=== PATIENT | female | born 1990 | race Caucasian/White ===

== ENCOUNTER 2024-02-24 14:03 | Outpatient (OUT) | payer BC, MEDICAID, SELFPAY ==
--- NOTE | 2024-02-24 14:16 | US_ITS ---
[address] [address] Patient Name: SIDDHARTHA BENITO MRN: [id number] date: 1990 Sex: F Assigned Patient Location: US Current Patient Location: US Accession/Order Number: [id number] Exam Date: 02/24/2024 14:17 Report Date: 02/24/2024 14:55 At the request of: SOLEDAD PEGUERO Procedure: US OB transvaginal EXAMINATION: US OB transvaginal HISTORY: Missed Menses COMPARISON: No relevant comparison available. FINDINGS: Transvaginal images Cuenca intrauterine gestation Gestational sac: 3.5 cm, 8 weeks 5 days CRL: 3.9 cm, 10 weeks 1 day Yolk sac: 4.4 mm Heart rate: 173 beats minute Cervix: Closed, 3.6 cm The uterus is normal, anteverted The right ovary is not visualized Left ovary is normal Clinical age: 10 weeks 2 days Clinical BELLE: 09/19/2024 Ultrasound age: 10 weeks 1 day Ultrasound BELLE: 09/20/2024 US/US OB transvaginal IMPRESSION: Viable cuenca intrauterine gestation measuring 10 weeks 1 day Electronically authenticated by: RAISSA BLAKE Date: 02/24/2024 14:55
== END 2024-02-24 14:04 | disposition home or self-care (01) ==
PROVIDERS: Visit Provider Obstetrics & Gynecology
DX: Z34.91 Encounter for supervision of normal pregnancy, unspecified, first trimester (principal); Z3A.10 10 weeks gestation of pregnancy; N92.6 Irregular menstruation, unspecified
CPT/HCPCS: 76817

== ENCOUNTER 2024-03-15 11:33 | Outpatient (OUT) | payer BC, OTHER, SELFPAY ==
[2024-03-15 11:54] LABS: Basophils Absolute Auto 0.1 10^3/uL (0.0-0.1); Basophils Percent Auto 0.5 % (0.2-2.0); Eosinophils Absolute Auto 0.1 10^3/uL (0.0-0.7); Eosinophils Percent Auto 0.6 % (0.9-7.0); Hematocrit 38.4 % (36.0-48.0); Hemoglobin 13.4 g/dL (12.0-16.0); Immature Granulocytes Abs Auto 0.02 10^3/uL (0.00-0.03); Immature Granulocytes Pct Auto 0.2 % (0.0-0.5); Lymphocytes Absolute Auto 1.8 10^3/uL (1.2-3.8); Lymphocytes Percent Auto 16.1 % (20.5-60.0); Mean Corpuscular HGB Conc 34.9 g/dL (29.9-35.2); Mean Corpuscular Hemoglobin 31.2 pg (26.7-34.0); Mean Corpuscular Volume 89.5 fL (81.0-99.0); Mean Platelet Volume 9.1 fL (9.5-13.5); Monocytes Absolute Auto 0.5 10^3/uL (0.3-0.8); Monocytes Percent Auto 4.2 % (1.7-12.0); Neutrophils Absolute Auto 8.7 10^3/uL (1.4-6.5); Neutrophils Percent Auto 78.4 % (43.0-75.0); Platelet Count 291 10^3/uL (150-450); Red Blood Count 4.29 10^6/uL (4.20-5.40); Red Cell Distribution Width 12.7 % (11.0-15.0); White Blood Count 11.1 10^3/uL (4.0-11.0)
[2024-03-15 12:20] LABS: Estimated Average Glucose 108 mg/dL
[2024-03-15 12:31] LABS: Glycohemoglobin A1C 5.4 % (4.5-6.2)
[2024-03-15 12:51] LABS: Amphetamine Screen Urine POSITIVE (NEGATIVE); Barbiturates Screen Urine NEGATIVE (NEGATIVE); Benzodiazepines Screen Urine NEGATIVE (NEGATIVE); Buprenorphine Screen Urine POSITIVE (NEGATIVE); Cannabinoid Screen Urine NEGATIVE (NEGATIVE); Cocaine Screen Urine NEGATIVE (NEGATIVE); Methadone Screen Urine NEGATIVE (NEGATIVE); Methamphetamines Screen Urine NEGATIVE (NEGATIVE); Opiate Screen Urine NEGATIVE (NEGATIVE); Oxycodone Screen Urine NEGATIVE (NEGATIVE); Phencyclidine Screen Urine NEGATIVE (NEGATIVE); Tricyclic Antidepressant Urine NEGATIVE (NEGATIVE)
[2024-03-16 06:08] LABS: HBsAg Screen Negative (Negative); HCV Ab Non Reactive (Non Reactive)
[2024-03-16 07:09] LABS: HIV Ab/p24 Ag Screen Non Reactive (Non Reactive)
[2024-03-16 13:09] LABS: Rapid Plasma Reagin, Quant Non Reactive titer (NonRea<1:1)
[2024-03-20 13:07] LABS: Amphetamine Positive (.); Amphetamine Conf, MS, UR 1394 ng/mL (Cutoff=500); Amphetamines Positive (.); Buprenorphine Positive (.); Buprenorphine Conf, MS, UR 439 ng/mL (Cutoff=10); Methamphetamine Negative (Cutoff=500); Norbuprenorphine Positive (.); Norbuprenorphine Conf, MS,UR >2000 ng/mL (Cutoff=10)
== END 2024-03-15 11:34 | disposition home or self-care (01) ==
LOC: LAB 11:35
PROVIDERS: Visit Provider Obstetrics & Gynecology
DX: Z34.01 Encounter for supervision of normal first pregnancy, first trimester (principal); N92.6 Irregular menstruation, unspecified
CPT/HCPCS: 36415; 80299; 80307; 80326; 83036; 85025; 86592; 86762; 86803; 86850; 86900; 86901; 87086; 87340; 87389

== ENCOUNTER 2024-04-03 18:04 | Emergency (ER) | payer BC, OTHER, SELFPAY ==
[2024-04-03 18:13] VITALS: BP 96/70; PULSE 95; TEMP 36.7; O2SAT 98; BMI 20.6
[2024-04-03 18:52] LABS: Influenza Virus A Antigen Negative; Influenza Virus B Antigen Negative; Internal Control Within Normal Limits; Respiratory Syncytial Virus Not Detected (NOT DETECTE); SARS-CoV-2 Ag NEGATIVE (NEGATIVE)
--- NOTE | 2024-04-03 20:35 | ED.FEVER1 ---
HPI - Fever General Chief Complaint: Fever Stated Complaint: fever, 16 weeks Time Seen by Provider: 04/03/24 20:10 Source: patient Mode of arrival: walk-in Limitations: no limitations History of Present Illness HPI Narrative: Patient is a 33-year-old female who presents to the emergency department for fever, cough, congestion for the last 4 to 5 days. She is 16 weeks , she called her [facility]PER[facility] office and was told by the nurse that she needed to come to the emergency department to be checked out . She states her significant other and all of their children at home all have the same symptoms. She has had no vomiting or diarrhea. No concerns. She reports temperatures as high as 102.0 Fahrenheit. Related Data Home Medications ?Medication ?Instructions ?Recorded ?Confirmed buprenorphine 8 mg-naloxone 2 mg 1 tab sublingual DAILY 04/03/24 04/03/24 sublingual tablet omeprazole 20 mg capsule,delayed 20 mg PO DAILY 04/03/24 04/03/24 release vit no.95-ferrous 1 tab PO DAILY 04/03/24 04/03/24 fumarate 28 mg-folic acid 800 mcg tablet () Previous Rx's ?Medication ?Instructions ?Recorded cefdinir 300 mg capsule 300 mg PO BID 10 days #20 caps 04/03/24 ondansetron 4 mg disintegrating 4 mg PO Q6H PRN nausea and 04/03/24 tablet vomiting #12 tabs Allergies Allergy/AdvReac Type Severity Reaction Status Date / Time Penicillins AdvReac Mild Hives Verified 04/03/24 18:12 Review of Systems ROS Constitutional Reports: fever and chills Ears, nose, mouth, and throat Reports: nasal congestion; Denies: throat pain Cardiovascular Denies: chest pain Respiratory Reports: cough; Denies: shortness of breath Gastrointestinal Denies: nausea, vomiting or diarrhea Musculoskeletal Denies: back pain Integumentary/Breast Denies: rash Neurological Denies: numbness in extremities or weakness in extremities Hematologic/Lymphatic Denies: easy bruising or easy bleeding Exam Narrative Exam Narrative: Gen.: Awake, alert, in no distress Head: Normocephalic, atraumatic ENT: Moist mucous membranes, bilateral TMs are clear, no pharyngeal erythema with uvula midline and airway widely open and patent. Respiratory: No respiratory distress, lungs clear bilaterally Cardio: Regular rate and rhythm Extremities: Moves extremities equally Psych: Normal mood and affect Neuro: No focal neuro deficit Skin: Warm, dry, intact Constitutional Vital Signs, click to edit/add: Last Vital Signs Temp 98.1 F 04/03/24 18:13 Pulse 95 H 04/03/24 18:13 Resp 18 04/03/24 18:13 BP 96/70 04/03/24 18:13 Pulse Ox 98 04/03/24 18:13 O2 Del Method Room Air 04/03/24 18:13 Course Vital Signs Vital signs: Vital Signs Temperature 98.1 F 04/03/24 18:13 Pulse Rate 95 H 04/03/24 18:13 Respiratory Rate 18 04/03/24 18:13 Blood Pressure 96/70 04/03/24 18:13 Pulse Oximetry 98 04/03/24 18:13 Oxygen Delivery Method Room Air 04/03/24 18:13 Temperature 98.1 F 04/03/24 18:13 Pulse Rate 95 H 04/03/24 18:13 Respiratory Rate 18 04/03/24 18:13 Blood Pressure 96/70 04/03/24 18:13 Pulse Oximetry 98 04/03/24 18:13 Oxygen Delivery Method Room Air 04/03/24 18:13 MDM - Fever MDM Narrative Medical decision making narrative: Patient is negative for COVID and flu. Neg for RSV. She is hemodynamically stable, treated based on symptoms and with cefdinir for antibiotic coverage, however her symptoms and history suggest she has a virus. Cefdinir and Zofran given for home, follow-up with PCP and return to the ER if symptoms change or worsen. Continue Tylenol for fever as needed SUPERVISED APC VISIT, PHYSICIAN ATTESTATION: Based on the medical record the care appears appropriate. ? Medical Records Attestation: I reviewed the patient's medical records. Lab Data Attestation: I reviewed the patient's lab results. Labs: Lab Results 04/03/24 Range/Units 18:22 Influenza Type A Ag Negative Influenza Type B Ag Negative RSV Antigen Not detected (NOT DETECTE) SARS-CoV-2 Ag (CV2AG) Negative (NEGATIVE) Discharge Plan Discharge Chief Complaint: Fever Clinical Impression: Upper respiratory infection Patient Disposition: Home, Self-Care Time of Disposition Decision: 20:34 Condition: Good Prescriptions / Home Meds: New ondansetron 4 mg tablet,disintegrating 4 mg PO Q6H PRN (Reason: nausea and vomiting) Qty: 12 0RF cefdinir 300 mg capsule 300 mg PO BID 10 Days Qty: 20 0RF No Action buprenorphine-naloxone 8-2 mg tablet, sublingual 1 tab SUBLINGUAL DAILY PNV cmb#95-ferrous fumarate-FA [] 28 mg iron- 800 mcg tablet 1 tab PO DAILY omeprazole 20 mg capsule,delayed release(DR/EC) 20 mg PO DAILY Print Language: South Korean Instructions: Upper Respiratory Infection (ED) Referrals: Physician,Non-Staff, MD [Primary Care Provider] - 1 week Discharge Date/Time: 04/03/24 21:08
[2024-04-03] MEDS: CEFDINIR 300 MG CAPSULE PO (21:02)
== END 2024-04-03 21:08 | disposition home or self-care (01) ==
PROVIDERS: Physician Assistant; Emergency Provider Emergency Medicine
DX: O99.512 Diseases of the respiratory system complicating pregnancy, second trimester (principal); Z3A.16 16 weeks gestation of pregnancy; J06.9 Acute upper respiratory infection, unspecified
CPT/HCPCS: 87420; 87804; 87811; 99285

== ENCOUNTER 2024-04-11 12:07 | Outpatient (OUT) | payer BC, OTHER, SELFPAY ==
--- NOTE | 2024-04-11 12:11 | US_ITS ---
The [address] [address] Patient Name: SIDDHARTHA BENITO MRN: [id number] date: 1990 Sex: F Assigned Patient Location: Current Patient Location: LAB Accession/Order Number: [id number] Exam Date: 04/11/2024 15:39 Report Date: 04/11/2024 15:44 At the request of: SOLEDAD PEGUERO DO Procedure: US OB placenta CLINICAL DATA: patient with fever and abdominal pain. ULTRASOUND OB PLACENTA COMPARISON: 02/14/2024 There is a single live intrauterine gestation in transverse presentation. The amniotic fluid volume is subjectively normal. There is an anterior low lying placenta extending to approximately 2.6 cm from the internal cervical os. cardiac and somatic activity are present with heart rate of 144 bpm. measurements were not obtained however the gestational age is reported to be 17 weeks 0 days. US/US OB placenta IMPRESSION: LOW-LYING PLACENTA. ULTRASOUND OB CERVICAL LENGTH COMPARISON: 02/24/2024 The cervix was evaluated using a transvaginal probe. The cervix is closed and the estimated length is 5.9 cm. IMPRESSION: UNREMARKABLE APPEARANCE OF THE CERVIX. Impression dictated by: Lee Ann Perez M.D.04/11/2024 3:44 PM Dictation Location: [facility] Electronically authenticated by: [id number] Y Date: 04/11/2024 15:44
--- NOTE | 2024-04-11 12:11 | US_ITS ---
The [address] [address] Patient Name: SIDDHARTHA BENITO MRN: [id number] date: 1990 Sex: F Assigned Patient Location: Current Patient Location: LAB Accession/Order Number: [id number] Exam Date: 04/11/2024 15:39 Report Date: 04/11/2024 15:44 At the request of: SOLEDAD PEGUERO DO Procedure: US OB placenta CLINICAL DATA: patient with fever and abdominal pain. ULTRASOUND OB PLACENTA COMPARISON: 02/14/2024 There is a single live intrauterine gestation in transverse presentation. The amniotic fluid volume is subjectively normal. There is an anterior low lying placenta extending to approximately 2.6 cm from the internal cervical os. cardiac and somatic activity are present with heart rate of 144 bpm. measurements were not obtained however the gestational age is reported to be 17 weeks 0 days. US/US OB cervical length IMPRESSION: LOW-LYING PLACENTA. ULTRASOUND OB CERVICAL LENGTH COMPARISON: 02/24/2024 The cervix was evaluated using a transvaginal probe. The cervix is closed and the estimated length is 5.9 cm. IMPRESSION: UNREMARKABLE APPEARANCE OF THE CERVIX. Impression dictated by: Lee Ann Perez M.D.04/11/2024 3:44 PM Dictation [facility] Electron[facility] authenticated by: [id number] Y Date: 04/11/2024 15:44
== END 2024-04-11 12:08 | disposition home or self-care (01) ==
LOC: US 12:07
PROVIDERS: Visit Provider Obstetrics & Gynecology
DX: O26.899 Other specified pregnancy related conditions, unspecified trimester (principal); R10.9 Unspecified abdominal pain; Z01.419 Encounter for gynecological examination (general) (routine) without abnormal findings; Z36.1 Encounter for antenatal screening for raised alphafetoprotein level; O44.40 Low lying placenta NOS or without hemorrhage, unspecified trimester; Z3A.00 Weeks of gestation of pregnancy not specified
CPT/HCPCS: 36415; 76815; 76817; 82105; 88175

== ENCOUNTER 2024-04-11 14:34 | Outpatient (OUT) | payer BC, OTHER, SELFPAY ==
[2024-04-13 00:07] LABS: AFP Value 77.1 ng/mL (.); Insulin Dep Diabetes No (.); Maternal Age At EDD 32.4 yr (.); OSBR Risk 1 IN 1341 (.); Results Report (.)
== END 2024-04-11 14:35 | disposition home or self-care (01) ==
LOC: LAB 14:35
PROVIDERS: Visit Provider Physician Assistant
DX: Z36.1 Encounter for antenatal screening for raised alphafetoprotein level (principal); Z34.92 Encounter for supervision of normal pregnancy, unspecified, second trimester
CPT/HCPCS: 36415; 82105

== ENCOUNTER 2024-04-11 14:49 | Outpatient (OUT) | payer BC, OTHER, SELFPAY ==
[2024-04-11 15:08] LABS: BOX Test Reference Lab UNITY; BOX Test Sent Out UNITY
== END 2024-04-11 14:50 | disposition home or self-care (01) ==
PROVIDERS: Visit Provider Obstetrics & Gynecology
DX: Z34.80 Encounter for supervision of other normal pregnancy, unspecified trimester (principal)
CPT/HCPCS: 36415

== ENCOUNTER 2024-04-11 18:33 | Outpatient (REF) | payer BC, OTHER, SELFPAY | END 2024-04-11 18:34 | disposition home or self-care (01) | LOC: LAB 18:33 | PROVIDERS: Visit Provider Physician Assistant | DX: Z01.419 Encounter for gynecological examination (general) (routine) without abnormal findings (principal) | CPT/HCPCS: 36415; 82105; 87624; 88175 ==

== ENCOUNTER 2024-07-29 13:09 | Outpatient (OUT) | payer BC, OTHER, SELFPAY ==
--- NOTE | 2024-07-29 13:13 | US_ITS ---
The [place] [id number] Patient Name: SIDDHARTHA BENITO MRN: [facility]:[id number] date: 1990 Sex: F Assigned Patient Location: [facility] Current Patient Location: Accession/Order Number: [id number] Exam Date: 07/31/2024 07:58 Report Date: 07/31/2024 08:00 At the request of: SOLEDAD PEGUERO DO Procedure: US OB BPP w non-stress BIOPHYSICAL PROFILE: CLINICAL INFORMATION: SGA P05.10 COMPARISON: 02/24/2024 There is a single live intrauterine gestation in cephalic presentation. The reported gestational age is 32 weeks 4 days. The heart rate measures 145 beats per minute. FINDINGS: TONE: 1 or more episodes of activity extension and flexion of extremity or opening and closing of the hand [Y] 2/2 GROSS BODY MOVEMENTS: 3 or more discrete body or limb movements [Y] 2/2 BREATHING MOVEMENTS: 1 or more episodes of breathing lasting at least 30 seconds [Y] 2/2 KRIS: A single deepest vertical pocket of amniotic fluid greater than 2 cm [Y] 2/2 KRIS: 12.6 cm. This is in low-normal range. Total score: 8/8 US/ OB BPP w non-stress IMPRESSION: NORMAL BIOPHYSICAL PROFILE Impression dictated by: Lee Ann Perez M.D. 07/31/2024 8:00 AM Dictation Location: [place] [address] Electronically authenticated by: [id number] Y Date: 07/31/2024 08:00
[2024-07-29 13:36] VITALS: BP 111/56; PULSE 93
== END 2024-07-29 14:20 | disposition home or self-care (01) ==
LOC: US 13:09 → FBC 13:12
PROVIDERS: Visit Provider Obstetrics & Gynecology
DX: O36.5930 Maternal care for other known or suspected poor fetal growth, third trimester, not applicable or unspecified (principal)
CPT/HCPCS: 76818

== ENCOUNTER 2024-08-03 16:48 | Outpatient (OUT) | payer BC, OTHER, SELFPAY ==
--- NOTE | 2024-08-03 17:01 | US_ITS ---
[facility] [place] [address] Patient Name: SIDDHARTHA BENITO MRN: [facility]:[id number] date: 1990 Sex: F Assigned Patient Location: [facility] Current Patient Location: Accession/Order Number: [id number] Exam Date: 08/04/2024 08:21 Report Date: 08/04/2024 08:23 At the request of: SOLEDAD PEGUERO DO Procedure: US OB BPP w non-stress : CLINICAL INFORMATION: SGA P05.10 COMPARISON: 07/29/2024 There is a single live intrauterine gestation in cephalic presentation. The reported gestational age is 33 weeks 2 days. The heart rate measures 144 beats per minute. FINDINGS: TONE: 1 or more episodes of activity extension and flexion of extremity or opening and closing of the hand [Y] 2/2 GROSS BODY MOVEMENTS: 3 or more discrete body or limb movements [Y] 2/2 BREATHING MOVEMENTS: 1 or more episodes of breathing lasting at least 30 seconds [Y] 2/2 KRIS: A single deepest vertical pocket of amniotic fluid greater than 2 cm [Y] 2/2 KRIS: 12.2 cm. This is in low-normal range. Total score: 8/8 US/US OB BPP w non-stress IMPRESSION: NORMAL BIOPHYSICAL PROFILE Impression dictated by: Lee Ann Perez M.D. 08/04/2024 8:23 AM Dictation Location: [place] [address] Electronically authenticated by: [id number] Y Date: 08/04/2024 08:23
[2024-08-03 17:26] VITALS: BP 107/60; PULSE 86
== END 2024-08-03 18:13 | disposition home or self-care (01) ==
LOC: US 16:48 → FBC 16:51
PROVIDERS: Visit Provider Obstetrics & Gynecology
DX: O26.843 Uterine size-date discrepancy, third trimester (principal); Z3A.33 33 weeks gestation of pregnancy
CPT/HCPCS: 76818

== ENCOUNTER 2024-08-09 20:05 | Outpatient (OUT) | payer BC, OTHER, SELFPAY ==
--- OUTSIDE RECORDS SUMMARY | 2024-08-03 14:00 | XMS_ITS | Encounter Summary ---
Author Organization [facility] Address [address] [place] [address] Care Team Providers Care Purification Operator Name Role Phone Eh Valdez DO Unavailable Encounter Details Date Type Department Care Team (Latest Contact Info) Description 08/03/2024 2:00 PM EDT Ancillary Procedure [facility] [address] [place] [address] SGA (small for gestational age) ([facility]); Short cervix, antepartum ([facility]) Social History Tobacco Use Types Packs/Day Years Used Date Smoking Tobacco: Never Assessed Estimated Date of Delivery Comme nts Yes 09/19/2024 Based on last me nstrual period of 12/14/2023 Sex and Gender Information Value Date Recorded Sex Assigned at Female 08/05/2022 3:13 PM EDT Legal Sex Female 6:46 PM EDT Gender Identity Female 08/05/2022 3:13 PM EDT Sexual Orientation Straight 08/05/2022 3: 13 PM EDT documented as of this encounter Plan of Treatment Upcoming Encounters Date Type Department Care Team (Late st Contact Info) Description 08/22/2024 2:10 PM EDT Routine [facility] [address] [facility] [place] [address] Eh Valdez DO [address] [place], [place] [id number] Pending Results Name Type Priority Associated Diagnoses Date /Time US OB transvaginal Imaging Routine Short cervix, antepartum ([facility]) 08/03/2024 2:50 PM EDT documented as of this encounter Goals Goal Patient Goal Type Associated Problems Recent Progress Patient-Stated? Author Reminders Care Plan OB Reminders No Open Scheduling, Background documented as of this encounter Procedures Procedure Name Priority Date/Time Associated Diagnosis Comments US OB FOLLOW UP TRANSABDOMINAL APPROACH Routine 08/03/2024 2:50 PM EDT SGA (small for gestational age) ([facility]) documented in this encounter Results * US OB follow up transabdominal approach (08/03/2024 2:50 PM EDT) Anatomical Region Laterality Modality Body Ultrasound 08/06/2024 10:0 5 PM EDT Narrative 08/06/2024 10:05 PM EDT EXAM: US OB FOLLOW UP TRANSABDOMINAL APPROACH HISTORY: Small for gestational age, shortened cervix. COMPARISON: Ob ultrasound 07/25/2024. TECHNIQUE: Two-dimensional transabdominal grayscale ultrasound imaging of the pelvis was performed. FINDINGS: Gestation: Single Presentation: Cephalic Cardiac Activity: 144 beats per minute Cervical Length: 2.1 cm - Funneling was noted by performing bioinformatics research technician but not well demonstrated on the provided images. Amniotic Fluid Index: 13.8 cm MEASUREMENTS: BPD: 8.5 cm EGA: 34 weeks 4 days HC: 30.8 cm EGA: 34 weeks 3 days AC: 27.0 cm EGA: 31 weeks 0 days FL: 5.7 cm EGA: 29 weeks 6 days HC/AC Ratio: 1.14 The gestational age by today's ultrasound is 32 weeks 2 days (+/- 16 days gestation). Estimated Weight: 1721 grams, +/- 258 grams ( 3 lb 13 oz). Weight Percentile for gestational age: 4 % IMPRESSION: 1. Single, live intrauterine gestation 33 weeks, 2 days by LMP. Today's ultrasound measurements correlate with a gestational age of 32 weeks 2 days. Estimated weight is 1721 grams, +/- 258 grams ( 3 lb 13 oz) which correlates to 4 %. BELLE by today's ultrasound is 09/26/2024. 2. growth is measuring small for gestational age. 3. Shortened cervical length. Cervical funneling was noted by the performing bioinformatics research technician but not well demonstrated on the provided images. The ordering physician was notified. Interpreted by: Electronically signed by RISA AYALA II, MD, PHD at 06-Aug-2024 10:03:36 PM [facility] Procedure Note Risa Ayala MD - 08/06/2024 EXAM: US OB FOLLOW UP TRANSABDOMINAL APPROACH HISTORY: Small for gestational age, shortened cervix. COMPARISON: Ob ultrasound 07/25/2024. TECHNIQUE: Two-dimensional transabdominal grayscale ultrasound imaging ofthe pelvis was performed. FINDINGS: Gestation: Single Presentation: Cephalic Cardiac Activity: 144 beats per minute Cervical Length: 2.1 cm - Funneling was noted by performing technicianbut not well demonstrated on the provided images. Amniotic Fluid Index: 13.8 cm MEASUREMENTS: BPD: 8.5 cm EGA: 34 weeks 4 days HC: 30.8 cm EGA: 34 weeks 3 days AC: 27.0 cm EGA: 31 weeks 0 days FL: 5.7 cm EGA: 29 weeks 6 days HC/AC Ratio: 1.14 The gestational age by today's ultrasound is 32 weeks 2 days (+/- 16 daysgestation). Estimated Weight: 1721 grams, +/- 258 grams ( 3 lb 13 oz). Weight Percentile for gestational age: 4 % IMPRESSION: 1. Single, live intrauterine gestation 33 weeks, 2 days by LMP. Today'sultrasound measurements correlate with a gestational age of 32 weeks 2days. Estimated weight is 1721 grams, +/- 258 grams ( 3 lb 13 oz)which correlates to 4 %. BELLE by today's ultrasound is 09/26/2024. 2. growth is measuring small for gestational age. 3. Shortened cervical length. Cervical funneling was noted by theperforming bioinformatics research technician but not well demonstrated on the provided images.The ordering physician was notified. Interpreted by: Electronically signed by RISA AYALA II, MD, PHD [id number] 10:03:36 PM [facility] us Eh José Miguel DO IM OB US PROCEDURES Final Resul t documented in this encounter Visit Diagnoses Diagnosis SGA (small for gestational age) ([facility]) [id number] without mention of malnutrition, unspecified (weight) Short cervix, antepartum ([facility]) documented in this encounter Additional Health Concerns Active Problems Noted Date Diagnosed Date OB Reminders 03/25/2024 documented as of this encounter Care Teams Purification Operator Relationship Specialty Start Date End Date Eh aVldez DO [address] [place] [address] PCP - [facility] 11/09/23 documented as of this encounter
--- OUTSIDE RECORDS SUMMARY | 2024-08-03 14:50 | XMS_ITS | Encounter Summary ---
Author Organization [facility] Address [address] [place] [address] Care Team Providers Care Automatic Drilling Machine Operator Name Role Phone Eh Valdez DO Unavailable Reason for Visit * Reason Comments Routine Visit Encounter Details Date Type Department Care Team ([facility] st Contact Info) Description 08/03/2024 2:50 PM EDT Routine [facility] OB [address] [place] [address] Paola Bansal PA [address] [facility] [address] [place], [place] [id number] Third trimester ([facility]) (Primary Dx); 33 weeks gestation of ([facility]); Short cervix, antepartum ([facility]) Social History Tobacco Use Types Packs/Day Years [...] PM EDT documented as of this encounter Last Filed Vital Signs Vital Sign Reading Time Taken Comments Blood Pressure 104/60 08/03/2024 3:11 PM EDT Pulse - - Temperature - - Respiratory Rate - - Oxygen Saturation - - Inhaled Oxygen Concentration - - Weight 59.4 kg (131 lb) 08/03/2024 3:11 PM EDT Height - - Body Mass Index 22.49 09/21/2022 2:53 PM EDT documented in this encounter Progress Notes * DENIS Naranjo - 08/03/2024 2:50 PM EDT Reason for Appointment: Patient ID: Michelle Goode is a 34 y.o. female who presents for No chief complaint on file. Patient presents today for Return OB appointment. MEDICATIONS Current Outpatient Medications Medication Instructions buprenorphine (SUBTEX) 4 mg, Sublingual, Daily RT buprenorphine-naloxone (Suboxone) 4-1 MG per sublingual film DISSOLVE 1 FILM UNDER TONGUE ONCE A DAY cefdinir (OMNICEF) 300 mg, 2 times daily folic acid (FOLVITE) 1,000 mcg, Daily Lisdexamfetamine Dimesylate 40 MG chewable tablet CHEW ONE-HALF OF a tablet BY MOUTH TWICE DAILY (IN THE MORNING and IN THE AFTERNOON) Mkhynggc-Quh-OM ([facility]) 0.4 MG chewable tablet 1 tablet, Oral, Daily ALLERGIES Allergies Allergen Reactions Penicillins Hives, Fever, Itching, Rash, Swelling and Wheezing PROBLEMS Active Ambulatory Problems Diagnosis Date Noted GERD (gastroesophageal reflux disease) 08/09/2007 Exacerbation of asthma ([facility]) 08/09/2007 Attention deficit hyperactivity disorder 08/09/2007 Allergic rhinitis 08/09/2007 Substance abuse ([facility]) 09/15/2022 Resolved Ambulatory Problems Diagnosis Date Noted No Resolved Ambulatory Problems Past Medical History: Diagnosis Date Allergies Anxiety Asthma ([facility]) Bee sting Miscarriage ([facility]) Pelvic pain 2010 Syncope Thoracic sprain HISTORY PAST MEDICAL HISTORY SOCIAL HISTORY Past Medical History: Diagnosis Date Allergies Anxiety Asthma ([facility]) Bee sting right ring finger Miscarriage ([facility]) 8-9 weeks Pelvic pain 2011 Syncope Thoracic sprain Social History Tobacco Use Smoking status: Not on file Smokeless tobacco: Not on file Substance Use Topics Alcohol use: Not on file Drug use: Yes Frequency: 1.0 times per week Types: Other Comment: suboxone FAMILY HISTORY Family History Problem Relation Name Age of Onset Asthma Mother Allergies Mother No Known Problems Father No Known Problems Sister Asthma Brother SURGICAL HISTORY Past Surgical History: Procedure Laterality Date OTHER SURGICAL HISTORY 2009 VICODIN & FLEXERIL- VICODIN & FLEXERIL OTHER SURGICAL HISTORY 2012 VICODIN 5/500MG #10;Disease:THORACIC SPRAIN PELVIC LAPAROSCOPY REVIEW OF SYSTEMS Review of Systems: Review of Systems Constitutional: Negative. HENT: Negative. Eyes: Negative. Respiratory: Negative. Cardiovascular: Negative. Gastrointestinal: Negative. Genitourinary: Negative. Musculoskeletal: Negative. Skin: Negative. Neurological: Negative. All other systems reviewed and are negative. Hematological: Negative. Endocrine: Negative. Allergic/Immunologic: Negative. OBJECTIVE Objective: Physical Exam Constitutional: Appearance: Normal appearance. She is normal weight. HENT: Head: Normocephalic. Cardiovascular: Rate and Rhythm: Normal rate. Pulses: Normal pulses. Pulmonary: Effort: Pulmonary effort is normal. Breath sounds: Normal breath sounds. Abdominal: Palpations: Abdomen is soft. Musculoskeletal: General: Normal range of motion. Neurological: General: No focal deficit present. Mental Status: She is alert and oriented to person, place, and time. Psychiatric: Mood and Affect: Mood normal. Behavior: Behavior normal. Thought Content: Thought content normal. Judgment: Judgment normal. Vitals and nursing note reviewed. Vitals: Estimated body mass index is 21.89 kg/m² as calculated from the following: Height as of 09/21/22: 5' 4 . Weight as of 07/25/24: 127 lb 8 oz. BP: Patient's last menstrual period was 12/14/2023. ASSESSMENT & PLAN ICD-10-CM 1. Third trimester ([facility]) Z34.93 2. 33 weeks gestation of ([facility]) Z3A.33 Return OB: Patient presents today for a routine obstetrics appointment. Patient is currently 33w2d . Patient states she is doing well but has complaints of being tired due to current . Patient has verbalizes frequent movement. labor precautions was discussed/given and patient was instructed to perform kick counts three times a day. Repeat cervical length performed today showed decrease in size from 2.6 to 2.1. per discussion withDr Valdez, celestone will be sent for prior auth . Doppler studies will be added to NST weekly. Pt is scheduled for nst tomorrow 08/03/24. Discussion of returning to [facility] had been made previously and pt has not yet followed up with them. Patient has been educated on importance of following with [facility]. Risks of IUGR with shortened cervix discussed including labor and demise. Patient will continue with nst and bpp and doppler studies, follow up in office in 2 weeks. Orders Placed This Encounter Procedures US OB transvaginal Follow Up: Patient is to return to office in 2 week for routine OB appointment. Documented by DENIS Naranjo on behalf of: DENIS Naranjo documented in this encounter Plan of Treatment Upcoming Encounters Date Type Department Care Team (Late st Contact Info) Description 08/22/2024 2:10 PM EDT Routine [facility] B[facility] OB [address] [place] [address] Eh Valdez DO [address] [place] [address] Scheduled Orders Name Type Priority Associated Diagnoses Orde r Schedule US OB transvaginal Imaging Routine Short cervix, antepartum ([facility]) Expected: 08/03/2024, Expires: 11/03/2024 documented as of this encounter Goals Goal Patient Goal Type Associated Problems Recent Progress Patient-Stated? Author Reminders Care Plan OB Reminders No Open Scheduling, Background documented as of this encounter Visit Diagnoses Diagnosis Third trimester ([facility])- Primary state, incidental 33 weeks gestation of ([facility]) Short cervix, antepartum ([facility]) documented in this encounter Additional Health Concerns Active Problems Noted Date Diagnosed Date OB Reminders 03/25/2024 documented as of this encounter Care Teams Automatic Drilling Machine Operator Relationship Specialty Start Date [place] [address] PCP - [facility] 11/09/23 documented as of this encounter
--- OUTSIDE RECORDS SUMMARY | 2024-08-09 20:07 | XMS_ITS | Encounter Summary ---
Author Organization [facility] Address [address] [place] [address] Care Team Providers Care Special Weapons Unit Officer Name Role Phone Eh Valdez DO Unavailable Encounter Details Date Type Department Care Team (Late st Contact Info) Description 03/21/2024 Abstract [facility] OB [address] [place] [address] Eh Valdez DO [address] [place], [place] [address] Social History Tobacco Use Types Packs/Day Years [...] Description 08/22/2024 2:10 PM EDT Routine [facility] OB [address] [place] [address] Eh Valdez DO [address] [place], [facility] documented as of this encounter Visit Diagnoses Not on filedocumented in this encounter Care Teams Special Weapons Unit Officer Relationship Specialty Start Date End Date Eh Valdez DO [address] [place] [address] PCP - [facility] 11/09/23 documented as of this encounter
--- OUTSIDE RECORDS SUMMARY | 2024-08-09 20:07 | XMS_ITS | Encounter Summary ---
Author Organization [facility] Address [address] [place] [address] Care Team Providers Care Supermarket Manager Name Role Phone Eh Valdez DO Unavailable Encounter Details Date Type Department Care Team (Late st Contact Info) Description 07/27/2024 Telephone [facility] B[facility] OB [address] [place] [address] Zeinab Ramirez LPN [address] [place] [address] Social History Tobacco Use Types Packs/Day Years [...] PM EDT documented as of this encounter Miscellaneous Notes * Telephone Encounter - Zeinab Ramirez LPN - 07/27/2024 10:40 AM EDT Called pt and went over her US that she had done. I advised her that we will repeat her US in two weeks, that she needed to refrain from intercourse or any stimulation down there and that if it dropsany lower that she will have to get the Celestone injection as a precautionary measure. Pt did not asnwer. Detailed voicemail left for pt to call office back. Pt called back and we went over results and what the plan of care is. PVU documented in this encounter Plan of Treatment Upcoming Encounters Date Type Department Care Team (Late st Contact Info) Description 08/22/2024 2:10 PM EDT Routine [facility] B[facility] OB [address] [place] [address] Eh Valdez DO [address] [place] [address] Scheduled Orders Name Type Priority Associated Diagnoses Orde r Schedule US OB transvaginal Imaging Routine Short cervix, antepartum ([facility]) Expected: 07/27/2024, Expires: 10/27/2024 documented as of this encounter Goals Goal Patient Goal Type Associated Problems Recent Progress Patient-Stated? Author Reminders Care Plan OB Reminders No Open Scheduling, Background documented as of this encounter Visit Diagnoses Diagnosis Short cervix, antepartum ([facility]) documented in this encounter Additional Health Concerns Active Problems Noted Date Diagnosed Date OB Reminders 03/25/2024 documented as of this encounter Care Teams Supermarket Manager Relationship Specialty Start Date End Date Eh Valdez DO [facility] [place] [address] PCP - [facility] 11/09/23 documented as of this encounter
--- OUTSIDE RECORDS SUMMARY | 2024-08-09 20:07 | XMS_ITS | Encounter Summary ---
Author Organization [facility] Address [address] [place] [address] Care Team Providers Care Camp Guard Name Role Phone Eh Valdez DO Unavailable Encounter Details Date Type Department Care Team (Late st Contact Info) Description 07/27/2024 Results Follow-Up [facility] OB [address] [address] Zeinab Ramirez LPN [address] [place] [address] Social History Tobacco Use Types [...] as of this encounter Miscellaneous Notes * Result Encounter Note - Zeinab Ramirez LPN - 07/27/2024 2:33 PM EDT Pt notified and was transferred upfront to schedule * Result Encounter Note - Zeinab Ramirez LPN - 07/27/2024 10:44 AM EDT Attempted to call pt but she did not answer. Left detailed voicemail for pt to call office back documented in this encounter Plan of Treatment Upcoming Encounters Date Type Department Care Team (Late st Contact Info) Description 08/22/2024 2:10 PM EDT Routine [facility] OB [address] [place] [address] Eh Valdez, [address] [place] [address] documented as of this encounter Goals Goal Patient Goal Type Associated Problems Recent Progress Patient-Stated? Author Reminders Care Plan OB Reminders No Open Scheduling, Background documented as of this encounter Visit Diagnoses Not on filedocumented in this encounter Additional Health Concerns Active Problems Noted Date Diagnosed Date OB Reminders 03/25/2024 documented as of this encounter Care Teams Camp Guard Relationship Specialty Start Date End Date Eh Valdez DO [facility] [place] [address] PCP - [facility] 11/09/23 documented as of this encounter
--- OUTSIDE RECORDS SUMMARY | 2024-08-09 20:07 | XMS_ITS | Encounter Summary ---
Author Organization [facility] Address [address] [place] [address] Care Team Providers Care Environmental Laboratory Technician Name Role Phone Eh Valdez DO Unavailable Encounter Details Date Type Department Care Team (Late st Contact Info) Description 05/04/2024 Abstract [facility] OB [address] [place] [address] Eh Valdez DO [address] [place], [facility] Social History Tobacco Use Types Packs/Day Years [...] Description 08/22/2024 2:10 PM EDT Routine [facility] OB [address] [place] [address] Eh Valdez DO [address] [place], [facility] documented as of this encounter Goals Goal Patient Goal Type Associated Problems Recent Progress Patient-Stated? Author Reminders Care Plan OB Reminders No Open Scheduling, Background documented as of this encounter Visit Diagnoses Not on filedocumented in this encounter Additional Health Concerns Active Problems Noted Date Diagnosed Date OB Reminders 03/25/2024 documented as of this encounter Care Teams Environmental Laboratory Technician Relationship Specialty Start Date End Date Eh Valdez DO [address] [place] [address] PCP - [facility] 11/09/23 documented as of this encounter
--- OUTSIDE RECORDS SUMMARY | 2024-08-09 20:07 | XMS_ITS | Encounter Summary ---
Author Organization [facility] Address [address] [place] [address] Care Team Providers Care Telephone Diaphragm Assembler Name Role Phone Eh Valdez DO Unavailable Encounter Details Date Type Department Care Team (Late Contact Info) Description 04/24/2024 Orders Only [facility] BCP OB [address] [place] [address] Ilda Beaver MA [address] [place] [address] [place] [address] Social History Tobacco Use Types Packs/Day Years [...] PM EDT Routine [facility] B[facility] OB [address] [place] [address] Eh Valdez DO [address] [facility] [address] [place], [place] [id number] documented as of this encounter Goals Goal Patient Goal Type Associated Problems Recent Progress Patient-Stated? Author Reminders Care Plan OB Reminders No Open Scheduling, Background documented as of this encounter Procedures Procedure Name Priority Date/Time Associated Diagnosis Comments PAP SMEAR Routine 04/11/2024 12:00 AM EST documented in this encounter Results * Pap Smear (04/11/2024 12:00 AM EST) Swab Cervical swab / Unknown us [facility] ORDERABLES Final Re sult EXTERNAL LAB documented in this encounter Visit Diagnoses Not on filedocumented in this encounter Additional Health Concerns Active Problems Noted Date Diagnosed Date OB Reminders 03/25/2024 documented as of this encounter Care Teams Telephone Diaphragm Assembler Relationship Specialty Start Date End Date Eh Valdez DO [address] [place], [place] [address] [address] PCP - [facility] 11/09/23 documented as of this encounter
--- OUTSIDE RECORDS SUMMARY | 2024-08-09 20:07 | XMS_ITS | Encounter Summary ---
Author Organization [facility] Address [address] [place] [address] Care Team Providers Care Scale Installer Name Role Phone Soledad Valdez DO Unavailable Encounter Details Date Type Department Care Team (Late Contact Info) Description 02/24/2024 Clinisync Result Encounter [facility] External Department Unsolicited Soledad Valdez, DO [address], [facility] Social [...] Routine [facility] BCP OB [address] [place] [phone] Soledad Valdez DO [address] [place] [address] documented as of this encounter Procedures Procedure Name Priority Date/Time Associated Diagnosis Comments US OB TRANSVAGINAL 02/24/2024 2: 55 PM EST documented in this encounter Results * US OB TRANSVAGINAL (02/24/2024 2:55 PM EST) Anatomical Region Laterality Modality Other 02/24/2024 2:55 PM EST Narrative 02/24/2024 2:57 [place] [address] Ultrasound Report Signed Patient: MICHELLE GOODE MR#: [id number] : 1990 Acct:[id number] Age/Sex: 33 / F ADM Date: 02/24/24 Loc: US Attending Dr: Soledad Valdez D.O. Ordering Physician: Soledda Valdez D.O. Date of Service: 02/24/24 Procedure(s): US OB transvaginal Accession Number(s): [id number] cc: Soledad Valdez D.O.; Physician,Non-Staff M.DYumiko The [place] [id number] Patient Name: MICHELLE GOODE MRN: [id number] date: 1990 Sex: F Assigned Patient Location: US Current Patient Location: US Accession/Order Number: [id number] Exam Date: 02/24/2024 14:17 Report Date: 02/24/2024 14:55 At the request of: SOLEDAD VALDEZ Procedure: US OB transvaginal EXAMINATION: US OB transvaginal HISTORY: Missed Menses COMPARISON: No relevant comparison available. FINDINGS: Transvaginal images Cuenca intrauterine gestation Gestational sac: 3.5 cm, 8 weeks 5 days CRL: 3.9 cm, 10 weeks 1 day Yolk sac: 4.4 mm Heart rate: 173 beats minute Cervix: Closed, 3.6 cm The uterus is normal, anteverted The right ovary is not visualized Left ovary is normal Clinical age: 10 weeks 2 days Clinical BELLE: 09/19/2024 Ultrasound age: 10 weeks 1 day Ultrasound BELLE: 09/20/2024 US/US OB transvaginal IMPRESSION: Viable cuenca intrauterine gestation measuring 10 weeks 1 day Electronically authenticated by: RAISSA BLAKE Date: 02/24/2024 14:55 Dictated By: Raissa Blake M.D. Signed By: 02/24/24 1457 DD/ 54 TD/TT: Train Operator: Procedure Note Radiology, Radiologist, - 02/24/2024 [place] [address] Ultrasound Report Signed Patient: MICHELLE GOODE MMR#: [id number] : 1990Acct:[id number] Age/Sex: 33 / FADM Date: 02/24/24 Loc: US Attending Dr: Soledad Valdez D.O. Ordering Physician: Soledad Valdez D.O. Date of Service: 02/24/24 Procedure(s): US OB transvaginal Accession Number(s): [id number] cc: Soledad Valdez D.O.; Physician,Non-Staff Kofi The [place] [address] Patient Name: MICHELLE GOODE MRN: [id number] date: 1990 Sex: F Assigned Patient Location: US Current Patient Location: US Accession/Order Number: [id number] Exam Date: 02/24/2024 14:17 Report Date: 02/24/2024 14:55 At the request of: SOLEDAD VALDEZ Procedure: US OB transvaginal EXAMINATION: US OB transvaginal HISTORY: Missed Menses COMPARISON: No relevant comparison available. FINDINGS: Transvaginal images Cuenca intrauterine gestation Gestational sac: 3.5 cm, 8 weeks 5 days CRL: 3.9 cm, 10 weeks 1 day Yolk sac: 4.4 mm Heart rate: 173 beats minute Cervix: Closed, 3.6 cm The uterus is normal, anteverted The right ovary is not visualized Left ovary is normal Clinical age: 10 weeks 2 days Clinical BELLE: 09/19/2024 Ultrasound age: 10 weeks 1 day Ultrasound BELLE: 09/20/2024 US/US OB transvaginal IMPRESSION: Viable cuenca intrauterine gestation measuring 10 weeks 1 day Electronically authenticated by: RAISSA BLAKE Date: 02/24/2024 14:55 Dictated By: Raissa Blake M.D. Signed By:02/24/24 1457 DD/ 1455 TD/TT: Train Operator: Soledad Valdez DO [facility] Final Result documented in this encounter Visit Diagnoses Not on filedocumented in this encounter Care Teams Scale Installer Relationship Specialty Start Date End Date Soledad Valdez DO [address] [place] [address] [place] [address] PCP - [facility] 11/09/23 documented as of this encounter
--- OUTSIDE RECORDS SUMMARY | 2024-08-09 20:07 | XMS_ITS | Encounter Summary ---
Author Organization [facility] Address [address] [place] [address] Care Team Providers Care Social Studies Teacher Name Role Phone Soledad Valdez DO Unavailable Encounter Details Date Type Department Care Team (Late Contact Info) Description 07/31/2024 Clinisync Result Encounter [facility] External Department Unsolicited Soledad Valdez, DO [address], [facility] Social History Tobacco Use Types Packs/Day Years [...] Routine [facility] BCP OB [address] [place] [phone] Soledad Valdez, [address] [place] [address] documented as of this encounter Goals Goal Patient Goal Type Associated Problems Recent Progress Patient-Stated? Author Reminders Care Plan OB Reminders No Open Scheduling, Background documented as of this encounter Procedures Procedure Name Priority Date/Time Associated Diagnosis Comments US OB BPP W NON-STRESS 07/31/2024 8:00 AM EDT documented in this encounter Results * US OB BPP W NON-STRESS (07/31/2024 8:00 AM EDT) Anatomical Region Laterality Modality Other 07/31/2024 8:00 AM EDT Narrative 07/31/2024 8:02 [place] [address] Ultrasound Report Signed Patient: MICHELLE GOODE MR#: [id number] : 1990 Acct:[id number] Age/Sex: 34 / F ADM Date: 07/29/24 Loc: US Attending Dr: Soledad Valdez D.O. Ordering Physician: Soledad Valdez D.O. Date of Service: 07/29/24 Procedure(s): US OB BPP w non-stress Accession Number(s): [id number] cc: Soledad Valdez D.O.; Physician,Non-Staff M.Yariel The [address] [address] Patient Name: MICHELLE GOODE MRN: [id number] date: 1990 Sex: F Assigned Patient Location: [facility] Current Patient Location: Accession/Order Number: [id number] Exam Date: 07/31/2024 07:58 Report Date: 07/31/2024 08:00 At the request of: SOLEDAD VALDEZ DO Procedure: US OB BPP w non-stress BIOPHYSICAL PROFILE: CLINICAL INFORMATION: SGA P05.10 COMPARISON: 02/24/2024 There is a single live intrauterine gestation in cephalic presentation. The reported gestational age is 32 weeks 4 days. The heart rate measures 145 beats per minute. FINDINGS: TONE: 1 or more episodes of activity extension and flexion of extremity or opening and closing of the hand [Y] 2/2 GROSS BODY MOVEMENTS: 3 or more discrete body or limb movements [Y] 2/2 BREATHING MOVEMENTS: 1 or more episodes of breathing lasting at least 30 seconds [Y] 2/2 KRIS: A single deepest vertical pocket of amniotic fluid greater than 2 cm [Y] 2/2 KRIS: 12.6 cm. This is in low-normal range. Total score: 8/8 US/US OB BPP w non-stress IMPRESSION: NORMAL BIOPHYSICAL PROFILE Impression dictated by: Lee Ann Perez M.D. 07/31/2024 8:00 AM Dictation Location: [place] [address] Electronically authenticated by: [id number] Y Date: 07/31/2024 08:00 Dictated By: Lee Ann Perez M.D. Signed By: 07/31/24801 DD/ 9 TD/TT: Mental Tester: Procedure Note Radiology, Radiologist, - 07/31/2024 [place] [address] Ultrasound Report Signed Patient: MICHELLE GOODE MMR#: [id number] : 1990Acct:[id number] Age/Sex: 34 / FADM Date: 07/29/24 Loc: US Attending Dr: Soledad Valdez D.O. Ordering Physician: Soledad Valdez D.O. Date of Service: 07/29/24 Procedure(s): US OB BPP w non-stress Accession Number(s): [id number] cc: Soledad Valdez D.O.; Physician,Non-Staff Kofi The [place] [id number] Patient Name: MICHELLE GOODE MRN: [id number] date: 1990 Sex: F Assigned Patient Location: [facility] Current Patient Location: Accession/Order Number: [id number] Exam Date: 07/31/2024 07:58 Report Date: 07/31/2024 08:00 At the request of: SOLEDAD VALDEZ DO Procedure: US OB BPP w non-stress BIOPHYSICAL PROFILE: CLINICAL INFORMATION: SGA P05.10 COMPARISON: 02/24/2024 There is a single live intrauterine gestation in cephalic presentation.The reported gestational age is 32 weeks 4 days. The heart ratemeasures 145 beats per minute. FINDINGS: TONE: 1 or more episodes of activity extension and flexion of extremity or opening and closing of the hand [Y] 2/2 GROSS BODY MOVEMENTS: 3 or more discrete body or limb movements [Y] 2/2 BREATHING MOVEMENTS: 1 or more episodes of breathing lastingat least 30 seconds [Y] 2/2 KRIS: A single deepest vertical pocket of amniotic fluid greater than 2 cm [Y] 2/2 KRIS: 12.6 cm. This is in low-normal range. Total score: 09/15 US/US OB BPP w non-stress IMPRESSION: NORMAL BIOPHYSICAL PROFILE Impression dictated by: Lee Ann Perez M.D. 07/31/2024 8:00 AM Dictation Location: [place] [address] Electronically authenticated by: [id number] Y Date: 508:00 Dictated By: Lee Ann Perez M.D. Signed By:07/31/24 0802 DD/ 0800 TD/TT: Mental Tester: us Soledad Valdez DO [facility] Final Result documented in this encounter Visit Diagnoses Not on filedocumented in this encounter Additional Health Concerns Active Problems Noted Date Diagnosed Date OB Reminders 03/25/2024 documented as of this encounter Care Teams Social Studies Teacher Relationship Specialty Start Date End Date Soledad Valdez DO [address] [place] [address] [place] [address] PCP - [facility] 11/09/23 documented as of this encounter
--- OUTSIDE RECORDS SUMMARY | 2024-08-09 20:07 | XMS_ITS | Clinical Summary ---
Author Organization [facility] Address [address] [place] [address] Care Team Providers Care Unit Clerk Name Role Phone Soledad Valdez DO Unavailable Allergies Active Allergy Reactions Criticality Noted Date Comments Penicillins Hives,Fever,Itching, Rash,Swelling,Whee zing Low 08/05/2022 Medications buprenorphine (Subtex) [address] 4 mg under the tongue in the morning. Active buprenorphine-na loxone (Suboxone) 4-1 MG per sublingual film DISSOLVE 1 FILM UNDER TONGUE ONCE A DAY 3 Active folic acid (Folvite) 1 MG tablet Take 1,000 mcg by mouth Daily 4 Active cefdinir (Omnicef) 300 MG capsule Take 300 mg by mouth in the morning and 300 mg before bedtime. 5 Active Lisdexamfetamine Dimesylate 40 MG chewable tablet CHEW ONE-HALF OF a tablet BY MOUTH TWICE DAILY (IN THE MORNING and IN THE AFTERNOON) 5 Active Khoxxdrc-Yho-CY ([facility] Gummy) 0.4 MG chewable tabletIndication s:Second trimester ([facility]) Chew 1 tablet Daily 30 tablet 11 5 04/22/19 26 Active nitrofurantoin, macrocrystal-mon ohydrate, (Macrobid) 100 MG capsuleIndicatio ns:Urinary tract infection without hematuria, site unspecified Take 1 capsule (100 mg) by mouth in the morning and 1 capsule (100 mg) before bedtime. Do all this for 7 days. 14 capsule 07/15/19 25 Active Problems Problem Noted Date Diagnosed Date Substance abuse 09/15/2022 GERD (gastroesophageal reflux disease) 8 Exacerbation of asthma 08/09/2007 Attention deficit hyperactivity disorder 008 Allergic rhinitis 08/09/2007 Estimated Date of Delivery Comme nts Yes 09/19/2024 Based on last me nstrual period of 12/14/2023 Encounters Date Type Department Care Team Description 08/07/2024 Telephone [facility] [address] [place] [address] Paola Bansal PA 08/04/2024 Clinisync Result Encounter [facility] External Department Unsolicited Soledad Valdez, 08/03/2024 2:50 PM EDT Routine [facility] [place] [address] [place] [address] Paola Bansal PA Third trimester ([facility]) (Primary Dx); 33 weeks gestation of ([facility]); Short cervix, antepartum ([facility]) 08/03/2024 2:00 PM EDT Ancillary Procedure [facility] [place] [address] [place] [address] SGA (small for gestational age) ([facility]); Short cervix, antepartum ([facility]) 07/31/2024 Clinisync Result Encounter [facility] External Department Unsolicited Soledad Valdez, 07/27/2024 Results Follow-Up [facility] [place] [address] [place] [address] Zeinab Ramirez LPN 07/27/2024 Telephone [facility] [place] [address] [place] [address] Zeinab Ramirez LPN 07/25/2024 11:30 AM EDT Ancillary Procedure [facility] [place] [address] 07/25/2024 10:40 AM EDT Routine [facility] [place] [address] [place] [address] Soledad Valdez, DO 32 weeks gestation of ([facility]); Third trimester ([facility]); SGA (small for gestational age) ([facility]); Short cervix, antepartum ([facility]) 07/25/2024 Bamboo flowsheet [facility] [address] [place] [address] Soledad Valdez DO 07/11/2024 2:30 PM EDT Ancillary Procedure [facility] [address] [place] [address] Short cervix, antepartum ([facility]); size inconsistent with dates ([facility]) 07/11/2024 Orders Only [facility] [address] [place] [phone] Lucille Hahn 07/10/2024 10:20 AM EDT Routine [facility] [address] [place] [address] Paola Bansal PA Third trimester ([facility]); 29 weeks gestation of ([facility]); with normal glucose tolerance test (GTT) ([facility]); size inconsistent with dates ([facility]); Short cervix, antepartum ([facility]) 07/10/2024 Bamboo flowsheet [facility] [address] [place] [address] Paola Bansal PA 07/07/[address] [facility] [address] [place] [address] Ilda Beaver MA from Last 3 Months Family History Medical History Relation Name Comments Asthma Brother No Known Problems Father Allergies Mother Asthma Mother No Known Problems Sister Relation Name Status Comments Brother Alive Father Alive Mother Alive Sister Alive Social History Tobacco Use Types Packs/Day Years Used Date Smoking Tobacco: Never Assessed Tobacco Cessation:Counseling Given: Not Answered Estimated Date of Delivery Comme nts Yes 09/19/2024 Based on last me nstrual period of 12/14/2023 Sex and Gender Information Value Date Recorded Sex Assigned at Female 08/05/2022 3:13 PM EDT Legal Sex Female 6:46 PM EDT Gender Identity Female 08/05/2022 3:13 PM EDT Sexual Orientation Straight 08/05/2022 3: 13 PM EDT Last Filed Vital Signs Vital Sign Reading Time Taken Comments Blood Pressure 104/60 08/03/2024 3:11 PM EDT Pulse - - Temperature - - Respiratory Rate - - Oxygen Saturation - - Inhaled Oxygen Concentration - - Weight 59.4 kg (131 lb) 08/03/2024 3:11 PM EDT Height 162.6 cm (5' 4 ) 09/21/2022 2:53 PM EDT Body Mass Index 22.49 09/21/2022 2:53 PM EDT Plan of Treatment Upcoming Encounters Date Type Department Care Team (Late st Contact Info) Description 08/22/2024 2:10 PM EDT Routine [facility] BCP OB [address] [facility] [place] [address] Soledad Valdez, DO [address] [facility] [place] [address] Health Maintenance Due Date Last Done Comments Influenza Vaccine (#1) 2024 Cervical Cancer Screening 04/11/2029 HPV/Cotest 04/11/2029 Pap Smear 04/11/2029 04/11/2024, 05/21/2021 Goals Goal Patient Goal Type Associated Problems Recent Progress Patient-Stated? Author Reminders Care Plan OB Reminders No Open Scheduling, Background Procedures Procedure Name Priority Date/Time Associated Diagnosis Comments US OB BPP W NON-STRESS 08/04/2024 8:23 AM EDT US OB FOLLOW UP TRANSABDOMINAL APPROACH Routine 08/03/2024 2:50 PM EDT SGA (small for gestational age) ([facility]) US OB BPP W NON-STRESS 07/31/2024 8:00 AM EDT US OB TRANSVAGINAL Routine 07/25/2024 11 :57 AM EDT Short cervix, antepartum ([facility]) US OB FOLLOW UP TRANSABDOMINAL APPROACH Routine 07/11/2024 3:33 PM EDT size inconsistent with dates ([facility]) PAP SMEAR Routine 04/11/2024 12:00 AM EST from Last 3 Months or Most Recently Relevant to Health Maintenance Results * US OB BPP W NON-STRESS (08/04/2024 8:23 AM EDT) Only the most recent of2 resultswithin the time period is included. Anatomical Region Laterality Modality Other 08/04/2024 8:23 AM EDT Narrative 08/04/2024 8:25 [place] [address] Ultrasound Report Signed Patient: MICHELLE GOODE MR#: [id number] : 1990 Acct:[id number] Age/Sex: 34 / F ADM Date: 08/03/24 Loc: US Attending Dr: Soledad Valdez D.O. Ordering Physician: Soledad Valdez D.O. Date of Service: 08/03/24 Procedure(s): US OB BPP w non-stress Accession Number(s): [id number] cc: Soledad Valdez D.O.; Physician,Non-Staff Kofi The [address] [address] Patient Name: MICHELLE GOODE MRN: [id number] date: 1990 Sex: F Assigned Patient Location: [facility] Current Patient Location: Accession/Order Number: [id number] Exam Date: 08/04/2024 08:21 Report Date: 08/04/2024 08:23 At the request of: SOLEDAD VALDEZ DO Procedure: US OB BPP w non-stress : CLINICAL INFORMATION: SGA P05.10 COMPARISON: 07/29/2024 There is a single live intrauterine gestation in cephalic presentation. The reported gestational age is 33 weeks 2 days. The heart rate measures 144 beats per minute. FINDINGS: TONE: 1 or [...] greater than 2 cm [Y] 2/2 KRIS: 12.2 cm. This is in low-normal range. Total score: 8/8 US/US OB BPP w non-stress IMPRESSION: NORMAL BIOPHYSICAL PROFILE Impression dictated by: Lee Ann Perez M.D. 08/04/2024 8:23 AM Dictation Location: [place] [address] Electronically authenticated by: [id number] Y Date: 08/04/2024 08:23 Dictated By: Lee Ann Perez M.D. Signed By: 08/04/24824 DD/ 2 TD/TT: Embedded Developer: Procedure Note Radiology, Radiologist, MD - 08/04/2024 [place] [address] Ultrasound Report Signed Patient: MICHELLE GOODE MMR#: [id number] : 1990Acct:[id number] Age/Sex: 34 / FADM Date: 08/03/24 Loc: US Attending Dr: Soledad Valdez D.O. Ordering Physician: Soledad Valdez D.O. Date of Service: 08/03/24 Procedure(s): US OB BPP w non-stress Accession Number(s): [id number] cc: Soledad Valdez D.O.; Physician,Non-Staff Kofi The [address] [address] Patient Name: MICHELLE GOODE MRN: [id number] date: 1990 Sex: F Assigned Patient Location: [facility] Current Patient Location: Accession/Order Number: [id number] Exam Date: 08/04/2024 08:21 Report Date: 08/04/2024 08:23 At the request of: SOLEDAD VALDEZ DO Procedure: US OB BPP w non-stress : CLINICAL INFORMATION: SGA P05.10 COMPARISON: 07/29/2024 There is a single live intrauterine gestation in cephalic presentation.The reported gestational age is 33 weeks 2 days. The heart ratemeasures 144 beats per minute. FINDINGS: TONE: 1 or [...] greater than 2 cm [Y] 2/2 KRIS: 12.2 cm. This is in low-normal range. Total score: 8/8 US/US OB BPP w non-stress IMPRESSION: NORMAL BIOPHYSICAL PROFILE Impression dictated by: Lee Ann Perez M.D. 08/04/2024 8:23 AM Dictation Location: [place] [address] Electronically authenticated by: [id number] Y Date: 508:23 Dictated By: Lee Ann Perez M.D. Signed By:08/04/24824 DD/ 2 TD/TT: Embedded Developer: us Soledad Valdez DO [facility] Final Result * US OB follow up transabdominal approach (08/03/2024 2:50 PM EDT) Only the most recent of2 resultswithin the time period is included. Anatomical Region Laterality Modality Body Ultrasound 08/06/2024 [...] cm - Funneling was noted by performing lead manufacturing technician but not well demonstrated on the [...] Cervical funneling was noted by the performing lead manufacturing technician but not well demonstrated on the provided images. The ordering physician was notified. Interpreted by: Electronically signed by RISA AYALA II, MD, PHD at 06-Aug-2024 10:03:36 PM [facility] [place] [facility] Procedure Note Risa Ayala MD - [...] length. Cervical funneling was noted by theperforming lead manufacturing technician but not well demonstrated on the provided images.The ordering physician was notified. Interpreted by: Electronically signed by RISA AYALA II, MD, PHD 10:03:36 PM [facility] us Soledad Valdez DO IM OB US PROCEDURES Final Resul t * US OB transvaginal (07/25/2024 11:57 AM EDT) Anatomical Region Laterality Modality Body Ultrasound 07/26/2024 8:02 AM EDT Narrative 07/26/2024 8:02 AM EDT EXAM: US OB TRANSVAGINAL HISTORY: Shortened cervix. COMPARISON: Ob ultrasound 07/11/2024. TECHNIQUE: Two-dimensional transvaginal grayscale ultrasound imaging of the cervix was performed. FINDINGS: Presentation: Cephalic Cervical Length: 2.6 cm IMPRESSION: 1. Shortened cervical length measuring 2.6 cm. Interpreted by: Electronically signed by RISA AYALA II, MD, PHD at 26-Jul-2024 08:00:42 AM [facility] [place] [facility] Procedure Note Risa Ayala MD - 07/26/2024 EXAM: US OB TRANSVAGINAL HISTORY: Shortened cervix. COMPARISON: Ob ultrasound 07/11/2024. TECHNIQUE: Two-dimensional transvaginal grayscale ultrasound imaging ofthe cervix was performed. FINDINGS: Presentation: Cephalic Cervical Length: 2.6 cm IMPRESSION: 1. Shortened cervical length measuring 2.6 cm. Interpreted by: Electronically signed by RISA AYALA II, MD, PHD 08:00:42 AM [facility] [place] [facility] us Paola BARRIOS IMG OB US PROCEDURES Final Resul t * Pap Smear (04/11/2024 12:00 AM EST) Swab Cervical swab / Unknown us Paola BARRIOS LAB CYTOLOGY ORDERABLES Final Re sult EXTERNAL LAB from Last 3 Months or Most Recently Relevant to Health Maintenance Additional Health Concerns Active Problems Noted Date Diagnosed Date OB Reminders 03/25/2024 Insurance [employer] [facility] Care Teams Unit Clerk Relationship Specialty Start Date End Date Soledad Valdez DO [address] [place] [address] PCP - [facility] 11/09/23
--- OUTSIDE RECORDS SUMMARY | 2024-08-09 20:07 | XMS_ITS | Encounter Summary ---
Author Organization [facility] Address [address] [place] [address] Care Team Providers Care Iron Assorter Name Role Phone Soledad Valdez DO Unavailable Encounter Details Date Type Department Care Team (Late Contact Info) Description 08/04/2024 Clinisync Result Encounter [facility] External Department Unsolicited Soledad Valdez, DO [address] [place], [id number] Social History Tobacco Use Types Packs/Day Years [...] Routine [facility] BCP [place] [address] [place] [phone] Soledad Valdez, [address] [place] [address] documented as of this encounter Goals Goal Patient Goal Type Associated Problems Recent Progress Patient-Stated? Author Reminders Care Plan OB Reminders No Open Scheduling, Background documented as of this encounter Procedures Procedure Name Priority Date/Time Associated Diagnosis Comments US OB BPP W NON-STRESS 08/04/2024 8:23 AM EDT documented in this encounter Results * US OB BPP W NON-STRESS (08/04/2024 8:23 AM EDT) Anatomical Region Laterality Modality Other 08/04/2024 8:23 AM EDT Narrative 08/04/2024 8:25 [place] [address] Ultrasound Report Signed Patient: MICHELLE GOODE MR#: [id number] : 1990 Acct:[id number] Age/Sex: 34 / F ADM Date: 08/03/24 Loc: US Attending Dr: Soledad Valdez D.O. Ordering Physician: Soledad Valdez D.O. Date of Service: 08/03/24 Procedure(s): US OB BPP w non-stress Accession Number(s): [id number] cc: Soledad Valdez D.O.; Physician,Non-Staff M.Yariel The [address] [address] Patient Name: MICHELLE GOODE MRN: [id number] date: 1990 Sex: F Assigned Patient Location: [facility] Current Patient Location: Accession/Order Number: [id number] Exam Date: 08/04/2024 08:21 Report Date: 08/04/2024 [...] lasting at least 30 seconds [Y] 2/2 RKIS: A single deepest vertical pocket of amniotic fluid greater than 2 cm [Y] 2/2 KRIS: 12.2 cm. This is in low-normal range. Total score: 8/8 US/US OB BPP w non-stress IMPRESSION: NORMAL BIOPHYSICAL PROFILE Impression dictated by: Lee Ann Perez M.D. 08/04/2024 8:23 AM Dictation Location: [place] [address] Electronically authenticated by: [id number] Y Date: 08/04/2024 08:23 Dictated By: Lee Ann Perez M.D. Signed By: 08/04/24824 DD/ 2 TD/TT: [employer] Officer: Procedure Note Radiology, Radiologist, MD - 08/04/2024 [place] [address] Ultrasound Report Signed Patient: MICHELLE GOODE MMR#: [id number] : 1990Acct:[id number] Age/Sex: 34 / FADM Date: 08/03/24 Loc: US Attending Dr: Soledad Valdez D.O. Ordering Physician: Soledad Valdez D.O. Date of Service: 08/03/24 Procedure(s): US OB BPP w non-stress Accession Number(s): [id number] cc: Soledad Valdez D.O.; Physician,Non-Staff Kofi The [place] [address] Patient Name: MICHELLE GOODE MRN: [id number] date: 1990 Sex: F Assigned Patient Location: [facility] Current Patient Location: Accession/Order Number: [id number] Exam Date: 08/04/2024 08:21 Report Date: 08/04/2024 [...] Perez M.D. 08/04/2024 8:23 AM Dictation Location: [place] [address] Electronically authenticated by: [id number] Y Date: 508:23 Dictated By: Lee Ann Perez M.D. Signed By:08/04/2425 DD/ 2 TD/TT: [employer] Officer: Soledad Valdez DO [facility] Final Result documented in this encounter Visit Diagnoses Not on filedocumented in this encounter Additional Health Concerns Active Problems Noted Date Diagnosed Date OB Reminders 03/25/2024 documented as of this encounter Care Teams Iron Assorter Relationship Specialty Start Date End Date Soledad Valdez DO [address] [place] [address] [place] [address] PCP - [facility] 11/09/23 documented as of this encounter
--- OUTSIDE RECORDS SUMMARY | 2024-08-09 20:07 | XMS_ITS | Encounter Summary ---
Author Organization [facility] OfficialVirtualDJ [facility] tem Address [id number] [address] [place] [address] Care Team Providers Care Peanut Shaker Name Role Phone Unavailable Primary Care Provider Unavailabl e Encounter Details Date Type Department Care Team (Late st Contact Info) Description 08/14/2021 Telephone Maternal- Medicine at [facility] [address] [facility] [place] [place] [phone] Elva Maier Social History Tobacco Use Types Packs/Day Years Used Date Smoking Tobacco: Every Day Vaping/E-cigarettes Smokeless Tobacco: Never Alcohol Use Standard Drinks/Week Comments Not Currently 0 (1 standard drink = 0.6 oz pur e alcohol) socially Childcare Answer Date Recorded Childcare Unknown 07/20/2018 Employment Answer Date Recorded Employment Unknown 07/20/2018 Purpose - Life Answer Date Recorded Purpose and direction in life Unknown Comments Yes Sex and Gender Information Value Date Recorded Sex Assigned at Not on file Legal Sex Female 12:11 PM EDT Gender Identity Not on file Sexual Orientation Not on file documented as of this encounter Plan of Treatment Not on file documented as of this encounter Visit Diagnoses Not on filedocumented in this encounter
--- OUTSIDE RECORDS SUMMARY | 2024-08-09 20:07 | XMS_ITS | Encounter Summary ---
Author Organization [facility] Address [address] [place] [address] Care Team Providers Care Cytology Teacher Name Role Phone Eh Valdez DO Unavailable Encounter Details Date Type Department Care Team (Late st Contact Info) Description 04/17/2024 Abstract [facility] OB [address] [place] [address] Eh Valdez DO [address], [facility]11 Social History Tobacco Use Types Packs/Day Years [...] Description 08/22/2024 2:10 PM EDT Routine [facility] OB [address] [place] [address] Eh Valdez DO [address], [facility]11 documented as of this encounter Goals Goal Patient Goal Type Associated Problems Recent Progress Patient-Stated? Author Reminders Care Plan OB Reminders No Open Scheduling, Background documented as of this encounter Visit Diagnoses Not on filedocumented in this encounter Additional Health Concerns Active Problems Noted Date Diagnosed Date OB Reminders 03/25/2024 documented as of this encounter Care Teams Cytology Teacher Relationship Specialty Start Date End Date Eh Valdez DO [address] [address] PCP - [facility] 11/09/23 documented as of this encounter
--- OUTSIDE RECORDS SUMMARY | 2024-08-09 20:07 | XMS_ITS | Encounter Summary ---
Author Organization [facility] Address [address] [place] [address] Care Team Providers Care Gluing Crew Leader Name Role Phone Eh Valdez DO Unavailable Reason for Referral * (Routine) - Incomplete Specialty Diagnoses / Procedures Referred By Contac t Referred To Contact Radiology Diagnoses Third trimester (HHS-HCC) Short cervix, antepartum (HHS-HCC) SGA (small for gestational age) ([facility]) Procedures US umbilical artery doppler Paola Bansal PA [address] [facility] [place] [address] Phone: tel: fax: Referral ID Status Reason Start Date Expiration Date V isits Requested Visits Authorized [id number] Incomplete 08/07/2024 02/03/2025 1 1 Encounter Details Date Type Department Care Team (Late st Contact Info) Description 08/07/2024 Telephone [facility] BCP OB [address] [place] [phone] Paola Bansal PA [address] [place] [address] Social History Tobacco Use Types Packs/Day [...] encounter Miscellaneous Notes * Telephone Encounter - Katelyn Cadena LPN - 08/07/2024 11:35 AM EDT Patient call was returned and was advised that swelling is normal in and that when she isat her appointment on Wednesday we will check blood pressure. PVU * Telephone Encounter - Katelyn Cadena LPN - 08/07/2024 10:10 AM EDT Patient did call the office back and she did have some questions about the testing that was ordered. Patient has been elevating her legs about her heart and she is still noticing that these are swelling and does notice some numbness and itching in left thigh. Patient was advised that she will have doppler testing to check flow. PVU advised would talk to about other concerns. * Telephone Encounter - Katelyn Cadena LPN - 08/07/2024 9:10 AM EDT Per provider patient is to have Doppler done with [facility] is able to do this and will need order faxed over. Order sent at this time for once weekly. Patient was called to be advised this was added to her testing on Wednesday but had to leave a message and advised questions to reach out to office. documented in this encounter Plan of Treatment Upcoming Encounters Date Type Department Care Team (Late st Contact Info) Description 08/22/2024 2:10 PM EDT Routine [facility] BCP OB [address] [facility] [place] [address] Eh Valdez, DO [address] [place], [place] [phone] Scheduled Orders Name Type Priority Associated Diagnoses Orde r Schedule US umbilical artery doppler Imaging Routine Third trimester ([facility]) Short cervix, antepartum (HHS-HCC) SGA (small for gestational age) (HHS-HCC) Expected: 08/07/2024, Expires: 11/07/2024 documented as of this encounter Goals Goal Patient Goal Type Associated Problems Recent Progress Patient-Stated? Author Reminders Care Plan OB Reminders No Open Scheduling, Background documented as of this encounter Visit Diagnoses Diagnosis Third trimester (HHS-HCC) state, incidental Short cervix, antepartum (HHS-HCC) SGA (small for gestational age) ([facility]) [id number] without mention of malnutrition, unspecified (weight) documented in this encounter Additional Health Concerns Active Problems Noted Date Diagnosed Date OB Reminders 03/25/2024 documented as of this encounter Care Teams Gluing Crew Leader Relationship Specialty Start Date End Date Eh Valdez DO [address] [place] [address] [place] [address] [facility] 11/09/23 documented as of this encounter
--- OUTSIDE RECORDS SUMMARY | 2024-08-09 20:07 | XMS_ITS | Encounter Summary ---
Author Organization [facility] Address [address] [place] [address] Care Team Providers Care Member Of Congress Name Role Phone Eh Valdez DO Unavailable Encounter Details Date Type Department Care Team (Late Contact Info) Description 07/11/2024 Orders Only [facility] BCP OB [address] [facility] [place] [address] Lucille Hahn Social History Tobacco Use Types Packs/Day Years [...] PM EDT Routine [facility] BCP OB [address] [place] [address] Eh Valdez DO [address] [place] [address] documented as of this encounter Goals Goal Patient Goal Type Associated Problems Recent Progress Patient-Stated? Author Reminders Care Plan OB Reminders No Open Scheduling, Background documented as of this encounter Visit Diagnoses Not on filedocumented in this encounter Additional Health Concerns Active Problems Noted Date Diagnosed Date OB Reminders 03/25/2024 documented as of this encounter Care Teams Member Of Congress Relationship Specialty Start Date End Date Eh Valdez DO [address] [place] [address] PCP - [facility] 11/09/23 documented as of this encounter
--- OUTSIDE RECORDS SUMMARY | 2024-08-09 20:07 | XMS_ITS | Encounter Summary ---
Author Organization [facility] [place] tem Address [id number] [address] [place] [address] Care Team Providers Care Cnc Operator Name Role Phone Unavailable Primary Care Provider Unavailabl e Encounter Details Date Type Department Care Team (Late st Contact Info) Description 09/08/2021 Telephone Maternal- Medicine at [facility] [address] [facility] [place] [place] [phone] Elva Maier Social History Tobacco Use Types [...]
[2024-08-09] MEDS: BETAMETHASONE ACE/BETAMETHASONE SOD PHOS 30 MG/5 ML 12 MG IM (21:20)
[2024-08-09 21:42] VITALS: BP 104/66; PULSE 88
== END 2024-08-09 21:45 | disposition home or self-care (01) ==
LOC: US 20:05 → FBC 20:07
PROVIDERS: Visit Provider Obstetrics & Gynecology
DX: O36.5930 Maternal care for other known or suspected poor fetal growth, third trimester, not applicable or unspecified (principal); Z3A.34 34 weeks gestation of pregnancy
CPT/HCPCS: 76818; 76820; 96372; J0702

== ENCOUNTER 2024-08-10 20:04 | Outpatient (OUT) | payer BC, OTHER, SELFPAY ==
--- OUTSIDE RECORDS SUMMARY | 2024-08-03 14:00 | XMS_ITS | Encounter Summary ---
Author Organization [facility] Address [address] [place] [address] Care Team Providers Care Quiller Operator Name Role Phone Eh Valdez DO Unavailable Encounter Details Date Type Department Care Team (Latest Contact Info) Description 08/03/2024 2:00 PM EDT Ancillary Procedure [facility] [address] [place] [address] SGA (small for gestational age) ([facility]); Short cervix, antepartum ([facility]) Social History Tobacco Use Types Packs/Day Years [...] PM EDT Routine [facility] [address] [place] [address] Eh Valdez DO [address] [place], [place] [id number] Pending Results Name Type Priority Associated Diagnoses [...] PM EDT SGA (small for gestational age) ([facility]) documented in this encounter Results * US [...] cm - Funneling was noted by performing copier and printer field technician but not well demonstrated on the [...] Cervical funneling was noted by the performing copier and printer field technician but not well demonstrated on the provided images. The ordering physician was notified. Interpreted by: Electronically signed by RISA AYALA II, MD, PHD at 06-Aug-2024 10:03:36 PM [facility] Procedure Note Risa Ayala MD - [...] length. Cervical funneling was noted by theperforming copier and printer field technician but not well demonstrated on the provided images.The ordering physician was notified. Interpreted by: Electronically signed by RISA AYALA II, MD, PHD [id number] 10:03:36 PM [facility] us Eh José Miguel DO IM OB US PROCEDURES Final Resul t documented in this encounter Visit Diagnoses Diagnosis SGA (small for gestational age) ([facility]) [id number] without mention of malnutrition, unspecified (weight) Short cervix, antepartum ([facility]) documented in this encounter Additional Health Concerns Active Problems Noted Date Diagnosed Date OB Reminders 03/25/2024 documented as of this encounter Care Teams Quiller Operator Relationship Specialty Start Date End Date Eh Valdez DO [address] [place] [address] PCP - [facility] 11/09/23 documented as of this encounter
--- OUTSIDE RECORDS SUMMARY | 2024-08-03 14:50 | XMS_ITS | Encounter Summary ---
Author Organization [facility] Address [address] [place] [address] Care Team Providers Care Foundry Helper Name Role Phone Eh Valdez DO Unavailable Reason for Visit * Reason Comments Routine Visit Encounter Details Date Type Department Care Team ([facility] st Contact Info) Description 08/03/2024 2:50 PM EDT Routine [facility] BCP OB [address] [place] [address] Paola Bansal PA [address] [facility] [address] [place], [place] [id number] Third trimester ([facility]) (Primary Dx); 33 weeks gestation of ([facility]); Short cervix, antepartum ([facility]) Social History Tobacco Use Types Packs/Day Years [...] (IN THE MORNING and IN THE AFTERNOON) Agfvbgad-Xud-JV ([facility]) 0.4 MG chewable tablet 1 tablet, Oral, Daily ALLERGIES Allergies Allergen Reactions Penicillins Hives, Fever, Itching, Rash, Swelling and Wheezing PROBLEMS Active Ambulatory Problems Diagnosis Date Noted GERD (gastroesophageal reflux disease) 08/09/2007 Exacerbation of asthma ([facility]) 08/09/2007 Attention deficit hyperactivity disorder 08/09/2007 Allergic rhinitis 08/09/2007 Substance abuse ([facility]) 09/15/2022 Resolved Ambulatory Problems Diagnosis Date Noted No Resolved Ambulatory Problems Past Medical History: Diagnosis Date Allergies Anxiety Asthma ([facility]) Bee sting Miscarriage ([facility]) Pelvic pain 2010 Syncope Thoracic sprain HISTORY PAST MEDICAL HISTORY SOCIAL HISTORY Past Medical History: Diagnosis Date Allergies Anxiety Asthma ([facility]) Bee sting right ring finger Miscarriage ([facility]) 8-9 weeks Pelvic pain 2011 Syncope Thoracic [...] ASSESSMENT & PLAN ICD-10-CM 1. Third trimester ([facility]) Z34.93 2. 33 weeks gestation of ([facility]) Z3A.33 Return OB: Patient presents today for [...] nst tomorrow 08/03/24. Discussion of returning to [facility] had been made previously and pt has not yet followed up with them. Patient has been educated on importance of following with [facility]. Risks of IUGR with shortened cervix discussed [...] Routine [facility] BCP OB [address] [place] [address] Eh Valdez DO [address] [place] [address] Scheduled Orders Name Type Priority Associated Diagnoses Orde r Schedule US OB transvaginal Imaging Routine Short cervix, antepartum ([facility]) Expected: 08/03/2024, Expires: 11/03/2024 documented as of this encounter Goals Goal Patient Goal Type Associated Problems Recent Progress Patient-Stated? Author Reminders Care Plan OB Reminders No Open Scheduling, Background documented as of this encounter Visit Diagnoses Diagnosis Third trimester ([facility])- Primary state, incidental 33 weeks gestation of ([facility]) Short cervix, antepartum ([facility]) documented in this encounter Additional Health Concerns Active Problems Noted Date Diagnosed Date OB Reminders 03/25/2024 documented as of this encounter Care Teams Foundry Helper Relationship Specialty Start Date [place] [address] PCP - [facility] 11/09/23 documented as of this encounter
--- OUTSIDE RECORDS SUMMARY | 2024-08-10 20:06 | XMS_ITS | Encounter Summary ---
Author Organization [facility] Address [address] [place] [address] Care Team Providers Care Automotive Artist Name Role Phone Eh Valdez DO Unavailable Encounter Details Date Type Department Care Team (Late Contact Info) Description 07/11/2024 Orders Only [facility] BCP OB [address] [facility] [place] [address] Lucille Hahn Social History Tobacco Use [...] PM EDT Routine [facility] BCP OB [address] [place] [address] Eh Valdez DO [address] [place] [address] documented as of this encounter Goals Goal Patient Goal Type Associated Problems Recent Progress Patient-Stated? Author Reminders Care Plan OB Reminders No Open Scheduling, Background documented as of this encounter Visit Diagnoses Not on filedocumented in this encounter Additional Health Concerns Active Problems Noted Date Diagnosed Date OB Reminders 03/25/2024 documented as of this encounter Care Teams Automotive Artist Relationship Specialty Start Date End Date Eh Valdez DO [address] [place] [address] PCP - [facility] 11/09/23 documented as of this encounter
--- OUTSIDE RECORDS SUMMARY | 2024-08-10 20:06 | XMS_ITS | Encounter Summary ---
Author Organization [facility] Address [address] [place] [address] Care Team Providers Care Deicer Repairer Pneumatic Name Role Phone Eh Valdez DO Unavailable Encounter Details Date Type Department Care Team (Late st Contact Info) Description 04/17/2024 Abstract [facility] OB [address] [place] [address] Eh Valdez DO [address] [place], [facility] Social History Tobacco Use Types Packs/Day Years [...] Description 08/22/2024 2:10 PM EDT Routine [facility] OB [address] [place] [address] Eh Valdez DO [address] [place], [facility] documented as of this encounter Goals Goal Patient Goal Type Associated Problems Recent Progress Patient-Stated? Author Reminders Care Plan OB Reminders No Open Scheduling, Background documented as of this encounter Visit Diagnoses Not on filedocumented in this encounter Additional Health Concerns Active Problems Noted Date Diagnosed Date OB Reminders 03/25/2024 documented as of this encounter Care Teams Deicer Repairer Pneumatic Relationship Specialty Start Date End Date Eh Valdez DO [address] [place] [address] PCP - [facility] 11/09/23 documented as of this encounter
--- OUTSIDE RECORDS SUMMARY | 2024-08-10 20:06 | XMS_ITS | Encounter Summary ---
Author Organization [facility] Address [address] [place] [address] Care Team Providers Care Stone And Plate Preparer Apprentice Name Role Phone Eh Valdez DO Unavailable Encounter Details Date Type Department Care Team (Late st Contact Info) Description 05/04/2024 Abstract [facility] OB [address] [place] [address] Eh Valdez DO [address] [place], [facility] Social History Tobacco Use Types Packs/Day [...] Description 08/22/2024 2:10 PM EDT Routine [facility] OB [address] [place] [address] Eh Valdez DO [address] [place], [facility] documented as of this encounter Goals Goal Patient Goal Type Associated Problems Recent Progress Patient-Stated? Author Reminders Care Plan OB Reminders No Open Scheduling, Background documented as of this encounter Visit Diagnoses Not on filedocumented in this encounter Additional Health Concerns Active Problems Noted Date Diagnosed Date OB Reminders 03/25/2024 documented as of this encounter Care Teams Stone And Plate Preparer Apprentice Relationship Specialty Start Date End Date Eh Valdez DO [address] [place] [address] PCP - [facility] 11/09/23 documented as of this encounter
--- OUTSIDE RECORDS SUMMARY | 2024-08-10 20:06 | XMS_ITS | Encounter Summary ---
Author Organization [facility] Address [address] [place] [address] Care Team Providers Care Car Tester Name Role Phone Eh Valdez DO Unavailable Encounter Details Date Type Department Care Team (Late st Contact Info) Description 03/21/2024 Abstract [facility] OB [address] [place] [address] Eh Valdez DO [address] [place], [place] [address] Social History Tobacco Use Types Packs/Day Years [...] Description 08/22/2024 2:10 PM EDT Routine [facility] OB [address] [place] [address] Eh Valdez DO [address] [place], [facility] documented as of this encounter Visit Diagnoses Not on filedocumented in this encounter Care Teams Car Tester Relationship Specialty Start Date End Date Eh Valdez DO [address] [place] [address] PCP - [facility] 11/09/23 documented as of this encounter
--- OUTSIDE RECORDS SUMMARY | 2024-08-10 20:06 | XMS_ITS | Encounter Summary ---
Author Organization [facility] tem Address [id number] [address] [place] [address] Care Team Providers Care Canvas Worker Name Role Phone Unavailable Primary Care Provider Unavailabl e Encounter Details Date Type Department Care Team (Late st Contact Info) Description 08/14/2021 Telephone Maternal- Medicine at [facility] [address] [facility] [place] [phone] Elva Maier Social History Tobacco Use Types [...]
--- OUTSIDE RECORDS SUMMARY | 2024-08-10 20:06 | XMS_ITS | Encounter Summary ---
Author Organization [facility] Address [address] [place] [address] Care Team Providers Care Valve Mechanic Name Role Phone Eh Valdez DO Unavailable Encounter Details Date Type Department Care Team (Late st Contact Info) Description 07/27/2024 Telephone [facility] BCP OB [address] [address] Zeinab Ramirez LPN [address] [place] [address] Social History Tobacco Use Types [...] Routine [facility] BCP OB [address] [place] [address] Eh Valdez DO [address] [place] [address] Scheduled Orders Name Type Priority Associated Diagnoses [...] documented as of this encounter Care Teams Valve Mechanic Relationship Specialty Start Date End Date Eh Valdez DO [facility] [place] [address] PCP - [facility] 11/09/23 documented as of this encounter
--- OUTSIDE RECORDS SUMMARY | 2024-08-10 20:06 | XMS_ITS | Encounter Summary ---
Author Organization [facility] Address [address] [place] [address] Care Team Providers Care Household Manager Name Role Phone Soledad Valdez DO Unavailable Encounter Details Date Type Department Care Team (Late Contact Info) Description 02/24/2024 Clinisync Result Encounter NOMS External Department Unsolicited Soledad Valdez, DO [address] [place], [id number] Social History Tobacco Use Types Packs/Day Years [...] Routine [facility] BCP OB [address] [place] [phone] Soledad Valdez DO [address] [place] [address] documented as of this encounter Procedures Procedure Name Priority Date/Time Associated Diagnosis Comments US OB TRANSVAGINAL 02/24/2024 2: 55 PM EST documented in this encounter Results * US OB TRANSVAGINAL (02/24/2024 2:55 PM EST) Anatomical Region Laterality Modality Other 02/24/2024 2:55 PM EST Narrative 02/24/2024 2:57 [place] [address] Ultrasound Report Signed Patient: MICHELLE GOODE MR#: [id number] : 1990 Acct:[id number] Age/Sex: 33 / F ADM Date: 02/24/24 Loc: US Attending Dr: Soledad Valdez D.O. Ordering Physician: Soledad Valdez D.O. Date of Service: 02/24/24 Procedure(s): US OB transvaginal Accession Number(s): [id number] cc: Soledad Valdez D.O.; Physician,Non-Staff M.DYumiko The [place] [id number] Patient Name: MICHELLE GOODE MRN: [id number] date: 1990 Sex: F Assigned Patient Location: US Current Patient Location: US Accession/Order Number: [id number] Exam Date: 02/24/2024 14:17 Report Date: 02/24/2024 [...] Signed By: 02/24/24 1457 DD/ 54 TD/TT: Laboratory Chief: Procedure Note Radiology, Radiologist, - 02/24/2024 [place] [address] Ultrasound Report Signed Patient: MICHELLE GOODE MMR#: [id number] : 1990Acct:[id number] Age/Sex: 33 / FADM Date: 02/24/24 Loc: US Attending Dr: Soledad Valdez D.O. Ordering Physician: Soledad Valdez D.O. Date of Service: 02/24/24 Procedure(s): US OB transvaginal Accession Number(s): [id number] cc: Soledad Valdez D.O.; Physician,Non-Staff Kofi The [place] [address] Patient Name: MICHELLE GOODE MRN: [id number] date: 1990 Sex: F Assigned Patient Location: US Current Patient Location: US Accession/Order Number: [id number] Exam Date: 02/24/2024 14:17 Report Date: 02/24/2024 [...] M.D. Signed By:02/24/24 1457 DD/ 1455 TD/TT: Laboratory Chief: Soledad Valdez DO [facility] Final Result documented in this encounter Visit Diagnoses Not on filedocumented in this encounter Care Teams Household Manager Relationship Specialty Start Date End Date Soledad Valdez DO [address] [place] [address] [place] [address] PCP - [facility] 11/09/23 documented as of this encounter
--- OUTSIDE RECORDS SUMMARY | 2024-08-10 20:06 | XMS_ITS | Encounter Summary ---
Author Organization [facility] Address [address] [place] [address] Care Team Providers Care Certified Phlebotomy Technician Name Role Phone Eh Valdez DO Unavailable Encounter Details Date Type Department Care Team (Late st Contact Info) Description 07/27/2024 Results Follow-Up [facility] OB [address] [facility] [address] [address] Zeinab Ramirez LPN [address] [place] [address] Social History Tobacco Use Types [...] PM EDT Routine [facility] OB [address] [facility] [place] [address] Eh Valdez, [address] [place] [address] documented as of this encounter Goals Goal Patient Goal Type Associated Problems Recent Progress Patient-Stated? Author Reminders Care Plan OB Reminders No Open Scheduling, Background documented as of this encounter Visit Diagnoses Not on filedocumented in this encounter Additional Health Concerns Active Problems Noted Date Diagnosed Date OB Reminders 03/25/2024 documented as of this encounter Care Teams Certified Phlebotomy Technician Relationship Specialty Start Date End Date Eh Valdez DO [facility] [place] [address] PCP - [facility] 11/09/23 documented as of this encounter
--- OUTSIDE RECORDS SUMMARY | 2024-08-10 20:06 | XMS_ITS | Encounter Summary ---
Author Organization [facility] Address [address] [place] [address] Care Team Providers Care Caramel Candy Maker Helper Name Role Phone Eh Valdez DO Unavailable Encounter Details Date Type Department Care Team (Late Contact Info) Description 04/24/2024 Orders Only [facility] BCP OB [address] [facility] [place] [address] Ilda Beaver MA [address] [place] [address] [place] [address] Social History Tobacco Use Types Packs/Day Years [...] PM EDT Routine [facility] BCP OB [address] [facility] [place] [address] Eh Valdez DO [address] [facility] [address] [place], [place] [phone] documented as of this encounter Goals Goal [...] documented as of this encounter Care Teams Caramel Candy Maker Helper Relationship Specialty Start Date End Date Eh Valdez DO [address] [place], [place] [address] [place] [address] PCP - [facility] 11/09/23 documented as of this encounter
--- OUTSIDE RECORDS SUMMARY | 2024-08-10 20:06 | XMS_ITS | Encounter Summary ---
Author Organization [facility] Zidisha [facility] tem Address [id number] [address] [place] [address] Care Team Providers Care Critical Power Install Technician Name Role Phone Unavailable Primary Care Provider Unavailabl e Encounter Details Date Type Department Care Team (Late st Contact Info) Description 09/08/2021 Telephone Maternal- Medicine at [facility] [address] [facility] [place] [phone] Elva Maier Social History Tobacco Use Types [...]
--- OUTSIDE RECORDS SUMMARY | 2024-08-10 20:06 | XMS_ITS | Encounter Summary ---
Author Organization [facility] Address [address] [place] [address] Care Team Providers Care Pulp And Paper Tester Name Role Phone Eh Valdez DO Unavailable Reason for Referral * (Routine) - Incomplete Specialty Diagnoses / Procedures Referred By Contac t Referred To Contact Radiology Diagnoses Third trimester ([facility]HS-HCC) Short cervix, antepartum ([facility]HS-HCC) SGA (small for gestational age) ([facility]) Procedures US umbilical artery doppler Paola Bansal PA [address] [place] [address] Phone: tel: fax: Referral ID Status Reason Start Date Expiration Date V isits Requested Visits Authorized [id number] Incomplete 08/07/2024 02/03/2025 1 1 Encounter Details Date Type Department Care Team (Late st Contact Info) Description 08/07/2024 Telephone [facility] BCP OB [address] [place] [phone] Paola Bansal PA [address] [place] [address] Social History Tobacco Use Types Packs/Day [...] is to have Doppler done with [facility] is able to do this [...] PM EDT Routine [facility] BCP OB [address] [facility] [place] [phone] Eh Valdez, DO [address] [place], [place] [id number] Scheduled Orders Name Type Priority Associated Diagnoses Orde r Schedule US umbilical artery doppler Imaging Routine Third trimester ([facility]) Short cervix, antepartum ([facility]HS-HCC) SGA (small for gestational age) (HHS-HCC) Expected: 08/07/2024, Expires: 11/07/2024 documented as of this encounter Goals Goal Patient Goal Type Associated Problems Recent Progress Patient-Stated? Author Reminders Care Plan OB Reminders No Open Scheduling, Background documented as of this encounter Visit Diagnoses Diagnosis Third trimester (HHS-HCC) state, incidental Short cervix, antepartum (HHS-HCC) SGA (small for gestational age) ([facility]) Zmoqt-yxf-morqc without mention of malnutrition, unspecified (weight) documented in this encounter Additional Health Concerns Active Problems Noted Date Diagnosed Date OB Reminders 03/25/2024 documented as of this encounter Care Teams Pulp And Paper Tester Relationship Specialty Start Date End Date Eh Valdez DO [address] [place] [address] [place] [address] [facility] 11/09/23 documented as of this encounter
--- OUTSIDE RECORDS SUMMARY | 2024-08-10 20:06 | XMS_ITS ---
Author Organization [facility] Source Produ ction (ClinicalSummary Clone) Address Unknown Care Team Providers Care Mechanic Welder Name Role Phone Unavailable Primary Care Physician Unavailab le Results * [UNITY] ANEUPLOIDY NIPT Performed by: [employer] Component Value Range Date Fraction 10.6% 04/16/2024 04 :00 pm UTC Rh(D) NIPT RhD DETECTED 04/16/2024 04:0 0 pm UTC Sex Chromosome Aneuploidy NOT DETECTED 04:00 pm UTC Monosomy X LOW RISK <1 in 10,000 2024 04:00 pm UTC Trisomy 13 LOW RISK <1 in 10,000 2024 04:00 pm UTC Trisomy 18 LOW RISK <1 in 10,000 2024 04:00 pm UTC Trisomy 21 LOW RISK <1 in 10,000 2024 04:00 pm UTC Sex FEMALE 04/16/2024 04:0 0 pm UTC Gestation OLVERA 04/17/19 04:00 pm UTC For detailed report, see PDF See PDF 04/16/2024 04:00 pm UTC 04/16/2024 04:0 0 pm UTC Social History Observation Value Start Date End Date
--- OUTSIDE RECORDS SUMMARY | 2024-08-10 20:06 | XMS_ITS | Clinical Summary ---
Author Organization [facility] Address [address] [place] [address] Care Team Providers Care Curing Bin Operator Name Role Phone Soledad Valdez DO Unavailable [...] MORNING and IN THE AFTERNOON) 5 Active Ljzqetjm-Eke-SD ([facility]) 0.4 MG chewable tabletIndication s:Second trimester ([facility]) Chew 1 tablet Daily 30 tablet 11 [...] Department Care Team Description 08/07/2024 Telephone [facility] [address] [place] [address] Paola Bansal PA 08/04/2024 Clinisync Result Encounter [facility] External Department Unsolicited Soledad Valdez, 08/03/2024 2:50 PM EDT Routine [facility] [place] [address] [place] [address] Paola Bansal PA Third trimester ([facility]) (Primary Dx); 33 weeks gestation of ([facility]); Short cervix, antepartum ([facility]) 08/03/2024 2:00 PM EDT Ancillary Procedure [facility] [place] [address] [place] [address] SGA (small for gestational age) ([facility]); Short cervix, antepartum ([facility]) 07/31/2024 Clinisync Result Encounter [facility] External Department Unsolicited Soledad Valdez, 07/27/2024 Results Follow-Up [facility] [place] [address] [place] [address] Zeinab Ramirez LPN 07/27/2024 Telephone [facility] [place] [address] [place] [address] Zeinab Ramirez LPN 07/25/2024 11:30 AM EDT Ancillary Procedure [facility] [place] [address] 07/25/2024 10:40 AM EDT Routine [facility] [place] [address] [place] [address] Soledad Valdez, DO 32 weeks gestation of ([facility]); Third trimester ([facility]); SGA (small for gestational age) ([facility]); Short cervix, antepartum ([facility]) 07/25/2024 Bamboo flowsheet [facility]OM[facility] [address] [place] [address] Soledad Valdez DO 07/11/2024 2:30 PM EDT Ancillary Procedure [facility] [address] [place] [address] Short cervix, antepartum ([facility]); size inconsistent with dates ([facility]) 07/11/2024 Orders Only [facility]OM[facility] [address] [place] [address] [phone] Lucille Hahn 07/10/2024 10:20 AM EDT Routine [facility]OM[facility] [address] [place] [address] Paola Bansal PA Third trimester ([facility]); 29 weeks gestation of ([facility]); with normal glucose tolerance test (GTT) ([facility]); size inconsistent with dates ([facility]); Short cervix, antepartum ([facility]) 07/10/2024 Bamboo flowsheet NOM[facility] [address] [place] [address] Paola Bansal PA 07/07/2024 Tele[address] [facility] [address] [place] [address] Ilda Beaver MA from Last 3 Months [...] PM EDT Routine [facility] BCP OB [address] [place] [address] Soledad Valdez, DO [address] [facility] [place] [address] Health Maintenance Due Date Last Done Comments [...] PM EDT SGA (small for gestational age) ([facility]) US OB BPP W NON-STRESS 07/31/2024 8:00 AM EDT US OB TRANSVAGINAL Routine 07/25/2024 11 :57 AM EDT Short cervix, antepartum (HHS-HCC) US OB FOLLOW UP TRANSABDOMINAL APPROACH Routine 07/11/2024 3:33 PM EDT size inconsistent with dates ([facility]) PAP SMEAR Routine 04/11/2024 12:00 AM EST from Last 3 Months or Most Recently Relevant to Health Maintenance Results * US OB BPP W NON-STRESS (08/04/2024 8:23 AM EDT) Only the most recent of2 resultswithin the time period is included. Anatomical Region Laterality Modality Other 08/04/2024 8:23 AM EDT Narrative 08/04/2024 8:25 [place] [address] Ultrasound Report Signed Patient: MICHELLE GOODE MR#: [id number] : 1990 Acct:[id number] Age/Sex: 34 / F ADM Date: 08/03/24 Loc: US Attending Dr: Soledad Valdez D.O. Ordering Physician: Soledad Valdez D.O. Date of Service: 08/03/24 Procedure(s): US OB BPP w non-stress Accession Number(s): [id number] cc: Soledad Valdez D.O.; Physician,Non-Staff Kofi The [address] [address] Patient Name: MICHELLE GOODE MRN: [id number] date: 1990 Sex: F Assigned Patient Location: [facility] Current Patient Location: Accession/Order Number: [id number] Exam Date: 08/04/2024 08:21 Report Date: 08/04/2024 [...] Perez M.D. 08/04/2024 8:23 AM Dictation Location: [place] [address] Electronically authenticated by: [id number] Y Date: 08/04/2024 08:23 Dictated By: Lee Ann Perez M.D. Signed By: 08/04/24824 DD/ 2 TD/TT: Services Manager: Procedure Note Radiology, Radiologist, MD - 08/04/2024 [place] [address] Ultrasound Report Signed Patient: MICHELLE GOODE MMR#: [id number] : 1990Acct:[id number] Age/Sex: 34 / FADM Date: 08/03/24 Loc: US Attending Dr: Soledad Valdez D.O. Ordering Physician: Soledad Valdez D.O. Date of Service: 08/03/24 Procedure(s): US OB BPP w non-stress Accession Number(s): [id number] cc: Soledad Valdez D.O.; Physician,Non-Staff Kofi The [address] [address] Patient Name: MICHELLE GOODE MRN: [id number] date: 1990 Sex: F Assigned Patient Location: [facility] Current Patient Location: Accession/Order Number: [id number] Exam Date: 08/04/2024 08:21 Report Date: 08/04/2024 [...] Perez M.D. 08/04/2024 8:23 AM Dictation Location: [place] [address] Electronically authenticated by: [id number] Y Date: 508:23 Dictated By: Lee Ann Perez M.D. Signed By:08/04/24824 DD/ 2 TD/TT: Services Manager: us Soledad Valdez DO [facility] Final [...] cm - Funneling was noted by performing cardiac monitor technician but not well demonstrated on the [...] Cervical funneling was noted by the performing cardiac monitor technician but not well demonstrated on the provided images. The ordering physician was notified. Interpreted by: Electronically signed by RISA AYALA II, MD, PHD at 06-Aug-2024 10:03:36 PM [facility] Procedure Note Risa Ayala MD - [...] length. Cervical funneling was noted by theperforming cardiac monitor technician but not well demonstrated on the provided images.The ordering physician was notified. Interpreted by: Electronically signed by RISA AYALA II, MD, PHD 10:03:36 PM [facility] us Soledad Valdez DO IM OB US [...] II, MD, PHD at 26-Jul-2024 08:00:42 AM [facility] Procedure Note Risa Ayala MD - 07/26/2024 EXAM: US OB TRANSVAGINAL HISTORY: Shortened cervix. COMPARISON: Ob ultrasound 07/11/2024. TECHNIQUE: Two-dimensional transvaginal grayscale ultrasound imaging ofthe cervix was performed. FINDINGS: Presentation: Cephalic Cervical Length: 2.6 cm IMPRESSION: 1. Shortened cervical length measuring 2.6 cm. Interpreted by: Electronically signed by RISA AYALA II, MD, PHD 08:00:42 AM [facility] us Paola BARRIOS IMG OB US PROCEDURES Final Resul t * Pap Smear (04/11/2024 12:00 AM EST) Swab Cervical swab / Unknown us Paola BARRIOS LAB CYTOLOGY ORDERABLES Final Re sult EXTERNAL LAB from Last 3 Months or Most Recently Relevant to Health Maintenance Additional Health Concerns Active Problems Noted Date Diagnosed Date OB Reminders 03/25/2024 Insurance [employer] [facility] Care Teams Curing Bin Operator Relationship Specialty Start Date End Date Soledad Valdez DO [address] [place] [address] PCP - [facility] 11/09/23
--- OUTSIDE RECORDS SUMMARY | 2024-08-10 20:06 | XMS_ITS | Encounter Summary ---
Author Organization [facility] Address [address] [place] [address] Care Team Providers Care Trains Dispatcher Supervisor Name Role Phone Soledad Valdez DO Unavailable Encounter Details Date Type Department Care Team (Late Contact Info) Description 08/04/2024 Clinisync Result Encounter [facility] External Department Unsolicited Soledad Valdez, DO [address] [place], [facility] Social History Tobacco Use Types Packs/Day Years [...] Routine [facility] BCP OB [address] [place] [phone] Soledad Valdez, [address] [place] [address] documented as of this encounter Goals Goal [...] AM EDT Narrative 08/04/2024 8:25 [place] [address] Ultrasound Report Signed Patient: MICHELLE GOODE MR#: [id number] : 1990 Acct:[id number] Age/Sex: 34 / F ADM Date: 08/03/24 Loc: US Attending Dr: Soledad Valdez D.O. Ordering Physician: Soledad Valdez D.O. Date of Service: 08/03/24 Procedure(s): US OB BPP w non-stress Accession Number(s): [id number] cc: Soledad Valdez D.O.; Physician,Non-Staff M.Yariel The [address] [address] Patient Name: MICHELLE GOODE MRN: [id number] date: 1990 Sex: F Assigned Patient Location: [facility] Current Patient Location: Accession/Order Number: [id number] Exam Date: 08/04/2024 08:21 Report Date: 08/04/2024 [...] Perez M.D. 08/04/2024 8:23 AM Dictation Location: [place] [address] Electronically authenticated by: [id number] Y Date: 08/04/2024 08:23 Dictated By: Lee Ann Perez M.D. Signed By: 08/04/24824 DD/ 2 TD/TT: Piping Designer: Procedure Note Radiology, Radiologist, MD - 08/04/2024 [place] [address] Ultrasound Report Signed Patient: MICHELLE GOODE MMR#: [id number] : 1990Acct:[id number] Age/Sex: 34 / FADM Date: 08/03/24 Loc: US Attending Dr: Soledad Valdez D.O. Ordering Physician: Soledad Valdez D.O. Date of Service: 08/03/24 Procedure(s): US OB BPP w non-stress Accession Number(s): [id number] cc: Soledad Valdez D.O.; Physician,Non-Staff Kofi The [place] [address] Patient Name: MICHELLE GOODE MRN: [id number] date: 1990 Sex: F Assigned Patient Location: [facility] Current Patient Location: Accession/Order Number: [id number] Exam Date: 08/04/2024 08:21 Report Date: 08/04/2024 [...] Perez M.D. 08/04/2024 8:23 AM Dictation Location: [place] [address] Electronically authenticated by: [id number] Y Date: 508:23 Dictated By: Lee Ann Perez M.D. Signed By:08/04/2425 DD/ 2 TD/TT: Piping Designer: Soledad Valdez DO [facility] Final Result documented in this encounter Visit Diagnoses Not on filedocumented in this encounter Additional Health Concerns Active Problems Noted Date Diagnosed Date OB Reminders 03/25/2024 documented as of this encounter Care Teams Trains Dispatcher Supervisor Relationship Specialty Start Date End Date Soledad Valdez DO [address] [place] [address] [place] [address] PCP - [facility] 11/09/23 documented as of this encounter
--- OUTSIDE RECORDS SUMMARY | 2024-08-10 20:06 | XMS_ITS | Encounter Summary ---
Author Organization [facility] Address [address] [place] [address] Care Team Providers Care Bead Wrapper Name Role Phone Soledad Valdez DO Unavailable Encounter Details Date Type Department Care Team (Late Contact Info) Description 07/31/2024 Clinisync Result Encounter [facility] External Department Unsolicited Soledad Valdez, DO [address] [place], [facility] Social History Tobacco Use Types Packs/Day [...] Routine [facility] BCP OB [address] [place] [phone] Soledad Valdez, [address] [place] [address] documented as of this encounter Goals Goal [...] AM EDT Narrative 07/31/2024 8:02 [place] [address] Ultrasound Report Signed Patient: MICHELLE GOODE MR#: [id number] : 1990 Acct:[id number] Age/Sex: 34 / F ADM Date: 07/29/24 Loc: US Attending Dr: Soledad Valdez D.O. Ordering Physician: Soledad Valdez D.O. Date of Service: 07/29/24 Procedure(s): US OB BPP w non-stress Accession Number(s): [id number] cc: Soledad Valdez D.O.; Physician,Non-Staff M.Yariel The [address] [address] Patient Name: MICHELLE GOODE MRN: [id number] date: 1990 Sex: F Assigned Patient Location: [facility] Current Patient Location: Accession/Order Number: [id number] Exam Date: 07/31/2024 07:58 Report Date: 07/31/2024 [...] Perez M.D. 07/31/2024 8:00 AM Dictation Location: [place] [address] Electronically authenticated by: [id number] Y Date: 07/31/2024 08:00 Dictated By: Lee Ann Perez M.D. Signed By: 07/31/24801 DD/ 9 TD/TT: Foundry Finisher: Procedure Note Radiology, Radiologist, - 07/31/2024 [place] [address] Ultrasound Report Signed Patient: MICHELLE GOODE MMR#: [id number] : 1990Acct:[id number] Age/Sex: 34 / FADM Date: 07/29/24 Loc: US Attending Dr: Soledad Valdez D.O. Ordering Physician: Soledad Valdez D.O. Date of Service: 07/29/24 Procedure(s): US OB BPP w non-stress Accession Number(s): [id number] cc: Soledad Valdez D.O.; Physician,Non-Staff Kofi The [place] [id number] Patient Name: MICHELLE GOODE MRN: [id number] date: 1990 Sex: F Assigned Patient Location: [facility] Current Patient Location: Accession/Order Number: [id number] Exam Date: 07/31/2024 07:58 Report Date: 07/31/2024 [...] Perez M.D. 07/31/2024 8:00 AM Dictation Location: [place] [address] Electronically authenticated by: [id number] Y Date: 508:00 Dictated By: Lee Ann Perez M.D. Signed By:07/31/24 0802 DD/ 0800 TD/TT: Foundry Finisher: us Soledad Valdez DO [facility] Final Result documented in this encounter Visit Diagnoses Not on filedocumented in this encounter Additional Health Concerns Active Problems Noted Date Diagnosed Date OB Reminders 03/25/2024 documented as of this encounter Care Teams Bead Wrapper Relationship Specialty Start Date End Date Soledad Valdez DO [address] [place] [address] [address] [place] [place] [address] PCP - [facility] 11/09/23 documented as of this encounter
--- NOTE | 2024-08-10 20:08 | US_ITS ---
The [address] [address] Patient Name: SIDDHARTHA BENITO MRN: [id number] date: 1990 Sex: F Assigned Patient Location: [facility] Current Patient Location: Accession/Order Number: [id number] Exam Date: 08/10/2024 22:41 Report Date: 08/10/2024 22:42 At the request of: GABRIELLE CARMICHAEL Procedure: US OB BPP wo non-stress Ultrasound biophysical profile HISTORY: Gestational age Adequate breathing movement, gross body movement, tone and amniotic fluid volume for total score of 8 out of 8. The amniotic fluid index is 11.1cm within normal limits. The heart rate 147 bpm. US/US OB BPP wo non-stress IMPRESSION: Adequate ultrasound biophysical profile Impression dictated by: Gelacio Calhoun M.D. 08/10/2024 10:42 PM [facility]ictation [facility] Electron[facility] authenticated by: [id number] Y Date: 08/10/2024 22:42
[2024-08-10 20:26] VITALS: BP 127/68; PULSE 114
[2024-08-10] MEDS: BETAMETHASONE ACE/BETAMETHASONE SOD PHOS 30 MG/5 ML 12 MG IM (20:26)
== END 2024-08-10 20:54 | disposition home or self-care (01) ==
LOC: FBCO 20:04 → FBC 20:06
PROVIDERS: Visit Provider Physician Assistant
DX: Z36.84 Encounter for antenatal screening for fetal lung maturity (principal); Z3A.34 34 weeks gestation of pregnancy
CPT/HCPCS: 76819; J0702

== ENCOUNTER 2024-08-13 12:12 | Outpatient (OUT) | payer BC, OTHER, SELFPAY ==
--- OUTSIDE RECORDS SUMMARY | 2024-08-03 14:00 | XMS_ITS | Encounter Summary ---
Author Organization [facility] Address [address] [place] [address] Care Team Providers Care Cnc Mill And Lathe Operator Name Role Phone Eh Valdez DO Unavailable Encounter Details Date Type Department Care Team (Latest Contact Info) Description 08/03/2024 2:00 PM EDT Ancillary Procedure [facility] [address] [place] [address] SGA (small for gestational age) ([facility]); Short cervix, antepartum ([facility]) Social History Tobacco Use Types Packs/Day [...] PM EDT Routine [facility] [address] [facility] [address] Eh Valdez DO [address] [place], [place] [id number] Pending Results Name Type Priority Associated Diagnoses [...] PM EDT SGA (small for gestational age) ([facility]) documented in this encounter Results * US [...] cm - Funneling was noted by performing hydro technician but not well demonstrated on the [...] Cervical funneling was noted by the performing hydro technician but not well demonstrated on the provided images. The ordering physician was notified. Interpreted by: Electronically signed by RISA AYALA II, MD, PHD at 06-Aug-2024 10:03:36 PM [facility] Procedure Note Risa Ayala MD - [...] length. Cervical funneling was noted by theperforming hydro technician but not well demonstrated on the provided images.The ordering physician was notified. Interpreted by: Electronically signed by RISA AYALA II, MD, PHD [id number] 10:03:36 PM [facility] us Eh José Miguel DO IM OB US PROCEDURES Final Resul t documented in this encounter Visit Diagnoses Diagnosis SGA (small for gestational age) ([facility]) Nztry-[id number]-[id number] without mention of malnutrition, unspecified (weight) Short cervix, antepartum ([facility]) documented in this encounter Additional Health Concerns Active Problems Noted Date Diagnosed Date OB Reminders 03/25/2024 documented as of this encounter Care Teams Cnc Mill And Lathe Operator Relationship Specialty Start Date End Date Eh Valdez DO [address] [place] [address] PCP - [facility] 11/09/23 documented as of this encounter
--- OUTSIDE RECORDS SUMMARY | 2024-08-03 14:50 | XMS_ITS | Encounter Summary ---
Author Organization [facility] Address [address] [place] [address] Care Team Providers Care Galley Cook Name Role Phone Eh Valdez DO Unavailable Reason for Visit * Reason Comments Routine Visit Encounter Details Date Type Department Care Team ([facility] st Contact Info) Description 08/03/2024 2:50 PM EDT Routine [facility] BCP OB [address] [address] Paola Bansal PA [address] [facility] [address] [place], [place] [phone] Third trimester ([facility]) (Primary Dx); 33 weeks gestation of ([facility]); Short cervix, antepartum ([facility]) Social History Tobacco Use Types [...] (IN THE MORNING and IN THE AFTERNOON) Mufyobqv-Ybe-MJ ([facility]) 0.4 MG chewable tablet 1 tablet, Oral, Daily ALLERGIES Allergies Allergen Reactions Penicillins Hives, Fever, Itching, Rash, Swelling and Wheezing PROBLEMS Active Ambulatory Problems Diagnosis Date Noted GERD (gastroesophageal reflux disease) 08/09/2007 Exacerbation of asthma ([facility]) 08/09/2007 Attention deficit hyperactivity disorder 08/09/2007 Allergic rhinitis 08/09/2007 Substance abuse ([facility]) 09/15/2022 Resolved Ambulatory Problems Diagnosis Date Noted No Resolved Ambulatory Problems Past Medical History: Diagnosis Date Allergies Anxiety Asthma ([facility]) Bee sting Miscarriage ([facility]) Pelvic pain 2010 Syncope Thoracic sprain HISTORY PAST MEDICAL HISTORY SOCIAL HISTORY Past Medical History: Diagnosis Date Allergies Anxiety Asthma ([facility]) Bee sting right ring finger Miscarriage ([facility]) 8-9 weeks Pelvic pain 2011 Syncope [...] ASSESSMENT & PLAN ICD-10-CM 1. Third trimester ([facility]) Z34.93 2. 33 weeks gestation of ([facility]) Z3A.33 Return OB: Patient presents today [...] nst tomorrow 08/03/24. Discussion of returning to [facility] had been made previously and pt has not yet followed up with them. Patient has been educated on importance of following with [facility]. Risks of IUGR with shortened cervix [...] Routine [facility] BCP OB [address] [place] [address] Eh Valdez DO [address] [place] [address] Scheduled Orders Name Type Priority Associated Diagnoses Orde r Schedule US OB transvaginal Imaging Routine Short cervix, antepartum ([facility]) Expected: 08/03/2024, Expires: 11/03/2024 documented as of this encounter Goals Goal Patient Goal Type Associated Problems Recent Progress Patient-Stated? Author Reminders Care Plan OB Reminders No Open Scheduling, Background documented as of this encounter Visit Diagnoses Diagnosis Third trimester ([facility])- Primary state, incidental 33 weeks gestation of ([facility]) Short cervix, antepartum ([facility]) documented in this encounter Additional Health Concerns Active Problems Noted Date Diagnosed Date OB Reminders 03/25/2024 documented as of this encounter Care Teams Galley Cook Relationship Specialty Start Date [place] [address] PCP - [facility] 11/09/23 documented as of this encounter
--- OUTSIDE RECORDS SUMMARY | 2024-08-13 12:16 | XMS_ITS | Encounter Summary ---
Author Organization [facility] Address [address] [place] [address] Care Team Providers Care Carbonation Equipment Operator Name Role Phone Eh Valdez DO Unavailable Encounter Details Date Type Department Care Team (Late st Contact Info) Description 03/21/2024 Abstract [facility] OB [address] [place] [address] Eh Valdez [address] [place], [place] [address] Social History Tobacco Use Types Packs/Day Years [...] Description 08/22/2024 2:10 PM EDT Routine [facility] OB [address] [place] [address] Eh Valdez DO [address] [place], [facility] documented as of this encounter Visit Diagnoses Not on filedocumented in this encounter Care Teams Carbonation Equipment Operator Relationship Specialty Start Date End Date Eh Valdez DO [address] [place] [address] PCP - [facility] 11/09/23 documented as of this encounter
--- OUTSIDE RECORDS SUMMARY | 2024-08-13 12:16 | XMS_ITS | Clinical Summary ---
Author Organization [facility] Address [address] [place] [address] Care Team Providers Care Roof Designer Name Role Phone Soledad Valdez DO Unavailable [...] MORNING and IN THE AFTERNOON) 5 Active Wrggbyev-Pbk-CU ([facility]) 0.4 MG chewable tabletIndication s:Second trimester ([facility]) Chew 1 tablet Daily 30 tablet [...] Encounters Date Type Department Care Team Description 08/10/2024 Clinisync Result Encounter [facility] External Department Unsolicited Paola Carmichael PA 08/07/2024 Telephone [facility] OB [address] [place] [address] Paola Carmichael PA 08/04/2024 Clinisync Result Encounter NOMS External Department Unsolicited Soledad Valdez, 08/03/2024 2:50 PM EDT Routine [facility] [place] [address] [place] [address] Paola Carmichael PA Third trimester ([facility]) (Primary Dx); 33 weeks gestation of ([facility]); Short cervix, antepartum ([facility]) 08/03/2024 2:00 PM EDT Ancillary Procedure [facility] [place] [address] [place] [address] SGA (small for gestational age) ([facility]); Short cervix, antepartum ([facility]) 07/31/2024 Clinisync Result Encounter NOMS External Department Unsolicited Soledad Valdez, 07/27/2024 Results Follow-Up [facility] [address] [place] [address] Zeinab Ramirez LPN 07/27/2024 Telephone [facility] [place] [address] Zeinab Ramirez LPN 07/25/2024 11:30 AM EDT Ancillary Procedure [facility] [place] [address] 07/25/2024 10:40 AM EDT Routine NOM[facility] [address] [place] [address] Soledad Valdez, 32 weeks gestation of ([facility]); Third trimester ([facility]); SGA (small for gestational age) ([facility]); Short cervix, antepartum ([facility]) 07/25/2024 Bamboo flowsheet [facility]OM[facility] [address] [place] [address] Soledad Valdez DO 07/11/2024 2:30 PM EDT Ancillary Procedure [facility] [address] [place] [address] Short cervix, antepartum ([facility]); size inconsistent with dates ([facility]) 07/11/2024 Orders Only [facility]OM[facility] [address] [place] [address] Lucille Hahn 07/10/2024 10:20 AM EDT Routine [facility]OM[facility] [address] [place] [address] Paola Carmichael PA Third trimester ([facility]); 29 weeks gestation of ([facility]); with normal glucose tolerance test (GTT) ([facility]); size inconsistent with dates ([facility]); Short cervix, antepartum ([facility]) 07/10/2024 Bamboo flowsheet [facility]OM[facility] [address] [place] [address] Paola Carmichael PA 07/07/2024 Telephone [facility] [address] [place] [address] Ilda Beaver MA from Last 3 Months [...] PM EDT Routine [facility] [address] [place] [address] Soledad Valdez, DO [address] [facility] [place] [address] Health Maintenance Due Date Last Done Comments Influenza Vaccine (#1) 2024 Cervical Cancer Screening 04/11/2029 HPV/Cotest 04/11/2029 Pap Smear 04/11/2029 04/11/2024, 05/21/2021 Goals Goal Patient Goal Type Associated Problems Recent Progress Patient-Stated? Author Reminders Care Plan OB Reminders No Open Scheduling, Background Procedures Procedure Name Priority Date/Time Associated Diagnosis Comments US OB BPP WO NON-STRESS 08/10/2024 10:42 PM EDT US OB BPP W NON-STRESS 08/04/2024 8:23 AM EDT US OB FOLLOW UP TRANSABDOMINAL APPROACH Routine 08/03/2024 2:50 PM EDT SGA (small for gestational age) ([facility]) US OB BPP W NON-STRESS 07/31/2024 8:00 AM EDT US OB TRANSVAGINAL Routine 07/25/2024 11 :57 AM EDT Short cervix, antepartum ([facility]) US OB FOLLOW UP TRANSABDOMINAL APPROACH Routine 07/11/2024 3:33 PM EDT size inconsistent with dates ([facility]) PAP SMEAR Routine 04/11/2024 12:00 AM EST from Last 3 Months or Most Recently Relevant to Health Maintenance Results * US OB BPP WO NON-STRESS (08/10/2024 10:42 PM EDT) Anatomical Region Laterality Modality Other 08/10/2024 10:4 2 PM EDT Narrative 08/10/2024 10:44 [place] [address] Ultrasound Report Signed Patient: MICHELLE GOODE MR#: [id number] : 1990 Acct:[id number] Age/Sex: 34 / F ADM Date: 08/10/24 Loc: [facility] Attending Dr: Paola Carmichael Ordering Physician: Paola Carmichael Date of Service: 08/10/24 Procedure(s): US OB BPP wo non-stress Accession Number(s): [id number] cc: Paola Carmichael; Physician,Non-Staff M.D. The [address] [address] Patient Name: MICHELLE GOODE MRN: [id number] date: 1990 Sex: F Assigned Patient Location: [facility] Current Patient Location: Accession/Order Number: [id number] Exam Date: 08/10/2024 22:41 Report Date: 08/10/2024 22:42 At the request of: PAOLA CARMICHAEL Procedure: US OB BPP wo non-stress Ultrasound biophysical profile HISTORY: Gestational age Adequate breathing movement, gross body movement, tone and amniotic fluid volume for total score of 8 out of 8. The amniotic fluid index is 11.1cm within normal limits. The heart rate 147 bpm. US/US OB BPP wo non-stress IMPRESSION: Adequate ultrasound biophysical profile Impression dictated by: Gelacio Calhoun M.D. 08/10/2024 10:42 PM Dictation Location: [place] [address] Electronically authenticated by: [id number] Y Date: 08/10/2024 22:42 Dictated By: Gelacio Calhoun D.O. Signed By: 08/10/242243 DD/ 41 TD/TT: General Repairer: Procedure Note Radiology, Radiologist, MD - 08/10/2024 [place] [address] Ultrasound Report Signed Patient: MICHELLE GOODE MMR#: [id number] : 1990Acct:[id number] Age/Sex: 34 / FADM Date: 08/10/24 Loc: [facility] Attending Dr: Paola Carmichael Ordering Physician: Paola Carmichael Date of Service: 08/10/24 Procedure(s): US OB BPP wo non-stress Accession Number(s): [id number] cc: Paola Carmichael; Physician,Non-Staff Kofi The [place] [id number] Patient Name: MICHELLE GOODE MRN: [id number] date: 1990 Sex: F Assigned Patient Location: [facility] Current Patient Location: Accession/Order Number: [id number] Exam Date: 08/10/2024 22:41 Report Date: 08/10/2024 22:42 At the request of: PAOLA CARMICHAEL Procedure: US OB BPP wo non-stress Ultrasound biophysical profile HISTORY: Gestational age Adequate breathing movement, gross body movement, tone and amniotic fluid volume for total score of 8 out of 8. The amniotic fluidindex is 11.1cm within normal limits. The heart rate 147 bpm. US/US OB BPP wo non-stress IMPRESSION: Adequate ultrasound biophysical profile Impression dictated by: Gelacio Calhoun M.D. 08/10/2024 10:42 PM Dictation Location: [place] [address] Electronically authenticated by: [id number] Y Date: 2:42 Dictated By: Gelacio Calhoun D.O. Signed By:08/10/244 DD/ 41 TD/TT: General Repairer: us Paola BARRIOS [facility] Final Result * US OB BPP W NON-STRESS (08/04/2024 8:23 AM EDT) Only the most recent of2 resultswithin the time period is included. Anatomical Region Laterality Modality Other 08/04/2024 8:23 AM EDT Narrative 08/04/2024 8:25 [place] [address] Ultrasound Report Signed Patient: MICHELLE GOODE MR#: [id number] : 1990 Acct:[id number] Age/Sex: 34 / F ADM Date: 08/03/24 Loc: US Attending Dr: Soledad Valdez D.O. Ordering Physician: Soledad Valdez D.O. Date of Service: 08/03/24 Procedure(s): US OB BPP w non-stress Accession Number(s): [id number] cc: Soledad Valdez D.O.; Physician,Non-Staff Kofi The [address] [id number] Patient Name: MICHELLE GOODE MRN: [id number] date: 1990 Sex: F Assigned Patient Location: [facility] Current Patient Location: Accession/Order Number: [id number] Exam Date: 08/04/2024 08:21 Report Date: 08/04/2024 [...] This is in low-normal range. Total score: 8 US/US OB BPP w non-stress IMPRESSION: NORMAL BIOPHYSICAL PROFILE Impression dictated by: Lee Ann Perez M.D. 08/04/2024 8:23 AM Dictation Location: [place] [address] Electronically authenticated by: [id number] Y Date: 08/04/2024 08:23 Dictated By: Lee Ann Perez M.D. Signed By: 08/04/24824 DD/ 2 TD/TT: General Repairer: Procedure Note Radiology, Radiologist, MD - 08/04/2024 [place] [address] Ultrasound Report Signed Patient: MICHELLE GOODE MMR#: [id number] : 1990Acct:[id number] Age/Sex: 34 / FADM Date: 08/03/24 Loc: US Attending Dr: Soledad Valdez D.O. Ordering Physician: Soledad Valdez D.O. Date of Service: 08/03/24 Procedure(s): US OB BPP w non-stress Accession Number(s): [id number] cc: Soledad Valdez D.O.; Physician,Non-Staff Kofi The [place] [id number] Patient Name: MICHELLE GOODE MRN: [id number] date: 1990 Sex: F Assigned Patient Location: [facility] Current Patient Location: Accession/Order Number: [id number] Exam Date: 08/04/2024 08:21 Report Date: 08/04/2024 [...] Perez M.D. 08/04/2024 8:23 AM Dictation Location: [place] [address] Electronically authenticated by: [id number] Y Date: 508:23 Dictated By: Lee Ann Perez M.D. Signed By:08/04/24824 DD/ 2 TD/TT: General Repairer: us Soledad Valdez DO [facility] Final [...] cm - Funneling was noted by performing sound technician but not well demonstrated on the [...] Cervical funneling was noted by the performing sound technician but not well demonstrated on the provided images. The ordering physician was notified. Interpreted by: Electronically signed by RISA AYALA II, MD, PHD at 06-Aug-2024 10:03:36 PM [facility] Procedure Note Risa Ayala MD - [...] length. Cervical funneling was noted by theperforming sound technician but not well demonstrated on the provided images.The ordering physician was notified. Interpreted by: Electronically signed by RISA AYALA II, MD, PHD [id number] 10:03:36 PM [facility] us Soledad José Miguel DO IMG OB US PROCEDURES Final Resul t [...] II, MD, PHD at 26-Jul-2024 08:00:42 AM [facility] Procedure Note Risa Ayala MD - 07/26/2024 EXAM: US OB TRANSVAGINAL HISTORY: Shortened cervix. COMPARISON: Ob ultrasound 07/11/2024. TECHNIQUE: Two-dimensional transvaginal grayscale ultrasound imaging ofthe cervix was performed. FINDINGS: Presentation: Cephalic Cervical Length: 2.6 cm IMPRESSION: 1. Shortened cervical length measuring 2.6 cm. Interpreted by: Electronically signed by RISA AYALA II, MD, PHD [id number] 08:00:42 AM [facility] us Paola BARRIOS IMG OB US PROCEDURES Final Resul t * Pap Smear (04/11/2024 12:00 AM EST) Swab Cervical swab / Unknown us Paola BARRIOS LAB CYTOLOGY ORDERABLES Final Re sult EXTERNAL LAB from Last 3 Months or Most Recently Relevant to Health Maintenance Additional Health Concerns Active Problems Noted Date Diagnosed Date OB Reminders 03/25/2024 Insurance [employer] [facility] Member Subscriber Plan / Payer (Ef fective 2023-Present) Name:Michelle Goode Relation to Subscriber:Spouse Name:Jeovanny Goode Date of :1983 Address: [address] [place] [address] [address] [place] [address] Payer ID:Not on file Type:Not on file Address: [address] [place] [address] Care Teams Roof Designer Relationship Specialty Start Date End Date Soledad Valdez DO [address] [place], [place] [address]Gi[place] [address] PCP - [facility] 11/09/23
--- OUTSIDE RECORDS SUMMARY | 2024-08-13 12:16 | XMS_ITS | Encounter Summary ---
Author Organization [facility] Address [address] [place] [address] Care Team Providers Care Functional Mental Disability Teacher Name Role Phone Soledad Valdez DO Unavailable Encounter Details Date Type Department Care Team (Late Contact Info) Description 02/24/2024 Clinisync Result Encounter [facility] External Department Unsolicited Soledad Valdez, DO [address] [place], [facility] Social History Tobacco Use Types Packs/Day [...] Routine [facility] [place] [address] [place] [address] Soledad Valdez DO [address] [place] [address] documented as of this encounter Procedures Procedure Name Priority Date/Time Associated Diagnosis Comments US OB TRANSVAGINAL 02/24/2024 2: 55 PM EST documented in this encounter Results * US OB TRANSVAGINAL (02/24/2024 2:55 PM EST) Anatomical Region Laterality Modality Other 02/24/2024 2:55 PM EST Narrative 02/24/2024 2:57 [place] [address] Ultrasound Report Signed Patient: MICHELLE GOODE MR#: [id number] : 1990 Acct:[id number] Age/Sex: 33 / F ADM Date: 02/24/24 Loc: US Attending Dr: Soledad Valdez D.O. Ordering Physician: Soledad Valdez D.O. Date of Service: 02/24/24 Procedure(s): US OB transvaginal Accession Number(s): [id number] cc: Soledad Valdez D.O.; Physician,Non-Staff M.DYumiko The [place] [id number] Patient Name: MICHELLE GOODE MRN: [id number] date: 1990 Sex: F Assigned Patient Location: US Current Patient Location: US Accession/Order Number: [id number] Exam Date: 02/24/2024 14:17 Report Date: 02/24/2024 [...] Signed By: 02/24/24 1457 DD/ 54 TD/TT: Financial Coach: Procedure Note Radiology, Radiologist, - 02/24/2024 [place] [address] Ultrasound Report Signed Patient: MICHELLE GOODE MMR#: [id number] : 1990Acct:[id number] Age/Sex: 33 / FADM Date: 02/24/24 Loc: US Attending Dr: Soledad Valdez D.O. Ordering Physician: Soledad Valdez D.O. Date of Service: 02/24/24 Procedure(s): US OB transvaginal Accession Number(s): [id number] cc: Soledad Valdez D.O.; Physician,Non-Staff Kofi The [place] [address] Patient Name: MICHELLE GOODE MRN: [id number] date: 1990 Sex: F Assigned Patient Location: US Current Patient Location: US Accession/Order Number: [id number] Exam Date: 02/24/2024 14:17 Report Date: 02/24/2024 [...] M.D. Signed By:02/24/24 1457 DD/ 1455 TD/TT: Financial Coach: Soledad Valdez DO [facility] Final Result documented in this encounter Visit Diagnoses Not on filedocumented in this encounter Care Teams Functional Mental Disability Teacher Relationship Specialty Start Date End Date Soledad Valdez DO [address] [place] [address] [place] [address] PCP - [facility] 11/09/23 documented as of this encounter
--- OUTSIDE RECORDS SUMMARY | 2024-08-13 12:16 | XMS_ITS | Encounter Summary ---
Author Organization [facility] Address [address] [place] [address] Care Team Providers Care Ostrich Farmer Name Role Phone Eh Valdez DO Unavailable Encounter Details Date Type Department Care Team (Late st Contact Info) Description 07/27/2024 Results Follow-Up [facility] [address] [place] [address] Zeinab Ramirez LPN [address] [place] [address] Social History Tobacco Use Types [...] PM EDT Routine [facility] [address] [facility] [place] [address] Eh Valdez, [address] [place] [address] documented as of this encounter Goals Goal Patient Goal Type Associated Problems Recent Progress Patient-Stated? Author Reminders Care Plan OB Reminders No Open Scheduling, Background documented as of this encounter Visit Diagnoses Not on filedocumented in this encounter Additional Health Concerns Active Problems Noted Date Diagnosed Date OB Reminders 03/25/2024 documented as of this encounter Care Teams Ostrich Farmer Relationship Specialty Start Date End Date Eh Valdez DO [facility] [place] [address] PCP - [facility] 11/09/23 documented as of this encounter
--- OUTSIDE RECORDS SUMMARY | 2024-08-13 12:16 | XMS_ITS | Encounter Summary ---
Author Organization [facility] Address [address] [place] [address] Care Team Providers Care Batterboard Setter Name Role Phone Eh Valdez DO Unavailable Encounter Details Date Type Department Care Team (Late st Contact Info) Description 05/04/2024 Abstract [facility] OB [address] [place] [address] Eh Valdez DO [address] [place], [facility]11 Social History Tobacco Use Types Packs/Day Years [...] Description 08/22/2024 2:10 PM EDT Routine [facility] OB [address] [place] [address] Eh Valdez DO [address] [place], [facility]11 documented as of this encounter Goals Goal Patient Goal Type Associated Problems Recent Progress Patient-Stated? Author Reminders Care Plan OB Reminders No Open Scheduling, Background documented as of this encounter Visit Diagnoses Not on filedocumented in this encounter Additional Health Concerns Active Problems Noted Date Diagnosed Date OB Reminders 03/25/2024 documented as of this encounter Care Teams Batterboard Setter Relationship Specialty Start Date End Date Eh Valdez DO [address] [place] [address] PCP - [facility] 11/09/23 documented as of this encounter
--- OUTSIDE RECORDS SUMMARY | 2024-08-13 12:16 | XMS_ITS | Encounter Summary ---
Author Organization [facility] Address [address] [place] [address] Care Team Providers Care Neurophysiologist Name Role Phone Eh Valdez DO Unavailable Reason for Referral * (Routine) - Incomplete Specialty Diagnoses / Procedures Referred By Contac t Referred To Contact Radiology Diagnoses Third trimester ([facility]) Short cervix, antepartum ([facility]) SGA (small for gestational age) ([facility]) Procedures US umbilical artery doppler Paola Bansal PA [address] [facility] [place] [address] Phone: tel: fax: Referral ID Status Reason Start Date Expiration Date V isits Requested Visits Authorized [id number] Incomplete 08/07/2024 02/03/2025 1 1 Encounter Details Date Type Department Care Team (Late st Contact Info) Description 08/07/2024 Telephone [facility] [address] [place] [address] Paola Bansal PA [address] [place] [address] Social History Tobacco Use Types Packs/Day [...] is to have Doppler done with [facility] is able to do this [...] PM EDT Routine [facility] OB [address] [facility] [place] [address] Eh Valdez, DO [address] [place], [place] [address] Scheduled Orders Name Type Priority Associated Diagnoses Orde r Schedule US umbilical artery doppler Imaging Routine Third trimester ([facility]) Short cervix, antepartum ([facility]) SGA (small for gestational age) ([facility]) Expected: 08/07/2024, Expires: 11/07/2024 documented as of this encounter Goals Goal Patient Goal Type Associated Problems Recent Progress Patient-Stated? Author Reminders Care Plan OB Reminders No Open Scheduling, Background documented as of this encounter Visit Diagnoses Diagnosis Third trimester ([facility]) state, incidental Short cervix, antepartum ([facility]) SGA (small for gestational age) ([facility]) Kxjsv-vkm-uvuqy without mention of malnutrition, unspecified (weight) documented in this encounter Additional Health Concerns Active Problems Noted Date Diagnosed Date OB Reminders 03/25/2024 documented as of this encounter Care Teams Neurophysiologist Relationship Specialty Start Date End Date Eh Valdez DO [address] [place] [address] [place] [address] [facility]CP - [facility] 11/09/23 documented as of this encounter
--- OUTSIDE RECORDS SUMMARY | 2024-08-13 12:16 | XMS_ITS | Encounter Summary ---
Author Organization [facility] Address [address] [place] [address] Care Team Providers Care Vp Foundation Name Role Phone Soledad Valdez DO Unavailable Encounter Details Date Type Department Care Team (Late Contact Info) Description 07/31/2024 Clinisync Result Encounter NOMS External Department Unsolicited Soledad Valdez, DO [address] [place], [facility]11 Social History Tobacco Use Types Packs/Day [...] Routine [facility] B[facility] OB [address] [place] [address] Soledad Valdez, [address] [place] [address] documented as of this encounter Goals Goal [...] AM EDT Narrative 07/31/2024 8:02 [place] [address] Ultrasound Report Signed Patient: MICHELLE GOODE MR#: [id number] : 1990 Acct:[id number] Age/Sex: 34 / F ADM Date: 07/29/24 Loc: US Attending Dr: Soledad Valdez D.O. Ordering Physician: Soledad Valdez D.O. Date of Service: 07/29/24 Procedure(s): US OB BPP w non-stress Accession Number(s): [id number] cc: Soledad Valdez D.O.; Physician,Non-Staff M.Yariel The [address] [address] Patient Name: MICHELLE GOODE MRN: [id number] date: 1990 Sex: F Assigned Patient Location: [facility] Current Patient Location: Accession/Order Number: [id number] Exam Date: 07/31/2024 07:58 Report Date: 07/31/2024 [...] Perez M.D. 07/31/2024 8:00 AM Dictation Location: [place] [address] Electronically authenticated by: [id number] Y Date: 07/31/2024 08:00 Dictated By: Lee Ann Perez M.D. Signed By: 07/31/24801 DD/ 9 TD/TT: Bench Inspector: Procedure Note Radiology, Radiologist, - 07/31/2024 [place] [address] Ultrasound Report Signed Patient: MICHELLE GOODE MMR#: [id number] : 1990Acct:[id number] Age/Sex: 34 / FADM Date: 07/29/24 Loc: US Attending Dr: Soledad Valdez D.O. Ordering Physician: Soledad Valdez D.O. Date of Service: 07/29/24 Procedure(s): US OB BPP w non-stress Accession Number(s): [id number] cc: Soledad Valdez D.O.; Physician,Non-Staff Kofi The [place] [id number] Patient Name: MICHELLE GOODE MRN: [id number] date: 1990 Sex: F Assigned Patient Location: [facility] Current Patient Location: Accession/Order Number: [id number] Exam Date: 07/31/2024 07:58 Report Date: 07/31/2024 [...] Perez M.D. 07/31/2024 8:00 AM Dictation Location: [place] [address] Electronically authenticated by: [id number] Y Date: 508:00 Dictated By: Lee Ann Perez M.D. Signed By:07/31/24 0802 DD/ 0800 TD/TT: Bench Inspector: us Soledad Valdez DO [facility] Final Result documented in this encounter Visit Diagnoses Not on filedocumented in this encounter Additional Health Concerns Active Problems Noted Date Diagnosed Date OB Reminders 03/25/2024 documented as of this encounter Care Teams Vp Foundation Relationship Specialty Start Date End Date Soledad Valdez DO [address] [place] [address] [address] [place] [place] [address] PCP - [facility] 11/09/23 documented as of this encounter
--- OUTSIDE RECORDS SUMMARY | 2024-08-13 12:16 | XMS_ITS | Encounter Summary ---
Author Organization [facility] Address [address] [place] [address] Care Team Providers Care Element Setter Name Role Phone Eh Valdez DO Unavailable Encounter Details Date Type Department Care Team (Late st Contact Info) Description 04/17/2024 Abstract [facility] OB [address] [place] [address] Eh Valdez DO [address] [place], [facility]11 Social History Tobacco Use Types [...] Description 08/22/2024 2:10 PM EDT Routine [facility] OB [address] [place] [address] Eh Valdez DO [address] [place], [facility] documented as of this encounter Goals Goal Patient Goal Type Associated Problems Recent Progress Patient-Stated? Author Reminders Care Plan OB Reminders No Open Scheduling, Background documented as of this encounter Visit Diagnoses Not on filedocumented in this encounter Additional Health Concerns Active Problems Noted Date Diagnosed Date OB Reminders 03/25/2024 documented as of this encounter Care Teams Element Setter Relationship Specialty Start Date End Date Eh Valdez DO [address] [address] PCP - [facility] 11/09/23 documented as of this encounter
--- OUTSIDE RECORDS SUMMARY | 2024-08-13 12:16 | XMS_ITS | Encounter Summary ---
Author Organization [facility] Address [address] [place] [address] Care Team Providers Care C Software Engineer Name Role Phone Eh Valdez DO Unavailable Encounter Details Date Type Department Care Team (Late Contact Info) Description 04/24/2024 Orders Only [facility] OB [address] [facility] [place] [address] Ilda Beaver MA [address] [place] [address] [place] [address] Social History Tobacco Use Types Packs/Day Years [...] PM EDT Routine [facility] OB [address] [facility] [place] [address] Eh Valdez DO [address] [facility] [address] [place], [place] [id number] documented as of this encounter Goals Goal [...] documented as of this encounter Care Teams C Software Engineer Relationship Specialty Start Date End Date Eh Valdez DO [address] [place], [place] [address]b[place] [address] PCP - [facility] 11/09/23 documented as of this encounter
--- OUTSIDE RECORDS SUMMARY | 2024-08-13 12:16 | XMS_ITS | Encounter Summary ---
Author Organization [facility] [employer] [facility] tem Address [id number] [address] [place] [address] Care Team Providers Care Interpreter For The Deaf Name Role Phone Unavailable Primary Care Provider Unavailabl e Encounter Details Date Type Department Care Team (Late st Contact Info) Description 08/14/2021 Telephone Maternal- Medicine at [facility] [address] [facility] [place] [phone] Elva Maier Social History Tobacco Use Types [...]
--- OUTSIDE RECORDS SUMMARY | 2024-08-13 12:16 | XMS_ITS | Clinical Summary ---
Author Organization [facility] tem Address [id number] [address] [place] [address] Care Team Providers Care Desk Top Publisher Name Role Phone Unavailable Primary Care Provider Unavailabl e Allergies Active Allergy Reactions Criticality Noted Date Comments Penicillins 12/29/2017 Medications nitrofurantoin, macrocrystal-mon ohydrate, (MACROBID) 100 mg capsule Take 100 mg by mouth in the morning and 100 mg before bedtime. Active phenazopyridine (PYRIDIUM) 100 mg tablet Take 100 mg by mouth as needed in the morning and 100 mg as needed at noon and 100 mg as needed in the evening for bladder spasms. Active 25/iron fum/folic/dha (-1 ORAL) Take by mouth. Activ e buprenorphine (SUBUTEX) 2 mg tablet, sublingual Place 2 tablets (4 mg total) under the tongue in the morning. Active progesterone (FIRST-PROGESTER ONE VGS) 200 mg suppository Insert 1 suppository (200 mg total) into the vagina nightly. Active promethazine (PHENERGAN) 12.5 mg tablet Take 1 tablet (12.5 mg total) by mouth every 6 (six) hours as needed for nausea or vomiting. Active famotidine (PEPCID) 20 mg tablet Take 1 tablet (20 mg total) by mouth in the morning and 1 tablet (20 mg total) before bedtime. Active Active Problems Problem Noted Date Diagnosed Date Substance abuse Estimated Date of Delivery Comme nts Yes 09/19/2024 Based on last me nstrual period of 12/14/2023 Encounters Date Type Department Care Team Description 06/07[facility]20[facility] [address] [place] [address] Pablo Altamirano from Last 3 Months Family History Medical History Relation Name Comments Alcohol abuse Father Arthritis Mother Asthma Mother Migraines Mother Relation Name Status Comments Father Mother Social History Tobacco Use Types Packs/Day Years Used Date Smoking Tobacco: Every Day Vaping/E-cigarettes Smokeless Tobacco: Never Tobacco Cessation:Ready to Q uit: Not Asked; Counseling Given: Not Answered Alcohol Use Standard Drinks/Week Comments Not Currently 0 (1 standard drink = 0.6 oz pur e alcohol) socially Childcare Answer Date Recorded Childcare Unknown 07/20/2018 Employment Answer Date Recorded Employment Unknown 07/20/2018 Hunger Screening Answer Date Recorded Within the past 12 months we worried whether our food would run out before we got money to buy more. Sometimes True 025 Within the past 12 months th e food we bought just didn't last and we didn't have money to get more. Sometimes True 05/04/2024 Purpose - Life Answer Date Recorded Purpose and direction in life Unknown Estimated Date of Delivery Comme nts Yes 09/19/2024 Based on last me nstrual period of 12/14/2023 Sex and Gender Information Value Date Recorded Sex Assigned at Not on file Legal Sex Female 12:11 PM EDT Gender Identity Not on file Sexual Orientation Not on file Last Filed Vital Signs Vital Sign Reading Time Taken Comments Blood Pressure 111/70 05/04/2024 3:31 PM EDT Pulse 102 05/04/2024 3:31 PM EDT Temperature - - Respiratory Rate 16 12/29/2017 1:35 PM EST Oxygen Saturation - - Inhaled Oxygen Concentration - - Weight 56.9 kg (125 lb 6.4 oz) 05/04/2024 3:31 P M EDT Height 162.6 cm (5' 4.02 ) 05/04/2024 3:31 PM ED T Body Mass Index 21.51 05/04/2024 3:31 PM EDT Plan of Treatment Health Maintenance Due Date Last Done Comments Tobacco Counseling 1992 Depression Screening 2004 DTaP,Tdap and Td Vaccines (1 - Tdap) 04/20/2011 Influenza Vaccine 10/09/2024 Adult BMI Screening 05/04/2025 05/04/2024 Tobacco Screening 05/04/2025 05/04/2024 Pap Smear 04/12/2027 04/11/2024 Medical Devices Not on file Insurance [employer] [facility]
--- OUTSIDE RECORDS SUMMARY | 2024-08-13 12:16 | XMS_ITS | Encounter Summary ---
Author Organization [facility] Address [address] [place] [address] Care Team Providers Care Crossband Layer Name Role Phone Eh Valdez DO Unavailable Encounter Details Date Type Department Care Team (Late Contact Info) Description 07/11/2024 Orders Only [facility] BCP OB [address] [facility] [place] [address] Lucille Hahn Social History Tobacco Use [...] PM EDT Routine [facility] BCP OB [address] [place] [address] Eh Valdez DO [address] [place] [address] documented as of this encounter Goals Goal Patient Goal Type Associated Problems Recent Progress Patient-Stated? Author Reminders Care Plan OB Reminders No Open Scheduling, Background documented as of this encounter Visit Diagnoses Not on filedocumented in this encounter Additional Health Concerns Active Problems Noted Date Diagnosed Date OB Reminders 03/25/2024 documented as of this encounter Care Teams Crossband Layer Relationship Specialty Start Date End Date Eh Valdez DO [address] [place] [address] PCP - [facility] 11/09/23 documented as of this encounter
--- OUTSIDE RECORDS SUMMARY | 2024-08-13 12:16 | XMS_ITS | Encounter Summary ---
Author Organization [facility] [employer] [facility] tem Address [id number] [address] [place] [address] Care Team Providers Care Burn Table Operator Name Role Phone Unavailable Primary Care Provider Unavailabl e Encounter Details Date Type Department Care Team (Late st Contact Info) Description 09/08/2021 Telephone Maternal- Medicine at [facility] [address] [facility] [place] [phone] Elva Maier Social History Tobacco Use Types [...]
--- OUTSIDE RECORDS SUMMARY | 2024-08-13 12:16 | XMS_ITS | Encounter Summary ---
Author Organization [facility] Address [address] [place] [address] Care Team Providers Care Oral And Maxillofacial Surgery Name Role Phone Soledad Valdez DO Unavailable Encounter Details Date Type Department Care Team (Late Contact Info) Description 08/04/2024 Clinisync Result Encounter [facility] External Department Unsolicited Soledad Valdez, DO [address] [place], [facility] Social History Tobacco Use Types Packs/Day [...] Routine [facility] BCP OB [address] [place] [id number] Soledad Valdez, [address] [place] [address] documented as of this encounter Goals Goal [...] AM EDT Narrative 08/04/2024 8:25 [place] [address] Ultrasound Report Signed Patient: MICHELLE GOODE MR#: [id number] : 1990 Acct:[id number] Age/Sex: 34 / F ADM Date: 08/03/24 Loc: US Attending Dr: Soledad Valdez D.O. Ordering Physician: Soledad Valdez D.O. Date of Service: 08/03/24 Procedure(s): US OB BPP w non-stress Accession Number(s): [id number] cc: Soledad Valdez D.O.; Physician,Non-Staff M.Yariel The [address] [address] Patient Name: MICHELLE GOODE MRN: [id number] date: 1990 Sex: F Assigned Patient Location: [facility] Current Patient Location: Accession/Order Number: [id number] Exam Date: 08/04/2024 08:21 Report Date: 08/04/2024 [...] Perez M.D. 08/04/2024 8:23 AM Dictation Location: [place] [address] Electronically authenticated by: [id number] Y Date: 08/04/2024 08:23 Dictated By: Lee Ann Perez M.D. Signed By: 08/04/24824 DD/ 2 TD/TT: Ice Cream Mixer: Procedure Note Radiology, Radiologist, MD - 08/04/2024 [place] [address] Ultrasound Report Signed Patient: MICHELLE GOODE MMR#: [id number] : 1990Acct:[id number] Age/Sex: 34 / FADM Date: 08/03/24 Loc: US Attending Dr: Soledad Valdez D.O. Ordering Physician: Soledad Valdez D.O. Date of Service: 08/03/24 Procedure(s): US OB BPP w non-stress Accession Number(s): [id number] cc: Soledad Valdez D.O.; Physician,Non-Staff Kofi The [place] [address] Patient Name: MICHELLE GOODE MRN: [id number] date: 1990 Sex: F Assigned Patient Location: [facility] Current Patient Location: Accession/Order Number: [id number] Exam Date: 08/04/2024 08:21 Report Date: 08/04/2024 [...] Perez M.D. 08/04/2024 8:23 AM Dictation Location: [place] [address] Electronically authenticated by: [id number] Y Date: 508:23 Dictated By: Lee Ann Perez M.D. Signed By:08/04/2425 DD/ 2 TD/TT: Ice Cream Mixer: Soledad Valdez DO [facility] Final Result documented in this encounter Visit Diagnoses Not on filedocumented in this encounter Additional Health Concerns Active Problems Noted Date Diagnosed Date OB Reminders 03/25/2024 documented as of this encounter Care Teams Oral And Maxillofacial Surgery Relationship Specialty Start Date End Date Soledad Valdez DO [address] [place] [address] [place] [address] PCP - [facility] 11/09/23 documented as of this encounter
[2024-08-13 12:19] VITALS: BP 112/68; PULSE 85
== END 2024-08-13 13:11 | disposition home or self-care (01) ==
LOC: FBCO 12:14 → FBC 12:15
PROVIDERS: Visit Provider Obstetrics & Gynecology
DX: O26.893 Other specified pregnancy related conditions, third trimester (principal); Z3A.34 34 weeks gestation of pregnancy
CPT/HCPCS: 59025

== ENCOUNTER 2024-08-18 19:12 | Outpatient (OUT) | payer BC, OTHER, SELFPAY ==
--- NOTE | 2024-08-18 19:22 | US_ITS ---
[address] [place] [address] [address] Patient Name: SIDDHARTHA BENITO MRN: [id number] date: 1990 Sex: F Assigned Patient Location: [facility] Current Patient Location: [facility] Accession/Order Number: [id number] Exam Date: 08/18/2024 20:10 Report Date: 08/18/2024 20:13 At the request of: SOLEDAD PEGUERO DO Procedure: US OB BPP w non-stress Ultrasound biophysical profile HISTORY: Small for gestational age Adequate breathing movement, gross body movement, tone and amniotic fluid volume for total score of 8 out of 8. The amniotic fluid index is 8.2cm which is borderline low. The heart rate 136 bpm. US/US OB BPP w non-stress IMPRESSION: Adequate ultrasound biophysical profile. Borderline low amniotic fluid index Impression dictated by: Gelacio Calhoun M.D. 08/18/2024 8:13 PM Dictation Location: [facility] Electronically authenticated by: [id number] Y Date: 08/18/2024 20:13
[2024-08-18 20:40] VITALS: BP 121/67; PULSE 85; TEMP 36.6
[2024-08-18 20:41] VITALS: BP 121/67; PULSE 85
== END 2024-08-18 20:44 | disposition home or self-care (01) ==
LOC: US 19:12 → FBC 19:14
PROVIDERS: Visit Provider Obstetrics & Gynecology
DX: O36.5930 Maternal care for other known or suspected poor fetal growth, third trimester, not applicable or unspecified (principal); Z3A.35 35 weeks gestation of pregnancy
CPT/HCPCS: 76818

== ENCOUNTER 2024-08-22 17:12 | Outpatient (OUT) | payer BC, OTHER, SELFPAY ==
--- NOTE | 2024-08-22 17:23 | US_ITS ---
The [address] [address] Patient Name: SIDDHARTHA BENITO MRN: [id number] date: 1990 Sex: F Assigned Patient Location: Current Patient Location: US Accession/Order Number: [id number] Exam Date: 08/23/2024 08:43 Report Date: 08/23/2024 08:46 At the request of: SOLEDAD PEGUERO DO Procedure: US OB BPP w non-stress BIOPHYSICAL PROFILE: CLINICAL INFORMATION: REPEAT BPP COMPARISON: 08/18/2024 There is a single live intrauterine gestation in cephalic presentation. The reported gestational age is 36 weeks 0 days. The heart rate measures 152 beats per minute. FINDINGS: TONE: 1 or more episodes of activity extension and flexion of extremity or opening and closing of the hand [Y] 2/2 GROSS BODY MOVEMENTS: 3 or more discrete body or limb movements [Y] 2/2 BREATHING MOVEMENTS: 1 or more episodes of breathing lasting at least 30 seconds [Y] 2/2 KRIS: A single deepest vertical pocket of amniotic fluid greater than 2 cm [Y] 2/2 KRIS: 7.9 cm. This is borderline oligohydramnios with 5th percentile 7.7 cm . Total score: 8/8 US/US OB BPP w non-stress IMPRESSION: NORMAL BIOPHYSICAL PROFILE. CONTINUED BORDERLINE OLIGOHYDRAMNIOS. Impression dictated by: Lee Ann Perez M.D. 08/23/2024 8:46 AM Dictation Location: [place] [address] Electronically authenticated by: [id number] Y Date: 08/23/2024 08:46
[2024-08-22 18:04] VITALS: BP 113/66; PULSE 90
== END 2024-08-22 19:48 | disposition home or self-care (01) ==
LOC: US 17:12 → FBC 17:33
PROVIDERS: Visit Provider Obstetrics & Gynecology
DX: O36.5930 Maternal care for other known or suspected poor fetal growth, third trimester, not applicable or unspecified (principal); Z3A.36 36 weeks gestation of pregnancy
CPT/HCPCS: 76818; 87081

== ENCOUNTER 2024-08-22 18:57 | Outpatient (REF) | payer BC, OTHER, SELFPAY ==
--- OUTSIDE RECORDS SUMMARY | 2024-08-22 14:10 | XMS_ITS | Encounter Summary ---
Author Organization [facility] Address [address] [place] [address] Care Team Providers Care Business Development Consultant Name Role Phone Eh Valdez DO Unavailable Reason for Visit * Reason Comments Routine Visit Encounter Details Date Type Department Care Team ([facility] Contact Info) Description 08/22/2024 2:10 PM EDT Routine [facility] [address] [facility] [address] [address] Eh Valdez DO [address] [place], [place] [id number] Third trimester ([facility]); 36 weeks gestation of ([facility]) Social History Tobacco Use Types Packs/Day [...] 2:53 PM EDT documented in this encounter Plan of Treatment Upcoming Encounters Date Type Department Care Team (Late st Contact Info) Description 08/29/2024 2:30 PM EDT Routine [facility] [address] [place] [address] Eh Valdez, [address] [place] [address] Scheduled Orders Name Type Priority Associated Diagnoses Orde r Schedule CULTURE, GROUP B STREP WITH SUSCEPTIBLITY Lab Routine Third trimester ([facility]) Expected: 08/22/2024, Expires: 08/22/2025 documented as of this encounter Goals Goal Patient Goal Type Associated Problems Recent Progress Patient-Stated? Author Reminders Care Plan OB Reminders No Open Scheduling, Background documented as of this encounter Visit Diagnoses Diagnosis Third trimester ([facility]) state, incidental 36 weeks gestation of ([facility]) documented in this encounter Additional Health Concerns Active Problems Noted Date Diagnosed Date OB Reminders 03/25/2024 documented as of this encounter Care Teams Business Development Consultant Relationship Specialty Start Date End Date Eh Valdez DO [address] [place] [address] PCP - [facility] 11/09/23 documented as of this encounter
--- OUTSIDE RECORDS SUMMARY | 2024-08-22 19:00 | XMS_ITS | Encounter Summary ---
Author Organization [facility] Address [address] [place] [address] Care Team Providers Care Social Secretary Name Role Phone Eh Valdez DO Unavailable Encounter Details Date Type Department Care Team (Late Contact Info) Description 07/11/2024 Orders Only [facility] [address] [place] [address] Lucille Hahn Social History Tobacco Use [...] PM EDT Routine [facility] [address] [place] [address] Eh Valdez DO [address] [place] [address] documented as of this encounter Goals Goal Patient Goal Type Associated Problems Recent Progress Patient-Stated? Author Reminders Care Plan OB Reminders No Open Scheduling, Background documented as of this encounter Visit Diagnoses Not on filedocumented in this encounter Additional Health Concerns Active Problems Noted Date Diagnosed Date OB Reminders 03/25/2024 documented as of this encounter Care Teams Social Secretary Relationship Specialty Start Date End Date Eh Valdez DO [address] [place] [address] PCP - [facility] 11/09/23 documented as of this encounter
--- OUTSIDE RECORDS SUMMARY | 2024-08-22 19:00 | XMS_ITS | Clinical Summary ---
Author Organization [facility] tem Address [id number] [address] [place] [address] Care Team Providers Care Credit Verification Clerk Name Role Phone Unavailable Primary Care Provider [...] Type Department Care Team Description [facility] [address] [place] [address] Pablo Altamirano from Last 3 [...] Devices Not on file Insurance [employer] [facility]
--- OUTSIDE RECORDS SUMMARY | 2024-08-22 19:00 | XMS_ITS | Encounter Summary ---
Author Organization [facility] Address [address] [place] [address] Care Team Providers Care Rayon Coner Name Role Phone Eh Valdez DO Unavailable Encounter Details Date Type Department Care Team (Late st Contact Info) Description 08/22/2024 Bamboo flowsheet [facility] [address] [facility] [place] [address] Eh Valdez [address] [place], [place] [address] Social History Tobacco Use Types Packs/Day Years [...] Description 08/29/2024 2:30 PM EDT Routine [facility] [address] [place] [address] Eh Valdez DO [address] [place], [place] [address] documented as of this encounter Goals Goal Patient Goal Type Associated Problems Recent Progress Patient-Stated? Author Reminders Care Plan OB Reminders No Open Scheduling, Background documented as of this encounter Visit Diagnoses Not on filedocumented in this encounter Additional Health Concerns Active Problems Noted Date Diagnosed Date OB Reminders 03/25/2024 documented as of this encounter Care Teams Rayon Coner Relationship Specialty Start Date End Date Eh Valdez DO [address] [place] [address] PCP - [facility] 11/09/23 documented as of this encounter
--- OUTSIDE RECORDS SUMMARY | 2024-08-22 19:00 | XMS_ITS | Clinical Summary ---
Author Organization [facility] Address [address] [place] [address] Care Team Providers Care Under Trimmer Name Role Phone Soledad Valdez DO Unavailable Allergies Active Allergy Reactions Criticality Noted Date Comments Penicillins Hives,Fever,Itching, Rash,Swelling,Whee zing Low 08/05/2022 Medications buprenorphine (Subtex) [address] 4 mg under the tongue in the morning. Active buprenorphine-n aloxone (Suboxone) 4-1 MG per sublingual film DISSOLVE 1 FILM UNDER TONGUE ONCE A DAY 08/27/2022 Active folic acid (Folvite) 1 MG tablet Take 1,000 mcg by mouth Daily 01/23/2024 Active cefdinir (Omnicef) 300 MG capsule Take 300 mg by mouth in the morning and 300 mg before bedtime. 04/04/2024 Active Lisdexamfetamin e Dimesylate 40 MG chewable tablet CHEW ONE-HALF OF a tablet BY MOUTH TWICE DAILY (IN THE MORNING and IN THE AFTERNOON) 02/19/2024 Active Ubwyidcx-Khl-UB ([facility]) 0.4 MG chewable tabletIndicatio ns:Second trimester ([facility]) Chew 1 tablet Daily 30 tablet 11 04/21/2024 04/22/19 26 Active Active Problems Problem Noted Date Diagnosed Date Substance abuse 09/15/2022 GERD (gastroesophageal reflux disease) 8 Exacerbation of asthma 08/09/2007 Attention deficit hyperactivity disorder 008 Allergic rhinitis 08/09/2007 Estimated Date of Delivery Comme nts Yes 09/19/2024 Based on last me nstrual period of 12/14/2023 Encounters Date Type Department Care Team Description 08/22/2024 2:10 PM EDT Routine [facility] [place] [address] [place] [address] Soledad Valdez, DO Third trimester ([facility]); 36 weeks gestation of ([facility]) 08/22/2024 Bamboo flowsheet [facility] [address] [place] [address] Soledad Valdez, DO 08/18/2024 Clinisync Result Encounter N[facility] External Department Unsolicited Soledad Valdez, DO 08/18/[address] [facility] [address] [place] [address] Soledad Valdez, DO 08/10/2024 Clinisync Result Encounter [facility] External Department Unsolicited Paola Carmichael PA 08/07/2024 Telephone [facility] [address] [place] [address] Paola Carmichael PA 08/04/2024 Clinisync Result Encounter N[facility] External Department Unsolicited Soledad Valdez, DO 08/03/2024 2:50 PM EDT Routine [facility] [place] [address] [place] [address] Paola Carmichael PA Third trimester ([facility]) (Primary Dx); 33 weeks gestation of ([facility]); Short cervix, antepartum ([facility]) 08/03/2024 2:00 PM EDT Ancillary Procedure [facility] [address] [place] [address] SGA (small for gestational age) ([facility]); Short cervix, antepartum ([facility]) 07/31/2024 Clinisync Result Encounter [facility] External Department Unsolicited Soledad Valdez, DO 07/27/2024 Results Follow-Up [facility] [address] [place] [address] Zeinab Ramirez NET MANAGER 07/27/2024 Telephone [facility] [address] [place] [address] James ZeinabERNIE barrett 07/25/2024 11:30 AM EDT Ancillary Procedure [facility] [address] [place] [address] 07/25/2024 10:40 AM EDT Routine [facility] [address] [place] [address] Soledad Valdez, DO 32 weeks gestation of ([facility]); Third trimester ([facility]); SGA (small for gestational age) ([facility]); Short cervix, antepartum ([facility]) 07/25/2024 Bamboo flowsheet [facility] [address] [place] [address] Soledad Valdez DO 07/11/2024 2:30 PM EDT Ancillary Procedure [facility] [address] [place] [address] Short cervix, antepartum ([facility]); size inconsistent with dates ([facility]) 07/11/2024 Orders Only [facility] [address] [place] [address] Lucille Hahn 07/10/2024 10:20 AM EDT Routine [facility] [address] [place] [address] Paola Carmichael PA Third trimester ([facility]); 29 weeks gestation of ([facility]); with normal glucose tolerance test (GTT) ([facility]); size inconsistent with dates ([facility]); Short cervix, antepartum ([facility]) 07/10/2024 Bamboo flowsheet [facility] [address] [place] [address] Paola aCrmichael PA 07/07/2024 Telephone [facility] [address] [place] [address] Ilda Beaver MA from Last 3 Months [...] 8 oz) 08/22/2024 2:37 PM EDT Height 162.6 cm (5' 4 ) 09/21/2022 2:53 PM EDT Body Mass Index 21.89 09/21/2022 2:53 PM EDT Plan of Treatment Upcoming Encounters Date Type Department Care Team (Late st Contact Info) Description 08/29/2024 2:30 PM EDT Routine [facility] [address] [place] [address] Soledad Valdez, DO [address] [place], [place] [address] [address] Health Maintenance Due Date Last Done Comments Influenza Vaccine (#1) 2024 Cervical Cancer Screening 04/11/2029 HPV/Cotest 04/11/2029 Pap Smear 04/11/2029 04/11/2024, 05/21/2021 Goals Goal Patient Goal Type Associated Problems Recent Progress Patient-Stated? Author Reminders Care Plan OB Reminders No Open Scheduling, Background Procedures Procedure Name Priority Date/Time Associated Diagnosis Comments US OB BPP W NON-STRESS 08/18/2024 8:13 PM EDT US OB BPP WO NON-STRESS 08/10/2024 10:42 PM EDT US OB BPP W NON-STRESS 08/04/2024 8:23 AM EDT US OB FOLLOW UP TRANSABDOMINAL APPROACH Routine 08/03/2024 2:50 PM EDT SGA (small for gestational age) ([facility]) US OB BPP W NON-STRESS 07/31/2024 8:00 AM EDT US OB TRANSVAGINAL Routine 07/25/2024 11 :57 AM EDT Short cervix, antepartum ([facility]) US OB FOLLOW UP TRANSABDOMINAL APPROACH Routine 07/11/2024 3:33 PM EDT size inconsistent with dates ([facility]) PAP SMEAR Routine 04/11/2024 12:00 AM EST from Last 3 Months or Most Recently Relevant to Health Maintenance Results * US OB BPP W NON-STRESS (08/18/2024 8:13 PM EDT) Only the most recent of3 resultswithin the time period is included. Anatomical Region Laterality Modality Other 08/18/2024 8:13 PM EDT Narrative 08/18/2024 8:15 [place] [address] Ultrasound Report Signed Patient: MICHELLE GOODE MR#: [id number] : 1990 Acct:[id number] Age/Sex: 34 / F ADM Date: 08/18/24 Loc: [facility] 250-[address]: Soledad Valdez D.O. Ordering Physician: Soledad Valdez D.O. Date of Service: 08/18/24 Procedure(s): US OB BPP w non-stress Accession Number(s): [id number] cc: Soledad Valdez D.O.; Physician,Non-Staff Kofi The [place] [address] Patient Name: MICHELLE GOODE MRN: [id number] date: 1990 Sex: F Assigned Patient Location: [facility] Current Patient Location: [facility] Accession/Order Number: [id number] Exam Date: 08/18/2024 20:10 Report Date: 08/18/2024 20:13 At the request of: SOLEDAD VALDEZ DO Procedure: US OB BPP w non-stress Ultrasound biophysical profile HISTORY: Small for gestational age Adequate breathing movement, gross body movement, tone and amniotic fluid volume for total score of 8 out of 8. The amniotic fluid index is 8.2cm which is borderline low. The heart rate 136 bpm. US/US OB BPP w non-stress IMPRESSION: Adequate ultrasound biophysical profile. Borderline low amniotic fluid index Impression dictated by: Gelaico Calhoun M.D. 08/18/2024 8:13 PM Dictation Location: [facility] Electronically authenticated by: [id number] Y Date: 08/18/2024 20:13 Dictated By: Gelacio Calhoun D.O. Signed By: 08/18/242014 DD/ 12 TD/TT: Canvas Repairer: Procedure Note Radiology, Radiologist, MD - 08/18/2024 [place] [address] Ultrasound Report Signed Patient: MICHELLE GOODE MMR#: [id number] : 1990Acct:[id number] Age/Sex: 34 / FADM Date: 08/18/24 Loc: [facility] 250-[address]: Soledad Valdez D.O. Ordering Physician: Soledad Valdez D.O. Date of Service: 08/18/24 Procedure(s): US OB BPP w non-stress Accession Number(s): [id number] cc: Soledad Valdez D.O.; Physician,Non-Staff Kofi The [place] [id number] Patient Name: MICHELLE GOODE MRN: [id number] date: 1990 Sex: F Assigned Patient Location: [facility] Current Patient Location: [facility] Accession/Order Number: [id number] Exam Date: 08/18/2024 20:10 Report Date: 08/18/2024 20:13 At the request of: SOLEDAD VALDEZ DO Procedure: US OB BPP w non-stress Ultrasound biophysical profile HISTORY: Small for gestational age Adequate breathing movement, gross body movement, tone and amniotic fluid volume for total score of 8 out of 8. The amniotic fluidindex is 8.2cm which is borderline low. The heart rate 136 bpm. US/US OB BPP w non-stress IMPRESSION: Adequate ultrasound biophysical profile. Borderline lowamniotic fluid index Impression dictated by: Gelacio Calhoun M.D. 08/18/2024 8:13 PM Dictation Location: [place] [address] Electronically authenticated by: [id number] Y Date: 0:13 Dictated By: Gelacio Calhoun D.O. Signed By:08/18/242014 DD/ 12 TD/TT: Canvas Repairer: us Soledad Valdez DO [facility] Final Result * US OB BPP WO NON-STRESS (08/10/2024 10:42 PM EDT) Anatomical Region Laterality Modality Other 08/10/2024 10:4 2 PM EDT Narrative 08/10/2024 10:44 [place] [address] Ultrasound Report Signed Patient: MICHELLE GOODE MR#: [id number] : 1990 Acct:[id number] Age/Sex: 34 / F ADM Date: 08/10/24 Loc: [facility] Attending Dr: Paola Carmichael Ordering Physician: Paola Carmichael Date of Service: 08/10/24 Procedure(s): US OB BPP wo non-stress Accession Number(s): [id number] cc: Paola Carmichael; Physician,Non-Staff Kofi The [address] [id number] Patient Name: MICHELLE GOODE MRN: [id number] date: 1990 Sex: F Assigned Patient Location: [facility] Current Patient Location: Accession/Order Number: [id number] Exam Date: 08/10/2024 22:41 Report Date: 08/10/2024 [...] Calhoun M.D. 08/10/2024 10:42 PM Dictation Location: [email or web address] Electronically authenticated by: [id number] Y Date: 08/10/2024 22:42 Dictated By: Gelacio Calhoun D.O. Signed By: 08/10/242243 DD/ 41 TD/TT: Canvas Repairer: Procedure Note Radiology, Radiologist, - 08/10/2024 The [place] [id number] Ultrasound Report Signed Patient: MICHELLE GOODE MMR#: [id number] : 1990Acct:[id number] Age/Sex: 34 / FADM Date: 08/10/24 Loc: [facility] Attending Dr: Paola Carmichael Ordering Physician: Paola Carmichael Date of Service: 08/10/24 Procedure(s): US OB BPP wo non-stress Accession Number(s): [id number] cc: Paola Carmichael; Physician,Non-Staff Kofi The [address] [address] Patient Name: MICHELLE GOODE MRN: [id number] date: 1990 Sex: F Assigned Patient Location: [facility] Current Patient Location: Accession/Order Number: [id number] Exam Date: 08/10/2024 22:41 Report Date: 08/10/2024 [...] Calhoun M.D. 08/10/2024 10:42 PM Dictation Location: [employer] Electronically authenticated by: [id number] Y Date: 2:42 Dictated By: Gelacio Calhoun D.O. Signed By:08/10/242243 DD/ 41 TD/TT: Canvas Repairer: us Paola BARRIOS [facility] Final [...] cm - Funneling was noted by performing painting technician but not well demonstrated on the [...] Cervical funneling was noted by the performing painting technician but not well demonstrated on the provided images. The ordering physician was notified. Interpreted by: Electronically signed by RISA AYALA II, MD, PHD at 06-Aug-2024 10:03:36 PM [facility] Procedure Note Risa [place] MD - [...] length. Cervical funneling was noted by theperforming painting technician but not well demonstrated on the provided images.The ordering physician was notified. Interpreted by: Electronically signed by RISA AYALA II, MD, PHD 10:03:36 PM [facility] us Soledad José Miguel DO IMG [...] II, MD, PHD at 26-Jul-2024 08:00:42 AM [facility] Procedure Note Risa [place] MD - 07/26/2024 EXAM: US OB TRANSVAGINAL HISTORY: Shortened cervix. COMPARISON: Ob ultrasound 07/11/2024. TECHNIQUE: Two-dimensional transvaginal grayscale ultrasound imaging ofthe cervix was performed. FINDINGS: Presentation: Cephalic Cervical Length: 2.6 cm IMPRESSION: 1. Shortened cervical length measuring 2.6 cm. Interpreted by: Electronically signed by RISA AYALA II, MD, PHD 08:00:42 AM [facility] us Paola BARRIOS IMG OB US PROCEDURES Final Resul t * Pap Smear (04/11/2024 12:00 AM EST) Swab Cervical swab / Unknown us Paola BARRIOS LAB CYTOLOGY ORDERABLES Final Re sult EXTERNAL LAB from Last 3 Months or Most Recently Relevant to Health Maintenance Additional Health Concerns Active Problems Noted Date Diagnosed Date OB Reminders 03/25/2024 Insurance [employer] [facility] Care Teams Under Trimmer Relationship Specialty Start Date End Date Soledad Valdez DO [address] [place] [address] [place] [address] PCP - [facility] 11/09/23
--- OUTSIDE RECORDS SUMMARY | 2024-08-22 19:00 | XMS_ITS | Encounter Summary ---
Author Organization [facility] Address [address] [place] [address] Care Team Providers Care Political Science Faculty Member Name Role Phone Soledad Valdez DO Unavailable Encounter Details Date Type Department Care Team (Late Contact Info) Description 02/24/2024 Clinisync Result Encounter NOMS External Department Unsolicited Soledad Valdez, DO [address] [place], [facility]11 Social History Tobacco Use Types Packs/Day [...] Routine [facility] BCP [place] [address] [place] [id number] Soledad Valdez DO [address] [place] [address] documented as of this encounter Procedures Procedure Name Priority Date/Time Associated Diagnosis Comments US OB TRANSVAGINAL 02/24/2024 2: 55 PM EST documented in this encounter Results * US OB TRANSVAGINAL (02/24/2024 2:55 PM EST) Anatomical Region Laterality Modality Other 02/24/2024 2:55 PM EST Narrative 02/24/2024 2:57 [place] [address] Ultrasound Report Signed Patient: MICHELLE GOODE MR#: [id number] : 1990 Acct:[id number] Age/Sex: 33 / F ADM Date: 02/24/24 Loc: US Attending Dr: Soledad Valdez D.O. Ordering Physician: Soledad Valdez D.O. Date of Service: 02/24/24 Procedure(s): US OB transvaginal Accession Number(s): [id number] cc: Soledad Valdez D.O.; Physician,Non-Staff M.DYumiko The [place] [id number] Patient Name: MICHELLE GOODE MRN: [id number] date: 1990 Sex: F Assigned Patient Location: US Current Patient Location: US Accession/Order Number: [id number] Exam Date: 02/24/2024 14:17 Report Date: 02/24/2024 [...] Signed By: 02/24/24 1457 DD/ 54 TD/TT: Saw Edge Fuser Circular: Procedure Note Radiology, Radiologist, - 02/24/2024 [place] [address] Ultrasound Report Signed Patient: MICHELLE GOODE MMR#: [id number] : 1990Acct:[id number] Age/Sex: 33 / FADM Date: 02/24/24 Loc: US Attending Dr: Soledad Valdez D.O. Ordering Physician: Soledad Valdez D.O. Date of Service: 02/24/24 Procedure(s): US OB transvaginal Accession Number(s): [id number] cc: Soledad Valdez D.O.; Physician,Non-Staff Kofi The [place] [address] Patient Name: MICHELLE GOODE MRN: [id number] date: 1990 Sex: F Assigned Patient Location: US Current Patient Location: US Accession/Order Number: [id number] Exam Date: 02/24/2024 14:17 Report Date: 02/24/2024 [...] M.D. Signed By:02/24/24 1457 DD/ 1455 TD/TT: Saw Edge Fuser Circular: Soledad Valdez DO [facility] Final Result documented in this encounter Visit Diagnoses Not on filedocumented in this encounter Care Teams Political Science Faculty Member Relationship Specialty Start Date End Date Soledad Valdez DO [address] [place] [address] [place] [address] PCP - [facility] 11/09/23 documented as of this encounter
--- OUTSIDE RECORDS SUMMARY | 2024-08-22 19:00 | XMS_ITS | Encounter Summary ---
Author Organization [facility] Address [address] [place] [address] Care Team Providers Care Extension Division Director Name Role Phone Eh Valdez DO Unavailable Encounter Details Date Type Department Care Team (Late st Contact Info) Description 03/21/2024 Abstract [facility] OB [address] [place] [address] Eh Valdez [facility] [address] [place], [place] [address] Social History Tobacco Use Types Packs/Day Years [...] Description 08/29/2024 2:30 PM EDT Routine N[facility] OB [address] [place] [address] Eh Valdez DO [address], [facility]11 documented as of this encounter Visit Diagnoses Not on filedocumented in this encounter Care Teams Extension Division Director Relationship Specialty Start Date End Date Eh Valdez DO [address] [place] [address] PCP - [facility] 11/09/23 documented as of this encounter
--- OUTSIDE RECORDS SUMMARY | 2024-08-22 19:00 | XMS_ITS | Encounter Summary ---
Author Organization [facility] Address [address] [place] [address] Care Team Providers Care Cloud Operations Engineer Name Role Phone Eh Valdez DO Unavailable Encounter Details Date Type Department Care Team (Late st Contact Info) Description 05/04/2024 Abstract [facility] OB [address] [place] [address] Eh Valdez DO [address], [facility]11 Social History Tobacco Use Types Packs/Day Years [...] Description 08/29/2024 2:30 PM EDT Routine [facility] OB [address] [place] [address] Eh Valdez DO [address], [facility]11 documented as of this encounter Goals Goal Patient Goal Type Associated Problems Recent Progress Patient-Stated? Author Reminders Care Plan OB Reminders No Open Scheduling, Background documented as of this encounter Visit Diagnoses Not on filedocumented in this encounter Additional Health Concerns Active Problems Noted Date Diagnosed Date OB Reminders 03/25/2024 documented as of this encounter Care Teams Cloud Operations Engineer Relationship Specialty Start Date End Date Eh Valdez DO [address] [place] [address] PCP - [facility] 11/09/23 documented as of this encounter
--- OUTSIDE RECORDS SUMMARY | 2024-08-22 19:00 | XMS_ITS | Encounter Summary ---
Author Organization [facility] [employer] [facility] tem Address [id number] [address] [place] [address] Care Team Providers Care Cycle Repairer Name Role Phone Unavailable Primary Care Provider Unavailabl e Encounter Details Date Type Department Care Team (Late st Contact Info) Description 09/08/2021 Telephone Maternal- Medicine at [facility] [address] [facility] [place] [phone] lEva Maier Social History Tobacco Use Types Packs/Day [...]
--- OUTSIDE RECORDS SUMMARY | 2024-08-22 19:00 | XMS_ITS | Encounter Summary ---
Author Organization [facility] [employer] [facility] tem Address [id number] [address] [place] [address] Care Team Providers Care Promotions Assistant Sales Marketing Name Role Phone Unavailable Primary Care Provider Unavailabl e Encounter Details Date Type Department Care Team (Late st Contact Info) Description 08/14/2021 Telephone Maternal- Medicine at [facility] [address] [facility] [place] [address] Elva Maier Social History Tobacco Use Types [...]
--- OUTSIDE RECORDS SUMMARY | 2024-08-22 19:00 | XMS_ITS | Encounter Summary ---
Author Organization [facility] Address [address] [place] [address] Care Team Providers Care Corporate Strategy Associate Name Role Phone Soledad Valdez DO Unavailable Encounter Details Date Type Department Care Team (Late Contact Info) Description 08/18/2024 Clinisync Result Encounter NOMS External Department Unsolicited Soledad Valdez, DO [address], [facility]11 Social [...] Routine [facility] BCP OB [address] [place] [phone] Soledad Valdez, [address], [facility]11 documented as of this encounter Goals Goal Patient Goal Type Associated Problems Recent Progress Patient-Stated? Author Reminders Care Plan OB Reminders No Open Scheduling, Background documented as of this encounter Procedures Procedure Name Priority Date/Time Associated Diagnosis Comments US OB BPP W NON-STRESS 08/18/2024 8:13 PM EDT documented in this encounter Results * US OB BPP W NON-STRESS (08/18/2024 8:13 PM EDT) Anatomical Region Laterality Modality Other 08/18/2024 8:13 PM EDT Narrative 08/18/2024 8:15 [place] [address] Ultrasound Report Signed Patient: MICHELLE GOODE MR#: [id number] : 1990 Acct:[id number] Age/Sex: 34 / F ADM Date: 08/18/24 Loc: [facility] 250-[address]: Soledad Valdez D.O. Ordering Physician: Soledad Valdez D.O. Date of Service: 08/18/24 Procedure(s): US OB BPP w non-stress Accession Number(s): [id number] cc: Soledad Valdez D.O.; Physician,Non-Staff M.Yariel The [place] [id number] Patient Name: MICHELLE GOODE MRN: [id number] date: 1990 Sex: F Assigned Patient Location: [facility] Current Patient Location: [facility] Accession/Order Number: [id number] Exam Date: 08/18/2024 20:10 Report Date: 08/18/2024 [...] low amniotic fluid index Impression dictated by: Gelacio Calhoun M.D. 08/18/2024 8:13 PM Dictation Location: [employer] Electronically authenticated by: [id number] Y Date: 08/18/2024 20:13 Dictated By: Gelacio Calhoun D.O. Signed By: 08/18/242014 DD/ 12 TD/TT: Spa Supervisor: Procedure Note Radiology, Radiologist, MD - 08/18/2024 [place] [address] Ultrasound Report Signed Patient: MICHELLE GOODE MMR#: [id number] : 1990Acct:[id number] Age/Sex: 34 / FADM Date: 08/18/24 Loc: [facility] 250-[address]: Soledad Valdez D.O. Ordering Physician: Soledad Valdez D.O. Date of Service: 08/18/24 Procedure(s): US OB BPP w non-stress Accession Number(s): [id number] cc: Soledad Valdez D.O.; Physician,Non-Staff Kofi The [place] [address] Patient Name: MICHELLE GOODE MRN: [id number] date: 1990 Sex: F Assigned Patient Location: [facility] Current Patient Location: [facility] Accession/Order Number: [id number] Exam Date: 08/18/2024 20:10 Report Date: 08/18/2024 [...] Calhoun M.D. 08/18/2024 8:13 PM Dictation Location: [place] [address] Electronically authenticated by: [id number] Y Date: 0:13 Dictated By: Gelacio Calhoun D.O. Signed By:08/18/242014 DD/ 12 TD/TT: Spa Supervisor: us Soledad Valdez DO [facility] Final Result documented in this encounter Visit Diagnoses Not on filedocumented in this encounter Additional Health Concerns Active Problems Noted Date Diagnosed Date OB Reminders 03/25/2024 documented as of this encounter Care Teams Corporate Strategy Associate Relationship Specialty Start Date End Date Soledad Valdez DO [address] [place], [place] [address] [place] [id number] PCP - [facility] 11/09/23 documented as of this encounter
--- OUTSIDE RECORDS SUMMARY | 2024-08-22 19:00 | XMS_ITS | Encounter Summary ---
Author Organization [facility] Address [address] [place] [address] Care Team Providers Care Tubing Drier Name Role Phone Eh Valdez DO Unavailable Encounter Details Date Type Department Care Team (Late st Contact Info) Description 07/27/2024 Results Follow-Up [facility]CP [facility] [address] [facility] [address] [address] Zeinab Ramirez LPN [address] [place] [address] Social History Tobacco Use Types [...] PM EDT Routine [facility] BCP OB [address] [place] [address] Eh Valdez, [address] [place] [address] documented as of this encounter Goals Goal Patient Goal Type Associated Problems Recent Progress Patient-Stated? Author Reminders Care Plan OB Reminders No Open Scheduling, Background documented as of this encounter Visit Diagnoses Not on filedocumented in this encounter Additional Health Concerns Active Problems Noted Date Diagnosed Date OB Reminders 03/25/2024 documented as of this encounter Care Teams Tubing Drier Relationship Specialty Start Date End Date Eh Valdez DO [facility] [address] PCP - [facility] 11/09/23 documented as of this encounter
--- OUTSIDE RECORDS SUMMARY | 2024-08-22 19:00 | XMS_ITS | Encounter Summary ---
Author Organization [facility] Address [address] [place] [address] Care Team Providers Care Depot Manager Name Role Phone Eh Valdez DO Unavailable Encounter Details Date Type Department Care Team (Late st Contact Info) Description 08/18/2024 Telephone [facility] OB [address] [place] [address] Eh Valdez DO [address] [employer] [address] [place], [facility] Social History Tobacco Use Types Packs/Day Years [...] Miscellaneous Notes * Telephone Encounter - Katelyn CadenaERNIE - 08/18/2024 11:36 AM EDT Every I was just calling to ask a couple questions, trying to find out if I should should are able to set up an earlier appointment or if this is normal, I am seeing like a lot of pressure down thereand just a little bit of pain. Patient call returned and she was advised to report for eval and she states that she does have her NST/BPP this afternoon and she was instructed to notify staff at hospital what is going on and they will assess. PVU documented in this encounter Plan of Treatment Upcoming Encounters Date Type Department Care Team (Late st Contact Info) Description 08/29/2024 2:30 PM EDT Routine [facility] BCP OB [address] [place] [address] Eh Valdez, [address] [place] [address] documented as of this encounter Goals Goal Patient Goal Type Associated Problems Recent Progress Patient-Stated? Author Reminders Care Plan OB Reminders No Open Scheduling, Background documented as of this encounter Visit Diagnoses Not on filedocumented in this encounter Additional Health Concerns Active Problems Noted Date Diagnosed Date OB Reminders 03/25/2024 documented as of this encounter Care Teams Depot Manager Relationship Specialty Start Date End Date Eh Valdez DO [facility] [place] [address] PCP - [facility] 11/09/23 documented as of this encounter
--- OUTSIDE RECORDS SUMMARY | 2024-08-22 19:00 | XMS_ITS | Encounter Summary ---
Author Organization [facility] Address [address] [place] [address] Care Team Providers Care Physician Recruiter Name Role Phone Eh Valdez DO Unavailable Encounter Details Date Type Department Care Team (Late Contact Info) Description 04/24/2024 Orders Only [facility] BCP OB [address] [place] [address] [place] [address] Ilda Beaver MA [address] [place] [address] [place] [address] Social History Tobacco Use Types Packs/Day Years [...] PM EDT Routine [facility] BCP OB [address] [facility] [place] [address] Eh Valdez DO [address] [facility] [address] [place], [place] [id number] documented as of this encounter Goals Goal [...] documented as of this encounter Care Teams Physician Recruiter Relationship Specialty Start Date End Date Eh Valdez DO [address] [place], [place] [address] [address] PCP - [facility] 11/09/23 documented as of this encounter
--- OUTSIDE RECORDS SUMMARY | 2024-08-22 19:00 | XMS_ITS | Encounter Summary ---
Author Organization [facility] Address [address] [place] [address] Care Team Providers Care Outreach Manager Name Role Phone Eh Valdez DO Unavailable Encounter Details Date Type Department Care Team (Late st Contact Info) Description 04/17/2024 Abstract [facility] OB [address] [place] [address] Eh Valdez DO [address], [facility] Social History Tobacco Use Types [...] Description 08/29/2024 2:30 PM EDT Routine N[facility] OB [address] [place] [address] Eh Valdez DO [address], [facility]11 documented as of this encounter Goals Goal Patient Goal Type Associated Problems Recent Progress Patient-Stated? Author Reminders Care Plan OB Reminders No Open Scheduling, Background documented as of this encounter Visit Diagnoses Not on filedocumented in this encounter Additional Health Concerns Active Problems Noted Date Diagnosed Date OB Reminders 03/25/2024 documented as of this encounter Care Teams Outreach Manager Relationship Specialty Start Date End Date Eh Valdez DO [address] [place] [address] PCP - [facility] 11/09/23 documented as of this encounter
== END 2024-08-22 18:58 | disposition home or self-care (01) ==
LOC: LAB 18:57
PROVIDERS: Visit Provider Obstetrics & Gynecology
DX: Z34.93 Encounter for supervision of normal pregnancy, unspecified, third trimester (principal); Z3A.36 36 weeks gestation of pregnancy
CPT/HCPCS: 87081

== ENCOUNTER 2024-08-23 18:14 | Outpatient (OUT) | payer BC, OTHER, SELFPAY ==
--- OUTSIDE RECORDS SUMMARY | 2024-08-22 14:10 | XMS_ITS | Encounter Summary ---
Author Organization [facility] Address [address] [place] [address] Care Team Providers Care Rabbler Name Role Phone Eh Valdez DO Unavailable Reason for Visit * Reason Comments Routine Visit Encounter Details Date Type Department Care Team ([facility] Contact Info) Description 08/22/2024 2:10 PM EDT Routine [facility] OB [address] [place] [address] Eh Valdez DO [address] [facility] [address] [place], [place] [id number] Third trimester ([facility]); 36 weeks gestation of ([facility]) Social History Tobacco Use Types Packs/Day Years [...] encounter Progress Notes * Lee Ann Bojorquez, TRIAL COURT JUDGE - 08/22/2024 2:10 PM EDT Reason for [...] (IN THE MORNING and IN THE AFTERNOON) Iisdnpxp-Sbk-VG ([facility]) 0.4 MG chewable tablet 1 tablet, Oral, Daily ALLERGIES Allergies Allergen Reactions Penicillins Hives, Fever, Itching, Rash, Swelling and Wheezing PROBLEMS Active Ambulatory Problems Diagnosis Date Noted GERD (gastroesophageal reflux disease) 08/09/2007 Exacerbation of asthma ([facility]) 08/09/2007 Attention deficit hyperactivity disorder 08/09/2007 Allergic rhinitis 08/09/2007 Substance abuse ([facility]) 09/15/2022 Resolved Ambulatory Problems Diagnosis Date Noted No Resolved Ambulatory Problems Past Medical History: Diagnosis Date Allergies Anxiety Asthma ([facility]) Bee sting Miscarriage ([facility]) Pelvic pain 2011 Syncope Thoracic sprain HISTORY PAST MEDICAL HISTORY SOCIAL HISTORY Past Medical History: Diagnosis Date Allergies Anxiety Asthma ([facility]) Bee sting right ring finger Miscarriage ([facility]) 8-9 weeks Pelvic pain 2011 [...] nursing note reviewed. Exam conducted with a top and seat cover fitter present. Vitals: Estimated body mass index is 21.89 kg/m² as calculated from the following: Height as of 09/21/22: 5' 4 . Weight as of this encounter: 127 lb 8 oz. BP: 110/86 Patient's last menstrual period was 12/14/2023. ASSESSMENT & PLAN ICD-10-CM 1. Third trimester ([facility]) Z34.93 POCT urinalysis dipstick manually resulted CULTURE, GROUP B STREP WITH SUSCEPTIBLITY CULTURE, GROUP B STREP WITH SUSCEPTIBLITY 2. 36 weeks gestation of ([facility]) Z3A.36 Patient is doing well but has [...] Ann Bojorquez LPN on behalf of: sanjay tania, pac documented in this encounter Plan of Treatment Upcoming Encounters Date Type Department Care Team (Late st Contact Info) Description 08/29/2024 2:30 PM EDT Routine [facility] BCP OB [address] [place] [address] Eh Valdez, [address] [place] [address] Scheduled Orders Name Type Priority Associated Diagnoses Orde r Schedule CULTURE, GROUP B STREP WITH SUSCEPTIBLITY Lab Routine Third trimester ([facility]) Expected: 08/22/2024, Expires: 08/22/2025 documented as of this encounter Goals Goal Patient Goal Type Associated Problems Recent Progress Patient-Stated? Author Reminders Care Plan OB Reminders No Open Scheduling, Background documented as of this encounter Visit Diagnoses Diagnosis Third trimester ([facility]) state, incidental 36 weeks gestation of ([facility]) documented in this encounter Additional Health Concerns Active Problems Noted Date Diagnosed Date OB Reminders 03/25/2024 documented as of this encounter Care Teams Rabbler Relationship Specialty Start Date End Date Eh Valdez DO [address] [place] [address] PCP - [facility] 11/09/23 documented as of this encounter
--- NOTE | 2024-08-23 18:17 | US_ITS ---
[place] [id number] Patient Name: SIDDHARTHA BENITO MRN: [id number] date: 1990 Sex: F Assigned Patient Location: [facility] Current Patient Location: Accession/Order Number: [id number] Exam Date: 08/24/2024 00:23 Report Date: 08/24/2024 00:26 At the request of: SOLEDAD PEGUERO DO Procedure: US OB BPP w non-stress US OB BPP w non-stress 08/23/2024 6:49 PM SIGNS AND SYMPTOMS: ^REPEAT BPP, LUNG IMMATURITY PROTOCOL: Transabdominal sonographic imaging of the gravid uterus COMPARISON: None FINDINGS: The heart rate is 136 bpm The amniotic fluid index is 9.54 cm with the deepest vertical pocket measuring 4.23 cm. Biophysical profile: breathing movements: 2/2 Gross body movements: 2/2 tone: 2/2 Amniotic fluid volume: 2/2 US/US OB BPP w non-stress IMPRESSION: Biophysical profile: 09/15 Impression dictated by: Abundio Powers M.D. 08/24/2024 12:26 AM Dictation Location: [place] [address] Electronically authenticated by: [id number] Y Date: 08/24/2024 00:26
[2024-08-23 18:47] VITALS: BP 103/68; PULSE 90
--- OUTSIDE RECORDS SUMMARY | 2024-08-24 06:32 | XMS_ITS | Encounter Summary ---
Author Organization [facility] [employer] [facility] tem Address [id number] [address] [place] [address] Care Team Providers Care Grain Unloader Machine Name Role Phone Unavailable Primary Care Provider Unavailabl e Encounter Details Date Type Department Care Team (Late st Contact Info) Description 09/08/2021 Telephone Maternal- Medicine at [facility] [address] [facility] [place] [address] Elva Maier Social History Tobacco Use Types [...]
--- OUTSIDE RECORDS SUMMARY | 2024-08-24 06:32 | XMS_ITS | Encounter Summary ---
Author Organization [facility] tem Address [id number] [address] [place] [address] Care Team Providers Care Apparel Sales Associate Name Role Phone Unavailable Primary Care Provider Unavailabl e Encounter Details Date Type Department Care Team (Late st Contact Info) Description 08/14/2021 Telephone Maternal- Medicine at [facility] [address] [facility] [place] [address] Elva Maier Social History Tobacco Use Types [...]
--- OUTSIDE RECORDS SUMMARY | 2024-08-24 06:32 | XMS_ITS | Encounter Summary ---
Author Organization [facility] Address [address] [place] [address] Care Team Providers Care Planer Feeder Name Role Phone Soledad Valdez DO Unavailable Encounter Details Date Type Department Care Team (Late Contact Info) Description 08/18/2024 Clinisync Result Encounter NOMS External Department Unsolicited Soledad Valdez, DO [address], [facility]11 Social History Tobacco Use Types Packs/Day Years [...] Routine [facility] BCP OB [address] [place] [phone] Soledad Valdez, [address], [facility]11 documented as of this encounter Goals Goal [...] PM EDT Narrative 08/18/2024 8:15 [place] [address] Ultrasound Report Signed Patient: MICHELLE GOODE MR#: [id number] : 1990 Acct:[id number] Age/Sex: 34 / F ADM Date: 08/18/24 Loc: [facility] 250-[address]: Soledad Valdez D.O. Ordering Physician: Soledad Valdez D.O. Date of Service: 08/18/24 Procedure(s): US OB BPP w non-stress Accession Number(s): [id number] cc: Soledad Valdez D.O.; Physician,Non-Staff M.Yariel The [place] [id number] Patient Name: MICHELLE GOODE MRN: [id number] date: 1990 Sex: F Assigned Patient Location: [facility] Current Patient Location: [facility] Accession/Order Number: [id number] Exam Date: 08/18/2024 20:10 Report Date: 08/18/2024 [...] Calhoun M.D. 08/18/2024 8:13 PM Dictation Location: [employer] Electronically authenticated by: [id number] Y Date: 08/18/2024 20:13 Dictated By: Gelacio Calhoun D.O. Signed By: 08/18/242014 DD/ 12 TD/TT: Leader Tier: Procedure Note Radiology, Radiologist, MD - 08/18/2024 [place] [address] Ultrasound Report Signed Patient: MICHELLE GOODE MMR#: [id number] : 1990Acct:[id number] Age/Sex: 34 / FADM Date: 08/18/24 Loc: [facility] 250-[address]: Soledad Valdez D.O. Ordering Physician: Soledad Valdez D.O. Date of Service: 08/18/24 Procedure(s): US OB BPP w non-stress Accession Number(s): [id number] cc: Soledad Valdez D.O.; Physician,Non-Staff Kofi The [place] [address] Patient Name: MICHELLE GOODE MRN: [id number] date: 1990 Sex: F Assigned Patient Location: [facility] Current Patient Location: [facility] Accession/Order Number: [id number] Exam Date: 08/18/2024 20:10 Report Date: 08/18/2024 [...] Calhoun M.D. 08/18/2024 8:13 PM Dictation Location: [place] [address] Electronically authenticated by: [id number] Y Date: 0:13 Dictated By: Gelacio Calhoun D.O. Signed By:08/18/242014 DD/ 12 TD/TT: Leader Tier: us Soledad Valdez DO [facility] Final Result documented in this encounter Visit Diagnoses Not on filedocumented in this encounter Additional Health Concerns Active Problems Noted Date Diagnosed Date OB Reminders 03/25/2024 documented as of this encounter Care Teams Planer Feeder Relationship Specialty Start Date End Date Soledad Valdez DO [address] [place], [place] [address]b[place] [id number] PCP - [facility] 11/09/23 documented as of this encounter
--- OUTSIDE RECORDS SUMMARY | 2024-08-24 06:32 | XMS_ITS | Encounter Summary ---
Author Organization [facility] Address [address] [place] [address] Care Team Providers Care Subsurface Augmentee Elint Operator Name Role Phone Eh Valdez DO Unavailable Encounter Details Date Type Department Care Team (Late st Contact Info) Description 08/23/2024 Telephone [facility] OB [address] [place] [address] Zeinab Ramirez LPN [address] [place] [address] Social History Tobacco Use Types [...] Telephone Encounter - Zeinab Ramirez LPN - 08/23/2024 2:34 PM EDT This is Michelle Goode. Um, I just had a couple of questions about yesterday's hospital appointment. So if you can call me back at [phone]. Thank you. I called pt back and she asked about induction with her low KRIS. We went over thing in great detail. PVU documented in this encounter Plan of Treatment Upcoming Encounters Date Type Department Care Team (Late st Contact Info) Description 08/29/2024 2:30 PM EDT Routine [facility] BCP OB [address] [place] [address] Eh Valdez DO [address] [place] [address] documented as of this encounter Goals Goal Patient Goal Type Associated Problems Recent Progress Patient-Stated? Author Reminders Care Plan OB Reminders No Open Scheduling, Background documented as of this encounter Visit Diagnoses Not on filedocumented in this encounter Additional Health Concerns Active Problems Noted Date Diagnosed Date OB Reminders 03/25/2024 documented as of this encounter Care Teams Subsurface Augmentee Elint Operator Relationship Specialty Start Date End Date Eh Valdez DO [address] [place] [address] PCP - [facility] 11/09/23 documented as of this encounter
--- OUTSIDE RECORDS SUMMARY | 2024-08-24 06:32 | XMS_ITS | Encounter Summary ---
Author Organization [facility] Address [address] [place] [address] Care Team Providers Care Animal Care Attendant Name Role Phone Eh Valdez DO Unavailable Encounter Details Date Type Department Care Team (Late st Contact Info) Description 08/10/2024 Clinisync Result Encounter [facility] External Department Unsolicited Gabrielle Carmichael PA [address] [facility] [address] [place], [facility]11 Social History Tobacco Use Types Packs/Day [...] PM EDT Routine [facility] BCP OB [address] [facility] [place] [phone] Eh Valdez DO [address] [place], [place] [address] documented as of this encounter Goals Goal Patient Goal Type Associated Problems Recent Progress Patient-Stated? Author Reminders Care Plan OB Reminders No Open Scheduling, Background documented as of this encounter Procedures Procedure Name Priority Date/Time Associated Diagnosis Comments US OB BPP WO NON-STRESS 08/10/2024 10:42 PM EDT documented in this encounter Results * US OB BPP WO NON-STRESS (08/10/2024 10:42 PM EDT) Anatomical Region Laterality Modality Other 08/10/2024 10:4 2 PM EDT Narrative 08/10/2024 10:44 [place] [address] Ultrasound Report Signed Patient: MICHELLE GOODE MR#: [id number] : 1990 Acct:[id number] Age/Sex: 34 / F ADM Date: 08/10/24 [place] [facility] [place]: Gabrielle Carmichael Ordering Physician: Gabrielle Carmichael Date of Service: 08/10/24 Procedure(s): US OB BPP wo non-stress Accession Number(s): [id number] cc: Gabrielle Carmichael; Physician,Non-Staff M.DYumiko The [place] [address] Patient Name: MICHELLE GOODE MRN: [id number]:[id number] date: 1990 Sex: F Assigned [place] [facility] [place] Patient Location: Accession/Order Number: [id number] Exam Date: 08/10/2024 22:41 Report Date: 08/10/2024 22:42 At the request of: GABRIELLE CARMICHAEL Procedure: US OB BPP wo non-stress [...] Calhoun M.D. 08/10/2024 10:42 PM Dictation Location: [place] [address] Electronically authenticated by: [id number] Y Date: 08/10/2024 22:42 Dictated By: Gelacio Calhoun D.O. Signed By: 08/10/242243 DD/ 41 TD/TT: Case Consultant: Procedure Note Radiology, Radiologist, - 08/10/2024 [place] [address] Ultrasound Report Signed Patient: MICHELLE GOODE MMR#: [id number] : 1990Acct:[id number] Age/Sex: 34 / FADM Date: 08/10/24 [place] [facility] [place]: Gabrielle Carmichael Ordering Physician: Gabrielle Carmichael Date of Service: 08/10/24 Procedure(s): US OB BPP wo non-stress Accession Number(s): [id number] cc: Gabrielle Carmichael; Physician,Non-Staff Kofi The [place] [id number] Patient Name: MICHELLE GOODE MRN: [facility]:[id number] date: 1990 Sex: F Assigned [place] [facility] [place] Patient Location: Accession/Order Number: [id number] Exam Date: 08/10/2024 22:41 Report Date: 08/10/2024 22:42 At the request of: GABRIELLE CARMICHAEL Procedure: US OB BPP wo non-stress [...] Calhoun M.D. 08/10/2024 10:42 PM Dictation [facility] Electronically authenticated by: [id number] Y Date: 2:42 Dictated By: Gelacio Calhoun D.O. Signed By:08/10/242243 DD/ 41 TD/TT: Case Consultant: us Gabrielle BARRIOS [facility] Final Result documented in this encounter Visit Diagnoses Not on filedocumented in this encounter Additional Health Concerns Active Problems Noted Date Diagnosed Date OB Reminders 03/25/2024 documented as of this encounter Care Teams Animal Care Attendant Relationship Specialty Start Date End Date Eh Valdez DO [address] [place] [id number] PCP - [facility] 11/09/23 documented as of this encounter
--- OUTSIDE RECORDS SUMMARY | 2024-08-24 06:32 | XMS_ITS | Encounter Summary ---
Author Organization [facility] Address [address] [place] [address] Care Team Providers Care Gristmiller Name Role Phone Eh Valdez DO Unavailable Encounter Details Date Type Department Care Team (Late st Contact Info) Description 05/04/2024 Abstract [facility] OB [address] [place] [address] Eh Valdez DO [address] [place], [facility]11 Social History Tobacco Use Types Packs/Day [...] Description 08/29/2024 2:30 PM EDT Routine [facility] OB [address] [place] [address] Eh Valdez DO [address] [place], [facility]11 documented as of this encounter Goals Goal Patient Goal Type Associated Problems Recent Progress Patient-Stated? Author Reminders Care Plan OB Reminders No Open Scheduling, Background documented as of this encounter Visit Diagnoses Not on filedocumented in this encounter Additional Health Concerns Active Problems Noted Date Diagnosed Date OB Reminders 03/25/2024 documented as of this encounter Care Teams Gristmiller Relationship Specialty Start Date End Date Eh Valdez DO [address] [address] PCP - [facility] 11/09/23 documented as of this encounter
--- OUTSIDE RECORDS SUMMARY | 2024-08-24 06:32 | XMS_ITS | Encounter Summary ---
Author Organization [facility] Address [address] [place] [address] Care Team Providers Care Laminating Machine Offbearer Name Role Phone Eh Valdez DO Unavailable Encounter Details Date Type Department Care Team (Late st Contact Info) Description 03/21/2024 Abstract [facility] OB [address] [place] [address] Eh Valdez [facility] [address] [place], [place] [address] Social History Tobacco Use Types Packs/Day Years [...] Description 08/29/2024 2:30 PM EDT Routine [facility] OB [address] [place] [address] Eh Valdez DO [address] [place], [facility]11 documented as of this encounter Visit Diagnoses Not on filedocumented in this encounter Care Teams Laminating Machine Offbearer Relationship Specialty Start Date End Date Eh Valdez DO [address] [place] [address] PCP - [facility] 11/09/23 documented as of this encounter
--- OUTSIDE RECORDS SUMMARY | 2024-08-24 06:32 | XMS_ITS | Clinical Summary ---
Author Organization [facility] tem Address [facility] [id number] [address] [place] [address] Care Team Providers Care Cylinder Machine Operator Pulp Drier Name Role Phone Unavailable Primary Care Provider [...] Type Department Care Team Description [facility] [address] [place] [address] Pablo Altamirano from Last 3 [...] Devices Not on file Insurance [employer] [facility]
--- OUTSIDE RECORDS SUMMARY | 2024-08-24 06:32 | XMS_ITS | Encounter Summary ---
Author Organization [facility] Address [address] [place] [address] Care Team Providers Care Regulatory Compliance Director Name Role Phone Eh Valdez DO Unavailable Encounter Details Date Type Department Care Team (Late st Contact Info) Description 08/18/2024 Telephone [facility] OB [address] [place] [address] Eh Valdez DO [address] [place], [facility]11 Social History Tobacco Use Types Packs/Day Years [...] Routine [facility] BCP OB [address] [place] [address] Eh Valdez, [address] [place] [address] documented as of this encounter Goals Goal Patient Goal Type Associated Problems Recent Progress Patient-Stated? Author Reminders Care Plan OB Reminders No Open Scheduling, Background documented as of this encounter Visit Diagnoses Not on filedocumented in this encounter Additional Health Concerns Active Problems Noted Date Diagnosed Date OB Reminders 03/25/2024 documented as of this encounter Care Teams Regulatory Compliance Director Relationship Specialty Start Date End Date Eh Valdez DO [facility] [place] [address] PCP - [facility] 11/09/23 documented as of this encounter
--- OUTSIDE RECORDS SUMMARY | 2024-08-24 06:32 | XMS_ITS | Encounter Summary ---
Author Organization [facility] Address [address] [place] [address] Care Team Providers Care Preschool Teacher Name Role Phone Soledad Valdez DO Unavailable Encounter Details Date Type Department Care Team (Late Contact Info) Description 08/23/2024 Clinisync Result Encounter [facility] External Department Unsolicited Soledad Valdez, DO [address] [place], [facility]11 Social History Tobacco Use Types Packs/Day [...] Routine [facility] BCP OB [address] [place] [phone] Soledad Valdez, [address] [place] [address] documented as of this encounter Goals Goal Patient Goal Type Associated Problems Recent Progress Patient-Stated? Author Reminders Care Plan OB Reminders No Open Scheduling, Background documented as of this encounter Procedures Procedure Name Priority Date/Time Associated Diagnosis Comments US OB BPP W NON-STRESS 08/23/2024 8:46 AM EDT documented in this encounter Results * US OB BPP W NON-STRESS (08/23/2024 8:46 AM EDT) Anatomical Region Laterality Modality Other 08/23/2024 8:46 AM EDT Narrative 08/23/2024 8:48 [place] [address] Ultrasound Report Signed Patient: MICHELLE GOODE MR#: [id number] : 1990 Acct:[id number] Age/Sex: 34 / F ADM Date: 08/22/24 Loc: US Attending Dr: Soledad Valdez D.O. Ordering Physician: Soledad Valdez D.O. Date of Service: 08/22/24 Procedure(s): US OB BPP w non-stress Accession Number(s): [id number] cc: Soledad Valdez D.O.; Physician,Non-Staff M.Yariel The [address] [address] Patient Name: MICHELLE GOODE MRN: [id number] date: 1990 Sex: F Assigned Patient Location: US Current Patient Location: US Accession/Order Number: [id number] Exam Date: 08/23/2024 08:43 Report Date: 08/23/2024 08:46 At the request of: SOLEDAD VALDEZ DO Procedure: US OB BPP w non-stress BIOPHYSICAL PROFILE: CLINICAL INFORMATION: REPEAT BPP COMPARISON: 08/18/2024 There is a single live intrauterine gestation in cephalic presentation. The reported gestational age is 36 weeks 0 days. The heart rate measures 152 beats per minute. FINDINGS: TONE: 1 or [...] greater than 2 cm [Y] 2/2 KRIS: 7.9 cm. This is borderline oligohydramnios with 5th percentile 7.7 cm . Total score: 8/8 US/US OB BPP w non-stress IMPRESSION: NORMAL BIOPHYSICAL PROFILE. CONTINUED BORDERLINE OLIGOHYDRAMNIOS. Impression dictated by: Lee Ann Perez M.D. 08/23/2024 8:46 AM Dictation Location: [place] [address] Electronically authenticated by: [id number] Y Date: 08/23/2024 08:46 Dictated By: Lee Ann Perez M.D. Signed By: 08/23/2448 DD/ 5 TD/TT: Insurance Territory Manager: Procedure Note Radiology, Radiologist, MD - 08/23/2024 [place] [address] Ultrasound Report Signed Patient: MICHELLE GOODE MMR#: [id number] : 1990Acct:[id number] Age/Sex: 34 / FADM Date: 08/22/24 Loc: US Attending Dr: Soledad Valdez D.O. Ordering Physician: Soledad Valdez D.O. Date of Service: 08/22/24 Procedure(s): US OB BPP w non-stress Accession Number(s): [id number] cc: Soledad Valdez D.O.; Physician,Non-Staff Kofi The [address] [id number] Patient Name: MICHELLE GOODE MRN: [id number] date: 1990 Sex: F Assigned Patient Location: Current Patient Location: US Accession/Order Number: [id number] Exam Date: 08/23/2024 08:43 Report Date: 08/23/2024 08:46 At the request of: SOLEDAD VALDEZ DO Procedure: US OB BPP w non-stress BIOPHYSICAL PROFILE: CLINICAL INFORMATION: REPEAT BPP COMPARISON: 08/18/2024 There is a single live intrauterine gestation in cephalic presentation.The reported gestational age is 36 weeks 0 days. The heart ratemeasures 152 beats per minute. FINDINGS: TONE: 1 or [...] greater than 2 cm [Y] 2/2 KRIS: 7.9 cm. This is borderline oligohydramnios with 5thpercentile 7.7 cm . Total score: 8/8 US/US OB BPP w non-stress IMPRESSION: NORMAL BIOPHYSICAL PROFILE. CONTINUED BORDERLINE OLIGOHYDRAMNIOS. Impression dictated by: Lee Ann Perez M.D. 08/23/2024 8:46 AM Dictation Location: [place] [address] Electronically authenticated by: [id number] Y Date: 508:46 Dictated By: Lee Ann Perez M.D. Signed By:08/23/24 0848 DD/ TD/TT: Insurance Territory Manager: Soledad Valdez DO [facility] Final Result documented in this encounter Visit Diagnoses Not on filedocumented in this encounter Additional Health Concerns Active Problems Noted Date Diagnosed Date OB Reminders 03/25/2024 documented as of this encounter Care Teams Preschool Teacher Relationship Specialty Start Date End Date Soledad Valdez DO [address] [place] [address] [place] [address] [facility] 11/09/23 documented as of this encounter
--- OUTSIDE RECORDS SUMMARY | 2024-08-24 06:32 | XMS_ITS | Encounter Summary ---
Author Organization [facility] Address [address] [place] [address] Care Team Providers Care Library Circulation Clerk Name Role Phone Eh Valdez DO Unavailable Encounter Details Date Type Department Care Team (Late Contact Info) Description 04/24/2024 Orders Only [facility] BCP OB [address] [place] [address] [place] [address] Ilda Beaver MA [address] [place] [address] [place] [address] Social History Tobacco Use Types Packs/Day Years [...] PM EDT Routine [facility] BCP OB [address] [facility] [place] [address] Eh Valdez DO [address] [facility] [address] [place], [place] [phone] documented as of this encounter Goals Goal [...] documented as of this encounter Care Teams Library Circulation Clerk Relationship Specialty Start Date End Date Eh Valdez DO [address] [place], [place] [address]b[place] [address] PCP - [facility] 11/09/23 documented as of this encounter
--- OUTSIDE RECORDS SUMMARY | 2024-08-24 06:32 | XMS_ITS | Encounter Summary ---
Author Organization [facility] Address [address] [place] [address] Care Team Providers Care Concrete Puddler Name Role Phone Soledad Valdez DO Unavailable [...] [facility] BCP OB [address] [place] [phone] Soledad Valdez DO [address] [place] [address] documented as of this encounter Procedures Procedure Name Priority Date/Time Associated Diagnosis Comments US OB TRANSVAGINAL 02/24/2024 2: 55 PM EST documented in this encounter Results * US OB TRANSVAGINAL (02/24/2024 2:55 PM EST) Anatomical Region Laterality Modality Other 02/24/2024 2:55 PM EST Narrative 02/24/2024 2:57 [place] [address] Ultrasound Report Signed Patient: MICHELLE GOODE MR#: [id number] : 1990 Acct:[id number] Age/Sex: 33 / F ADM Date: 02/24/24 Loc: US Attending Dr: Soledad Valdez D.O. Ordering Physician: Soledad Valdez D.O. Date of Service: 02/24/24 Procedure(s): US OB transvaginal Accession Number(s): [id number] cc: Soledad Valdez D.O.; Physician,Non-Staff M.DYumiko The [place] [id number] Patient Name: MICHELLE GOODE MRN: [id number] date: 1990 Sex: F Assigned Patient Location: US Current Patient Location: US Accession/Order Number: [id number] Exam Date: 02/24/2024 14:17 Report Date: 02/24/2024 [...] Signed By: 02/24/24 1457 DD/ 54 TD/TT: Professor Of Pathology: Procedure Note Radiology, Radiologist, - 02/24/2024 [place] [address] Ultrasound Report Signed Patient: MICHELLE GOODE MMR#: [id number] : 1990Acct:[id number] Age/Sex: 33 / FADM Date: 02/24/24 Loc: US Attending Dr: Soledad Valdez D.O. Ordering Physician: Soledad Valdez D.O. Date of Service: 02/24/24 Procedure(s): US OB transvaginal Accession Number(s): [id number] cc: Soledad Valdez D.O.; Physician,Non-Staff Kofi The [place] [address] Patient Name: MICHELLE GOODE MRN: [id number] date: 1990 Sex: F Assigned Patient Location: US Current Patient Location: US Accession/Order Number: [id number] Exam Date: 02/24/2024 14:17 Report Date: 02/24/2024 [...] M.D. Signed By:02/24/24 1457 DD/ 1455 TD/TT: Professor Of Pathology: Soledad Valdez DO [facility] Final Result documented in this encounter Visit Diagnoses Not on filedocumented in this encounter Care Teams Concrete Puddler Relationship Specialty Start Date End Date Soledad Valdez DO [address] [place] [address] [place] [address] PCP - [facility] 11/09/23 documented as of this encounter
--- OUTSIDE RECORDS SUMMARY | 2024-08-24 06:32 | XMS_ITS | Encounter Summary ---
Author Organization [facility] Address [address] [place] [address] Care Team Providers Care Hot Sealing Machine Operator Name Role Phone Eh Valdez DO Unavailable Encounter Details Date Type Department Care Team (Late st Contact Info) Description 08/22/2024 Bamboo flowsheet [facility] OB [address] [place] [address] Eh Valdez [address] [place], [place] [address] Social History Tobacco Use Types Packs/Day Years [...] Description 08/29/2024 2:30 PM EDT Routine [facility] OB [address] [place] [address] Eh Valdez DO [address] [place], [place] [address] documented as of this encounter Goals Goal Patient Goal Type Associated Problems Recent Progress Patient-Stated? Author Reminders Care Plan OB Reminders No Open Scheduling, Background documented as of this encounter Visit Diagnoses Not on filedocumented in this encounter Additional Health Concerns Active Problems Noted Date Diagnosed Date OB Reminders 03/25/2024 documented as of this encounter Care Teams Hot Sealing Machine Operator Relationship Specialty Start Date End Date hE Valdez DO [address] [facility] [place] [address] PCP - [facility] 11/09/23 documented as of this encounter
--- OUTSIDE RECORDS SUMMARY | 2024-08-24 06:33 | XMS_ITS | Encounter Summary ---
Author Organization [facility] Address [address] [place] [address] Care Team Providers Care Polymerization Helper Name Role Phone Eh Vladez DO Unavailable Encounter Details Date Type Department Care Team (Late st Contact Info) Description 07/27/2024 Results Follow-Up [facility]CP OB [address] [facility] [address] [address] [place] [address] Zeinab Ramirez LPN [address] [place] [address] Social History Tobacco Use Types [...] PM EDT Routine [facility] BCP OB [address] [facility] [address] Eh Valdez, [address] [place] [address] documented as of this encounter Goals Goal Patient Goal Type Associated Problems Recent Progress Patient-Stated? Author Reminders Care Plan OB Reminders No Open Scheduling, Background documented as of this encounter Visit Diagnoses Not on filedocumented in this encounter Additional Health Concerns Active Problems Noted Date Diagnosed Date OB Reminders 03/25/2024 documented as of this encounter Care Teams Polymerization Helper Relationship Specialty Start Date End Date Eh Valdez DO [facility] [place] [address] PCP - [facility] 11/09/23 documented as of this encounter
--- OUTSIDE RECORDS SUMMARY | 2024-08-24 06:33 | XMS_ITS | Clinical Summary ---
Author Organization [facility] Address [address] [place] [address] Care Team Providers Care Scoreboard Operator Name Role Phone Soledad Valdez DO [...] MORNING and IN THE AFTERNOON) 02/19/2024 Active Qklqhxfn-Nmd-KD ([facility]) 0.4 MG chewable tabletIndicatio ns:Second trimester ([facility]) Chew 1 tablet Daily 30 tablet 11 04/21/2024 04/22/19 26 Active Active Problems Problem Noted Date Diagnosed Date Substance abuse 09/15/2022 GERD (gastroesophageal reflux disease) 8 Exacerbation of asthma 08/09/2007 Attention deficit hyperactivity disorder 008 Allergic rhinitis 08/09/2007 Estimated Date of Delivery Comme nts Yes 09/19/2024 Based on last me nstrual period of 12/14/2023 Encounters Date Type Department Care Team Description 08/24/2024 Clinisync Result Encounter N[facility] External Department Unsolicited Soledad Valdez, DO 08/23/2024 Telephone [facility] [address] [facility] [address] Zeinab Ramirez, PULL THROUGH HOOKER 08/23/2024 Clinisync Result Encounter NOMS External Department Unsolicited Soledad Valdez, DO 08/22/2024 2:10 PM EDT Routine [facility] OB [address] [place] [address] Soledad Valdez, DO Third trimester ([facility]); 36 weeks gestation of ([facility]) 08/22/2024 Bamboo flowsheet [facility] OB [address] [place] [address] Soledad Valdez, DO 08/18/2024 Clinisync Result Encounter NOMS External Department Unsolicited Soledad Valdez, DO 08/18/2024 Telephone [facility] OB [address] [facility] [address] Soledad Valdez, DO 08/10/2024 Clinisync Result Encounter NOMS External Department Unsolicited Paola Carmichael PA 08/07/2024 Telephone [facility] OB [address] [facility] [address] Paola Carmichael PA 08/04/2024 Clinisync Result Encounter NOMS External Department Unsolicited Soledad Valdez, DO 08/03/2024 2:50 PM EDT Routine [facility] OB [address] [place] [address] Paola Carmichael PA Third trimester ([facility]) (Primary Dx); 33 weeks gestation of ([facility]); Short cervix, antepartum ([facility]) 08/03/2024 2:00 PM EDT Ancillary Procedure [facility] OB [address] [place] [address] SGA (small for gestational age) ([facility]); Short cervix, antepartum ([facility]) 07/31/2024 Clinisync Result Encounter NOMS External Department Unsolicited Soledad Valdez DO 07/27/2024 Results Follow-Up NOMS [address] [place] [address] Zeinab Ramirez, ERNIE 07/27/2024 Telephone [facility] [address] [place] [address] Zeinab Ramirez, PULL THROUGH HOOKER 07/25/2024 11:30 AM EDT Ancillary Procedure [facility] [address] [place] [address] 07/25/2024 10:40 AM EDT Routine NOM[facility] [address] [place] [address] Soledad Valdez, 32 weeks gestation of ([facility]); Third trimester ([facility]); SGA (small for gestational age) ([facility]); Short cervix, antepartum ([facility]) 07/25/2024 Bamboo flowsheet NOM[facility] [address] [place] [address] Soledad Valdez DO 07/11/2024 2:30 PM EDT Ancillary Procedure [facility] [address] [place] [address] Short cervix, antepartum ([facility]); size inconsistent with dates ([facility]) 07/11/2024 Orders Only [facility] [address] [place] [address] Lucille Hahn 07/10/2024 10:20 AM EDT Routine [facility]OM[facility] [address] [place] [address] Paola Carmichael PA Third trimester ([facility]); 29 weeks gestation of ([facility]); with normal glucose tolerance test (GTT) ([facility]); size inconsistent with dates ([facility]); Short cervix, antepartum ([facility]) 07/10/2024 Bamboo flowsheet NOM[facility] [address] [place] [address] Paola Carmichael PA 07/07/2024 Telephone [address] [address] [place] [address] Ilda Beaver MA from Last 3 [...] Description 08/29/2024 2:30 PM EDT Routine N[facility] [address] [address] [facility] [address] [place] [address] Health Maintenance Due Date Last Done Comments Influenza Vaccine (#1) 2024 Cervical Cancer Screening 04/11/2029 HPV/Cotest 04/11/2029 Pap Smear 04/11/2029 04/11/2024, 05/21/2021 Goals Goal Patient Goal Type Associated Problems Recent Progress Patient-Stated? Author Reminders Care Plan OB Reminders No Open Scheduling, Background Procedures Procedure Name Priority Date/Time Associated Diagnosis Comments US OB BPP W NON-STRESS 08/24/2024 12:26 AM EDT US OB BPP W NON-STRESS 08/23/2024 8:46 AM EDT US OB BPP W NON-STRESS 08/18/2024 8:13 PM EDT US OB BPP WO NON-STRESS 08/10/2024 10:42 PM EDT US OB BPP W NON-STRESS 08/04/2024 8:23 AM EDT US OB FOLLOW UP TRANSABDOMINAL APPROACH Routine 08/03/2024 2:50 PM EDT SGA (small for gestational age) ([facility]) US OB BPP W NON-STRESS 07/31/2024 8:00 AM EDT US OB TRANSVAGINAL Routine 07/25/2024 11 :57 AM EDT Short cervix, antepartum ([facility]) US OB FOLLOW UP TRANSABDOMINAL APPROACH Routine 07/11/2024 3:33 PM EDT size inconsistent with dates ([facility]) PAP SMEAR Routine 04/11/2024 12:00 AM EST from Last 3 Months or Most Recently Relevant to Health Maintenance Results * US OB BPP W NON-STRESS (08/24/2024 12:26 AM EDT) Only the most recent of5 resultswithin the time period is included. Anatomical Region Laterality Modality Other 08/24/2024 12:2 6 AM EDT Narrative 08/24/2024 12:28 AM EDT [address] [address] Ultrasound Report Signed Patient: MICHELLE GOODE MR#: [id number] : 1990 Acct:[id number] Age/Sex: 34 / F ADM Date: Loc: [place] [address]: Soledad Valdez D.O. Ordering Physician: Soledad Valdez D.O. Date of Service: 08/23/24 Procedure(s): US OB BPP w non-stress Accession Number(s): [id number] cc: Soledad Valdez D.O.; Physician,Non-Staff Kofi [address] [address] Patient Name: MICHELLE GOODE MRN: [id number] date: 1990 Sex: F Assigned Patient Location: [facility] Current Patient Location: Accession/Order Number: [id number] Exam Date: 08/24/2024 00:23 Report Date: 08/24/2024 00:26 At the request of: SOLEDAD VALDEZ DO Procedure: US OB BPP w non-stress US OB BPP w non-stress 08/23/2024 6:49 PM SIGNS AND SYMPTOMS: REPEAT BPP, LUNG IMMATURITY PROTOCOL: Transabdominal sonographic imaging of the gravid uterus COMPARISON: None FINDINGS: The heart rate is 136 bpm The amniotic fluid index is 9.54 cm with the deepest vertical pocket measuring 4.23 cm. Biophysical profile: breathing movements: 2/2 Gross body movements: 2/2 tone: 2/2 Amniotic fluid volume: 2/2 US/US OB BPP w non-stress IMPRESSION: Biophysical profile: 09/15 Impression dictated by: Abundio Powers M.D. 08/24/2024 12:26 AM Dictation Location: [place] [address] Electronically authenticated by: [id number] Y Date: 08/24/2024 00:26 Dictated By: Abundio Powers M.D. Signed By: 08/24/24 0028 DD/ 0026 TD/TT: Provider Enrollment Specialist: Procedure Note Radiology, Radiologist, - 08/24/2024 [place] [address] Ultrasound Report Signed Patient: MICHELLE GOODE MMR#: [id number] : 1990Acct:[id number] Age/Sex: 34 / FADM Date: Loc: [facility] 250-[address]: Soledad Valdez D.O. Ordering Physician: Soledad Valdez D.O. Date of Service: 08/23/24 Procedure(s): US OB BPP w non-stress Accession Number(s): [id number] cc: Soledad Valdez D.O.; Physician,Non-Staff Kofi [place] [address] Patient Name: MICHELLE GOODE MRN: [id number] date: 1990 Sex: F Assigned Patient Location: [facility] Current Patient Location: Accession/Order Number: [id number] Exam Date: 08/24/2024 00:23 Report Date: 08/24/2024 00:26 At the request of: SOLEDAD VALDEZ DO Procedure: US OB BPP w non-stress US OB BPP w non-stress 08/23/2024 6:49 PM SIGNS AND SYMPTOMS: REPEAT BPP, LUNG IMMATURITY PROTOCOL: Transabdominal sonographic imaging of the gravid uterus COMPARISON: None FINDINGS: The heart rate is 136 bpm The amniotic fluid index is 9.54 cm with the deepest vertical pocketmeasuring 4.23 cm. Biophysical profile: breathing movements: 2/2 Gross body movements: 2/2 tone: 2/2 Amniotic fluid volume: 2/2 US/US OB BPP w non-stress IMPRESSION: Biophysical profile: 88 Impression dictated by: Abundio Powers M.D. 08/24/2024 12:26 AM Dictation Location: [place] [address] Electronically authenticated by: [id number] Y Date: 500:26 Dictated By: Abundio Powers M.D. Signed By:08/24/24 0028 DD/ TD/TT: Provider Enrollment Specialist: us Soledad Arroyoo DO [facility] Final Result * US OB BPP WO NON-STRESS (08/10/2024 10:42 PM EDT) Anatomical Region Laterality Modality Other 08/10/2024 10:4 2 PM EDT Narrative 08/10/2024 10:44 [place] [address] Ultrasound Report Signed Patient: MICHELLE GOODE MR#: [id number] : 1990 Acct:[id number] Age/Sex: 34 / F ADM Date: 08/10/24 Loc: [facility] Attending Dr: Paola Carmichael Ordering Physician: Paola Carmichael Date of Service: 08/10/24 Procedure(s): US OB BPP wo non-stress Accession Number(s): [id number] cc: Paola Carmichael; Physician,Non-Staff [place] [id number] Patient Name: MICHELLE GOODE MRN: [id number] date: 1990 Sex: F Assigned Patient Location: [facility] Current Patient Location: Accession/Order Number: [id number] Exam Date: 08/10/2024 22:41 Report Date: 08/10/2024 [...] Calhoun M.D. 08/10/2024 10:42 PM Dictation Location: [place] Electronically authenticated by: [id number] Y Date: 08/10/2024 22:42 Dictated By: Gelacio Calhoun D.O. Signed By: 08/10/242243 DD/ 41 TD/TT: Provider Enrollment Specialist: Procedure Note Radiology, Radiologist, - 08/10/2024 [place] [address] Ultrasound Report Signed Patient: MICHELLE GOODE MMR#: [id number] : 1990Acct:[id number] Age/Sex: 34 / FADM Date: 08/10/24 Loc: [facility] Attending Dr: Paola Carmichael Ordering Physician: Paola Carmichael Date of Service: 08/10/24 Procedure(s): US OB BPP wo non-stress Accession Number(s): [id number] cc: Paola Carmichael; Physician,Non-Staff M.Yariel [place] [address] Patient Name: MICHELLE GOODE MRN: [id number] date: 1990 Sex: F Assigned Patient Location: [facility] Current Patient Location: Accession/Order Number: [id number] Exam Date: 08/10/2024 22:41 Report Date: 08/10/2024 [...] Calhoun M.D. 08/10/2024 10:42 PM Dictation Location: [place] Electronically authenticated by: [id number] Y Date: 2:42 Dictated By: Gelacio Calhoun D.O. Signed By:08/10/242243 DD/ 2242 TD/TT: Provider Enrollment Specialist: us Paola Beaverey DENIS [facility] Final Result * US OB [...] cm - Funneling was noted by performing limited radiology technician but not well demonstrated on the [...] Cervical funneling was noted by the performing limited radiology technician but not well demonstrated on the provided images. The ordering physician was notified. Interpreted by: Electronically signed by RISA PALACIOS II, MD, PHD at 06-Aug-2024 10:03:36 PM [facility] Procedure Note Risa Palacios MD - 08/06/2024 EXAM: US OB FOLLOW [...] length. Cervical funneling was noted by theperforming limited radiology technician but not well demonstrated on the provided images.The ordering physician was notified. Interpreted by: Electronically signed by RISA PALACIOS II, MD, PHD [id number] 10:03:36 PM [facility] us Soledad José Miguel DO IMG [...] cm. Interpreted by: Electronically signed by RISA PALACIOS II, MD, PHD at 26-Jul-2024 08:00:42 AM [facility] Procedure Note Risa Palacios MD - 07/26/2024 EXAM: US OB TRANSVAGINAL HISTORY: Shortened cervix. COMPARISON: Ob ultrasound 07/11/2024. TECHNIQUE: Two-dimensional transvaginal grayscale ultrasound imaging ofthe cervix was performed. FINDINGS: Presentation: Cephalic Cervical Length: 2.6 cm IMPRESSION: 1. Shortened cervical length measuring 2.6 cm. Interpreted by: Electronically signed by RISA PALACIOS II, MD, PHD [id number] 08:00:42 AM [facility] us Paola BARRIOS IMG OB US PROCEDURES Final Resul t * Pap Smear (04/11/2024 12:00 AM EST) Swab Cervical swab / Unknown us Paola BARRIOS LAB CYTOLOGY ORDERABLES Final Re sult EXTERNAL LAB from Last 3 Months or Most Recently Relevant to Health Maintenance Additional Health Concerns Active Problems Noted Date Diagnosed Date OB Reminders 03/25/2024 Insurance [facility] MEDICAID BS Care Teams Scoreboard Operator Relationship Specialty Start Date End Date Soledad Valdez DO [address] [place] [address] [place] [address] PCP - [facility] 11/09/23
--- OUTSIDE RECORDS SUMMARY | 2024-08-24 06:33 | XMS_ITS | Encounter Summary ---
Author Organization [facility] Address [address] [place] [address] Care Team Providers Care Manager Urology Name Role Phone Eh Valdez DO Unavailable Encounter Details Date Type Department Care Team (Late Contact Info) Description 07/11/2024 Orders Only [facility] OB [address] [facility] [place] [address] Lucille Hahn Social History Tobacco Use [...] PM EDT Routine [facility] OB [address] [place] [address] Eh Valdez DO [address] [place] [address] documented as of this encounter Goals Goal Patient Goal Type Associated Problems Recent Progress Patient-Stated? Author Reminders Care Plan OB Reminders No Open Scheduling, Background documented as of this encounter Visit Diagnoses Not on filedocumented in this encounter Additional Health Concerns Active Problems Noted Date Diagnosed Date OB Reminders 03/25/2024 documented as of this encounter Care Teams Manager Urology Relationship Specialty Start Date End Date Eh Valdez DO [address] [place] [address] PCP - [facility] 11/09/23 documented as of this encounter
--- OUTSIDE RECORDS SUMMARY | 2024-08-24 06:33 | XMS_ITS | Encounter Summary ---
Author Organization [facility] Address [address] [place] [address] Care Team Providers Care Human Machine Interface Engineer Name Role Phone Eh Valdez DO Unavailable Encounter Details Date Type Department Care Team (Late st Contact Info) Description 04/17/2024 Abstract [facility] OB [address] [place] [address] Eh Valdez DO [address] [place], [facility] Social History Tobacco Use Types Packs/Day [...] Description 08/29/2024 2:30 PM EDT Routine [facility] OB [address] [place] [address] Eh Valdez DO [address] [place], [facility] documented as of this encounter Goals Goal Patient Goal Type Associated Problems Recent Progress Patient-Stated? Author Reminders Care Plan OB Reminders No Open Scheduling, Background documented as of this encounter Visit Diagnoses Not on filedocumented in this encounter Additional Health Concerns Active Problems Noted Date Diagnosed Date OB Reminders 03/25/2024 documented as of this encounter Care Teams Human Machine Interface Engineer Relationship Specialty Start Date End Date Eh Valdez DO [address] [place] [address] PCP - [facility] 11/09/23 documented as of this encounter
== END 2024-08-23 19:20 | disposition home or self-care (01) ==
LOC: FBC 19:19 → FBCO 08-24 06:30
PROVIDERS: Visit Provider Obstetrics & Gynecology
DX: O41.00X0 Oligohydramnios, unspecified trimester, not applicable or unspecified (principal)
CPT/HCPCS: 76818

== ENCOUNTER 2024-08-26 16:06 | Outpatient (OUT) | payer BC, OTHER, SELFPAY ==
[2024-08-26 16:22] VITALS: BP 115/73; PULSE 86; TEMP 36.2
== END 2024-08-26 17:10 | disposition home or self-care (01) ==
LOC: FBCO 16:06 → FBC 16:07
PROVIDERS: Visit Provider Obstetrics & Gynecology
DX: O36.5930 Maternal care for other known or suspected poor fetal growth, third trimester, not applicable or unspecified (principal); Z3A.36 36 weeks gestation of pregnancy
CPT/HCPCS: 59025

== ENCOUNTER 2024-08-28 16:04 | Outpatient (OUT) | payer BC, OTHER, SELFPAY ==
--- OUTSIDE RECORDS SUMMARY | 2024-08-22 14:10 | XMS_ITS | Encounter Summary ---
Author Organization [facility] Address [address] [place] [address] Care Team Providers Care Box Office Attendant Name Role Phone Eh Valdez DO Unavailable Reason for Visit * Reason Comments Routine Visit Encounter Details Date Type Department Care Team ([facility] Contact Info) Description 08/22/2024 2:10 PM EDT Routine [facility] OB [address] [facility] [place] [address] Eh Valdez DO [address] [facility] [address] [place], [place] [id number] Third trimester ([facility]); 36 weeks gestation of ([facility]) Social History Tobacco Use Types Packs/Day Years [...] Sign Reading Time Taken Comments Blood Pressure 110/86 08/22/2024 2:37 PM EDT Pulse - - Temperature - - Respiratory Rate - - Oxygen Saturation - - Inhaled Oxygen Concentration - - Weight 57.8 kg (127 lb 8 oz) 08/22/2024 2:37 PM EDT Height - - Body Mass Index 21.89 09/21/2022 2:53 PM EDT documented in this encounter Progress Notes * Lee Ann Bojorquez, GARDENER - 08/22/2024 2:10 PM EDT Reason for Appointment: Patient ID: Michelle Goode is a 34 y.o. female who presents for Routine Visit Patient presents today for Return OB appointment. [...] (IN THE MORNING and IN THE AFTERNOON) Pyqrpeke-Jwy-NI ([facility]) 0.4 MG chewable tablet 1 tablet, Oral, Daily ALLERGIES Allergies Allergen Reactions Penicillins Hives, Fever, Itching, Rash, Swelling and Wheezing PROBLEMS Active Ambulatory Problems Diagnosis Date Noted GERD (gastroesophageal reflux disease) 08/09/2007 Exacerbation of asthma ([facility]) 08/09/2007 Attention deficit hyperactivity disorder 08/09/2007 Allergic rhinitis 08/09/2007 Substance abuse ([facility]) 09/15/2022 Resolved Ambulatory Problems Diagnosis Date Noted No Resolved Ambulatory Problems Past Medical History: Diagnosis Date Allergies Anxiety Asthma ([facility]) Bee sting Miscarriage ([facility]) Pelvic pain 2011 Syncope Thoracic sprain HISTORY PAST MEDICAL HISTORY SOCIAL HISTORY Past Medical History: Diagnosis Date Allergies Anxiety Asthma ([facility]) Bee sting right ring finger Miscarriage ([facility]) 8-9 weeks Pelvic pain 2011 Syncope Thoracic [...] History: Procedure Laterality Date OTHER SURGICAL HISTORY 2010 VICODIN & FLEXERIL- VICODIN & FLEXERIL OTHER SURGICAL HISTORY 2013 VICODIN 5/500MG #10;Disease:THORACIC SPRAIN PELVIC LAPAROSCOPY REVIEW OF SYSTEMS Review of Systems: Review of Systems Constitutional: Negative. HENT: Negative. Eyes: Negative. Respiratory: Negative. Cardiovascular: Negative. Gastrointestinal: Negative. Genitourinary: Negative. Musculoskeletal: Negative. Skin: Negative. Neurological: Negative. All other systems reviewed and are negative. Hematological: Negative. Endocrine: Negative. Allergic/Immunologic: Negative. OBJECTIVE Objective: Physical Exam Constitutional: Appearance: Normal appearance. She is well-developed. Genitourinary: Vulva normal. Cardiovascular: Rate and Rhythm: Normal rate and regular rhythm. Pulmonary: Effort: Pulmonary effort is normal. Breath sounds: Normal breath sounds. Abdominal: General: Bowel sounds are normal. There is no distension. Palpations: Abdomen is soft. Tenderness: There is no abdominal tenderness. There is no guarding or rebound. Musculoskeletal: General: No swelling. Normal range of motion. Right lower leg: No edema. Left lower leg: No edema. Neurological: Mental Status: She is alert and oriented to person, place, and time. Skin: General: Skin is warm and dry. Psychiatric: Mood and Affect: Mood normal. Behavior: Behavior normal. Vitals and nursing note reviewed. Exam conducted with a medical laboratory technical officer present. Vitals: Estimated body mass index is 21.89 kg/m?? as calculated from the following: Height as of 09/21/22: 5' 4 . Weight as of this encounter: 127 lb 8 oz. BP: 110/86 Patient's last menstrual period was 12/14/2023. ASSESSMENT & PLAN ICD-10-CM 1. Third trimester ([facility]) Z34.93 POCT urinalysis dipstick manually resulted CULTURE, GROUP B STREP WITH SUSCEPTIBLITY CULTURE, GROUP B STREP WITH SUSCEPTIBLITY 2. 36 weeks gestation of ([facility]) Z3A.36 Patient is doing well but has complaints of being tired and having maternal discomfort due to . Patient verbalized frequent movement and was instructed to perform kick counts three times per day. labor precautions were given, LARC consent was signed/declined, and GBS was obtained. Cervical check was performed and patient is 1cm dilated. Orders Placed This Encounter Procedures CULTURE, GROUP B STREP WITH SUSCEPTIBLITY POCT urinalysis dipstick manually resulted Follow Up: Patient is to return to office in 1 week for routine OB appointment Documented by Lee Ann Bojorquez LPN on behalf of: sanjay marin, pac documented in this encounter Plan of Treatment Upcoming Encounters Date Type Department Care Team (Late st Contact Info) Description 08/29/2024 2:30 PM EDT Routine [facility] BCP OB [address] [place] [address] Eh Valdez, [address] [place] [address] Scheduled Orders Name Type Priority Associated Diagnoses Orde r Schedule CULTURE, GROUP B STREP WITH SUSCEPTIBLITY Lab Routine Third trimester ([facility]) Expected: 08/22/2024, Expires: 08/22/2025 documented as of this encounter Goals Goal Patient Goal Type Associated Problems Recent Progress Patient-Stated? Author Reminders Care Plan OB Reminders No Open Scheduling, Background documented as of this encounter Visit Diagnoses Diagnosis Third trimester ([facility]) state, incidental 36 weeks gestation of ([facility]) documented in this encounter Additional Health Concerns Active Problems Noted Date Diagnosed Date OB Reminders 03/25/2024 documented as of this encounter Care Teams Box Office Attendant Relationship Specialty Start Date End Date Eh Valdez DO [address] [place] [address] PCP - [facility] 11/09/23 documented as of this encounter
--- OUTSIDE RECORDS SUMMARY | 2024-08-28 16:06 | XMS_ITS | Encounter Summary ---
Author Organization [facility] Address [address] [place] [address] Care Team Providers Care Vessel Operator Name Role Phone Eh Valdez DO Unavailable Encounter Details Date Type Department Care Team (Late st Contact Info) Description 08/23/2024 Telephone [facility] OB [address] [place] [address] Zeinab Ramirez LPN [address] [place] [address] Social History Tobacco Use Types [...] if you can call me back at [phone]. Thank you. I called pt back and she asked about induction with her low KRIS. We went over thing in great detail. PVU documented in this encounter Plan of Treatment Upcoming Encounters Date Type Department Care Team (Late st Contact Info) Description 08/29/2024 2:30 PM EDT Routine [facility] B[facility] OB [address] [place] [address] Eh Valdez DO [address] [place] [address] documented as of this encounter Goals Goal Patient Goal Type Associated Problems Recent Progress Patient-Stated? Author Reminders Care Plan OB Reminders No Open Scheduling, Background documented as of this encounter Visit Diagnoses Not on filedocumented in this encounter Additional Health Concerns Active Problems Noted Date Diagnosed Date OB Reminders 03/25/2024 documented as of this encounter Care Teams Vessel Operator Relationship Specialty Start Date End Date Eh Valdez DO [address] [place] [address] PCP - [facility] 11/09/23 documented as of this encounter
--- OUTSIDE RECORDS SUMMARY | 2024-08-28 16:06 | XMS_ITS | Encounter Summary ---
Author Organization [facility] Address [address] [place] [address] Care Team Providers Care Nurse Informatics Educator Name Role Phone Soledad Valdez DO Unavailable Encounter Details Date Type Department Care Team (Late Contact Info) Description 08/23/2024 Clinisync Result Encounter NOMS External Department Unsolicited Soledad Valdez, DO [address] [place], [facility] Social History Tobacco Use Types [...] Routine [facility] BCP OB [address] [place] [address] Soledad Valdez, [address] [place] [address] documented as of this encounter Goals Goal [...] AM EDT Narrative 08/23/2024 8:48 [place] [address] Ultrasound Report Signed Patient: MICHELLE GOODE MR#: [id number] : 1990 Acct:[id number] Age/Sex: 34 / F ADM Date: 08/22/24 Loc: US Attending Dr: Soledad Valdez D.O. Ordering Physician: Soledad Valdez D.O. Date of Service: 08/22/24 Procedure(s): US OB BPP w non-stress Accession Number(s): [id number] cc: Soledad Valdez D.O.; Physician,Non-Staff M.Yariel The [address] [address] Patient Name: MICHELLE GOODE MRN: [id number] date: 1990 Sex: F Assigned Patient Location: US Current Patient Location: US Accession/Order Number: [id number] Exam Date: 08/23/2024 08:43 Report Date: 08/23/2024 [...] Perez M.D. 08/23/2024 8:46 AM Dictation Location: [place] [address] Electronically authenticated by: [id number] Y Date: 08/23/2024 08:46 Dictated By: Lee Ann Perez M.D. Signed By: 08/23/2448 DD/ 5 TD/TT: Sales Representative Graphic Art: Procedure Note Radiology, Radiologist, MD - 08/23/2024 [place] [address] Ultrasound Report Signed Patient: MICHELLE GOODE MMR#: [id number] : 1990Acct:[id number] Age/Sex: 34 / FADM Date: 08/22/24 Loc: US Attending Dr: Soledad Valdez D.O. Ordering Physician: Soledad Valdez D.O. Date of Service: 08/22/24 Procedure(s): US OB BPP w non-stress Accession Number(s): [id number] cc: Soledad Valdez D.O.; Physician,Non-Staff Kofi The [address] [id number] Patient Name: MICHELLE GOODE MRN: [id number] date: 1990 Sex: F Assigned Patient Location: Current Patient Location: US Accession/Order Number: [id number] Exam Date: 08/23/2024 08:43 Report Date: 08/23/2024 [...] Perez M.D. 08/23/2024 8:46 AM Dictation Location: [place] [address] Electronically authenticated by: [id number] Y Date: 508:46 Dictated By: Lee Ann Perez M.D. Signed By:08/23/24 0848 DD/ TD/TT: Sales Representative Graphic Art: Soledad Valdez DO [facility] Final Result documented in this encounter Visit Diagnoses Not on filedocumented in this encounter Additional Health Concerns Active Problems Noted Date Diagnosed Date OB Reminders 03/25/2024 documented as of this encounter Care Teams Nurse Informatics Educator Relationship Specialty Start Date End Date Soledad Valdez DO [address] [place] [address] [place] [place] [address] [facility] 11/09/23 documented as of this encounter
--- OUTSIDE RECORDS SUMMARY | 2024-08-28 16:07 | XMS_ITS | Encounter Summary ---
Author Organization [facility] Address [address] [place] [address] Care Team Providers Care Marketing Professional Name Role Phone Eh Valdez DO Unavailable Encounter Details Date Type Department Care Team (Late st Contact Info) Description 08/22/2024 Bamboo flowsheet [facility] OB [address] [facility] [place] [address] Eh Valdez [address] [place], [place] [address] Social History Tobacco Use Types Packs/Day Years [...] Description 08/29/2024 2:30 PM EDT Routine [facility] OB [address] [place] [address] Eh Valdez DO [address] [place], [place] [address] documented as of this encounter Goals Goal Patient Goal Type Associated Problems Recent Progress Patient-Stated? Author Reminders Care Plan OB Reminders No Open Scheduling, Background documented as of this encounter Visit Diagnoses Not on filedocumented in this encounter Additional Health Concerns Active Problems Noted Date Diagnosed Date OB Reminders 03/25/2024 documented as of this encounter Care Teams Marketing Professional Relationship Specialty Start Date End Date Eh Valdez DO [address] [facility] [place] [address] PCP - [facility] 11/09/23 documented as of this encounter
--- OUTSIDE RECORDS SUMMARY | 2024-08-28 16:07 | XMS_ITS | Encounter Summary ---
Author Organization [facility] Address [address] [place] [address] Care Team Providers Care Automatic Glove Turner And Former Name Role Phone Eh Valdez DO Unavailable Encounter Details Date Type Department Care Team (Late st Contact Info) Description 08/18/2024 Telephone [facility] OB [address] [place] [address] Eh Valdez DO [address] [facility] [address] [place], [facility]11 Social History Tobacco Use Types Packs/Day [...] [facility] BCP OB [address] [place] [address] Eh Valdez, [address] [place] [address] documented as of this encounter Goals Goal Patient Goal Type Associated Problems Recent Progress Patient-Stated? Author Reminders Care Plan OB Reminders No Open Scheduling, Background documented as of this encounter Visit Diagnoses Not on filedocumented in this encounter Additional Health Concerns Active Problems Noted Date Diagnosed Date OB Reminders 03/25/2024 documented as of this encounter Care Teams Automatic Glove Turner And Former Relationship Specialty Start Date End Date Eh Valdez DO [facility] [place] [address] PCP - [facility] 11/09/23 documented as of this encounter
--- OUTSIDE RECORDS SUMMARY | 2024-08-28 16:07 | XMS_ITS | Encounter Summary ---
Author Organization [facility] Address [address] [place] [address] Care Team Providers Care Aquaculture And Fisheries Professor Name Role Phone Eh Valdez DO Unavailable Encounter Details Date Type Department Care Team (Late st Contact Info) Description 03/21/2024 Abstract [facility] OB [address] [place] [address] Eh Valdez [facility] [address] [place], [place] [address] Social History Tobacco Use Types Packs/Day Years [...] Description 08/29/2024 2:30 PM EDT Routine [facility] OB [address] [place] [address] Eh Valdez DO [address] [place], [facility]11 documented as of this encounter Visit Diagnoses Not on filedocumented in this encounter Care Teams Aquaculture And Fisheries Professor Relationship Specialty Start Date End Date Eh Valdez DO [address] [place] [address] PCP - [facility] 11/09/23 documented as of this encounter
--- OUTSIDE RECORDS SUMMARY | 2024-08-28 16:07 | XMS_ITS | Encounter Summary ---
Author Organization [facility] [employer] [facility] tem Address [id number] [address] [place] [address] Care Team Providers Care Director Compliance Name Role Phone Unavailable Primary Care Provider Unavailabl e Encounter Details Date Type Department Care Team (Late st Contact Info) Description 08/14/2021 Telephone Maternal- Medicine at [facility] [address] [place] [phone] Elva Maier Social History Tobacco Use Types [...]
--- OUTSIDE RECORDS SUMMARY | 2024-08-28 16:07 | XMS_ITS | Encounter Summary ---
Author Organization [facility] Address [address] [place] [address] Care Team Providers Care Odd Ticket Clerk Name Role Phone Eh Valdez DO Unavailable Encounter Details Date Type Department Care Team (Late st Contact Info) Description 08/24/2024 Telephone [facility] [address] [place] [address] Zeinab Ramirez LPN [address] [place] [address] Social History Tobacco Use Types [...] Telephone Encounter - Zeinab Ramirez LPN - 08/24/2024 3:03 PM EDT Pt called wanting to go over the game plan is. Per Dr. Valdez, we are going to monitor things and heand the pt can talk more at her appointment next week. PVU documented in this encounter Plan of Treatment Upcoming Encounters Date Type Department Care Team (Late st Contact Info) Description 08/29/2024 2:30 PM EDT Routine [facility] OB [address] [place] [address] Eh Valdez, [address] [place] [address] documented as of this encounter Goals Goal Patient Goal Type Associated Problems Recent Progress Patient-Stated? Author Reminders Care Plan OB Reminders No Open Scheduling, Background documented as of this encounter Visit Diagnoses Not on filedocumented in this encounter Additional Health Concerns Active Problems Noted Date Diagnosed Date OB Reminders 03/25/2024 documented as of this encounter Care Teams Odd Ticket Clerk Relationship Specialty Start Date End Date Eh Valdez DO [address] [place] [address] PCP - [facility] 11/09/23 documented as of this encounter
--- OUTSIDE RECORDS SUMMARY | 2024-08-28 16:07 | XMS_ITS | Encounter Summary ---
Author Organization [facility] Address [address] [place] [address] Care Team Providers Care Auto Body Mechanic Apprentice Name Role Phone Eh Valdez DO Unavailable Encounter Details Date Type Department Care Team (Late Contact Info) Description 07/11/2024 Orders Only [facility] [address] [facility] [place] [address] Lucille Hahn Social History Tobacco Use [...] PM EDT Routine [facility] BCP OB [address] [email or web address] [address] Eh Valdez DO [address] [place] [address] documented as of this encounter Goals Goal Patient Goal Type Associated Problems Recent Progress Patient-Stated? Author Reminders Care Plan OB Reminders No Open Scheduling, Background documented as of this encounter Visit Diagnoses Not on filedocumented in this encounter Additional Health Concerns Active Problems Noted Date Diagnosed Date OB Reminders 03/25/2024 documented as of this encounter Care Teams Auto Body Mechanic Apprentice Relationship Specialty Start Date End Date Eh Valdez DO [address] [place] [address] PCP - [facility] 11/09/23 documented as of this encounter
--- OUTSIDE RECORDS SUMMARY | 2024-08-28 16:07 | XMS_ITS | Clinical Summary ---
Author Organization [facility] tem Address [id number] [address] [place] [address] Care Team Providers Care Aircraft Mechanic Name Role Phone Unavailable Primary Care Provider [...] Type Department Care Team Description [facility] [address] [place] [address] Pablo Altamirano from Last 3 [...] Devices Not on file Insurance [employer] [facility]
--- OUTSIDE RECORDS SUMMARY | 2024-08-28 16:07 | XMS_ITS | Encounter Summary ---
Author Organization [facility] Address [address] [place] [address] Care Team Providers Care Brushing Machine Operator Name Role Phone Soledad Valdez DO Unavailable Encounter Details Date Type Department Care Team (Late Contact Info) Description 02/24/2024 Clinisync Result Encounter [facility] External Department Unsolicited Soledad Valdez, DO [address] [place], [facility] [address] Social History Tobacco Use Types Packs/Day Years [...] Routine [facility] BCP OB [address] [place] [phone] Soledad Valdez DO [address] [place] [address] documented as of this encounter Procedures Procedure Name Priority Date/Time Associated Diagnosis Comments US OB TRANSVAGINAL 02/24/2024 2: 55 PM EST documented in this encounter Results * US OB TRANSVAGINAL (02/24/2024 2:55 PM EST) Anatomical Region Laterality Modality Other 02/24/2024 2:55 PM EST Narrative 02/24/2024 2:57 [place] [address] Ultrasound Report Signed Patient: MICHELLE GOODE MR#: [id number] : 1990 Acct:[id number] Age/Sex: 33 / F ADM Date: 02/24/24 Loc: US Attending Dr: Soledad Valdez D.O. Ordering Physician: Soledad Valdez D.O. Date of Service: 02/24/24 Procedure(s): US OB transvaginal Accession Number(s): [id number] cc: Soledad Valdez D.O.; Physician,Non-Staff M.DYumiko The [place] [id number] Patient Name: MICHELLE GOODE MRN: [id number] date: 1990 Sex: F Assigned Patient Location: US Current Patient Location: US Accession/Order Number: [id number] Exam Date: 02/24/2024 14:17 Report Date: 02/24/2024 [...] Signed By: 02/24/24 1457 DD/ 54 TD/TT: Invertebrate Paleontologist: Procedure Note Radiology, Radiologist, - 02/24/2024 [place] [address] Ultrasound Report Signed Patient: MICHELLE GOODE MMR#: [id number] : 1990Acct:[id number] Age/Sex: 33 / FADM Date: 02/24/24 Loc: US Attending Dr: Soledad Valdez D.O. Ordering Physician: Soledad Valdez D.O. Date of Service: 02/24/24 Procedure(s): US OB transvaginal Accession Number(s): [id number] cc: Soledad Valdez D.O.; Physician,Non-Staff Kofi The [place] [address] Patient Name: MICHELLE GOODE MRN: [id number] date: 1990 Sex: F Assigned Patient Location: US Current Patient Location: US Accession/Order Number: [id number] Exam Date: 02/24/2024 14:17 Report Date: 02/24/2024 [...] M.D. Signed By:02/24/24 1457 DD/ 1455 TD/TT: Invertebrate Paleontologist: Soledad Valdez DO [facility] Final Result documented in this encounter Visit Diagnoses Not on filedocumented in this encounter Care Teams Brushing Machine Operator Relationship Specialty Start Date End Date Soledad Valdez DO [address] [place] [address] [place] [address] PCP - [facility] 11/09/23 documented as of this encounter
--- OUTSIDE RECORDS SUMMARY | 2024-08-28 16:07 | XMS_ITS | Encounter Summary ---
Author Organization [place] [facility] tem Address [facility]-[id number] [address] [place] [address] Care Team Providers Care Wildlife Manager Name Role Phone Unavailable Primary Care Provider Unavailabl e Encounter Details Date Type Department Care Team (Late st Contact Info) Description 09/08/2021 Telephone Maternal- Medicine at [facility] [address] [facility] [place] [facility] [place] [phone] Elva Maier Social History Tobacco Use Types [...]
--- OUTSIDE RECORDS SUMMARY | 2024-08-28 16:07 | XMS_ITS | Encounter Summary ---
Author Organization [facility] Address [address] [place] [address] Care Team Providers Care Diving Coach Name Role Phone Eh Valdez DO Unavailable Encounter Details Date Type Department Care Team (Late st Contact Info) Description 04/17/2024 Abstract [facility] [address] [place] [address] Eh Valdez DO [address] [place], [facility] Social History Tobacco Use Types Packs/Day [...] [facility] [address] [place] [address] Eh Valdez DO [address] [place], [facility] documented as of this encounter Goals Goal Patient Goal Type Associated Problems Recent Progress Patient-Stated? Author Reminders Care Plan OB Reminders No Open Scheduling, Background documented as of this encounter Visit Diagnoses Not on filedocumented in this encounter Additional Health Concerns Active Problems Noted Date Diagnosed Date OB Reminders 03/25/2024 documented as of this encounter Care Teams Diving Coach Relationship Specialty Start Date End Date Eh Valdez DO [address] [address] PCP - [facility] 11/09/23 documented as of this encounter
--- OUTSIDE RECORDS SUMMARY | 2024-08-28 16:07 | XMS_ITS | Encounter Summary ---
Author Organization [facility] Address [address] [place] [address] Care Team Providers Care Economics Instructor Name Role Phone Eh Valdez DO Unavailable Encounter Details Date Type Department Care Team (Late Contact Info) Description 04/24/2024 Orders Only [facility] OB [address] [place] [address] [place] [address] Ilda Beaver MA [address] [place] [address] [place] [address] Social History Tobacco Use Types Packs/Day Years [...] PM EDT Routine [facility] BCP OB [address] [facility] [place] [address] Eh Valdez DO [address] [facility] [address] [place], [place] [phone] documented as of this encounter Goals Goal [...] documented as of this encounter Care Teams Economics Instructor Relationship Specialty Start Date End Date Eh Valdez DO [address] [place], [place] [address] [place] [address] PCP - [facility] 11/09/23 documented as of this encounter
--- OUTSIDE RECORDS SUMMARY | 2024-08-28 16:07 | XMS_ITS | Encounter Summary ---
Author Organization [facility] Address [address] [place] [address] Care Team Providers Care Bulk Clerk Name Role Phone Eh Valdez DO Unavailable Encounter Details Date Type Department Care Team (Late st Contact Info) Description 07/27/2024 Results Follow-Up [facility] [address] [address] Zeinab Ramirez LPN [address] [place] [address] Social History Tobacco Use Types [...] EDT Routine [facility] [address] [facility] [address] [place] [address] Eh Valdez, [address] [place] [address] documented as of this encounter Goals Goal Patient Goal Type Associated Problems Recent Progress Patient-Stated? Author Reminders Care Plan OB Reminders No Open Scheduling, Background documented as of this encounter Visit Diagnoses Not on filedocumented in this encounter Additional Health Concerns Active Problems Noted Date Diagnosed Date OB Reminders 03/25/2024 documented as of this encounter Care Teams Bulk Clerk Relationship Specialty Start Date End Date Eh Valdez DO [facility] [place] [address] PCP - [facility] 11/09/23 documented as of this encounter
--- OUTSIDE RECORDS SUMMARY | 2024-08-28 16:07 | XMS_ITS | Encounter Summary ---
Author Organization [facility] Address [address] [place] [address] Care Team Providers Care Beauty Parlor Cleaner Name Role Phone Soledad Valdez DO Unavailable Encounter Details Date Type Department Care Team (Late Contact Info) Description 08/18/2024 Clinisync Result Encounter [facility] External Department Unsolicited Soledad Valdez, DO [address] [place], [facility]11 Social History Tobacco Use [...] [facility] BCP OB [address] [place] [phone] Soledad Valdez, [address] [place], [facility]11 documented as of this encounter Goals [...] PM EDT Narrative 08/18/2024 8:15 [place] [address] Ultrasound Report Signed Patient: MICHELLE GOODE MR#: [id number] : 1990 Acct:[id number] Age/Sex: 34 / F ADM Date: 08/18/24 Loc: [facility] 250-[address]: Soledad Valdez D.O. Ordering Physician: Soledad Valdez D.O. Date of Service: 08/18/24 Procedure(s): US OB BPP w non-stress Accession Number(s): [id number] cc: Soledad Valdez D.O.; Physician,Non-Staff M.Yariel The [place] [id number] Patient Name: MICHELLE GOODE MRN: [id number] date: 1990 Sex: F Assigned Patient Location: [facility] Current Patient Location: [facility] Accession/Order Number: [id number] Exam Date: 08/18/2024 20:10 Report Date: 08/18/2024 [...] Calhoun M.D. 08/18/2024 8:13 PM Dictation Location: [place] Electronically authenticated by: [id number] Y Date: 08/18/2024 20:13 Dictated By: Gelacio Calhoun D.O. Signed By: 08/18/242014 DD/ 12 TD/TT: Fire Truck Driver: Procedure Note Radiology, Radiologist, MD - 08/18/2024 [place] [address] Ultrasound Report Signed Patient: MICHELLE GOODE MMR#: [id number] : 1990Acct:[id number] Age/Sex: 34 / FADM Date: 08/18/24 Loc: [facility] 250-[address]: Soledad Valdez D.O. Ordering Physician: Soledad Valdez D.O. Date of Service: 08/18/24 Procedure(s): US OB BPP w non-stress Accession Number(s): [id number] cc: Soledad Valdez D.O.; Physician,Non-Staff Kofi The [place] [address] Patient Name: MICHELLE GOODE MRN: [id number] date: 1990 Sex: F Assigned Patient Location: [facility] Current Patient Location: [facility] Accession/Order Number: [id number] Exam Date: 08/18/2024 20:10 Report Date: 08/18/2024 [...] Calhoun M.D. 08/18/2024 8:13 PM Dictation Location: [place] [address] Electronically authenticated by: [id number] Y Date: 0:13 Dictated By: Gelacio Calhoun D.O. Signed By:08/18/242014 DD/ 12 TD/TT: Fire Truck Driver: us Soledad Valdez DO [facility] Final Result documented in this encounter Visit Diagnoses Not on filedocumented in this encounter Additional Health Concerns Active Problems Noted Date Diagnosed Date OB Reminders 03/25/2024 documented as of this encounter Care Teams Beauty Parlor Cleaner Relationship Specialty Start Date End Date Soledad Valdez DO [address] [place], [place] [address] [place] [id number] PCP - [facility] 11/09/23 documented as of this encounter
--- OUTSIDE RECORDS SUMMARY | 2024-08-28 16:07 | XMS_ITS | Clinical Summary ---
Author Organization [facility] Address [address] [place] [address] Care Team Providers Care Offset Machine Operator Name Role Phone Soledad Valdez [...] MORNING and IN THE AFTERNOON) 02/19/2024 Active Rezxfigh-Nyk-TY ([facility]) 0.4 MG chewable tabletIndicatio ns:Second trimester ([facility]) Chew 1 tablet Daily 30 tablet 11 04/21/2024 04/22/19 26 Active Active Problems Problem Noted Date Diagnosed Date Substance abuse 09/15/2022 GERD (gastroesophageal reflux disease) 8 Exacerbation of asthma 08/09/2007 Attention deficit hyperactivity disorder 008 Allergic rhinitis 08/09/2007 Estimated Date of Delivery Comme nts Yes 09/19/2024 Based on last me nstrual period of 12/14/2023 Encounters Date Type Department Care Team Description 08/24/2024 Telephone [facility] [address] [place] [address] Singhford Zeinab, TABLE MACHINE OPERATOR 08/24/2024 Clinisync Result Encounter NOMS External Department Unsolicited Soledad Valdez, DO 08/23/2024 Telephone [facility] [address] [place] [address] Singhford Zeinab, TABLE MACHINE OPERATOR 08/23/2024 Clinisync Result Encounter NOMS External Department Unsolicited Soledad Valdez, DO 08/22/2024 2:10 PM EDT Routine [facility] [place] [address] [place] [address] Soledad Valdez, DO Third trimester ([facility]); 36 weeks gestation of ([facility]) 08/22/2024 Bamboo flowsheet [facility]OM[facility] [address] [place] [address] Soledad Valdez, DO 08/18/2024 Clinisync Result Encounter NOMS External Department Unsolicited Soledad Valdez, DO 08/18/[address] [address] [place] [address] Soledad Valdez, DO 08/10/2024 Clinisync Result Encounter NOMS External Department Unsolicited Paola Carmichael PA 08/07/[address] [address] [place] [address] Paola Carmichael PA 08/04/2024 Clinisync Result Encounter NOMS External Department Unsolicited Soledad Valdez, DO 08/03/2024 2:50 PM EDT Routine [facility] [address] [place] [address] Paola Carmichael, PA Third trimester ([facility]) (Primary Dx); 33 weeks gestation of ([facility]); Short cervix, antepartum ([facility]) 08/03/2024 2:00 PM EDT Ancillary Procedure [facility] [address] [place] [address] SGA (small for gestational age) ([facility]); Short cervix, antepartum ([facility]) 07/31/2024 Clinisync Result Encounter NOMS External Department Unsolicited Soledad Valdez, 07/27/2024 Results Follow-Up [facility] [address] [place] [address] [place] [address] Zeinab Ramirez, TABLE MACHINE OPERATOR 07/27/[address] [facility] [address] [place] [address] [place] [address] Zeinab Ramirez, TABLE MACHINE OPERATOR 07/25/2024 11:30 AM EDT Ancillary Procedure [facility] [address] [place] [address] 07/25/2024 10:40 AM EDT [facility]ine [facility] [address] [place] [address] [place] [phone] Soledad Valdez, 32 weeks gestation of ([facility]); Third trimester ([facility]); SGA (small for gestational age) ([facility]); Short cervix, antepartum ([facility]) 07/25/2024 Bamboo flowsheet NOM[facility] [address] [place] [address] Soledad Valdez DO 07/11/2024 2:30 PM EDT Ancillary Procedure [facility] [address] [place] [address] Short cervix, antepartum ([facility]); size inconsistent with dates ([facility]) 07/11/[address] [facility] [address] [place] [phone] Lucille Hahn 07/10/2024 10:20 AM EDT [facility]ine [facility] [address] [place] [address] [place] [address] Paola Carmichael PA Third trimester ([facility]); 29 weeks gestation of ([facility]); with normal glucose tolerance test (GTT) ([facility]); size inconsistent with dates ([facility]); Short cervix, antepartum ([facility]) 07/10/2024 Bamboo flowsheet NOM[facility] [address] [place] [address] Paola Carmichael PA 07/07/[address] [address] [place] [address] Ilda Beaver MA from Last 3 [...] Description 08/29/2024 2:30 PM EDT Routine [facility] [address] [place] [address] Soledad Valdez, [address] [place] [address] Health Maintenance Due Date Last Done Comments [...] PM EDT SGA (small for gestational age) ([facility]) US OB BPP W NON-STRESS 07/31/2024 8:00 AM EDT US OB TRANSVAGINAL Routine 07/25/2024 11 :57 AM EDT Short cervix, antepartum ([facility]) US OB FOLLOW UP TRANSABDOMINAL APPROACH Routine 07/11/2024 3:33 PM EDT size inconsistent with dates ([facility]) PAP SMEAR Routine 04/11/2024 12:00 AM EST from Last 3 Months or Most Recently Relevant to Health Maintenance Results * US OB BPP W NON-STRESS (08/24/2024 12:26 AM EDT) Only the most recent of5 resultswithin the time period is included. Anatomical Region Laterality Modality Other 08/24/2024 12:2 6 AM EDT Narrative 08/24/2024 12:28 AM EDT [address] [address] Ultrasound Report Signed Patient: MICHELLE GOODE MR#: [id number] : 1990 Acct:[id number] Age/Sex: 34 / F ADM Date: Loc: [facility] 250-[address]: Soledad Valdez D.O. Ordering Physician: Soledad Valdez D.O. Date of Service: 08/23/24 Procedure(s): US OB BPP w non-stress Accession Number(s): [id number] cc: Soledad Valdez D.O.; Physician,Non-Staff Kofi The [address] [address] Patient Name: MICHELLE GOODE MRN: [id number] date: 1990 Sex: F Assigned Patient Location: [facility] Current Patient Location: Accession/Order Number: [id number] Exam Date: 08/24/2024 00:23 Report Date: 08/24/2024 [...] Powers M.D. 08/24/2024 12:26 AM Dictation Location: [facility] Electronically authenticated by: [id number] Y Date: 08/24/2024 00:26 Dictated By: Abundio Powers M.D. Signed By: 08/24/248 DD/ TD/TT: Breed To Wean Production Technician: Procedure Note Radiology, Radiologist, - 08/24/2024 [place] [address] Ultrasound Report Signed Patient: MICHELLE GOODE MMR#: [id number] : 1990Acct:[id number] Age/Sex: 34 / FADM Date: Loc: [facility] [address]: Soledad Valdez D.O. Ordering Physician: Soledad Valdez D.O. Date of Service: 08/23/24 Procedure(s): US OB BPP w non-stress Accession Number(s): [id number] cc: Soledad Valdez D.O.; Physician,Non-Staff Kofi The [place] [address] Patient Name: MICHELLE GOODE MRN: [id number] date: 1990 Sex: F Assigned Patient Location: [facility] Current Patient Location: Accession/Order Number: [id number] Exam Date: 08/24/2024 00:23 Report Date: 08/24/2024 [...] Powers M.D. 08/24/2024 12:26 AM Dictation Location: [place] [address] Electronically authenticated by: [id number] Y Date: 500:26 Dictated By: Abundio Powers M.D. Signed By:08/24/24 0028 DD/ TD/TT: Breed To Wean Production Technician: us Soledad José Miguel DO [facility] Final Result * US OB BPP WO NON-STRESS (08/10/2024 10:42 PM EDT) Anatomical Region Laterality Modality Other 08/10/2024 10:4 2 PM EDT Narrative 08/10/2024 10:44 [place] [address] Ultrasound Report Signed Patient: MICHELLE GOODE MR#: [id number] : 1990 Acct:[id number] Age/Sex: 34 / F ADM Date: 08/10/24 Loc: [place] Attending Dr: Paola Carmichael Ordering Physician: Paola Carmichael Date of Service: 08/10/24 Procedure(s): US OB BPP wo non-stress Accession Number(s): [id number] cc: Paola Carmichael; Physician,Non-Staff Kofi The [place] [id number] Patient Name: MICHELLE GOODE MRN: [facility]:[id number] date: 1990 Sex: F Assigned Patient Location: [facility] Current Patient Location: Accession/Order Number: [id number] Exam Date: 08/10/2024 22:41 Report Date: 08/10/2024 [...] Calhoun M.D. 08/10/2024 10:42 PM Dictation Location: [facility] Electronically authenticated by: [id number] Y Date: 08/10/2024 22:42 Dictated By: Gelacio Calhoun D.O. Signed By: 08/10/242243 DD/ 41 TD/TT: Breed To Wean Production Technician: Procedure Note Radiology, Radiologist, MD - 08/10/2024 [place] [address] Ultrasound Report Signed Patient: MICHELLE GOODE MMR#: [id number] : 1990Acct:[id number] Age/Sex: 34 / FADM Date: 08/10/24 Loc: [facility] Attending Dr: Paola Carmichael Ordering Physician: Paola Carmichael Date of Service: 08/10/24 Procedure(s): US OB BPP wo non-stress Accession Number(s): [id number] cc: Paola Carmichael; Physician,Non-Staff MArsh The [place] [id number] Patient Name: MICHELLE GOODE MRN: [id number] date: 1990 Sex: F Assigned Patient Location: [facility] Current Patient Location: Accession/Order Number: [id number] Exam Date: 08/10/2024 22:41 Report Date: 08/10/2024 [...] Calhoun M.D. 08/10/2024 10:42 PM Dictation Location: [facility] Electronically authenticated by: [id number] Y Date: 522:42 Dictated By: Gelacio Calhoun D.O. Signed By:08/10/242243 DD/ 41 TD/TT: Breed To Wean Production Technician: Paola BARRIOS [facility] Final Result * [...] cm - Funneling was noted by performing auto glass technician but not well demonstrated on the [...] Cervical funneling was noted by the performing auto glass technician but not well demonstrated on the provided images. The ordering physician was notified. Interpreted by: Electronically signed by RISA AYALA II, MD, PHD at 06-Aug-2024 10:03:36 PM [facility] Procedure Note Risa Ayala MD - [...] length. Cervical funneling was noted by theperforming auto glass technician but not well demonstrated on the provided images.The ordering physician was notified. Interpreted by: Electronically signed by RISA AYALA II, MD, PHD [id number] 10:03:36 PM [facility] us Soledad José Miguel DO IMG [...] II, MD, PHD at 26-Jul-2024 08:00:42 AM [facility] Procedure Note Risa Ayala MD - 07/26/2024 EXAM: US OB TRANSVAGINAL HISTORY: Shortened cervix. COMPARISON: Ob ultrasound 07/11/2024. TECHNIQUE: Two-dimensional transvaginal grayscale ultrasound imaging ofthe cervix was performed. FINDINGS: Presentation: Cephalic Cervical Length: 2.6 cm IMPRESSION: 1. Shortened cervical length measuring 2.6 cm. Interpreted by: Electronically signed by RISA AYALA II, MD, PHD [id number] 08:00:42 AM [facility] us Paola BARRIOS IMG OB US PROCEDURES Final Resul t * Pap Smear (04/11/2024 12:00 AM EST) Swab Cervical swab / Unknown us Paola BARRIOS LAB CYTOLOGY ORDERABLES Final Re sult EXTERNAL LAB from Last 3 Months or Most Recently Relevant to Health Maintenance Additional Health Concerns Active Problems Noted Date Diagnosed Date OB Reminders 03/25/2024 Insurance [employer]BS Care Teams Offset Machine Operator Relationship Specialty Start Date End Date Soledad Valdez DO [address] [place] [address] PCP - [facility] 11/09/23
--- OUTSIDE RECORDS SUMMARY | 2024-08-28 16:07 | XMS_ITS | Encounter Summary ---
Author Organization [facility] Address [address] [place] [address] Care Team Providers Care Novelty Printing Machine Operator Name Role Phone Eh Valdez DO Unavailable Encounter Details Date Type Department Care Team (Late st Contact Info) Description 05/04/2024 Abstract [facility] OB [address] [place] [address] Eh Valdez DO [address] [place], [facility] Social History Tobacco Use Types Packs/Day Years [...] Description 08/29/2024 2:30 PM EDT Routine [facility] OB [address] [place] [address] Eh Valdez DO [address] [place], [facility] documented as of this encounter Goals Goal Patient Goal Type Associated Problems Recent Progress Patient-Stated? Author Reminders Care Plan OB Reminders No Open Scheduling, Background documented as of this encounter Visit Diagnoses Not on filedocumented in this encounter Additional Health Concerns Active Problems Noted Date Diagnosed Date OB Reminders 03/25/2024 documented as of this encounter Care Teams Novelty Printing Machine Operator Relationship Specialty Start Date End Date Eh Valdez DO [address] [address] PCP - [facility] 11/09/23 documented as of this encounter
[2024-08-28 16:13] VITALS: BP 110/71; PULSE 82
== END 2024-08-28 16:45 | disposition home or self-care (01) ==
LOC: FBCO 16:04 → FBC 16:07
PROVIDERS: Visit Provider Obstetrics & Gynecology
DX: O36.5990 Maternal care for other known or suspected poor fetal growth, unspecified trimester, not applicable or unspecified (principal)
CPT/HCPCS: 59025

== ENCOUNTER 2024-09-01 19:06 | Outpatient (OUT) | payer BC, OTHER, SELFPAY ==
--- OUTSIDE RECORDS SUMMARY | 2024-08-22 14:10 | XMS_ITS | Encounter Summary ---
Author Organization [facility] Address [address] [place] [address] Care Team Providers Care Veterinary Medicine Scientist Name Role Phone Eh Valdez DO Unavailable Reason for Visit * Reason Comments Routine Visit Encounter Details Date Type Department Care Team (Late Contact Info) Description 08/22/2024 2:10 PM EDT Routine [facility] [address] [place] [address] Eh Valdez DO [address] [place], [place] [id number] Third trimester ([facility]); 36 weeks gestation of ([facility]) Social History Tobacco Use Types [...] this encounter Progress Notes * Lee Ann Costapranav, SWABBER - 08/22/2024 2:10 PM EDT Reason for [...] (IN THE MORNING and IN THE AFTERNOON) Wfnxjgsz-Tfy-XR ([facility]) 0.4 MG chewable tablet 1 tablet, Oral, Daily ALLERGIES Allergies Allergen Reactions Penicillins Hives, Fever, Itching, Rash, Swelling and Wheezing PROBLEMS Active Ambulatory Problems Diagnosis Date Noted GERD (gastroesophageal reflux disease) 08/09/2007 Exacerbation of asthma ([facility]) 08/09/2007 Attention deficit hyperactivity disorder 08/09/2007 Allergic rhinitis 08/09/2007 Substance abuse ([facility]) 09/15/2022 Resolved Ambulatory Problems Diagnosis Date Noted No Resolved Ambulatory Problems Past Medical History: Diagnosis Date Allergies Anxiety Asthma ([facility]) Bee sting Miscarriage ([facility]) Pelvic pain 2010 Syncope Thoracic sprain HISTORY PAST MEDICAL HISTORY SOCIAL HISTORY Past Medical History: Diagnosis Date Allergies Anxiety Asthma ([facility]) Bee sting right ring finger Miscarriage (ST. [...] nursing note reviewed. Exam conducted with a product design specialist present. Vitals: Estimated body mass index is 21.89 kg/m?? as calculated from the following: Height as of 09/21/22: 5' 4 . Weight as of this encounter: 127 lb 8 oz. BP: 110/86 Patient's last menstrual period was 12/14/2023. ASSESSMENT & PLAN ICD-10-CM 1. Third trimester ([facility]) Z34.93 POCT urinalysis dipstick manually resulted CULTURE, GROUP B STREP WITH SUSCEPTIBLITY CULTURE, GROUP B STREP WITH SUSCEPTIBLITY 2. 36 weeks gestation of ([facility]) Z3A.36 Patient is doing well [...] documented in this encounter Plan of Treatment Not on file documented as of this encounter Goals Goal Patient Goal Type Associated Problems Recent Progress Patient-Stated? Author Reminders Care Plan OB Reminders No Open Scheduling, Background documented as of this encounter Procedures Procedure Name Priority Date/Time Associated Diagnosis Comments CULTURE, GROUP B STREP WITH SUSCEPTIBLITY Routine 08/22/2024 2:54 PM EDT Third trimester ([facility]) documented in this encounter Results * CULTURE, GROUP B STREP WITH SUSCEPTIBLITY (08/22/2024 2:54 PM EDT) Swab 08/22/2024 2:54 PM EDT Eh Valdez DO LAB BLOOD ORDERABLES Final Resul t EXTERNAL LAB documented in this encounter Visit Diagnoses Diagnosis Third trimester ([facility]) state, incidental 36 weeks gestation of ([facility]) documented in this encounter Additional Health Concerns Active Problems Noted Date Diagnosed Date OB Reminders 03/25/2024 documented as of this encounter Care Teams Veterinary Medicine Scientist Relationship Specialty Start Date End Date Eh Valdez DO [address] [place] [address] PCP - [facility] 11/09/23 documented as of this encounter
--- OUTSIDE RECORDS SUMMARY | 2024-08-29 14:30 | XMS_ITS | Encounter Summary ---
Author Organization [facility] Address [address] [place] [address] Care Team Providers Care Boat Deckhand Name Role Phone Eh Valdez DO Unavailable Encounter Details Date Type Department Care Team (Late st Contact Info) Description 08/29/2024 2:30 PM EDT Routine [facility] [address] [facility] [place] [address] Eh Valdez DO [address] [facility] [place] [address] 37 weeks gestation of ([facility]); Third trimester ([facility]); Short cervix, antepartum ([facility]); SGA (small for gestational age) ([facility]); Poor growth affecting management of mother, antepartum, single or unspecified fetus ([facility]) Social History Tobacco Use Types Packs/Day Years [...] Sign Reading Time Taken Comments Blood Pressure 108/68 08/29/2024 2:49 PM EDT Pulse - - Temperature - - Respiratory Rate - - Oxygen Saturation - - Inhaled Oxygen Concentration - - Weight 59 kg (130 lb 1.9 oz) 08/29/2024 2:49 PM EDT Height - - Body Mass Index 22.34 09/21/2022 2:53 PM EDT documented in this encounter Plan of Treatment Not on file documented as of this encounter Goals Goal Patient Goal Type Associated Problems Recent Progress Patient-Stated? Author Reminders Care Plan OB Reminders No Open Scheduling, Background documented as of this encounter Procedures Procedure Name Priority Date/Time Associated Diagnosis Comments POCT URINALYSIS DIPSTICK Routine 08/29/2024 2:59 PM EDT 37 weeks gestation of ([facility]) Third trimester ([facility]) documented in this encounter Results * (ABNORMAL) POCT urinalysis dipstick manually resulted (08/29/2024 2:59 PM EDT) Color, UA Straw Clarity, UA Clear Glucose, UA Negative Negative - 2000(110) ++++ mg/dL Bilirubin, UA Negative Negative - 4(70) +++ mg/dL Ketones, UA Negative Negative - 160(16) ++++ mg/dL Spec Grav, UA 1.020 1 - 1.03 Blood, UA Positive Negative - 50 Km/mcL Comment:large pH, UA 6.5 5 - 9 Protein, UA Trace Negative - 2000(20) ++++ mg/dL Urobilinogen, UA 1.0 0.2 - 12 mg/dL Leukocytes, UA Negative Negative - 500+++ Gabby/mcL Nitrite, UA Negative Negative - Positive Urine 08/29/2024 2:59 PM EDT Eh Valdez DO POINT OF CARE TEST ENTER/EDIT OR DERABLES Final Result documented in this encounter Visit Diagnoses Diagnosis 37 weeks gestation of ([facility]) Third trimester ([facility]) state, incidental Short cervix, antepartum ([facility]) SGA (small for gestational age) ([facility]) Bbmtc-rep-qlmrs without mention of malnutrition, unspecified (weight) Poor growth affecting management of mother, antepartum, single or unspecified fetus ([facility]) documented in this encounter Additional Health Concerns Active Problems Noted Date Diagnosed Date OB Reminders 03/25/2024 documented as of this encounter Care Teams Boat Deckhand Relationship Specialty Start Date End Date Eh Valdez DO [address] [place] [address] PCP - [facility] 11/09/23 documented as of this encounter
--- OUTSIDE RECORDS SUMMARY | 2024-09-01 19:08 | XMS_ITS | Encounter Summary ---
Author Organization [facility] Address [address] [place] [address] Care Team Providers Care Manager Portable Name Role Phone Eh Valdez DO Unavailable Encounter Details Date Type Department Care Team (Late st Contact Info) Description 04/24/2024 Orders Only [facility] [address] [facility] [place] [address] Ilda Beaver MA [address] [place] [address] Social History Tobacco Use Types Packs/Day Years [...] AM EST) Swab Cervical swab / Unknown Paola BARRIOS LAB CYTOLOGY ORDERABLES Final Re sult EXTERNAL LAB documented in this encounter Visit Diagnoses Not on filedocumented in this encounter Additional Health Concerns Active Problems Noted Date Diagnosed Date OB Reminders 03/25/2024 documented as of this encounter Care Teams Manager Portable Relationship Specialty Start Date End Date Eh Valdez DO [address] [place] [place] [id number] PCP - [facility] 11/09/23 documented as of this encounter
--- OUTSIDE RECORDS SUMMARY | 2024-09-01 19:08 | XMS_ITS | Encounter Summary ---
Author Organization [facility] Address [address] [place] [address] Care Team Providers Care Visual Merchandising Specialist Name Role Phone Eh Valdez DO Unavailable Encounter Details Date Type Department Care Team (Late st Contact Info) Description 08/29/2024 Abstract [facility] [address] [place] [address] Eh Valdez DO [address] [place], [facility] Social History Tobacco Use Types [...] documented as of this encounter Care Teams Visual Merchandising Specialist Relationship Specialty Start Date End Date Eh Valdez DO [address] [place], [facility] PCP - [facility] 11/09/23 documented as of this encounter
--- OUTSIDE RECORDS SUMMARY | 2024-09-01 19:08 | XMS_ITS | Encounter Summary ---
Author Organization [facility] Address [address] [place] [address] Care Team Providers Care Assistant Winemaker Name Role Phone José MiguelEmma luevanoy DO Unavailable Encounter Details Date Type Department Care Team (Late st Contact Info) Description 02/24/2024 Clinisync Result Encounter NOMS External Department Unsolicited Soledad Valdez, [address] [place] [address] Social History Tobacco Use Types [...] on file documented as of this encounter Procedures Procedure Name Priority Date/Time Associated Diagnosis Comments US OB TRANSVAGINAL 02/24/2024 2: 55 PM EST documented in this encounter Results * US OB TRANSVAGINAL (02/24/2024 2:55 PM EST) Anatomical Region Laterality Modality Other 02/24/2024 2:55 PM EST Narrative 02/24/2024 2:57 PM EST The [address] [address] Ultrasound Report Signed Patient: MICHELLE GOODE MR#: [id number] : 1990 Acct:[id number] Age/Sex: 33 / F ADM Date: 02/24/24 Loc: US Attending Dr: Soledad Valdez D.O. Ordering Physician: Soledad Valdez D.O. Date of Service: 02/24/24 Procedure(s): US OB transvaginal Accession Number(s): [id number] cc: Soledad Valdez D.O.; Physician,Non-Staff Kofi The [place] [address] Patient Name: MICHELLE GOODE MRN: [id number] date: 1990 Sex: F Assigned Patient Location: US Current Patient Location: US Accession/Order Number: [id number] Exam Date: 02/24/2024 14:17 Report Date: 02/24/2024 [...] Signed By: 02/24/24 1457 DD/ 54 TD/TT: Marine Cargo Specialist: Procedure Note Radiology, Radiologist, - 02/24/2024 [place] [id number] Ultrasound Report Signed Patient: MICHELLE GOODE MMR#: [id number] : 1990Acct:[id number] Age/Sex: 33 / FADM Date: 02/24/24 Loc: [place] Attending Dr: Soledad Valdez D.O. Ordering Physician: Soledad Valdez D.O. Date of Service: 02/24/24 Procedure(s): US OB transvaginal Accession Number(s): [id number] cc: Soledad Valdez D.O.; Physician,Non-Staff Kofi [place] [address] Patient Name: MICHELLE GOODE MRN: [id number] date: 1990 Sex: F Assigned Patient Location: US Current Patient Location: US Accession/Order Number: [id number] Exam Date: 02/24/2024 14:17 Report Date: 02/24/2024 [...] M.D. Signed By:02/24/24 1457 DD/ 1455 TD/TT: Marine Cargo Specialist: us Soledad Valdez DO [facility] Final Result documented in this encounter Visit Diagnoses Not on filedocumented in this encounter Care Teams Assistant Winemaker Relationship Specialty Start Date End Date Soledad Valdez DO [address] [place] [address] PCP - [facility] 11/09/23 documented as of this encounter
--- OUTSIDE RECORDS SUMMARY | 2024-09-01 19:08 | XMS_ITS | Encounter Summary ---
Author Organization [facility] Address [address] [place] [address] Care Team Providers Care Rail Specialist Name Role Phone Eh Valdez DO Unavailable Encounter Details Date Type Department Care Team (Late st Contact Info) Description 08/23/2024 Telephone [facility] [address] [place] [address] Zeinab Ramirez LPN [address] [place] [address] Social History Tobacco Use Types [...] if you can call me back at [phone]. Thank you. I called pt back and [...] documented as of this encounter Care Teams Rail Specialist Relationship Specialty Start Date End Date Eh Valdez DO [address] [place] [address] PCP - [facility] 11/09/23 documented as of this encounter
--- OUTSIDE RECORDS SUMMARY | 2024-09-01 19:08 | XMS_ITS | Encounter Summary ---
Author Organization [facility] Virtual Paper [facility] tem Address [id number] [address] [place] [address] Care Team Providers Care Marine Consultant Name Role Phone Unavailable Primary Care Provider Unavailabl e Encounter Details Date Type Department Care Team (Late st Contact Info) Description 09/08/2021 Telephone Maternal- Medicine at [facility] [address] [facility] [place] [id number] Elva Maier Social History Tobacco Use Types [...]
--- OUTSIDE RECORDS SUMMARY | 2024-09-01 19:08 | XMS_ITS | Encounter Summary ---
Author Organization [facility] Address [address] [place] [address] Care Team Providers Care Security Incident Response Engineer Name Role Phone Eh Valdez DO Unavailable Encounter Details Date Type Department Care Team (Late st Contact Info) Description 08/29/2024 Bamboo flowsheet [facility] [address] [place] [phone] Eh Valdez DO [address] [place], [facility]11 Social History Tobacco Use Types Packs/Day Years [...] documented as of this encounter Care Teams Security Incident Response Engineer Relationship Specialty Start Date End Date Eh Valdez DO [address] [place] [address] PCP - [facility] 11/09/23 documented as of this encounter
--- OUTSIDE RECORDS SUMMARY | 2024-09-01 19:08 | XMS_ITS | Encounter Summary ---
Author Organization [facility] Address [address] [place] [address] Care Team Providers Care Lead Informatica Developer Name Role Phone Eh Valdez DO Unavailable Encounter Details Date Type Department Care Team (Late st Contact Info) Description 08/22/2024 Bamboo flowsheet [facility] [address] [place] [phone] Eh Valdez DO [address] [place], [facility]11 Social History Tobacco Use Types Packs/Day [...] documented as of this encounter Care Teams Lead Informatica Developer Relationship Specialty Start Date End Date Eh Valdez DO [address] [place] [address] PCP - [facility] 11/09/23 documented as of this encounter
--- OUTSIDE RECORDS SUMMARY | 2024-09-01 19:08 | XMS_ITS | Encounter Summary ---
Author Organization [facility] [email or web address] [facility] tem Address [id number] [address] [place] [address] Care Team Providers Care Navigation Officer Name Role Phone Unavailable Primary Care Provider Unavailabl e Encounter Details Date Type Department Care Team (Late st Contact Info) Description 08/14/2021 Telephone Maternal- Medicine at [facility] [address] [facility] [place] [phone] Elva Maier Social History Tobacco Use Types [...]
--- OUTSIDE RECORDS SUMMARY | 2024-09-01 19:08 | XMS_ITS | Encounter Summary ---
Author Organization [facility] Address [address] [place] [address] Care Team Providers Care Instructor Dramatic Arts Name Role Phone José MiguelEmma luevanoy DO Unavailable Encounter Details Date Type Department Care Team (Late st Contact Info) Description 08/23/2024 Clinisync Result Encounter [facility] External Department Unsolicited Soledad Valdez, [address] [facility] [address] [place] [address] Social History Tobacco Use Types [...] AM EDT Narrative 08/23/2024 8:48 [place] [address] Ultrasound Report Signed Patient: MICHELLE GOODE MR#: [id number] : 1990 Acct:[id number] Age/Sex: 34 / F ADM Date: 08/22/24 Loc: US Attending Dr: Soledad Valdez D.O. Ordering Physician: Soledad Valdez D.O. Date of Service: 08/22/24 Procedure(s): US OB BPP w non-stress Accession Number(s): [id number] cc: Soledad Valdez D.O.; Physician,Non-Staff Kofi The [address] [address] Patient Name: MICHELLE GOODE MRN: [facility]:[id number] date: 1990 Sex: F Assigned Patient Location: US Current Patient Location: US Accession/Order Number: [id number] Exam Date: 08/23/2024 08:43 Report Date: 08/23/2024 [...] Perez M.D. 08/23/2024 8:46 AM Dictation Location: [place] [address] Electronically authenticated by: [id number] Y Date: 08/23/2024 08:46 Dictated By: Lee Ann Perez M.D. Signed By: 08/23/2448 DD/ 5 TD/TT: Scooter Mechanic: Procedure Note Radiology, Radiologist, MD - 08/23/2024 [place] [address] Ultrasound Report Signed Patient: MICHELLE GOODE MMR#: [id number] : 1990Acct:[id number] Age/Sex: 34 / FADM Date: 08/22/24 Loc: US Attending Dr: Soledad Valdez D.O. Ordering Physician: Soledad Valdez D.O. Date of Service: 08/22/24 Procedure(s): US OB BPP w non-stress Accession Number(s): [id number] cc: Soledad Valdez D.O.; Physician,Non-Staff Kofi The [place] [id number] Patient Name: MICHELLE GOODE MRN: [id number] date: 1990 Sex: F Assigned Patient Location: Current Patient Location: US Accession/Order Number: [id number] Exam Date: 08/23/2024 08:43 Report Date: 08/23/2024 [...] Perez M.D. 08/23/2024 8:46 AM Dictation Location: [place] [address] Electronically authenticated by: [id number] Y Date: 508:46 Dictated By: Lee Ann Perez M.D. Signed By:08/23/24 0848 DD/ TD/TT: Scooter Mechanic: us Soledad Valdez DO [facility] Final Result documented in this encounter Visit Diagnoses Not on filedocumented in this encounter Additional Health Concerns Active Problems Noted Date Diagnosed Date OB Reminders 03/25/2024 documented as of this encounter Care Teams Instructor Dramatic Arts Relationship Specialty Start Date End Date Soledad Valdez DO [address] [place] [address] [place] [address] PCP - [facility] 11/09/23 documented as of this encounter
--- OUTSIDE RECORDS SUMMARY | 2024-09-01 19:08 | XMS_ITS | Clinical Summary ---
Author Organization [facility] tem Address [id number] [address] [place] [address] Care Team Providers Care Retail Key Holder Name Role Phone Unavailable Primary Care Provider [...] Type Department Care Team Description 06/07/2024 [facility]phone [facility] [address] [place] [address] Pablo Altamirano from Last 3 [...] Devices Not on file Insurance [employer] [facility]
--- OUTSIDE RECORDS SUMMARY | 2024-09-01 19:08 | XMS_ITS | Encounter Summary ---
Author Organization [facility] Address [address] [place] [address] Care Team Providers Care Golf Caddy Name Role Phone José MiguelEmma luevanoy DO Unavailable Encounter Details Date Type Department Care Team (Late st Contact Info) Description 08/18/2024 Clinisync Result Encounter [facility] External Department Unsolicited Soledad Valdez, [address] [place] [address] Social History Tobacco Use Types [...] PM EDT Narrative 08/18/2024 8:15 [place] [address] Ultrasound Report Signed Patient: MICHELLE GOODE MR#: [id number] : 1990 Acct:[id number] Age/Sex: 34 / F ADM Date: 08/18/24 Loc: [place] [address]: Soledad Valdez D.O. Ordering Physician: Soledad Valdez D.O. Date of Service: 08/18/24 Procedure(s): US OB BPP w non-stress Accession Number(s): [id number] cc: Soledad Valdez D.O.; Physician,Non-Staff Kofi [place] [id number] Patient Name: MICHELLE GOODE MRN: [facility]:[id number] date: 1990 Sex: F Assigned Patient Location: [facility] Current Patient Location: [facility] Accession/Order Number: [id number] Exam Date: 08/18/2024 20:10 Report Date: 08/18/2024 [...] Calhoun M.D. 08/18/2024 8:13 PM Dictation Location: [place] [address] Electronically authenticated by: [id number] Y Date: 08/18/2024 20:13 Dictated By: Gelacio Calhoun D.O. Signed By: 08/18/242014 DD/ 12 TD/TT: Layer Out: Procedure Note Radiology, Radiologist, - 08/18/[address] [address] Ultrasound Report Signed Patient: MICHELLE GOODE MMR#: [id number] : 1990Acct:[id number] Age/Sex: 34 / FADM Date: 08/18/24 Loc: [facility] [address]: Soledad Valdez D.O. Ordering Physician: Soledad Valdez D.O. Date of Service: 08/18/24 Procedure(s): US OB BPP w non-stress Accession Number(s): [id number] cc: Soledad Valdez D.O.; Physician,Non-Staff Kofi The [place] [id number] Patient Name: MICHELLE GOODE MRN: [id number] date: 1990 Sex: F Assigned Patient Location: [facility] Current Patient Location: [facility] Accession/Order Number: [id number] Exam Date: 08/18/2024 20:10 Report Date: 08/18/2024 [...] Calhoun M.D. 08/18/2024 8:13 PM Dictation Location: [place] [address] Electronically authenticated by: [id number] Y Date: 0:13 Dictated By: Gelacio Calhoun D.O. Signed By:08/18/242014 DD/ 12 TD/TT: Layer Out: us Soledad Valdez DO [facility] Final Result documented in this encounter Visit Diagnoses Not on filedocumented in this encounter Additional Health Concerns Active Problems Noted Date Diagnosed Date OB Reminders 03/25/2024 documented as of this encounter Care Teams Golf Caddy Relationship Specialty Start Date End Date Soledad Valdez DO [address] [place] [address] PCP - [facility] 11/09/23 documented as of this encounter
--- OUTSIDE RECORDS SUMMARY | 2024-09-01 19:08 | XMS_ITS | Encounter Summary ---
Author Organization [facility] Address [address] [place] [address] Care Team Providers Care Tie Bucker Name Role Phone Eh Valdez DO Unavailable Encounter Details Date Type Department Care Team (Late st Contact Info) Description 08/18/2024 Telephone [facility] [address] [place] [address] Eh Valdez DO [address] [place], [facility]11 Social History Tobacco Use Types Packs/Day [...] Telephone Encounter - Katelyn Cadena LPN - 08/18/2024 11:36 AM EDT Every I [...] documented as of this encounter Care Teams Tie Bucker Relationship Specialty Start Date End Date Eh Valdez DO [address] [place], [place] [address] [place] [address] PCP - [facility] 11/09/23 documented as of this encounter
--- OUTSIDE RECORDS SUMMARY | 2024-09-01 19:08 | XMS_ITS | Encounter Summary ---
Author Organization [facility] Address [address] [place] [address] Care Team Providers Care Customer Retention Specialist Name Role Phone Eh Valdez DO Unavailable Encounter Details Date Type Department Care Team (Late st Contact Info) Description 03/21/2024 Abstract [facility] [address] [place] [phone] Eh Valdez DO [address], [facility]11 Social History Tobacco Use Types Packs/Day [...] on filedocumented in this encounter Care Teams Customer Retention Specialist Relationship Specialty Start Date End Date Eh Valdez DO [address] [place] [address] PCP - [facility] 11/09/23 documented as of this encounter
--- OUTSIDE RECORDS SUMMARY | 2024-09-01 19:09 | XMS_ITS | Encounter Summary ---
Author Organization [facility] Address [address] [place] [address] Care Team Providers Care Manager Of Construction Name Role Phone Eh Valdez DO Unavailable Encounter Details Date Type Department Care Team (Late st Contact Info) Description 08/24/2024 Telephone [facility] [address] [place] [address] Zeinab Ramirez LPN [address] [place] [address] Social History Tobacco Use Types [...] as of this encounter Care Teams Manager Of Construction Relationship Specialty Start Date End Date Eh Valdez DO [address] [place] [address] [place] [address] PCP - [facility] 11/09/23 documented as of this encounter
--- OUTSIDE RECORDS SUMMARY | 2024-09-01 19:09 | XMS_ITS | Encounter Summary ---
Author Organization [facility] Address [address] [place] [address] Care Team Providers Care Pasting Machine Offbearer Name Role Phone Eh Valdez DO Unavailable Encounter Details Date Type Department Care Team (Late st Contact Info) Description 07/27/2024 Results Follow-Up [facility] Kurt LOPEZ [address] [place] [address] Zeinab Ramirez LPN [address] [employer] [place] [phone] Social History Tobacco Use Types Packs/Day Years [...] documented as of this encounter Care Teams Pasting Machine Offbearer Relationship Specialty Start Date End Date Eh Valdez DO [address] [place], [place] [address] [place] [address] PCP - [facility] 11/09/23 documented as of this encounter
--- OUTSIDE RECORDS SUMMARY | 2024-09-01 19:09 | XMS_ITS | Encounter Summary ---
Author Organization [facility] Address [address] [place] [address] Care Team Providers Care Engineer Technical Staff Name Role Phone Eh Valdez DO Unavailable Encounter Details Date Type Department Care Team (Late st Contact Info) Description 05/04/2024 Abstract [facility] [address] [place] [address] Eh Valdez DO [address], [facility]11 Social History Tobacco Use Types Packs/Day Years [...] documented as of this encounter Care Teams Engineer Technical Staff Relationship Specialty Start Date End Date Eh Valdez DO [address], [facility]11 PCP - [facility] 11/09/23 documented as of this encounter
--- OUTSIDE RECORDS SUMMARY | 2024-09-01 19:09 | XMS_ITS | Clinical Summary ---
Author Organization [facility] Address [address] [place] [address] Care Team Providers Care Public Information Relations Manager Name Role Phone Soledad Valdez DO Unavailable Allergies Active Allergy Reactions Criticality Noted Date Comments Penicillins Hives,Fever,Itching, Rash,Swelling,Whee zing Low 08/05/2022 Medications buprenorphine (Subtex) [address] 4 mg under the tongue in the morning. Active buprenorphine- naloxone (Suboxone) 4-1 MG per sublingual film DISSOLVE 1 FILM UNDER TONGUE ONCE A DAY 3 Active cefdinir (Omnicef) 300 MG capsule Take 300 mg by mouth in the morning and 300 mg before bedtime. 5 Active Ztzgwpqy-Jpe-G A ([facility]) 0.4 MG chewable tabletIndicati ons:Second trimester ([facility]) Chew 1 tablet Daily 30 tablet 11 5 026 Active folic acid (Folvite) 1 MG tablet Take 1,000 mcg by mouth Daily 4 025 Discontinued Lisdexamfetami ne Dimesylate 40 MG chewable tablet CHEW ONE-HALF OF a tablet BY MOUTH TWICE DAILY (IN THE MORNING and IN THE AFTERNOON) 5 025 Discontinued Active Problems Problem Noted Date Diagnosed Date Substance abuse 09/15/2022 GERD (gastroesophageal reflux disease) 8 Exacerbation of asthma 08/09/2007 Attention deficit hyperactivity disorder 008 Allergic rhinitis 08/09/2007 Estimated Date of Delivery Comme nts Yes 09/19/2024 Based on last me nstrual period of 12/14/2023 Encounters Date Type Department Care Team Description 08/29/2024 2:30 PM EDT Routine [facility] [address] [place] [address] Soledad Valdez, 37 weeks gestation of ([facility]); Third trimester ([facility]); Short cervix, antepartum ([facility]); SGA (small for gestational age) ([facility]); Poor growth affecting management of mother, antepartum, single or unspecified fetus ([facility]) 08/29/2024 Abstract [facility] [address] [place] [address] Soledad Valdez, DO 08/29/2024 Bamboo flowsheet [facility] [address] [place] [address] Soledad Valdez, DO 08/24/2024 Telephone [facility] [address] [place] [address] Zeinab Ramirez LPN 08/24/2024 Clinisync Result Encounter [facility]OM[facility] External Department Unsolicited Soledad Valdez, DO 08/23/2024 Telephone [facility] [address] [place] [address] Zeinab Ramirez LPN 08/23/2024 Clinisync Result Encounter NOMS External Department Unsolicited Soledad Valdez, DO 08/22/2024 2:10 PM EDT Routine [facility] [address] [place] [address] Soledad Valdez, Third trimester ([facility]); 36 weeks gestation of ([facility]) 08/22/2024 Bamboo flowsheet [facility] [address] [place] [address] Soledad Valdez, DO 08/18/2024 Clinisync Result Encounter NOMS External Department Unsolicited Soledad Valdez, DO 08/18/2024 [place]phone [place] [address] Soledad Valdez, DO 08/10/2024 Clinisync Result Encounter NOMS External Department Unsolicited Paola Carmichael PA 08/07/2024 Telephone [facility] [address] [place] [address] Paola Carmichael PA 08/04/2024 Clinisync Result Encounter NOMS External Department Unsolicited Soledad Valdez, DO 08/03/2024 2:50 [place] [address] Paola Carmichael PA Third trimester ([facility]) (Primary Dx); 33 weeks gestation of ([facility]); Short cervix, antepartum ([facility]) 08/03/2024 2:00 PM EDT [place] [address] SGA (small for gestational age) ([facility]); Short cervix, antepartum ([facility]) 07/31/2024 Clinisync Result Encounter NOMS External Department Unsolicited Soledad Valdez, DO 07/27/2024 Results Follow-Up [facility] [address] [place] [id number] Zeinab Ramirez LPN 07/27/2024 [place] [address] Zeinab Ramirez LPN 07/25/2024 11:30 AM EDT [place] [address] 07/25/2024 10:40 AM EDT [facility]ine [facility] [place] [address] Soledad Valdez, 32 weeks gestation of ([facility]); Third trimester ([facility]); SGA (small for gestational age) ([facility]); Short cervix, antepartum ([facility]) 07/25/2024 Bamboo flowsheet [facility] [place] [address] Soledad Valdez DO 07/11/2024 2:30 PM EDT [place] [address] Short cervix, antepartum ([facility]); size inconsistent with dates ([facility]) 07/11/2024 [place] [address] Lucille Hahn 07/10/2024 10:20 AM [place] [address] Paola Carmichael PA Third trimester ([facility]); 29 weeks gestation of ([facility]); with normal glucose tolerance test (GTT) ([facility]); size inconsistent with dates ([facility]); Short cervix, antepartum ([facility]) 07/10/2024 Bamboo flowsheet [facility] [address] [place] [address] Paola Carmichael PA 07/07/2024 [place] [address] Ilda Beaver MA from Last 3 Months [...] 1.9 oz) 08/29/2024 2:49 PM EDT Height 162.6 cm (5' 4 ) 09/21/2022 2:53 PM EDT Body Mass Index 22.34 09/21/2022 2:53 PM EDT Plan of Treatment Health Maintenance [...] 2:59 PM EDT 37 weeks gestation of ([facility]) Third trimester ([facility]) US OB BPP W NON-STRESS 08/24/2024 12:26 AM EDT US OB BPP W NON-STRESS 08/23/2024 8:46 AM EDT CULTURE, GROUP B STREP WITH SUSCEPTIBLITY Routine 08/22/2024 2:54 PM EDT Third trimester ([facility]) US OB BPP W NON-STRESS 08/18/2024 8:13 PM EDT US OB BPP WO NON-STRESS 08/10/2024 10:42 PM EDT US OB BPP W NON-STRESS 08/04/2024 8:23 AM EDT US OB FOLLOW UP TRANSABDOMINAL APPROACH Routine 08/03/2024 2:50 PM EDT SGA (small for gestational age) ([facility]) US OB BPP W NON-STRESS 07/31/2024 8:00 AM EDT US OB TRANSVAGINAL Routine 07/25/2024 11 :57 AM EDT Short cervix, antepartum ([facility]) US OB FOLLOW UP TRANSABDOMINAL APPROACH Routine 07/11/2024 3:33 PM EDT size inconsistent with dates ([facility]) PAP SMEAR Routine 04/11/2024 12:00 AM EST from Last 3 Months or Most Recently Relevant to Health Maintenance Results * (ABNORMAL) POCT urinalysis dipstick manually [...] - Positive Urine 08/29/2024 2:59 PM EDT us Soledad Valdez DO POINT OF CARE TEST ENTER/EDIT OR DERABLES Final Result * US OB BPP W NON-STRESS (08/24/2024 12:26 AM EDT) Only the most recent of5 resultswithin the time period is included. Anatomical Region Laterality Modality Other 08/24/2024 12:2 6 AM EDT Narrative 08/24/2024 12:[place] [address] Ultrasound Report Signed Patient: MICHELLE GOODE MR#: [id number] : 1990 Acct:[id number] Age/Sex: 34 / F ADM Date: Loc: [facility] [address]: Soledad Valdez D.O. Ordering Physician: Soledad Valdez D.O. Date of Service: 08/23/24 Procedure(s): US OB BPP w non-stress Accession Number(s): [id number] cc: Soledad Valdez D.O.; Physician,Non-Staff M.Yariel The [place] [address] Patient Name: MICHELLE GOODE MRN: [id number] date: 1990 Sex: F Assigned Patient Location: [facility] Current Patient Location: Accession/Order Number: [id number] Exam Date: 08/24/2024 00:23 Report Date: 08/24/2024 [...] Powers M.D. 08/24/2024 12:26 AM Dictation Location: [place] [address] Electronically authenticated by: [id number] Y Date: 08/24/2024 00:26 Dictated By: Abundio Powers M.D. Signed By: 08/24/248 DD/ TD/TT: Household Coordinator: Procedure Note Radiology, Radiologist, MD - 08/24/2024 [place] [address] Ultrasound Report Signed Patient: MICHELLE GOODE MMR#: [id number] : 1990Acct:[id number] Age/Sex: 34 / FADM Date: Loc: [facility] 250- Attending Dr: Soledad Valdez D.O. Ordering Physician: Soledad Valdez D.O. Date of Service: 08/23/24 Procedure(s): US OB BPP w non-stress Accession Number(s): [id number] cc: Soledad Valdez D.O.; Physician,Non-Staff Kofi [facility] [place] [address] Patient Name: MICHELLE GOODE MRN: [id number] date: 1990 Sex: F Assigned Patient Location: [facility] Current Patient Location: Accession/Order Number: [id number] Exam Date: 08/24/2024 00:23 Report Date: 08/24/2024 [...] Powers M.D. 08/24/2024 12:26 AM Dictation Location: [place] [address] Electronically authenticated by: [id number] Y Date: 500:26 Dictated By: Abundio Powers M.D. Signed By:08/24/24 0028 DD/ 002 TD/TT: Household Coordinator: us Soledad José Miguel DO [facility] Final Result * CULTURE, GROUP B STREP WITH SUSCEPTIBLITY (08/22/2024 2:54 PM EDT) Swab 08/22/2024 2:54 PM EDT us Soledad José Miguel DO LAB BLOOD ORDERABLES Final Resul t EXTERNAL LAB * US OB BPP WO NON-STRESS (08/10/2024 10:42 PM EDT) Anatomical Region Laterality Modality Other 08/10/2024 10:4 2 PM EDT Narrative 08/10/2024 10:44 PM EDT [address] [address] Ultrasound Report Signed Patient: MICHELLE GOODE MR#: [id number] : 1990 Acct:[id number] Age/Sex: 34 / F ADM Date: 08/10/24 Loc: [facility] Attending Dr: Paola Carmichael Ordering Physician: Paola Carmichael Date of Service: 08/10/24 Procedure(s): US OB BPP wo non-stress Accession Number(s): [id number] cc: Paola Carmichael; Physician,Non-Staff Kofi The [address] [address] Patient Name: MICHELLE GOODE MRN: [id number] date: 1990 Sex: F Assigned Patient Location: [facility] Current Patient Location: Accession/Order Number: [id number] Exam Date: 08/10/2024 22:41 Report Date: 08/10/2024 [...] Calhoun M.D. 08/10/2024 10:42 PM Dictation Location: [place] [address] Electronically authenticated by: [id number] Y Date: 08/10/2024 22:42 Dictated By: Gelacio Calhoun D.O. Signed By: 08/10/242243 DD/ 41 TD/TT: Household Coordinator: Procedure Note Radiology, Radiologist, MD - 08/10/2024 [place] [address] Ultrasound Report Signed Patient: MICHELLE GOODE MMR#: [id number] : 1990Acct:[id number] Age/Sex: 34 / FADM Date: 08/10/24 Loc: [facility] Attending Dr: Paola Carmichael Ordering Physician: Paola Carmichael Date of Service: 08/10/24 Procedure(s): US OB BPP wo non-stress Accession Number(s): [id number] cc: Paola Carmichael; Physician,Non-Staff Kofi The [address] [address] Patient Name: MICHELLE GOODE MRN: [id number] date: 1990 Sex: F Assigned Patient Location: [facility] Current Patient Location: Accession/Order Number: [id number] Exam Date: 08/10/2024 22:41 Report Date: 08/10/2024 [...] Calhoun M.D. 08/10/2024 10:42 PM Dictation Location: [place] Electronically authenticated by: [id number] Y Date: 2:42 Dictated By: Gelacio Calhoun D.O. Signed By:08/10/244 DD/ 41 TD/TT: Household Coordinator: us Paola BARRIOS [facility] Final Result [...] cm - Funneling was noted by performing aviation electrical technician but not well demonstrated on the [...] Cervical funneling was noted by the performing aviation electrical technician but not well demonstrated on the provided images. The ordering physician was notified. Interpreted by: Electronically signed by RISA PALACIOS II, MD, PHD at 06-Aug-2024 10:03:36 PM [facility] Procedure Note Risa Palacios MD - [...] length. Cervical funneling was noted by theperforming aviation electrical technician but not well demonstrated on the provided images.The ordering physician was notified. Interpreted by: Electronically signed by RISA PALACIOS II, MD, PHD 10:03:36 PM [facility] us Soledadtano Valdez IMG OB US PROCEDURES Final Resul t [...] II, MD, PHD at 26-Jul-2024 08:00:42 AM [facility] Procedure Note Risa Palacios MD - 07/26/2024 EXAM: US OB TRANSVAGINAL HISTORY: Shortened cervix. COMPARISON: Ob ultrasound 07/11/2024. TECHNIQUE: Two-dimensional transvaginal grayscale ultrasound imaging ofthe cervix was performed. FINDINGS: Presentation: Cephalic Cervical Length: 2.6 cm IMPRESSION: 1. Shortened cervical length measuring 2.6 cm. Interpreted by: Electronically signed by RISA PALACIOS II, MD, PHD 08:00:42 AM [facility] us Paola BARRIOS IMG OB US PROCEDURES Final Resul t * Pap Smear (04/11/2024 12:00 AM EST) Swab Cervical swab / Unknown us Paola BARRIOS LAB CYTOLOGY ORDERABLES Final Re sult EXTERNAL LAB from Last 3 Months or Most Recently Relevant to Health Maintenance Additional Health Concerns Active Problems Noted Date Diagnosed Date OB Reminders 03/25/2024 Insurance [employer] Care Teams Public Information Relations Manager Relationship Specialty Start Date End Date Soledad [place] [address] PCP - [facility] 11/09/23
--- OUTSIDE RECORDS SUMMARY | 2024-09-01 19:09 | XMS_ITS | Encounter Summary ---
Author Organization [facility] Address [address] [place] [address] Care Team Providers Care Desilverizer Name Role Phone Eh Valdez DO Unavailable Encounter Details Date Type Department Care Team (Late st Contact Info) Description 04/17/2024 Abstract [facility] [address] [place] [address] Eh Valdez DO [address] [place], [facility] Social History Tobacco Use Types Packs/Day Years [...] documented as of this encounter Care Teams Desilverizer Relationship Specialty Start Date End Date Eh Valdez DO [address] [place], [facility] PCP - [facility] 11/09/23 documented as of this encounter
--- OUTSIDE RECORDS SUMMARY | 2024-09-01 19:09 | XMS_ITS | Encounter Summary ---
Author Organization [facility] Address [address] [place] [address] Care Team Providers Care Public Works Manager Name Role Phone Eh Valdez DO Unavailable Encounter Details Date Type Department Care Team (Late st Contact Info) Description 07/11/2024 Orders Only [facility] [address] [place] [address] Lucille Hahn Social History Tobacco Use [...] documented as of this encounter Care Teams Public Works Manager Relationship Specialty Start Date End Date Eh Valdez DO [address] [place], [place] [id number] PCP - [facility] 11/09/23 documented as of this encounter
--- NOTE | 2024-09-01 19:13 | US_ITS ---
[place] [address] Patient Name: SIDDHARTHA BENITO MRN: [id number] date: 1990 Sex: F Assigned Patient Location: [facility] Current Patient Location: Accession/Order Number: [id number] Exam Date: 09/01/2024 20:58 Report Date: 09/01/2024 20:59 At the request of: SOLEDAD PEGUERO DO Procedure: US OB BPP w non-stress Ultrasound biophysical profile HISTORY: Small gestational age Adequate breathing movement, gross body movement, tone and amniotic fluid volume for total score of 8 out of 8. The amniotic fluid index is 10.0cm within normal limits. The heart rate 145 bpm. US/US OB BPP w non-stress IMPRESSION: Adequate ultrasound biophysical profile Impression dictated by: Gelacio Calhoun M.D. 09/01/2024 8:59 PM Dictation Location: [place] [address] Electronically authenticated by: [id number] Y Date: 09/01/2024 20:59
[2024-09-01 19:34] VITALS: BP 103/65; PULSE 93
== END 2024-09-01 20:25 | disposition home or self-care (01) ==
LOC: US 19:07 → FBC 19:10
PROVIDERS: Visit Provider Obstetrics & Gynecology
DX: O26.843 Uterine size-date discrepancy, third trimester (principal); Z3A.37 37 weeks gestation of pregnancy
CPT/HCPCS: 76818

== ENCOUNTER 2024-09-06 17:17 | Outpatient (OUT) | payer BC, OTHER, SELFPAY ==
--- OUTSIDE RECORDS SUMMARY | 2024-08-29 14:30 | XMS_ITS | Encounter Summary ---
Author Organization [facility] Address [address] [place] [address] Care Team Providers Care Logistics Engineer Name Role Phone Eh Valdez DO Unavailable Encounter Details Date Type Department Care Team (Late st Contact Info) Description 08/29/2024 2:30 PM EDT Routine [facility] [address] [facility] [place] [address] Eh Valdez DO [address] [facility] [place] [address] 37 weeks gestation of ([facility]); Third trimester [...] 2:59 PM EDT 37 weeks gestation of ([facility]) Third trimester ([facility]) documented in this encounter Results * [...] Visit Diagnoses Diagnosis 37 weeks gestation of ([facility]) Third trimester ([facility]) state, incidental Short cervix, antepartum ([facility]) SGA (small for gestational age) ([facility]) Cbjwb-wdb-soasx without mention of malnutrition, unspecified (weight) Poor growth affecting management of mother, antepartum, single or unspecified fetus ([facility]) documented in this encounter Additional Health Concerns Active Problems Noted Date Diagnosed Date OB Reminders 03/25/2024 documented as of this encounter Care Teams Logistics Engineer Relationship Specialty Start Date End Date Eh Valdez DO [address] [place] [address] PCP - [facility] 11/09/23 documented as of this encounter
--- OUTSIDE RECORDS SUMMARY | 2024-09-04 15:00 | XMS_ITS | Encounter Summary ---
Author Organization [facility] Address [address] [place] [address] Care Team Providers Care Prosthetic Aide Name Role Phone Eh Valdez DO Unavailable Reason for Visit * Reason Comments membrane sweep Encounter Details Date Type Department Care Team ([facility] Contact Info) Description 09/04/2024 3:00 PM EDT Routine [facility] [address] [employer] [address] [employer] [employer] [place] [address] Eh Valdez DO [address] [facility] [address] [place], [place] [id number] Third trimester ([facility]); 37 weeks gestation of ([facility]) Social History Tobacco Use Types Packs/Day Years [...] Sign Reading Time Taken Comments Blood Pressure 106/70 09/04/2024 3:17 PM EDT Pulse - - Temperature - - Respiratory Rate - - Oxygen Saturation - - Inhaled Oxygen Concentration - - Weight 59.7 kg (131 lb 9.6 oz) 09/04/2024 3:17 P M EDT Height - - Body Mass Index 22.59 09/21/2022 2:53 PM EDT documented in this encounter Progress Notes * Rylee Schmitz LPN - 09/04/2024 3:00 PM EDT Reason for Appointment: Patient ID: Michelle Goode is a 34 y.o. female who presents for membrane sweep Patient presents today for Return OB appointment. MEDICATIONS Current Outpatient Medications Medication Instructions buprenorphine (SUBTEX) 4 mg, Daily RT buprenorphine-naloxone (Suboxone) 4-1 MG per sublingual film DISSOLVE 1 FILM UNDER TONGUE ONCE A DAY cefdinir (OMNICEF) 300 mg, 2 times daily Hhpuhuqf-Fmr-OZ ([facility]) 0.4 MG chewable tablet 1 tablet, Oral, Daily ALLERGIES Allergies Allergen Reactions Penicillins Hives, Fever, Itching, Rash, Swelling and Wheezing PROBLEMS Active Ambulatory Problems Diagnosis Date Noted GERD (gastroesophageal reflux disease) 08/09/2007 Exacerbation of asthma ([facility]) 08/09/2007 Attention deficit hyperactivity disorder 08/09/2007 Allergic rhinitis 08/09/2007 Substance abuse ([facility]) 09/15/2022 Resolved Ambulatory Problems Diagnosis Date Noted No Resolved Ambulatory Problems Past Medical History: Diagnosis Date Allergies Anxiety Asthma ([facility]) Bee sting Miscarriage ([facility]) Pelvic pain 2010 Syncope Thoracic sprain HISTORY PAST MEDICAL HISTORY SOCIAL HISTORY Past Medical History: Diagnosis Date Allergies Anxiety Asthma ([facility]) Bee sting right ring finger Miscarriage ([facility]) 8-9 weeks Pelvic pain 2010 Syncope Thoracic sprain Social History Tobacco Use [...] nursing note reviewed. Exam conducted with a tab builder present. Vitals: Estimated body mass index is 22.59 kg/m?? as calculated from the following: Height as of 09/21/22: 5' 4 . Weight as of this encounter: 131 lb 9.6 oz. BP: 106/70 Patient's last menstrual period was 12/14/2023. ASSESSMENT & PLAN (Z34.93) Third trimester ([facility]) (Z3A.37) 37 weeks gestation of ([facility]) Patient presents today for a routine obstetrics appointment. Patient is currently 37w6d with a Estimated Date of Delivery: 09/19/24. Patient would like to have IOL this Wednesday at 7am. Patient to return to clinic 6 weeks post . [facility] will be notified of change and if any further pa perwork is needed it will be sent to [facility]. Documented by Rylee Schmitz LPN on behalf of: Eh Valdez DO documented in this encounter Plan of Treatment Not on file documented as of this encounter Goals Goal Patient Goal Type Associated Problems Recent Progress Patient-Stated? Author Reminders Care Plan OB Reminders No Open Scheduling, Background documented as of this encounter Visit Diagnoses Diagnosis Third trimester ([facility]) state, incidental 37 weeks gestation of ([facility]) documented in this encounter Additional Health Concerns Active Problems Noted Date Diagnosed Date OB Reminders 03/25/2024 documented as of this encounter Care Teams Prosthetic Aide Relationship Specialty Start Date End Date Eh Valdez DO [address] [place] [address] PCP - [facility] 11/09/23 documented as of this encounter
--- OUTSIDE RECORDS SUMMARY | 2024-09-04 15:00 | XMS_ITS | Encounter Summary ---
Author Organization [facility] Address [address] [place] [address] Care Team Providers Care Software Intern Name Role Phone Eh Valdez DO Unavailable Reason for Visit * Reason Comments membrane sweep Encounter Details Date Type Department Care Team ([facility] Contact Info) Description 09/04/2024 3:00 PM EDT Routine [facility] [address] [place] [address] Eh Valdez DO [address] [facility] [address] [place], [place] [id number] Third trimester ([facility]); 37 weeks gestation of ([facility]) Social History Tobacco Use Types Packs/Day Years [...] cefdinir (OMNICEF) 300 mg, 2 times daily Owyorizp-Ost-SV ([facility]) 0.4 MG chewable tablet 1 tablet, Oral, Daily ALLERGIES Allergies Allergen Reactions Penicillins Hives, Fever, Itching, Rash, Swelling and Wheezing PROBLEMS Active Ambulatory Problems Diagnosis Date Noted GERD (gastroesophageal reflux disease) 08/09/2007 Exacerbation of asthma ([facility]) 08/09/2007 Attention deficit hyperactivity disorder 08/09/2007 Allergic rhinitis 08/09/2007 Substance abuse ([facility]) 09/15/2022 Resolved Ambulatory Problems Diagnosis Date Noted No Resolved Ambulatory Problems Past Medical History: Diagnosis Date Allergies Anxiety Asthma ([facility]) Bee sting Miscarriage ([facility]) Pelvic pain 2010 Syncope Thoracic sprain HISTORY PAST MEDICAL HISTORY SOCIAL HISTORY Past Medical History: Diagnosis Date Allergies Anxiety Asthma ([facility]) Bee sting right ring finger Miscarriage ([facility]) 8-9 weeks Pelvic pain 2010 Syncope Thoracic [...] nursing note reviewed. Exam conducted with a activity director present. Vitals: Estimated body mass index is 22.59 kg/m?? as calculated from the following: Height as of 09/21/22: 5' 4 . Weight as of this encounter: 131 lb 9.6 oz. BP: 106/70 Patient's last menstrual period was 12/14/2023. ASSESSMENT & PLAN (Z34.93) Third trimester ([facility]) (Z3A.37) 37 weeks gestation of ([facility]) Patient presents today for a routine obstetrics appointment. Patient is currently 37w6d with a Estimated Date of Delivery: 09/19/24. Patient would like to have IOL this Wednesday at 7am. Patient to return to clinic 6 weeks post . [facility] will be notified of change [...] this encounter Visit Diagnoses Diagnosis Third trimester ([facility]) state, incidental 37 weeks gestation of ([facility]) documented in this encounter Additional Health Concerns Active Problems Noted Date Diagnosed Date OB Reminders 03/25/2024 documented as of this encounter Care Teams Software Intern Relationship Specialty Start Date End Date Eh Valdez DO [address] [place] [address] PCP - [facility] 11/09/23 documented as of this encounter
--- OUTSIDE RECORDS SUMMARY | 2024-09-06 17:21 | XMS_ITS | Encounter Summary ---
Author Organization [facility] Address [address] [place] [address] Care Team Providers Care Station Air Traffic Control Specialist Name Role Phone Eh Valdez DO Unavailable Encounter Details Date Type Department Care Team (Late st Contact Info) Description 09/05/2024 Telephone [facility] [address] [place] [address] Eh Valdez DO [address] [place], [facility] Social History Tobacco Use Types Packs/Day [...] encounter Miscellaneous Notes * Telephone Encounter - Katelny ERNIE Cadena - 09/05/2024 3:49 PM EDT Patient called the office and she states that she is needing to cancel her induction for tomorrow as she is in a situation right now and she would like to go to [facility] and be induced as she will not have Dr delivery her anyway. Patient states this is where her son was at after Delivery and this is where her daughter will go after delivery. Patient was advised would speak with Dr about this. Patient was called by the provider made aware that [facility] would not take her for that and that she is instructed to have the induction which is refusing right now due to her situation and that she is instructed to follow up and have NST/BPP completed and come into the office on Wednesday to be seen and that induction does need to happen as this is getting risky for her and baby. Patient states that she will do the Induction on Wednesday next week. [facility] was called made aware that patient is cancellingfor tomorrow and that we will put her on the books for Wednesday the at 5 and if anything changes will contact them with updated information. documented in this encounter Plan of Treatment [...] documented as of this encounter Care Teams Station Air Traffic Control Specialist Relationship Specialty Start Date End Date Eh Valdez DO [address] [place], [place] [address]b[place] [address] PCP - [facility] 11/09/23 documented as of this encounter
--- OUTSIDE RECORDS SUMMARY | 2024-09-06 17:21 | XMS_ITS | Encounter Summary ---
Author Organization [facility] Address [address] [place] [address] Care Team Providers Care Director Of Event Sales Name Role Phone Eh Valdez DO Unavailable Encounter Details Date Type Department Care Team (Late st Contact Info) Description 08/23/2024 Telephone [facility] [address] [place] [address] Zeinab Ramirez LPN [address] [place] [address] Social History Tobacco Use Types [...] if you can call me back at [phone]. Thank you. I called pt back and [...] documented as of this encounter Care Teams Director Of Event Sales Relationship Specialty Start Date End Date Eh Valdez DO [address] [place] [address] PCP - [facility] 11/09/23 documented as of this encounter
--- OUTSIDE RECORDS SUMMARY | 2024-09-06 17:21 | XMS_ITS | Encounter Summary ---
Author Organization [facility] Address [address] [place] [address] Care Team Providers Care Debt Counselor Name Role Phone Eh Valdez DO Unavailable Encounter Details Date Type Department Care Team (Late st Contact Info) Description 04/17/2024 Abstract [facility] [address] [place] [address] Eh Valdez DO [address] [place], [facility]11 Social History Tobacco Use Types Packs/Day [...] documented as of this encounter Care Teams Debt Counselor Relationship Specialty Start Date End Date Eh Valdez DO [address] [place], [facility]11 PCP - [facility] 11/09/23 documented as of this encounter
--- OUTSIDE RECORDS SUMMARY | 2024-09-06 17:21 | XMS_ITS | Encounter Summary ---
Author Organization [facility] Address [address] [place] [address] Care Team Providers Care Enrichment Specialist Name Role Phone Eh Valdez DO Unavailable Encounter Details Date Type Department Care Team (Late st Contact Info) Description 05/04/2024 Abstract [facility] [address] [place] [address] Eh Valdez DO [address] [place], [facility]11 Social History Tobacco Use Types Packs/Day [...] documented as of this encounter Care Teams Enrichment Specialist Relationship Specialty Start Date End Date Eh Valdez DO [address] [place], [facility]11 PCP - [facility] 11/09/23 documented as of this encounter
--- OUTSIDE RECORDS SUMMARY | 2024-09-06 17:21 | XMS_ITS | Encounter Summary ---
Author Organization [facility] Address [address] [place] [address] Care Team Providers Care Injection Molding Machine Operator Name Role Phone José MiguelEmma luevanoy DO Unavailable Encounter Details Date Type Department Care Team (Late st Contact Info) Description 08/23/2024 Clinisync Result Encounter [facility] External Department Unsolicited Soledad Valdez, [address] [facility] [address] [place] [address] Social History Tobacco Use Types [...] AM EDT Narrative 08/23/2024 8:48 [place] [address] Ultrasound Report Signed Patient: MICHELLE GOODE MR#: [id number] : 1990 Acct:[id number] Age/Sex: 34 / F ADM Date: 08/22/24 Loc: US Attending Dr: Soledad Valdez D.O. Ordering Physician: Soledad Valdez D.O. Date of Service: 08/22/24 Procedure(s): US OB BPP w non-stress Accession Number(s): [id number] cc: Soledad Valdez D.O.; Physician,Non-Staff Kofi The [address] [address] Patient Name: MICHELLE GOODE MRN: [facility]:[id number] date: 1990 Sex: F Assigned Patient Location: US Current Patient Location: US Accession/Order Number: [id number] Exam Date: 08/23/2024 08:43 Report Date: 08/23/2024 [...] Perez M.D. 08/23/2024 8:46 AM Dictation Location: [place] [address] Electronically authenticated by: [id number] Y Date: 08/23/2024 08:46 Dictated By: Lee Ann Perez M.D. Signed By: 08/23/2448 DD/ 5 TD/TT: Bolt Man: Procedure Note Radiology, Radiologist, MD - 08/23/2024 [place] [address] Ultrasound Report Signed Patient: MICHELLE GOODE MMR#: [id number] : 1990Acct:[id number] Age/Sex: 34 / FADM Date: 08/22/24 Loc: US Attending Dr: Soledad Valdez D.O. Ordering Physician: Soledad Valdez D.O. Date of Service: 08/22/24 Procedure(s): US OB BPP w non-stress Accession Number(s): [id number] cc: Soledad Valdez D.O.; Physician,Non-Staff Kofi The [place] [id number] Patient Name: MICHELLE GOODE MRN: [id number] date: 1990 Sex: F Assigned Patient Location: Current Patient Location: US Accession/Order Number: [id number] Exam Date: 08/23/2024 08:43 Report Date: 08/23/2024 [...] Perez M.D. 08/23/2024 8:46 AM Dictation Location: [place] [address] Electronically authenticated by: [id number] Y Date: 508:46 Dictated By: Lee Ann Perez M.D. Signed By:08/23/24 0848 DD/ TD/TT: Bolt Man: us Soledad Valdez DO [facility] Final Result documented in this encounter Visit Diagnoses Not on filedocumented in this encounter Additional Health Concerns Active Problems Noted Date Diagnosed Date OB Reminders 03/25/2024 documented as of this encounter Care Teams Injection Molding Machine Operator Relationship Specialty Start Date End Date Soledad Valdez DO [address] [place] [address] [place] [address] PCP - [facility] 11/09/23 documented as of this encounter
--- OUTSIDE RECORDS SUMMARY | 2024-09-06 17:21 | XMS_ITS | Encounter Summary ---
Author Organization [facility] Address [address] [place] [address] Care Team Providers Care Formula Mixer Name Role Phone José MiguelEmma luevanoy DO Unavailable Encounter Details Date Type Department Care Team (Late st Contact Info) Description 09/01/2024 Clinisync Result Encounter [facility] External Department Unsolicited Soledad Valdez, [address] [place] [address] Social History Tobacco Use Types [...] Diagnosis Comments US OB BPP W NON-STRESS 09/01/2024 8:59 PM EDT documented in this encounter Results * US OB BPP W NON-STRESS (09/01/2024 8:59 PM EDT) Anatomical Region Laterality Modality Other 09/01/2024 8:59 PM EDT Narrative 09/01/2024 9:01 [place] [address] Ultrasound Report Signed Patient: MICHELLE GOODE MR#: [id number] : 1990 Acct:[id number] Age/Sex: 34 / F ADM Date: 09/01/24 Loc: US Attending Dr: Soledad Valdez D.O. Ordering Physician: Soledad Valdez D.O. Date of Service: 09/01/24 Procedure(s): US OB BPP w non-stress Accession Number(s): [id number] cc: Soledad Valdez D.O.; Physician,Non-Staff Kofi The [place] [id number] Patient Name: MICHELLE GOODE MRN: [facility]:[id number] date: 1990 Sex: F Assigned Patient Location: [facility] Current Patient Location: Accession/Order Number: [id number] Exam Date: 09/01/2024 20:58 Report Date: 09/01/2024 20:59 At the request of: SOLEDAD VALDEZ DO Procedure: US OB BPP w non-stress Ultrasound biophysical profile HISTORY: Small gestational age Adequate breathing movement, gross body movement, tone and amniotic fluid volume for total score of 8 out of 8. The amniotic fluid index is 10.0cm within normal limits. The heart rate 145 bpm. US/US OB BPP w non-stress IMPRESSION: Adequate ultrasound biophysical profile Impression dictated by: Gelacio Calhoun M.D. 09/01/2024 8:59 PM Dictation Location: [place] [address] Electronically authenticated by: [id number] Y Date: 09/01/2024 20:59 Dictated By: Gelacio Calhoun D.O. Signed By: 09/01/242100 DD/ 58 TD/TT: Biological Science Technician Fish: Procedure Note Radiology, Radiologist, - 09/01/[address] [address] Ultrasound Report Signed Patient: MICHELLE GOODE MMR#: [id number] : 1990Acct:[id number] Age/Sex: 34 / FADM Date: 09/01/24 Loc: US Attending Dr: Soledad Valdez D.O. Ordering Physician: Soledad Valdez D.O. Date of Service: 09/01/24 Procedure(s): US OB BPP w non-stress Accession Number(s): [id number] cc: Soledad Valdez D.O.; Physician,Non-Staff Kofi The [place] [id number] Patient Name: MICHELLE GOODE MRN: [id number] date: 1990 Sex: F Assigned Patient Location: [facility] Current Patient Location: Accession/Order Number: [id number] Exam Date: 09/01/2024 20:58 Report Date: 09/01/2024 20:59 At the request of: SOLEDAD VALDEZ DO Procedure: US OB BPP w non-stress Ultrasound biophysical profile HISTORY: Small gestational age Adequate breathing movement, gross body movement, tone and amniotic fluid volume for total score of 8 out of 8. The amniotic fluidindex is 10.0cm within normal limits. The heart rate 145 bpm. US/US OB BPP w non-stress IMPRESSION: Adequate ultrasound biophysical profile Impression dictated by: Gelacio Calhoun M.D. 09/01/2024 8:59 PM Dictation Location: [place] [address] Electronically authenticated by: [id number] Y Date: 0:59 Dictated By: Gelacio Calhoun D.O. Signed By:09/01/242100 DD/ 58 TD/TT: Biological Science Technician Fish: us Soledad Valdez DO [facility] Final Result documented in this encounter Visit Diagnoses Not on filedocumented in this encounter Additional Health Concerns Active Problems Noted Date Diagnosed Date OB Reminders 03/25/2024 documented as of this encounter Care Teams Formula Mixer Relationship Specialty Start Date End Date Soledad Valdez DO [address] [place] [address] PCP - [facility] 11/09/23 documented as of this encounter
--- OUTSIDE RECORDS SUMMARY | 2024-09-06 17:21 | XMS_ITS | Encounter Summary ---
Author Organization [facility] Address [address] [place] [address] Care Team Providers Care Emergency Medical Technician Name Role Phone José MiguelEmma luevanoy DO Unavailable Encounter Details Date Type Department Care Team (Late st Contact Info) Description 02/24/2024 Clinisync Result Encounter [facility] External Department Unsolicited Soledad Valdez, [address] [place] [address] Social History Tobacco Use Types [...] EST Narrative 02/24/2024 2:57 PM EST The [address] [address] Ultrasound Report Signed Patient: MICHELLE GOODE MR#: [id number] : 1990 Acct:[id number] Age/Sex: 33 / F ADM Date: 02/24/24 Loc: US Attending Dr: Soledad Valdez D.O. Ordering Physician: Soledad Valdez D.O. Date of Service: 02/24/24 Procedure(s): US OB transvaginal Accession Number(s): [id number] cc: Soledad Valdez D.O.; Physician,Non-Staff Kofi The [place] [address] Patient Name: MICHELLE GOODE MRN: [id number] date: 1990 Sex: F Assigned Patient Location: US Current Patient Location: US Accession/Order Number: [id number] Exam Date: 02/24/2024 14:17 Report Date: 02/24/2024 [...] Signed By: 02/24/24 1457 DD/ 54 TD/TT: Chief Lock Operator: Procedure Note Radiology, Radiologist, - 02/24/2024 The [place] [id number] Ultrasound Report Signed Patient: MICHELLE GOODE MMR#: [id number] : 1990Acct:[id number] Age/Sex: 33 / FADM Date: 02/24/24 Loc: US Attending Dr: Soledad Valdez D.O. Ordering Physician: Soledad Valdez D.O. Date of Service: 02/24/24 Procedure(s): US OB transvaginal Accession Number(s): [id number] cc: Soledad Valdez D.O.; Physician,Non-Staff Kofi [place] [address] Patient Name: MICHELLE GOODE MRN: [id number] date: 1990 Sex: F Assigned Patient Location: US Current Patient Location: US Accession/Order Number: [id number] Exam Date: 02/24/2024 14:17 Report Date: 02/24/2024 [...] M.D. Signed By:02/24/24 1457 DD/ 1455 TD/TT: Chief Lock Operator: us Soledad Valdez DO [facility] Final Result documented in this encounter Visit Diagnoses Not on filedocumented in this encounter Care Teams Emergency Medical Technician Relationship Specialty Start Date End Date Soledad Valdez DO [address] [place] [address] PCP - [facility] 11/09/23 documented as of this encounter
--- OUTSIDE RECORDS SUMMARY | 2024-09-06 17:21 | XMS_ITS | Clinical Summary ---
Author Organization [facility] tem Address [id number] [address] [place] [address] Care Team Providers Care Raw Material Handler Name Role Phone Unavailable Primary Care Provider [...] Type Department Care Team Description [facility] [facility] [address] [place] [address] Pablo Altamirano from Last 3 [...] Devices Not on file Insurance [employer] [facility]
--- OUTSIDE RECORDS SUMMARY | 2024-09-06 17:21 | XMS_ITS | Clinical Summary ---
Author Organization [facility] Address [address] [place] [address] Care Team Providers Care Fiberglass Boat Builder Name Role Phone Soledad Valdez DO Unavailable [...] and 300 mg before bedtime. 5 Active Sgjutcuh-Byu-C A ([facility]) 0.4 MG chewable tabletIndicati ons:Second trimester ([facility]) Chew 1 tablet Daily 30 tablet 11 [...] Encounters Date Type Department Care Team Description 09/05/2024 [place] [address] Soledad Valdez, DO 09/05/2024 [place] [address] Soledad Valdez, DO 09/04/2024 3:00 PM EDT Routine [place] [address] Soledad Valdez, Third trimester ([facility]); 37 weeks gestation of ([facility]) 09/04/2024 [place] [address] Soledad Valdez, 09/01/2024 Clinisync Result Encounter NOMS External Department Unsolicited Soledad Valdez, DO 08/29/2024 2:30 PM EDT Routine [place] [address] Soledad Valdez, 37 weeks gestation of ([facility]); Third trimester ([facility]); Short cervix, antepartum ([facility]); SGA (small for gestational age) ([facility]); Poor growth affecting management of mother, antepartum, single or unspecified fetus ([facility]) 08/29/2024 [place] [address] Soledad Valdez, DO 08/29/2024 Bamboo flowsheet [facility] [address] [place] [address] Soledad Valdez, DO 08/24/2024 [place] [address] Zeinab Ramirez, DOOR CORE ASSEMBLER 08/24/2024 Clinisync Result Encounter NOMS External Department Unsolicited Soledad Valdez, DO 08/23/2024 Telephone [facility] [place] [facility] [address] [facility] [place] [address] Zeinab Ramirez, DOOR CORE ASSEMBLER 08/23/2024 Clinisync Result Encounter NOMS External Department Unsolicited Soledad Valdez, DO 08/22/2024 2:10 PM EDT Routine [facility] [address] [place] [address] Soledad Valdez, DO Third trimester ([facility]); 36 weeks gestation of ([facility]) 08/22/2024 Bamboo flowsheet [facility] [address] [facility] [place] [address] Soledad Valdez, DO 08/18/2024 Clinisync Result Encounter NOMS External Department Unsolicited Soledad Valdez, DO 08/18/2024 Telephone [facility] [address] [place] [address] Soledad Valdez, DO 08/10/2024 Clinisync Result Encounter NOMS External Department Unsolicited Paola Carmichael PA 08/07/2024 Telephone [facility] [address] [facility] [place] [address] [phone] Paola Carmichael PA 08/04/2024 Clinisync Result Encounter NOMS External Department Unsolicited Soledad Valdez, DO 08/03/2024 2:50 PM EDT Routine [facility] [place] [facility] [address] [place] [phone] Paola Carmichael, PA Third trimester ([facility]) (Primary Dx); 33 weeks gestation of ([facility]); Short cervix, antepartum ([facility]) 08/03/2024 2:00 PM EDT Ancillary Procedure [facility] [address] [place] [address] SGA (small for gestational age) ([facility]); Short cervix, antepartum ([facility]) 07/31/2024 Clinisync Result Encounter NOMS External Department Unsolicited Soledad Valdez, DO 07/27/2024 Results Follow-Up [place] [address] Zeinab Ramirez, DOOR CORE ASSEMBLER 07/27/2024 Telephone [place] [address] Zeinab Ramirez, DOOR CORE ASSEMBLER 07/25/2024 11:30 AM EDT Ancillary Procedure [place] [address] 07/25/2024 10:40 AM EDT Routine [facility] [address] [place] [address] Soledad Valdez, 32 weeks gestation of ([facility]); Third trimester ([facility]); SGA (small for gestational age) ([facility]); Short cervix, antepartum ([facility]) 07/25/2024 Bamboo flowsheet [facility] [address] [place] [address] Soledad Valdez, 07/11/2024 2:30 PM EDT Ancillary Procedure [place] [address] Short cervix, antepartum ([facility]); size inconsistent with dates ([facility]) 07/11/2024 Orders Only [facility] [address] [place] [address] Lucille Hahn 07/10/2024 10:20 AM EDT Routine [facility] [address] [facility] [place] [address] Paola Carmcihael PA Third trimester ([facility]); 29 weeks gestation of ([facility]); with normal glucose tolerance test (GTT) ([facility]); size inconsistent with dates ([facility]); Short cervix, antepartum ([facility]) 07/10/2024 Bamboo flowsheet [facility] [address] [place] [address] Paola Carmichael PA 07/07/2024 Telephone [facility] [address] [facility] [place] [address] Ilda Beaver MA from Last 3 [...] oz) 09/04/2024 3:17 P M EDT Height 162.6 cm (5' 4 ) 09/21/2022 2:53 PM EDT Body Mass Index 22.59 09/21/2022 2:53 PM EDT Plan of Treatment [...] BPP W NON-STRESS 09/01/2024 8:59 PM EDT POCT URINALYSIS DIPSTICK Routine 08/29/2024 2:59 PM EDT 37 weeks gestation of ([facility]) Third trimester ([facility]) US OB BPP W NON-STRESS 08/24/2024 12:26 AM EDT US OB BPP W NON-STRESS 08/23/2024 8:46 AM EDT CULTURE, GROUP B STREP WITH SUSCEPTIBLITY Routine 08/22/2024 2:54 PM EDT Third trimester ([facility]) US OB BPP W NON-STRESS 08/18/2024 8:13 PM EDT US OB BPP WO NON-STRESS 08/10/2024 10:42 PM EDT US OB BPP W NON-STRESS 08/04/2024 8:23 AM EDT US OB FOLLOW UP TRANSABDOMINAL APPROACH Routine 08/03/2024 2:50 PM EDT SGA (small for gestational age) ([facility]) US OB BPP W NON-STRESS 07/31/2024 8:00 AM EDT US OB TRANSVAGINAL Routine 07/25/2024 11 :57 AM EDT Short cervix, antepartum ([facility]) US OB FOLLOW UP TRANSABDOMINAL APPROACH Routine 07/11/2024 3:33 PM EDT size inconsistent with dates ([facility]) PAP SMEAR Routine 04/11/2024 12:00 AM EST from Last 3 Months or Most Recently Relevant to Health Maintenance Results * US OB BPP W NON-STRESS (09/01/2024 8:59 PM EDT) Only the most recent of6 resultswithin the time period is included. Anatomical Region Laterality Modality Other 09/01/2024 8:59 PM EDT Narrative 09/01/2024 9:01 [place] [address] Ultrasound Report Signed Patient: MICHELLE GOODE MR#: [id number] : 1990 Acct:[id number] Age/Sex: 34 / F ADM Date: 09/01/24 Loc: US Attending Dr: Soledad Valdez D.O. Ordering Physician: Soledad Valdez D.O. Date of Service: 09/01/24 Procedure(s): US OB BPP w non-stress Accession Number(s): [id number] cc: Soledad Valdez D.O.; Physician,Non-Staff [place]i [place] [address] Patient Name: MICHELLE GOODE MRN: [id number] date: 1990 Sex: F Assigned Patient Location: [facility] Current Patient Location: Accession/Order Number: [id number] Exam Date: 09/01/2024 20:58 Report Date: 09/01/2024 [...] Calhoun M.D. 09/01/2024 8:59 PM Dictation Location: [place] Electronically authenticated by: [id number] Y Date: 09/01/2024 20:59 Dictated By: Gelacio Calhoun D.O. Signed By: 09/01/242100 DD/ 58 TD/TT: Bridge Ironworker Helper: Procedure Note Radiology, Radiologist, - 09/01/2024 [place] [address] Ultrasound Report Signed Patient: MICHELLE GOODE MMR#: [id number] : 1990Acct:[id number] Age/Sex: 34 / FADM Date: 09/01/24 Loc: US Attending Dr: Soledad Valdez D.O. Ordering Physician: Soledad Valdez D.O. Date of Service: 09/01/24 Procedure(s): US OB BPP w non-stress Accession Number(s): [id number] cc: Soledad Valdez D.O.; Physician,Non-Staff Kofi [place] [address] Patient Name: MICHELLE GOODE MRN: [facility]:[id number] date: 1990 Sex: F Assigned Patient Location: [facility] Current Patient Location: Accession/Order Number: [id number] Exam Date: 09/01/2024 20:58 Report Date: 09/01/2024 [...] Calhoun M.D. 09/01/2024 8:59 PM Dictation Location: [place] [address] Electronically authenticated by: [id number] Y Date: 0:59 Dictated By: Gelacio Calhoun D.O. Signed By:09/01/242100 DD/ 58 TD/TT: Bridge Ironworker Helper: [employer] DO [facility] Final Result * (ABNORMAL) POCT urinalysis dipstick manually resulted [...] - Positive Urine 08/29/2024 2:59 PM EDT Soledad José Miguel DO POINT OF CARE TEST ENTER/EDIT OR DERABLES Final Result * CULTURE, GROUP B STREP WITH SUSCEPTIBLITY (08/22/2024 2:54 PM EDT) Swab 08/22/2024 2:54 PM EDT [employer] DO LAB BLOOD ORDERABLES Final Resul t EXTERNAL LAB * US OB BPP WO NON-STRESS (08/10/2024 10:42 PM EDT) Anatomical Region Laterality Modality Other 08/10/2024 10:4 2 PM EDT Narrative 08/10/2024 10:44 PM EDT The [address] [address] Ultrasound Report Signed Patient: MICHELLE GOODE MR#: [id number] : 1990 Acct:[id number] Age/Sex: 34 / F ADM Date: 08/10/24 Loc: [facility]BCO Attending Dr: Paola Carmichael Ordering Physician: Paola Carmichael Date of Service: 08/10/24 Procedure(s): US OB BPP wo non-stress Accession Number(s): [id number] cc: Paola Carmichael; Physician,Non-Staff M.DYumiko The [address] [address] Patient Name: MICHELLE GOODE MRN: [id number] date: 1990 Sex: F Assigned Patient Location: [facility] Current Patient Location: Accession/Order Number: [id number] Exam Date: 08/10/2024 22:41 Report Date: 08/10/2024 [...] Calhoun M.D. 08/10/2024 10:42 PM Dictation Location: [place] [address] Electronically authenticated by: [id number] Y Date: 08/10/2024 22:42 Dictated By: Gelacio Calhoun D.O. Signed By: 08/10/242243 DD/ 41 TD/TT: Bridge Ironworker Helper: Procedure Note Radiology, Radiologist, MD - 08/10/2024 [place] [address] Ultrasound Report Signed Patient: MICHELLE GOODE MMR#: [id number] : 1990Acct:[id number] Age/Sex: 34 / FADM Date: 08/10/24 Loc: FBCO Attending Dr: Paola Carmichael Ordering Physician: Paola Carmichael Date of Service: 08/10/24 Procedure(s): US OB BPP wo non-stress Accession Number(s): [id number] cc: Paola Carmichael; Physician,Non-Staff Kofi [address] [address] Patient Name: MICHELLE GOODE MRN: [id number] date: 1990 Sex: F Assigned Patient Location: [facility] Current Patient Location: Accession/Order Number: [id number] Exam Date: 08/10/2024 22:41 Report Date: 08/10/2024 [...] Calhoun M.D. 08/10/2024 10:42 PM Dictation Location: [place] [address] Electronically authenticated by: [id number] Y Date: 2:42 Dictated By: Gelacio Calhoun D.O. Signed By:08/10/242243 DD/ 41 TD/TT: Bridge Ironworker Helper: us Paola BARRIOS [facility] Final Result [...] cm - Funneling was noted by performing agronomy technician but not well demonstrated on the [...] Cervical funneling was noted by the performing agronomy technician but not well demonstrated on the provided images. The ordering physician was notified. Interpreted by: Electronically signed by RISA AYALA II, MD, PHD at 06-Aug-2024 10:03:36 PM [facility] Procedure Note Risa Ayala MD - [...] length. Cervical funneling was noted by theperforming agronomy technician but not well demonstrated on the provided images.The ordering physician was notified. Interpreted by: Electronically signed by RISA AYALA II, MD, PHD [id number] 10:03:36 PM [facility] us Soledad José Miguel DO IMG [...] II, MD, PHD at 26-Jul-2024 08:00:42 AM [facility] Procedure Note Risa Ayala MD - 07/26/2024 EXAM: US OB TRANSVAGINAL HISTORY: Shortened cervix. COMPARISON: Ob ultrasound 07/11/2024. TECHNIQUE: Two-dimensional transvaginal grayscale ultrasound imaging ofthe cervix was performed. FINDINGS: Presentation: Cephalic Cervical Length: 2.6 cm IMPRESSION: 1. Shortened cervical length measuring 2.6 cm. Interpreted by: Electronically signed by RISA AYALA II, MD, PHD 08:00:42 AM [facility] us Paola BARRIOS IMG OB US PROCEDURES Final Resul t * Pap Smear (04/11/2024 12:00 AM EST) Swab Cervical swab / Unknown us Paola BARRIOS LAB CYTOLOGY ORDERABLES Final Re sult EXTERNAL LAB from Last 3 Months or Most Recently Relevant to Health Maintenance Additional Health Concerns Active Problems Noted Date Diagnosed Date OB Reminders 03/25/2024 Insurance [employer] MEDICA[employer] [facility] Care Teams Fiberglass Boat Builder Relationship Specialty Start Date End Date Soledad Valdez DO [facility] [address] [facility] 11/09/23
--- OUTSIDE RECORDS SUMMARY | 2024-09-06 17:21 | XMS_ITS | Encounter Summary ---
Author Organization [facility] Address [address] [place] [address] Care Team Providers Care Independent Contractor Name Role Phone Eh Valdez DO Unavailable [...] documented as of this encounter Care Teams Independent Contractor Relationship Specialty Start Date End Date Eh Valdez DO [address] [place], [place] [phone] PCP - [facility] 11/09/23 documented as of this encounter
--- OUTSIDE RECORDS SUMMARY | 2024-09-06 17:21 | XMS_ITS | Encounter Summary ---
Author Organization [facility] tem Address [facility] [id number] [address] [place] [address] Care Team Providers Care Chief Medical Technologist Name Role Phone Unavailable Primary Care Provider Unavailabl e Encounter Details Date Type Department Care Team (Late st Contact Info) Description 08/14/2021 Telephone Maternal- Medicine at [facility] [address] [facility] [place] [address] Elva Maier Social History Tobacco Use Types [...]
--- OUTSIDE RECORDS SUMMARY | 2024-09-06 17:21 | XMS_ITS | Encounter Summary ---
Author Organization [facility] Address [address] [place] [address] Care Team Providers Care Oracle Financials Consultant Name Role Phone Eh Valdez DO Unavailable Encounter Details Date Type Department Care Team (Late st Contact Info) Description 03/21/2024 Abstract [facility] [address] [place] [phone] Eh Valdez DO [address] [place], [facility]11 Social [...] on filedocumented in this encounter Care Teams [employer] Consultant Relationship Specialty Start Date End Date Eh Valdez DO [address] [place] [address] PCP - [facility] 11/09/23 documented as of this encounter
--- OUTSIDE RECORDS SUMMARY | 2024-09-06 17:21 | XMS_ITS | Encounter Summary ---
Author Organization [facility] Address [address] [place] [address] Care Team Providers Care Painter Plate Name Role Phone Eh Valdez DO Unavailable Encounter Details Date Type Department Care Team (Late st Contact Info) Description 09/05/2024 Abstract [facility] [address] [place] [address] Eh Valdez DO [address] [place], [facility] Social History Tobacco Use Types Packs/Day [...] documented as of this encounter Care Teams Painter Plate Relationship Specialty Start Date End Date Eh Valdez DO [address] [place], [facility] PCP - [facility] 11/09/23 documented as of this encounter
--- OUTSIDE RECORDS SUMMARY | 2024-09-06 17:21 | XMS_ITS | Encounter Summary ---
Author Organization [facility] Address [address] [place] [address] Care Team Providers Care Marquetry Worker Name Role Phone Eh Valdez DO Unavailable Encounter Details Date Type Department Care Team (Late st Contact Info) Description 08/29/2024 Bamboo flowsheet [facility] [address] [place] [phone] Eh Valdez DO [address] [place], [facility]11 Social History Tobacco Use Types Packs/Day [...] documented as of this encounter Care Teams Marquetry Worker Relationship Specialty Start Date End Date Eh Valdez DO [address] [place] [address] PCP - [facility] 11/09/23 documented as of this encounter
--- OUTSIDE RECORDS SUMMARY | 2024-09-06 17:21 | XMS_ITS | Encounter Summary ---
Author Organization [facility] [employer] [facility] tem Address [id number] [address] [place] [address] Care Team Providers Care Field Technical Support Consultant Name Role Phone Unavailable Primary Care Provider Unavailabl e Encounter Details Date Type Department Care Team (Late st Contact Info) Description 09/08/2021 Telephone Maternal- Medicine at [facility] [address] [facility] [place] [address] Elva Maier Social History Tobacco Use Types [...]
--- OUTSIDE RECORDS SUMMARY | 2024-09-06 17:21 | XMS_ITS | Encounter Summary ---
Author Organization [facility] Address [address] [place] [address] Care Team Providers Care Critical Care Nurse Practitioner Name Role Phone Eh Valdez DO Unavailable Encounter Details Date Type Department Care Team (Late st Contact Info) Description 09/04/2024 Telephone [facility] [address] [place] [address] Eh Valdez DO [address] [place], [facility]11 [...] Telephone Encounter - Katelyn Cadena LPN - 09/04/2024 10:10 AM EDT Patient called the office and she had some questions in regards to her delivery date. Patient states that she was to be induced but changed mind on this and that she would need to see Dr. Patient wasadvised that I can transfer her to clerical to see if they can schedule her with provider either today or tomorrow as she does need to be seen this week. PVU and was transferred to clerical. documented in this encounter Plan of Treatment [...] documented as of this encounter Care Teams Critical Care Nurse Practitioner Relationship Specialty Start Date End Date Eh aVldez DO [address] [place] [address] PCP - [facility] 11/09/23 documented as of this encounter
--- OUTSIDE RECORDS SUMMARY | 2024-09-06 17:21 | XMS_ITS | Encounter Summary ---
Author Organization [facility] Address [address] [place] [address] Care Team Providers Care Data Processing Clerk Name Role Phone Eh Valdez DO Unavailable Encounter Details Date Type Department Care Team (Late st Contact Info) Description 07/27/2024 Results Follow-Up [facility] [address] [place] [address] Zeinab Ramirez LPN [address] [place] [id number] Social History Tobacco Use Types Packs/Day Years [...] documented as of this encounter Care Teams Data Processing Clerk Relationship Specialty Start Date End Date Eh Valdez DO [address] [place], [place] [address] [address] PCP - [facility] 11/09/23 documented as of this encounter
--- OUTSIDE RECORDS SUMMARY | 2024-09-06 17:21 | XMS_ITS | Encounter Summary ---
Author Organization [facility] Address [address] [place] [address] Care Team Providers Care Bit Tripoler Name Role Phone Eh Valdez DO Unavailable Encounter Details Date Type Department Care Team (Late st Contact Info) Description 04/24/2024 Orders Only [facility] [address] [place] [place] [address] Ilda Beaver MA [address] [place] [address] Social History Tobacco Use Types Packs/Day Years [...] documented as of this encounter Care Teams Bit Tripoler Relationship Specialty Start Date End Date Eh Valdez DO [address] [place] [place] [id number] PCP - [facility] 11/09/23 documented as of this encounter
--- OUTSIDE RECORDS SUMMARY | 2024-09-06 17:21 | XMS_ITS | Encounter Summary ---
Author Organization [facility] Address [address] [place] [address] Care Team Providers Care Traffic Control Officer Name Role Phone Eh Valdez DO Unavailable Encounter Details Date Type Department Care Team (Late st Contact Info) Description 08/29/2024 Abstract [facility] [address] [place] [address] Eh Valdez DO [address] [place], [facility]11 Social History Tobacco Use Types [...] documented as of this encounter Care Teams Traffic Control Officer Relationship Specialty Start Date End Date Eh Valdez DO [address] [place], [facility]11 PCP - [facility] 11/09/23 documented as of this encounter
--- OUTSIDE RECORDS SUMMARY | 2024-09-06 17:22 | XMS_ITS | Encounter Summary ---
Author Organization [facility] Address [address] [place] [address] Care Team Providers Care Radio Board Operator Name Role Phone Eh Valdez DO Unavailable Encounter Details Date Type Department Care Team (Late st Contact Info) Description 08/24/2024 Telephone [facility] [address] [place] [address] Zeinab Ramirez LPN [address] [employer] [place] [address] Social History Tobacco Use Types [...] documented as of this encounter Care Teams Radio Board Operator Relationship Specialty Start Date End Date Eh Valdez DO [address] [place] [address] [place] [address] PCP - [facility] 11/09/23 documented as of this encounter
[2024-09-06 17:25] VITALS: BP 127/77; PULSE 104
--- OUTSIDE RECORDS SUMMARY | 2024-09-08 16:46 | XMS_ITS | Encounter Summary ---
Author Organization [facility] Address [address] [place] [address] Care Team Providers Care Controls Technician Name Role Phone Eh Valdez DO Unavailable Encounter Details Date Type Department Care Team (Late st Contact Info) Description 05/04/2024 Abstract [facility] [address] [place] [address] Eh Valdez DO [address] [place], [facility] [...] documented as of this encounter Care Teams Controls Technician Relationship Specialty Start Date End Date Eh Valdez DO [address] [place], [facility]11 PCP - [facility] 11/09/23 documented as of this encounter
--- OUTSIDE RECORDS SUMMARY | 2024-09-08 16:46 | XMS_ITS | Encounter Summary ---
Author Organization [facility] Address [address] [place] [address] Care Team Providers Care Turret Punch Operator Name Role Phone José MiguelEmma luevanoy DO Unavailable Encounter Details Date Type Department Care Team (Late st Contact Info) Description 09/01/2024 Clinisync Result Encounter [facility] External Department Unsolicited Soledad Valdez, [address] [place] [address] Social History Tobacco Use Types [...] PM EDT Narrative 09/01/2024 9:01 [place] [address] Ultrasound Report Signed Patient: MICHELLE GOODE MR#: [id number] : 1990 Acct:[id number] Age/Sex: 34 / F ADM Date: 09/01/24 Loc: US Attending Dr: Soledad Valdez D.O. Ordering Physician: Soledad Valdez D.O. Date of Service: 09/01/24 Procedure(s): US OB BPP w non-stress Accession Number(s): [id number] cc: Soledad Valdez D.O.; Physician,Non-Staff Kofi The [place] [phone] Patient Name: MICHELLE GOODE MRN: [facility]:[id number] date: 1990 Sex: F Assigned Patient Location: [facility] Current Patient Location: Accession/Order Number: [id number] Exam Date: 09/01/2024 20:58 Report Date: 09/01/2024 [...] 09/01/2024 8:59 PM Dictation Location: [place] [address] Electronically authenticated by: [id number] Y Date: 09/01/2024 20:59 Dictated By: Gelacio Calhoun D.O. Signed By: 09/01/242100 DD/ 58 TD/TT: Asphalt Coater: Procedure Note Radiology, Radiologist, - 09/01/[address] [address] Ultrasound Report Signed Patient: MICHELLE GOODE MMR#: [id number] : 1990Acct:[id number] Age/Sex: 34 / FADM Date: 09/01/24 Loc: US Attending Dr: Soledad Valdez D.O. Ordering Physician: Soledad Valdez D.O. Date of Service: 09/01/24 Procedure(s): US OB BPP w non-stress Accession Number(s): [id number] cc: Soledad Valdez D.O.; Physician,Non-Staff Kofi The [place] [id number] Patient Name: MICHELLE GOODE MRN: [facility]:[id number] date: 1990 Sex: F Assigned Patient Location: [facility] Current Patient Location: Accession/Order Number: [id number] Exam Date: 09/01/2024 20:58 Report Date: 09/01/2024 [...] 09/01/2024 8:59 PM Dictation Location: [place] [address] Electronically authenticated by: [id number] Y Date: 0:59 Dictated By: Gelacio Calhoun D.O. Signed By:09/01/242100 DD/ 58 TD/TT: Asphalt Coater: us Soledad Valdez DO [facility] Final Result documented in this encounter Visit Diagnoses Not on filedocumented in this encounter Additional Health Concerns Active Problems Noted Date Diagnosed Date OB Reminders 03/25/2024 documented as of this encounter Care Teams Turret Punch Operator Relationship Specialty Start Date End Date Soledad Valdez DO [address] [place] [address] PCP - [facility] 11/09/23 documented as of this encounter
--- OUTSIDE RECORDS SUMMARY | 2024-09-08 16:46 | XMS_ITS | Encounter Summary ---
Author Organization [facility] Address [address] [place] [address] Care Team Providers Care Machine Shorthand Reporter Name Role Phone Eh Valdez DO Unavailable Encounter Details Date Type Department Care Team (Late st Contact Info) Description 04/17/2024 Abstract [facility] [address] [place] [address] Eh Valdez DO [address], [facility] Social History Tobacco Use Types Packs/Day [...] documented as of this encounter Care Teams Machine Shorthand Reporter Relationship Specialty Start Date End Date Eh Valdez DO [address], [facility] PCP - [facility] 11/09/23 documented as of this encounter
--- OUTSIDE RECORDS SUMMARY | 2024-09-08 16:46 | XMS_ITS | Encounter Summary ---
Author Organization [facility] [employer] [facility] tem Address [id number] [address] [place] [address] Care Team Providers Care Moving Worker Name Role Phone Unavailable Primary Care Provider Unavailabl e Encounter Details Date Type Department Care Team (Late st Contact Info) Description 08/14/2021 Telephone Maternal- Medicine at [facility] [address] [facility] [place] [phone] Elva Maier Social History Tobacco Use Types [...]
--- OUTSIDE RECORDS SUMMARY | 2024-09-08 16:46 | XMS_ITS | Clinical Summary ---
Author Organization [employer] Address [id number] [address] [place] [address] Care Team Providers Care Reinstatement Clerk Name Role Phone Unavailable Primary Care [...] on last me nstrual period of 12/14/2023 Family History Medical History Relation Name Comments [...] Not on file Insurance [employer] [facility]
--- OUTSIDE RECORDS SUMMARY | 2024-09-08 16:46 | XMS_ITS | Encounter Summary ---
Author Organization [facility] Address [address] [place] [address] Care Team Providers Care Long Wall Mining Machine Helper Name Role Phone Eh Valdez DO Unavailable Encounter Details Date Type Department Care Team (Late st Contact Info) Description 03/21/2024 Abstract [facility] [address] [place] [address] Eh Valdez DO [address], [facility] [...] on filedocumented in this encounter Care Teams Long Wall Mining Machine Helper Relationship Specialty Start Date End Date Eh Valdez DO [address] [place] [address] PCP - [facility] 11/09/23 documented as of this encounter
--- OUTSIDE RECORDS SUMMARY | 2024-09-08 16:46 | XMS_ITS | Encounter Summary ---
Author Organization [facility] Address [address] [place] [address] Care Team Providers Care Adult Family Home Program Manager Name Role Phone Eh Valdez DO Unavailable Encounter Details Date Type Department Care Team (Late st Contact Info) Description 09/05/2024 Telephone [facility] [address] [place] [address] Eh Valdez DO [address] [place] [place], [facility]11 Social History Tobacco [...] Miscellaneous Notes * Telephone Encounter - Katelyn ERNIE Cadena - 09/05/2024 3:49 PM EDT [...] documented as of this encounter Care Teams Adult Family Home Program Manager Relationship Specialty Start Date End Date Eh Valdez DO [address] [place], [place] [address]b[place] [address] PCP - [facility] 11/09/23 documented as of this encounter
--- OUTSIDE RECORDS SUMMARY | 2024-09-08 16:46 | XMS_ITS | Encounter Summary ---
Author Organization [facility] Address [address] [place] [address] Care Team Providers Care Supervisor Painting Name Role Phone Eh Valdez DO Unavailable Encounter Details Date Type Department Care Team (Late st Contact Info) Description 09/05/2024 Abstract [facility] [address] [place] [address] Eh Valdez DO [address], [facility]11 Social History Tobacco Use Types Packs/Day [...] documented as of this encounter Care Teams Supervisor Painting Relationship Specialty Start Date End Date Eh Valdez DO [address], [facility]11 PCP - [facility] 11/09/23 documented as of this encounter
--- OUTSIDE RECORDS SUMMARY | 2024-09-08 16:46 | XMS_ITS | Encounter Summary ---
Author Organization [facility] Address [address] [place] [address] Care Team Providers Care Fitness Manager Name Role Phone José MiguelEmma luevanoy DO Unavailable Encounter Details Date Type Department Care Team (Late st Contact Info) Description 02/24/2024 Clinisync Result Encounter [facility]OMS External Department Unsolicited Soledad Valdez, [address] [place] [address] Social History Tobacco Use Types [...] EST Narrative 02/24/2024 2:57 PM EST The [address] [address] Ultrasound Report Signed Patient: MICHELLE GOODE MR#: [id number] : 1990 Acct:[id number] Age/Sex: 33 / F ADM Date: 02/24/24 Loc: US Attending Dr: Soledad Valdez D.O. Ordering Physician: Soledad Valdez D.O. Date of Service: 02/24/24 Procedure(s): US OB transvaginal Accession Number(s): [id number] cc: Soledad Valdez D.O.; Physician,Non-Staff Kofi The [place] [address] Patient Name: MICHELLE GOODE MRN: [facility]:[id number] date: 1990 Sex: F Assigned Patient Location: US Current Patient Location: US Accession/Order Number: [id number] Exam Date: 02/24/2024 14:17 Report Date: 02/24/2024 [...] Signed By: 02/24/24 1457 DD/ 54 TD/TT: Pearl Hand: Procedure Note Radiology, Radiologist, - 02/24/2024 The [place] [id number] Ultrasound Report Signed Patient: MICHELLE GOODE MMR#: [id number] : 1990Acct:[id number] Age/Sex: 33 / FADM Date: 02/24/24 Loc: US Attending Dr: Soledad Valdez D.O. Ordering Physician: Soledad Valdez D.O. Date of Service: 02/24/24 Procedure(s): US OB transvaginal Accession Number(s): [id number] cc: Soledad Valdez D.O.; Physician,Non-Staff Kofi [place] [address] Patient Name: MICHELLE GOODE MRN: [id number]:[id number] date: 1990 Sex: F Assigned Patient Location: US Current Patient Location: US Accession/Order Number: [id number] Exam Date: 02/24/2024 14:17 Report Date: 02/24/2024 [...] M.D. Signed By:02/24/24 1457 DD/ 1455 TD/TT: Pearl Hand: us Soledad Valdez DO [facility] Final Result documented in this encounter Visit Diagnoses Not on filedocumented in this encounter Care Teams Fitness Manager Relationship Specialty Start Date End Date Soledad Valdez DO [address] [place] [address] PCP - [facility] 11/09/23 documented as of this encounter
--- OUTSIDE RECORDS SUMMARY | 2024-09-08 16:46 | XMS_ITS | Encounter Summary ---
Author Organization [facility] Address [address] [place] [address] Care Team Providers Care Sanitary Inspector Name Role Phone Eh Valdez DO Unavailable Encounter Details Date Type Department Care Team (Late st Contact Info) Description 09/04/2024 Telephone [facility] [address] [place] [address] Eh Valdez DO [address] [place], [facility] [...] documented as of this encounter Care Teams Sanitary Inspector Relationship Specialty Start Date End Date Eh Valdez DO [address] [place] [address] PCP - [facility] 11/09/23 documented as of this encounter
--- OUTSIDE RECORDS SUMMARY | 2024-09-08 16:46 | XMS_ITS | Encounter Summary ---
Author Organization [facility] Address [address] [place] [address] Care Team Providers Care Inventory Coordinator Name Role Phone Eh Valdez DO Unavailable Encounter Details Date Type Department Care Team (Late st Contact Info) Description 04/24/2024 Orders Only [facility] [address] [place] [address] Ilda Beaver MA [address] [place] [address] Social History Tobacco Use Types Packs/Day Years [...] documented as of this encounter Care Teams Inventory Coordinator Relationship Specialty Start Date End Date Eh Valdez DO [address] [place] [phone] PCP - [facility] 11/09/23 documented as of this encounter
--- OUTSIDE RECORDS SUMMARY | 2024-09-08 16:46 | XMS_ITS | Encounter Summary ---
Author Organization [facility] Address [address] [place] [address] Care Team Providers Care Control Integration Engineer Name Role Phone Eh Valdez DO Unavailable Encounter Details Date Type Department Care Team (Late st Contact Info) Description 08/29/2024 Bamboo flowsheet [facility] [address] [place] [phone] Eh Valdez DO [address], [facility]11 Social History Tobacco Use Types Packs/Day [...] documented as of this encounter Care Teams Control Integration Engineer Relationship Specialty Start Date End Date Eh Valdez DO [address] [place] [address] PCP - [facility] 11/09/23 documented as of this encounter
--- OUTSIDE RECORDS SUMMARY | 2024-09-08 16:46 | XMS_ITS | Clinical Summary ---
Author Organization [facility] Address [address] [place] [address] Care Team Providers Care Suture Gauger Name Role Phone Soledad Valdez DO Unavailable [...] and 300 mg before bedtime. 5 Active Irvjkfoc-Xax-R A ([facility]) 0.4 MG chewable tabletIndicati ons:Second trimester ([facility]) Chew 1 tablet Daily 30 tablet 11 [...] [place] [address] Soledad Valdez, Third trimester ([facility]); 37 weeks gestation of ([facility]) 09/04/20[place] [address] Soledad Valdez, 09/01/2024 Clinisync Result Encounter NOM[facility] External Department Unsolicited Soledad Valdez, DO 08/29/2024 2:30 PM EDT Routine [place] [address] Soledad Valdez, 37 weeks gestation of ([facility]); Third trimester ([facility]); Short cervix, antepartum ([facility]); SGA (small for gestational age) ([facility]); Poor growth affecting management of mother, antepartum, single or unspecified fetus ([facility]) 08/29/2024 [place] [address] Soledad Valdez, DO 08/29/2024 Bamboo flowsheet [facility] [address] [place] [address] Soledad Valdez, DO 08/24/2024 [place] [address] Zeinab Ramirez, LOOPING INSPECTOR 08/24/2024 Clinisync Result Encounter NOMS External Department Unsolicited Soledad Valdez, DO 08/23/2024 Telephone [facility] [address] [facility] [phone] Zeinab Ramirez, LOOPING INSPECTOR 08/23/2024 Clinisync Result Encounter NOMS External Department Unsolicited Soledad Valdez, DO 08/22/2024 2:10 PM EDT Routine [facility] [address] [place] [phone] Soledad Valdez, DO Third trimester ([facility]); 36 weeks gestation of ([facility]) 08/22/2024 Bamboo flowsheet [facility] [place] [facility] [address] [facility] [address] Soledad Valdez, DO 08/18/2024 Clinisync Result Encounter NOMS External Department Unsolicited Soledad Valdez, DO 08/18/2024 Telephone [facility] [address] [facility] [phone] Soledad Valdez, DO 08/10/2024 Clinisync Result Encounter NOMS External Department Unsolicited Paola Carmichael PA 08/07/2024 Telephone [facility] [place] [facility] [address] [facility] [phone] Paola Carmichael PA 08/04/2024 Clinisync Result Encounter NOMS External Department Unsolicited Soledad Valdez, DO 08/03/2024 2:50 PM EDT Routine [facility] [address] [place] [phone] Paola Carmichael, PA Third trimester ([facility]) (Primary Dx); 33 weeks gestation of ([facility]); Short cervix, antepartum ([facility]) 08/03/2024 2:00 PM EDT Ancillary Procedure [facility] [place] [facility] [address] [place] [address] SGA (small for gestational age) ([facility]); Short cervix, antepartum ([facility]) 07/31/2024 Clinisync Result Encounter NOMS External Department Unsolicited Soledad Valdez, DO 07/27/2024 Results Follow-Up [place] [address] Zeinab Ramirez, LOOPING INSPECTOR 07/27/2024 Telephone [place] [address] Zeinab Ramirez, LOOPING INSPECTOR 07/25/2024 11:30 AM EDT Ancillary Procedure [place] [address] 07/25/2024 10:40 AM EDT Routine [facility] [address] [place] [address] Soledad Valdez, 32 weeks gestation of ([facility]); Third trimester ([facility]); SGA (small for gestational age) ([facility]); Short cervix, antepartum ([facility]) 07/25/2024 Bamboo flowsheet [facility] [address] [place] [address] Soledad Valdez, 07/11/2024 2:30 PM EDT Ancillary Procedure [place] [address] Short cervix, antepartum ([facility]); size inconsistent with dates ([facility]) 07/11/2024 Orders Only [facility] [address] [place] [address] Lucille Hahn 07/10/2024 10:20 AM EDT Routine [facility] [address] [facility] [address] Paola Carmichael PA Third trimester ([facility]); 29 weeks gestation of ([facility]); with normal glucose tolerance test (GTT) ([facility]); size inconsistent with dates ([facility]); Short cervix, antepartum ([facility]) 07/10/2024 Bamboo flowsheet [facility] [address] [place] [address] Paola Carmichael PA 07/07/2024 Telephone [facility] [address] [facility] [address] Ilda Beaver MA [...] 2:59 PM EDT 37 weeks gestation of ([facility]) Third trimester ([facility]) US OB BPP W NON-STRESS 08/24/2024 12:26 AM EDT US OB BPP W NON-STRESS 08/23/2024 8:46 AM EDT CULTURE, GROUP B STREP WITH SUSCEPTIBLITY Routine 08/22/2024 2:54 PM EDT Third trimester ([facility]) US OB BPP W NON-STRESS 08/18/2024 8:13 PM EDT US OB BPP WO NON-STRESS 08/10/2024 10:42 PM EDT US OB BPP W NON-STRESS 08/04/2024 8:23 AM EDT US OB FOLLOW UP TRANSABDOMINAL APPROACH Routine 08/03/2024 2:50 PM EDT SGA (small for gestational age) ([facility]) US OB BPP W NON-STRESS 07/31/2024 8:00 AM EDT US OB TRANSVAGINAL Routine 07/25/2024 11 :57 AM EDT Short cervix, antepartum ([facility]) US OB FOLLOW UP TRANSABDOMINAL APPROACH Routine 07/11/2024 3:33 PM EDT size inconsistent with dates ([facility]) PAP SMEAR Routine 04/11/2024 12:00 AM EST from Last 3 Months or Most Recently Relevant to Health Maintenance Results * US OB BPP W NON-STRESS (09/01/2024 8:59 PM EDT) Only the most recent of6 resultswithin the time period is included. Anatomical Region Laterality Modality Other 09/01/2024 8:59 PM EDT Narrative 09/01/2024 9:01 [place] [address] Ultrasound Report Signed Patient: MICHELLE GOODE MR#: [id number] : 1990 Acct:[id number] Age/Sex: 34 / F ADM Date: 09/01/24 Loc: US Attending Dr: Soledad Valdez D.O. Ordering Physician: Soledad Valdez D.O. Date of Service: 09/01/24 Procedure(s): US OB BPP w non-stress Accession Number(s): [id number] cc: Soledad Valdez D.O.; Physician,Non-Staff Kofi [place] [address] Patient Name: MICHELLE GOODE MRN: [id number] date: 1990 Sex: F Assigned Patient Location: [facility] Current Patient Location: Accession/Order Number: [id number] Exam Date: 09/01/2024 20:58 Report Date: 09/01/2024 [...] Calhoun M.D. 09/01/2024 8:59 PM Dictation Location: [employer] Electronically authenticated by: [id number] Y Date: 09/01/2024 20:59 Dictated By: Gelacio Calhoun D.O. Signed By: 09/01/242100 DD/ 58 TD/TT: Abstract Manager: Procedure Note Radiology, Radiologist, - 09/01/2024 [place] [address] Ultrasound Report Signed Patient: MICHELLE GOODE MMR#: [id number] : 1990Acct:[id number] Age/Sex: 34 / FADM Date: 09/01/24 Loc: US Attending Dr: Soledad Valdez D.O. Ordering Physician: Soledad Valdez D.O. Date of Service: 09/01/24 Procedure(s): US OB BPP w non-stress Accession Number(s): [id number] cc: Soledad Valdez D.O.; Physician,Non-Staff Kofi The [place] [address] Patient Name: MICHELLE GOODE MRN: [facility]:[id number] date: 1990 Sex: F Assigned Patient Location: [facility] Current Patient Location: Accession/Order Number: [id number] Exam Date: 09/01/2024 20:58 Report Date: 09/01/2024 [...] Calhoun M.D. 09/01/2024 8:59 PM Dictation Location: [place] [address] Electronically authenticated by: [id number] Y Date: 0:59 Dictated By: Gelacio Calhoun D.O. Signed By:09/01/242100 DD/ 58 TD/TT: Abstract Manager: Squirrlyzio DO [facility] Final Result * (ABNORMAL) [...] PM EDT) Swab 08/22/2024 2:54 PM EDT Squirrlyzio DO LAB BLOOD ORDERABLES Final Resul t EXTERNAL LAB * US OB BPP WO NON-STRESS (08/10/2024 10:42 PM EDT) Anatomical Region Laterality Modality Other 08/10/2024 10:4 2 PM EDT Narrative 08/10/2024 10:44 PM EDT The [address] [address] Ultrasound Report Signed Patient: MICHELLE GOODE MR#: [id number] : 1990 Acct:[id number] Age/Sex: 34 / F ADM Date: 08/10/24 Loc: FBCO Attending Dr: Paola Carmichael Ordering Physician: Paola Carmichael Date of Service: 08/10/24 Procedure(s): US OB BPP wo non-stress Accession Number(s): [id number] cc: Paola Carmichael; Physician,Non-Staff M.DYumiko The [address] [address] Patient Name: MICHELLE GOODE MRN: [id number] date: 1990 Sex: F Assigned Patient Location: [facility] Current Patient Location: Accession/Order Number: [id number] Exam Date: 08/10/2024 22:41 Report Date: 08/10/2024 [...] Calhoun M.D. 08/10/2024 10:42 PM Dictation Location: [place] [address] Electronically authenticated by: [id number] Y Date: 08/10/2024 22:42 Dictated By: Gelacio Calhoun D.O. Signed By: 08/10/242243 DD/ 41 TD/TT: Abstract Manager: Procedure Note Radiology, Radiologist, MD - 08/10/2024 [place] [address] Ultrasound Report Signed Patient: MICHELLE GOODE MMR#: [id number] : 1990Acct:[id number] Age/Sex: 34 / FADM Date: 08/10/24 Loc: FBCO Attending Dr: Paola Carmichael Ordering Physician: Paola Carmichael Date of Service: 08/10/24 Procedure(s): US OB BPP wo non-stress Accession Number(s): [id number] cc: Paola Carmichael; Physician,Non-Staff Kofi [address] [address] Patient Name: MICHELLE GOODE MRN: [id number] date: 1990 Sex: F Assigned Patient Location: [facility] Current Patient Location: Accession/Order Number: [id number] Exam Date: 08/10/2024 22:41 Report Date: 08/10/2024 [...] Calhoun M.D. 08/10/2024 10:42 PM Dictation Location: [place] [address] Electronically authenticated by: [id number] Y Date: 2:42 Dictated By: Gelacio Calhoun D.O. Signed By:08/10/242243 DD/ 41 TD/TT: Abstract Manager: us Paola BARRIOS [facility] Final Result [...] cm - Funneling was noted by performing oscillograph technician but not well demonstrated on the [...] Cervical funneling was noted by the performing oscillograph technician but not well demonstrated on the provided images. The ordering physician was notified. Interpreted by: Electronically signed by RISA AYALA II, MD, PHD at 06-Aug-2024 10:03:36 PM [facility] Procedure Note Risa Ayala MD - [...] length. Cervical funneling was noted by theperforming oscillograph technician but not well demonstrated on the provided images.The ordering physician was notified. Interpreted by: Electronically signed by RISA AYALA II, MD, PHD [id number] 10:03:36 PM [facility] us Soledad José Miguel DO IMG [...] II, MD, PHD at 26-Jul-2024 08:00:42 AM [facility] Procedure Note Risa [place] MD - 07/26/2024 EXAM: US OB TRANSVAGINAL HISTORY: Shortened cervix. COMPARISON: Ob ultrasound 07/11/2024. TECHNIQUE: Two-dimensional transvaginal grayscale ultrasound imaging ofthe cervix was performed. FINDINGS: Presentation: Cephalic Cervical Length: 2.6 cm IMPRESSION: 1. Shortened cervical length measuring 2.6 cm. Interpreted by: Electronically signed by RISA AYALA II, MD, PHD 08:00:42 AM [facility] us Paola BARRIOS IMG OB US PROCEDURES Final Resul t * Pap Smear (04/11/2024 12:00 AM EST) Swab Cervical swab / Unknown us Paola BARRIOS LAB CYTOLOGY ORDERABLES Final Re sult EXTERNAL LAB from Last 3 Months or Most Recently Relevant to Health Maintenance Additional Health Concerns Active Problems Noted Date Diagnosed Date OB Reminders 03/25/[address] [facility] Care Teams Suture Gauger Relationship Specialty Start Date End Date Soledad Valdez DO [facility] [place] [address] [facility] 11/09/23
--- OUTSIDE RECORDS SUMMARY | 2024-09-08 16:46 | XMS_ITS | Encounter Summary ---
Author Organization [facility] Address [address] [place] [address] Care Team Providers Care Vessel Builder Name Role Phone Eh Valdez DO Unavailable Encounter Details Date Type Department Care Team (Late st Contact Info) Description 07/27/2024 Results Follow-Up [facility] Kurt LOPEZ [address] [place] [address] Zeinab Ramirez LPN [address] [place] [id number] Social History Tobacco Use Types Packs/Day Years [...] Notes * Result Encounter Note - Zeinab aRmirez LPN - 07/27/2024 2:33 PM EDT Pt [...] as of this encounter Care Teams Vessel Builder Relationship Specialty Start Date End Date Eh Valdez DO [address] [place], [place] [address]b[place] [address] PCP - [facility] 11/09/23 documented as of this encounter
--- OUTSIDE RECORDS SUMMARY | 2024-09-08 16:46 | XMS_ITS | Encounter Summary ---
Author Organization [facility] [employer] Formerly [facility] tem Address [id number] [address] [place] [address] Care Team Providers Care Behavioral Health Associate Name Role Phone Unavailable Primary Care Provider Unavailabl e Encounter Details Date Type Department Care Team (Late st Contact Info) Description 09/08/2021 Telephone Maternal- Medicine at [facility] [address] [facility] [facility] [place] [address] Elva Maier Social History Tobacco Use Types [...]
--- OUTSIDE RECORDS SUMMARY | 2024-09-08 16:46 | XMS_ITS | Encounter Summary ---
Author Organization [facility] Address [address] [place] [address] Care Team Providers Care [place]anau Support Worker Name Role Phone Eh Valdez DO Unavailable Encounter Details Date Type Department Care Team (Late st Contact Info) Description 08/29/2024 Abstract [facility] [address] [place] [address] Eh Valdez DO [address] [place], [facility] Social History Tobacco Use Types Packs/Day Years [...] documented as of this encounter Care Teams [place]anau Support Worker Relationship Specialty Start Date End Date Eh Valdez DO [address], [facility] PCP - [facility] 11/09/23 documented as of this encounter
--- OUTSIDE RECORDS SUMMARY | 2024-09-08 16:46 | XMS_ITS | Encounter Summary ---
Author Organization [facility] Address [address] [place] [address] Care Team Providers Care Metal Plater Name Role Phone Eh Valdez DO Unavailable Encounter Details Date Type Department Care Team (Late st Contact Info) Description 07/11/2024 Orders Only [facility] [address] [place] [address] Lucille Hahn Social History Tobacco Use [...] documented as of this encounter Care Teams Metal Plater Relationship Specialty Start Date End Date Eh Valdez DO [address] [place], [place] [phone] PCP - [facility] 11/09/23 documented as of this encounter
== END 2024-09-06 17:57 | disposition home or self-care (01) ==
LOC: FBC 17:45 → FBCO 09-08 16:42
PROVIDERS: Visit Provider Obstetrics & Gynecology
DX: O36.5930 Maternal care for other known or suspected poor fetal growth, third trimester, not applicable or unspecified (principal); Z3A.38 38 weeks gestation of pregnancy
CPT/HCPCS: 59025

== ENCOUNTER 2024-09-09 14:40 | Outpatient (OUT) | payer OTHER, BC, SELFPAY ==
--- OUTSIDE RECORDS SUMMARY | 2024-09-04 15:00 | XMS_ITS | Encounter Summary ---
Author Organization [facility] Address [address] [place] [address] Care Team Providers Care Plastic Roller Name Role Phone Eh Valdez DO Unavailable Reason for Visit * Reason Comments membrane sweep Encounter Details Date Type Department Care Team ([facility] Contact Info) Description 09/04/2024 3:00 PM EDT Routine [facility] [address] [place] [address] Eh aVldez DO [address] [facility] [address] [place], [place] [id number] Third trimester ([facility]); 37 weeks gestation of ([facility]) Social History Tobacco Use Types Packs/Day Years [...] cefdinir (OMNICEF) 300 mg, 2 times daily Isoiukzz-Msi-VD ([facility]) 0.4 MG chewable tablet 1 tablet, Oral, Daily ALLERGIES Allergies Allergen Reactions Penicillins Hives, Fever, Itching, Rash, Swelling and Wheezing PROBLEMS Active Ambulatory Problems Diagnosis Date Noted GERD (gastroesophageal reflux disease) 08/09/2007 Exacerbation of asthma ([facility]) 08/09/2007 Attention deficit hyperactivity disorder 08/09/2007 Allergic rhinitis 08/09/2007 Substance abuse ([facility]) 09/15/2022 Resolved Ambulatory Problems Diagnosis Date Noted No Resolved Ambulatory Problems Past Medical History: Diagnosis Date Allergies Anxiety Asthma ([facility]) Bee sting Miscarriage ([facility]) Pelvic pain 2010 Syncope Thoracic sprain HISTORY PAST MEDICAL HISTORY SOCIAL HISTORY Past Medical History: Diagnosis Date Allergies Anxiety Asthma ([facility]) Bee sting right ring finger Miscarriage ([facility]) 8-9 weeks Pelvic pain 2010 Syncope Thoracic [...] nursing note reviewed. Exam conducted with a envelope fold operator present. Vitals: Estimated body mass index is 22.59 kg/m?? as calculated from the following: Height as of 09/21/22: 5' 4 . Weight as of this encounter: 131 lb 9.6 oz. BP: 106/70 Patient's last menstrual period was 12/14/2023. ASSESSMENT & PLAN (Z34.93) Third trimester ([facility]) (Z3A.37) 37 weeks gestation of ([facility]) Patient presents today for a routine obstetrics appointment. Patient is currently 37w6d with a Estimated Date of Delivery: 09/19/24. Patient would like to have IOL this Wednesday at 7am. Patient to return to clinic 6 weeks post . [facility] will be notified of change [...] this encounter Visit Diagnoses Diagnosis Third trimester ([facility]) state, incidental 37 weeks gestation of ([facility]) documented in this encounter Additional Health Concerns Active Problems Noted Date Diagnosed Date OB Reminders 03/25/2024 documented as of this encounter Care Teams Plastic Roller Relationship Specialty Start Date End Date Eh Valdez DO [address] [place] [address] PCP - [facility] 11/09/23 documented as of this encounter
--- NOTE | 2024-09-09 14:45 | US_ITS ---
[place] [id number] Patient Name: SIDDHARTHA BENITO MRN: [id number] date: 1990 Sex: F Assigned Patient Location: [facility] Current Patient Location: [facility] Accession/Order Number: [id number] Exam Date: 09/09/2024 19:55 Report Date: 09/09/2024 19:57 At the request of: ERIK CROSS MD Procedure: US OB BPP w non-stress US OB BPP w non-stress 09/09/2024 3:18 PM SIGNS AND SYMPTOMS: ^U ^SGA ^Y PROTOCOL: Transabdominal imaging of the gravid uterus COMPARISON: None FINDINGS: heart rate is 114 bpm Amniotic fluid index: 10.57 cm Deeper surgical pocket of amniotic fluid: 4.03 cm Estimated gestational age 38 weeks 4 days Biophysical profile: breathing movements: 2/2 Gross body movements: 2/2 tone: 2/2 Amniotic fluid volume: 2/2 US/US OB BPP w non-stress IMPRESSION: Biophysical profile: 09/15 Impression dictated by: Abundio Powers M.D. 09/09/2024 7:57 PM Dictation Location: [place] [address] Electronically authenticated by: [id number] Y Date: 09/09/2024 19:57
--- OUTSIDE RECORDS SUMMARY | 2024-09-09 14:45 | XMS_ITS | Clinical Summary ---
Author Organization [facility] Address [address] [place] [address] Care Team Providers Care Parts Processor Name Role Phone Soledad Valdez DO Unavailable [...] and 300 mg before bedtime. 5 Active Hcibwgxi-Ilp-L A ([facility]) 0.4 MG chewable tabletIndicati ons:Second trimester ([facility]) Chew 1 tablet Daily 30 tablet [...] Team Description 09/05/2024 [place] [address] Soledad Valdez, DO 09/05/2024 [place] [address] Soledad Valdez, DO 09/04/2024 3:00 PM EDT Routine [place] [address] Soledad Valdez, Third trimester ([facility]); 37 weeks gestation of ([facility]) 09/04/2024 [place] [address] Soledad Valdez, 09/01/2024 Clinisync Result Encounter NOMS External Department Unsolicited Soledad Valdez, DO 08/29/2024 2:30 PM EDT Routine [place] [address] Soledad Valdez, 37 weeks gestation of ([facility]); Third trimester ([facility]); Short cervix, antepartum ([facility]); SGA (small for gestational age) ([facility]); Poor growth affecting management of mother, antepartum, single or unspecified fetus ([facility]) 08/29/2024 [place] [address] Soledad Valdez, DO 08/29/2024 Bamboo flowsheet [facility] [address] [place] [address] Soledad Valdez, DO 08/24/2024 [place] [address] Zeinab Ramirez, CONDUCTOR/ENGINEER 08/24/2024 Clinisync Result Encounter NOMS External Department Unsolicited Soledad Valdez, DO 08/23/2024 Telephone [facility] [address] [facility] [address] Zeinab Ramirez, CONDUCTOR/ENGINEER 08/23/2024 Clinisync Result Encounter NOMS External Department Unsolicited Soledad Valdez, DO 08/22/2024 2:10 PM EDT Routine [facility] [address] [place] [address] Soledad Valdez, DO Third trimester ([facility]); 36 weeks gestation of ([facility]) 08/22/2024 Bamboo flowsheet [facility] [place] [facility] [address] [facility] [address] Soledad Valdez, DO 08/18/2024 Clinisync Result Encounter NOMS External Department Unsolicited Soledad Vadlez, DO 08/18/2024 Telephone [facility] [address] [facility] [address] Soledad Valdez, DO 08/10/2024 Clinisync Result Encounter NOMS External Department Unsolicited Paola Carmichael PA 08/07/2024 Telephone [facility] [place] [facility] [address] [facility] [address] [phone] Paola Carmichael PA 08/04/2024 Clinisync Result Encounter NOMS External Department Unsolicited Soledad Valdez, DO 08/03/2024 2:50 PM EDT Routine [facility] [address] [place] [phone] Paola Carmichael, PA Third trimester ([facility]) (Primary Dx); 33 weeks gestation of ([facility]); Short cervix, antepartum ([facility]) 08/03/2024 2:00 PM EDT Ancillary Procedure [facility] [place] [facility] [address] [place] [address] SGA (small for gestational age) ([facility]); Short cervix, antepartum ([facility]) 07/31/2024 Clinisync Result Encounter NOMS External Department Unsolicited Soledad Valdez, DO 07/27/2024 Results Follow-Up [place] [address] Zeinab Ramirez, CONDUCTOR/ENGINEER 07/27/2024 Telephone [place] [address] Zeinab Ramirez, CONDUCTOR/ENGINEER 07/25/2024 11:30 AM EDT Ancillary Procedure [place] [address] 07/25/2024 10:40 AM EDT Routine [facility] [address] [place] [address] Soledad Valdez, 32 weeks gestation of ([facility]); Third trimester ([facility]); SGA (small for gestational age) ([facility]); Short cervix, antepartum ([facility]) 07/25/2024 Bamboo flowsheet [facility] [address] [place] [address] Soledad Valdez, 07/11/2024 2:30 PM EDT Ancillary Procedure [place] [address] Short cervix, antepartum ([facility]); size inconsistent with dates ([facility]) 07/11/2024 Orders Only [facility] [address] [place] [address] Lucille Hahn 07/10/2024 10:20 AM EDT Routine [facility] [address] [facility] [place] [address] Paola Carmichael PA Third trimester ([facility]); 29 weeks gestation of ([facility]); with normal glucose tolerance test (GTT) ([facility]); size inconsistent with dates ([facility]); Short cervix, antepartum ([facility]) 07/10/2024 Bamboo flowsheet [facility] [address] [place] [address] Paola Carmichael PA 07/07/2024 Telephone [facility] [address] [facility] [place] [address] Ilad Beaver MA from Last 3 Months Family [...] 2:59 PM EDT 37 weeks gestation of ([facility]) Third trimester ([facility]) US OB BPP W NON-STRESS 08/24/2024 12:26 AM EDT US OB BPP W NON-STRESS 08/23/2024 8:46 AM EDT CULTURE, GROUP B STREP WITH SUSCEPTIBLITY Routine 08/22/2024 2:54 PM EDT Third trimester ([facility]) US OB BPP W NON-STRESS 08/18/2024 8:13 PM EDT US OB BPP WO NON-STRESS 08/10/2024 10:42 PM EDT US OB BPP W NON-STRESS 08/04/2024 8:23 AM EDT US OB FOLLOW UP TRANSABDOMINAL APPROACH Routine 08/03/2024 2:50 PM EDT SGA (small for gestational age) ([facility]) US OB BPP W NON-STRESS 07/31/2024 8:00 AM EDT US OB TRANSVAGINAL Routine 07/25/2024 11 :57 AM EDT Short cervix, antepartum ([facility]) US OB FOLLOW UP TRANSABDOMINAL APPROACH Routine 07/11/2024 3:33 PM EDT size inconsistent with dates ([facility]) PAP SMEAR Routine 04/11/2024 12:00 AM EST from Last 3 Months or Most Recently Relevant to Health Maintenance Results * US OB BPP W NON-STRESS (09/01/2024 8:59 PM EDT) Only the most recent of6 resultswithin the time period is included. Anatomical Region Laterality Modality Other 09/01/2024 8:59 PM EDT Narrative 09/01/2024 9:01 [place] [address] Ultrasound Report Signed Patient: MICHELLE GOODE MR#: [id number] : 1990 Acct:[id number] Age/Sex: 34 / F ADM Date: 09/01/24 Loc: US Attending Dr: Soledad Valdze D.O. Ordering Physician: Soledad Valdez D.O. Date of Service: 09/01/24 Procedure(s): US OB BPP w non-stress Accession Number(s): [id number] cc: Soledad Valdez D.O.; Physician,Non-Staff Kofi [place] [address] Patient Name: MICHELLE GOODE MRN: [facility]:[id number] date: 1990 Sex: F Assigned Patient Location: [facility] Current Patient Location: Accession/Order Number: [id number] Exam Date: 09/01/2024 20:58 Report Date: 09/01/2024 [...] Calhoun M.D. 09/01/2024 8:59 PM Dictation Location: [place] Electronically authenticated by: [id number] Y Date: 09/01/2024 20:59 Dictated By: Gelacio Calhoun D.O. Signed By: 09/01/242100 DD/ 58 TD/TT: District Service Manager: Procedure Note Radiology, Radiologist, - 09/01/2024 [place] [address] Ultrasound Report Signed Patient: MICHELLE GOODE MMR#: [id number] : 1990Acct:[id number] Age/Sex: 34 / FADM Date: 09/01/24 Loc: US Attending Dr: Soledad Valdez D.O. Ordering Physician: Soledad Valdez D.O. Date of Service: 09/01/24 Procedure(s): US OB BPP w non-stress Accession Number(s): [id number] cc: Soledad Valdez D.O.; Physician,Non-Staff Kofi The [place] [address] Patient Name: MICHELLE GOODE MRN: [facility]:[id number] date: 1990 Sex: F Assigned Patient Location: [facility] Current Patient Location: Accession/Order Number: [id number] Exam Date: 09/01/2024 20:58 Report Date: 09/01/2024 [...] Calhoun M.D. 09/01/2024 8:59 PM Dictation Location: [place] [address] Electronically authenticated by: [id number] Y Date: 0:59 Dictated By: Gelacio Calhoun D.O. Signed By:09/01/242100 DD/ 58 TD/TT: District Service Manager: [facility] DO [facility] Final Result * (ABNORMAL) [...] PM EDT) Swab 08/22/2024 2:54 PM EDT Message[employer]io DO LAB BLOOD ORDERABLES Final Resul t EXTERNAL LAB * US OB BPP WO NON-STRESS (08/10/2024 10:42 PM EDT) Anatomical Region Laterality Modality Other 08/10/2024 10:4 2 PM EDT Narrative 08/10/2024 10:44 PM EDT The [address] [address] Ultrasound Report Signed Patient: MICHELLE GOODE MR#: [id number] : 1990 Acct:[id number] Age/Sex: 34 / F ADM Date: 08/10/24 Loc: FBCO Attending Dr: Paola Carmichael Ordering Physician: Paola Carmichael Date of Service: 08/10/24 Procedure(s): US OB BPP wo non-stress Accession Number(s): [id number] cc: Paola Carmichael; Physician,Non-Staff M.DYumiko The [address] [address] Patient Name: MICHELLE GOODE MRN: [id number] date: 1990 Sex: F Assigned Patient Location: [facility] Current Patient Location: Accession/Order Number: [id number] Exam Date: 08/10/2024 22:41 Report Date: 08/10/2024 [...] Calhoun M.D. 08/10/2024 10:42 PM Dictation Location: [place] [address] Electronically authenticated by: [id number] Y Date: 08/10/2024 22:42 Dictated By: Gelacio Calhoun D.O. Signed By: 08/10/242243 DD/ 41 TD/TT: District Service Manager: Procedure Note Radiology, Radiologist, MD - 08/10/2024 [place] [address] Ultrasound Report Signed Patient: MICHELLE GOODE MMR#: [id number] : 1990Acct:[id number] Age/Sex: 34 / FADM Date: 08/10/24 Loc: FBCO Attending Dr: Paola Carmichael Ordering Physician: Paola Carmichael Date of Service: 08/10/24 Procedure(s): US OB BPP wo non-stress Accession Number(s): [id number] cc: Paola Carmichael; Physician,Non-Staff Kofi [address] [address] Patient Name: MICHELLE GOODE MRN: [id number] date: 1990 Sex: F Assigned Patient Location: [facility] Current Patient Location: Accession/Order Number: [id number] Exam Date: 08/10/2024 22:41 Report Date: 08/10/2024 [...] Calhoun M.D. 08/10/2024 10:42 PM Dictation Location: [place] [address] Electronically authenticated by: [id number] Y Date: 2:42 Dictated By: Gelacio Calhoun D.O. Signed By:08/10/242243 DD/ 41 TD/TT: District Service Manager: us Paola BARRIOS [facility] Final [...] cm - Funneling was noted by performing packaging technician but not well demonstrated on the [...] Cervical funneling was noted by the performing packaging technician but not well demonstrated on the provided images. The ordering physician was notified. Interpreted by: Electronically signed by RISA AYALA II, MD, PHD at 06-Aug-2024 10:03:36 PM [facility] Procedure Note Risa Ayala MD - [...] length. Cervical funneling was noted by theperforming packaging technician but not well demonstrated on the provided images.The ordering physician was notified. Interpreted by: Electronically signed by RISA AYALA II, MD, PHD [id number] 10:03:36 PM [facility] us Soledad José Miguel DO IMG [...] II, MD, PHD at 26-Jul-2024 08:00:42 AM [facility] Procedure Note Risa Ayala MD - [...] Date OB Reminders 03/25/2024 Insurance [employer] [facility] Care Teams Parts Processor Relationship Specialty Start Date End Date Soledad Valdez DO [facility] [place] [address] [facility] 11/09/23
--- OUTSIDE RECORDS SUMMARY | 2024-09-09 14:45 | XMS_ITS | Encounter Summary ---
Author Organization [facility] Address [address] [place] [address] Care Team Providers Care Race Relations Professor Name Role Phone Eh Valdez DO Unavailable Encounter Details Date Type Department Care Team (Late st Contact Info) Description 09/04/2024 Telephone [facility] [address] [place] [address] Eh Valdez DO [address] [place] [place], [facility]11 Social History Tobacco Use Types Packs/Day [...] documented as of this encounter Care Teams Race Relations Professor Relationship Specialty Start Date End Date Eh Valdez DO [address] [place] [address] PCP - [facility] 11/09/23 documented as of this encounter
--- OUTSIDE RECORDS SUMMARY | 2024-09-09 14:45 | XMS_ITS | Encounter Summary ---
Author Organization [facility] Address [address] [place] [address] Care Team Providers Care Right Of Way Man Name Role Phone Eh Valdez DO Unavailable Encounter Details Date Type Department Care Team (Late st Contact Info) Description 03/21/2024 Abstract [facility] [address] [place] [address] Eh Valdez DO [address] [place], [facility]11 Social History Tobacco Use Types Packs/Day [...] on filedocumented in this encounter Care Teams Right Of Way Man Relationship Specialty Start Date End Date Eh Valdez DO [address] [place] [address] PCP - [facility] 11/09/23 documented as of this encounter
--- OUTSIDE RECORDS SUMMARY | 2024-09-09 14:45 | XMS_ITS | Encounter Summary ---
Author Organization [facility] Address [address] [place] [address] Care Team Providers Care Casting Trucker Name Role Phone Eh Valdez DO Unavailable Encounter Details Date Type Department Care Team (Late st Contact Info) Description 04/24/2024 Orders Only [facility] [address] [facility] [facility] [place] [address] Ilda Beaver MA [address] [place] [address] Social History Tobacco Use Types Packs/Day Years [...] documented as of this encounter Care Teams Casting Trucker Relationship Specialty Start Date End Date Eh Valdez DO [address] [place] [phone] PCP - [facility] 11/09/23 documented as of this encounter
--- OUTSIDE RECORDS SUMMARY | 2024-09-09 14:45 | XMS_ITS | Encounter Summary ---
Author Organization [facility] Address [address] [place] [address] Care Team Providers Care Ventilation Mechanic Name Role Phone Eh Valdez DO Unavailable Encounter Details Date Type Department Care Team (Late st Contact Info) Description 09/05/2024 Telephone [facility] [address] [place] [address] Eh Valdez DO [address] [place], [facility]11 Social History Tobacco Use Types Packs/Day Years [...] documented as of this encounter Care Teams Ventilation Mechanic Relationship Specialty Start Date End Date Eh Valdez DO [address] [place], [place] [address]brian [place] [address] PCP - [facility] 11/09/23 documented as of this encounter
--- OUTSIDE RECORDS SUMMARY | 2024-09-09 14:45 | XMS_ITS | Encounter Summary ---
Author Organization [facility] Address [address] [place] [address] Care Team Providers Care Ribbon Hand Name Role Phone Eh Valdez DO Unavailable Encounter Details Date Type Department Care Team (Late st Contact Info) Description 04/17/2024 Abstract [facility] [address] [place] [address] Eh Valdez DO [address] [place], [facility]11 Social History Tobacco Use Types [...] documented as of this encounter Care Teams Ribbon Hand Relationship Specialty Start Date End Date Eh Valdez DO [address] [place], [facility]11 PCP - [facility] 11/09/23 documented as of this encounter
--- OUTSIDE RECORDS SUMMARY | 2024-09-09 14:45 | XMS_ITS | Encounter Summary ---
Author Organization [facility] Address [address] [place] [address] Care Team Providers Care Fun House Attendant Name Role Phone José MiguelEmma luevanoy DO Unavailable Encounter Details Date Type Department Care Team (Late st Contact Info) Description 09/01/2024 Clinisync Result Encounter NOMS External Department Unsolicited Soledad Valdez, [address] [address] Social History Tobacco Use Types [...] PM EDT Narrative 09/01/2024 9:01 [place] [address] Ultrasound Report Signed Patient: MICHELLE GOODE MR#: [id number] : 1990 Acct:[id number] Age/Sex: 34 / F ADM Date: 09/01/24 Loc: US Attending Dr: Soledad Valdez D.O. Ordering Physician: Soledad Valdez D.O. Date of Service: 09/01/24 Procedure(s): US OB BPP w non-stress Accession Number(s): [id number] cc: Soledad Valdez D.O.; Physician,Non-Staff Kofi The [place] [phone] Patient Name: MICHELLE GOODE MRN: [facility]:[id number] date: 1990 Sex: F Assigned Patient Location: [facility] Current Patient Location: Accession/Order Number: [id number] Exam Date: 09/01/2024 20:58 Report Date: 09/01/2024 [...] Calhoun M.D. 09/01/2024 8:59 PM Dictation Location: [place] [address] Electronically authenticated by: [id number] Y Date: 09/01/2024 20:59 Dictated By: Gelacio Calhoun D.O. Signed By: 09/01/242100 DD/ 58 TD/TT: Personal Consultant: Procedure Note Radiology, Radiologist, - 09/01/[address] [address] Ultrasound Report Signed Patient: MICHELLE GOODE MMR#: [id number] : 1990Acct:[id number] Age/Sex: 34 / FADM Date: 09/01/24 Loc: US Attending Dr: Soledad Valdez D.O. Ordering Physician: Soledad Valdez D.O. Date of Service: 09/01/24 Procedure(s): US OB BPP w non-stress Accession Number(s): [id number] cc: Soledad Valdez D.O.; Physician,Non-Staff Kofi The [place] [id number] Patient Name: MICHELLE GOODE MRN: [id number] date: 1990 Sex: F Assigned Patient Location: [facility] Current Patient Location: Accession/Order Number: [id number] Exam Date: 09/01/2024 20:58 Report Date: 09/01/2024 [...] Calhoun M.D. 09/01/2024 8:59 PM Dictation Location: [place] [address] Electronically authenticated by: [id number] Y Date: 0:59 Dictated By: Gelacio Calhoun D.O. Signed By:09/01/242100 DD/ 58 TD/TT: Personal Consultant: us Soledad Valdez DO [facility] Final Result documented in this encounter Visit Diagnoses Not on filedocumented in this encounter Additional Health Concerns Active Problems Noted Date Diagnosed Date OB Reminders 03/25/2024 documented as of this encounter Care Teams Fun House Attendant Relationship Specialty Start Date End Date Soledad Valdez DO [address] [place] [address] PCP - [facility] 11/09/23 documented as of this encounter
--- OUTSIDE RECORDS SUMMARY | 2024-09-09 14:45 | XMS_ITS | Encounter Summary ---
Author Organization [facility] Address [address] [place] [address] Care Team Providers Care Iso Coordinator Name Role Phone José MiguelEmma luevanoy DO Unavailable Encounter Details Date Type Department Care Team (Late st Contact Info) Description 02/24/2024 Clinisync Result Encounter NOMS External Department Unsolicited Soledad Valdez, [address] [place] [address] Social History Tobacco Use Types [...] EST Narrative 02/24/2024 2:57 PM EST The [address] [address] Ultrasound Report Signed Patient: MICHELLE GOODE MR#: [id number] : 1990 Acct:[id number] Age/Sex: 33 / F ADM Date: 02/24/24 Loc: US Attending Dr: Soledad Valdez D.O. Ordering Physician: Soledad Valdez D.O. Date of Service: 02/24/24 Procedure(s): US OB transvaginal Accession Number(s): [id number] cc: Soledad Valdez D.O.; Physician,Non-Staff Kofi The [place] [address] Patient Name: MICHELLE GOODE MRN: [id number] date: 1990 Sex: F Assigned Patient Location: US Current Patient Location: US Accession/Order Number: [id number] Exam Date: 02/24/2024 14:17 Report Date: 02/24/2024 14:55 At the request of: SOLEDAD VALEDZ Procedure: US OB transvaginal EXAMINATION: US OB [...] Signed By: 02/24/24 1457 DD/ 54 TD/TT: Reaming Machine Tender: Procedure Note Radiology, Radiologist, - 02/24/2024 The [place] [id number] Ultrasound Report Signed Patient: MICHELLE GOODE MMR#: [id number] : 1990Acct:[id number] Age/Sex: 33 / FADM Date: 02/24/24 Loc: US Attending Dr: Soledad Valdez D.O. Ordering Physician: Soledad Valdez D.O. Date of Service: 02/24/24 Procedure(s): US OB transvaginal Accession Number(s): [id number] cc: Soledad Valdez D.O.; Physician,Non-Staff Kofi [place] [address] Patient Name: MICHELLE GOODE MRN: [id number]:[id number] date: 1990 Sex: F Assigned Patient Location: US Current Patient Location: US Accession/Order Number: [id number] Exam Date: 02/24/2024 14:17 Report Date: 02/24/2024 [...] M.D. Signed By:02/24/24 1457 DD/ 1455 TD/TT: Reaming Machine Tender: us Soledad Valdez DO [facility] Final Result documented in this encounter Visit Diagnoses Not on filedocumented in this encounter Care Teams Iso Coordinator Relationship Specialty Start Date End Date Soledad Valdez DO [address] [place] [address] PCP - [facility] 11/09/23 documented as of this encounter
--- OUTSIDE RECORDS SUMMARY | 2024-09-09 14:45 | XMS_ITS | Encounter Summary ---
Author Organization [facility] Address [address] [place] [address] Care Team Providers Care Operations Forester Name Role Phone Eh Valdez DO Unavailable Encounter Details Date Type Department Care Team (Late st Contact Info) Description 05/04/2024 Abstract [facility] [address] [place] [address] Eh Valdez DO [address], [facility]11 Social History Tobacco Use Types Packs/Day [...] documented as of this encounter Care Teams Operations Forester Relationship Specialty Start Date End Date Eh Valdez DO [address], [facility]11 PCP - [facility] 11/09/23 documented as of this encounter
--- OUTSIDE RECORDS SUMMARY | 2024-09-09 14:45 | XMS_ITS | Encounter Summary ---
Author Organization [facility] Address [address] [place] [address] Care Team Providers Care Seat Scooper Machine Name Role Phone Eh Valdez DO Unavailable Encounter Details Date Type Department Care Team (Late st Contact Info) Description 07/11/2024 Orders Only [facility] [address] [place] [address] Lucille Hahn Social History Tobacco Use [...] documented as of this encounter Care Teams Seat Scooper Machine Relationship Specialty Start Date End Date Eh Valdez DO [address], [place] [id number] PCP - [facility] 11/09/23 documented as of this encounter
--- OUTSIDE RECORDS SUMMARY | 2024-09-09 14:45 | XMS_ITS | Clinical Summary ---
Author Organization [employer] [facility] Address [id number] [address] [place] [address] Care Team Providers Care Scale Reclamation Tender Name Role Phone Unavailable Primary Care Provider [...] on file Insurance [employer] [facility]
--- OUTSIDE RECORDS SUMMARY | 2024-09-09 14:45 | XMS_ITS | Encounter Summary ---
Author Organization [facility] Address [facility]-[id number] [address] [place] [address] Care Team Providers Care Visual Basic Programmer Name Role Phone Unavailable Primary Care Provider Unavailabl e Encounter Details Date Type Department Care Team (Late st Contact Info) Description 08/14/2021 Telephone Maternal- Medicine at [facility] [address] [facility] [place] [phone] Elva Maier Social History Tobacco Use Types [...]
--- OUTSIDE RECORDS SUMMARY | 2024-09-09 14:45 | XMS_ITS | Encounter Summary ---
Author Organization [facility] Address [address] [place] [address] Care Team Providers Care Commercial Sales Consultant Name Role Phone Eh Valdez DO Unavailable Encounter Details Date Type Department Care Team (Late st Contact Info) Description 08/29/2024 Bamboo flowsheet [facility] [address] [place] [phone] Eh Valdez DO [address], [facility]11 Social History Tobacco Use Types Packs/Day [...] documented as of this encounter Care Teams Commercial Sales Consultant Relationship Specialty Start Date End Date Eh Valdez DO [address] [place] [address] PCP - [facility] 11/09/23 documented as of this encounter
--- OUTSIDE RECORDS SUMMARY | 2024-09-09 14:45 | XMS_ITS | Encounter Summary ---
Author Organization [facility] [employer] [facility] tem Address [id number] [address] [place] [address] Care Team Providers Care Special Needs Tutor Name Role Phone Unavailable Primary Care Provider Unavailabl e Encounter Details Date Type Department Care Team (Late st Contact Info) Description 09/08/2021 Telephone Maternal- Medicine at [facility] [address] [facility] [place] [phone] Elva Maier Social History Tobacco Use Types [...]
--- OUTSIDE RECORDS SUMMARY | 2024-09-09 14:45 | XMS_ITS | Encounter Summary ---
Author Organization [facility] Address [address] [place] [address] Care Team Providers Care Digital Communications Manager Name Role Phone Eh Valdez DO Unavailable Encounter Details Date Type Department Care Team (Late st Contact Info) Description 09/05/2024 Abstract [facility] [address] [place] [address] Eh Valdez [...] documented as of this encounter Care Teams Digital Communications Manager Relationship Specialty Start Date End Date Eh Valdez DO [address], [facility]11 PCP - [facility] 11/09/23 documented as of this encounter
--- OUTSIDE RECORDS SUMMARY | 2024-09-09 14:45 | XMS_ITS | Encounter Summary ---
Author Organization [facility] Address [address] [place] [address] Care Team Providers Care Chemical Plant Manager Name Role Phone Eh Valdez DO Unavailable Encounter Details Date Type Department Care Team (Late st Contact Info) Description 08/29/2024 Abstract [facility] [address] [place] [address] Eh Valdez DO [address], [facility]11 Social History Tobacco Use Types Packs/Day [...] documented as of this encounter Care Teams Chemical Plant Manager Relationship Specialty Start Date End Date Eh Valdez DO [address], [facility]11 PCP - [facility] 11/09/23 documented as of this encounter
--- OUTSIDE RECORDS SUMMARY | 2024-09-09 14:45 | XMS_ITS | Encounter Summary ---
Author Organization [facility] Address [address] [place] [address] Care Team Providers Care Mill Washer Name Role Phone Eh Valdez DO Unavailable Encounter Details Date Type Department Care Team (Late st Contact Info) Description 07/27/2024 Results Follow-Up [facility] [address] [facility] [address] [address] Zeinab Ramirez LPN [address] [facility] [place] [id number] Social History Tobacco Use Types Packs/Day Years [...] documented as of this encounter Care Teams Mill Washer Relationship Specialty Start Date End Date Eh Valdez DO [address] [place], [place] [address] [address] PCP - [facility] 11/09/23 documented as of this encounter
== END 2024-09-09 15:45 | disposition home or self-care (01) ==
LOC: FBCO 14:43 → FBC 14:44
PROVIDERS: Visit Provider Obstetrics & Gynecology
DX: O26.843 Uterine size-date discrepancy, third trimester (principal); Z3A.38 38 weeks gestation of pregnancy
CPT/HCPCS: 76818

== ENCOUNTER 2024-09-13 07:27 | Inpatient (IN) | payer BC, OTHER, SELFPAY ==
[2024-09-13] VITALS (59 sets, daily range): BP systolic 86–142; BP diastolic 51–77; PULSE 56–89; TEMP 36.1–36.4
--- NOTE | 2024-09-13 07:59 | PC.NURSE ---
0745: Patient arrives for induction of labor with significant other and mother. States is nervous and has many questions. Plan of care discussed and questions answered.
[2024-09-13] MEDS: 0.9 % SODIUM CHLORIDE 1,000 ML 125 ML IV ×2 (09:05→19:15)
[2024-09-13] MEDS: OXYTOCIN/0.9 % SODIUM CHLORIDE 10 UNITS/500 ML PLAST..BAG 6 UNIT IV (09:06)
[2024-09-13 09:20] LABS: Hematocrit 34.6 % (36.0-48.0); Hemoglobin 12.3 g/dL (12.0-16.0); Mean Corpuscular HGB Conc 35.5 g/dL (29.9-35.2); Mean Corpuscular Hemoglobin 30.0 pg (26.7-34.0); Mean Corpuscular Volume 84.4 fL (81.0-99.0); Platelet Count 316 10^3/uL (150-450); Red Blood Count 4.10 10^6/uL (4.20-5.40); White Blood Count 12.3 10^3/uL (4.0-11.0)
[2024-09-13 09:49] LABS: Cannabinoid Screen Urine NEGATIVE (NEGATIVE); Methamphetamines Screen Urine NEGATIVE (NEGATIVE); Tricyclic Antidepressant Urine NEGATIVE (NEGATIVE)
[2024-09-13] MEDS: 0.9 % SODIUM CHLORIDE 1,000 ML 1000 ML IV (15:10)
[2024-09-13] MEDS: ROPIVACAINE HCL/PF 400 MG/200 ML PREMIX 10 MG EPIDURAL (15:20)
[2024-09-13] MEDS: BUPRENORPHINE HCL/NALOXONE HCL 8-2 MG TABLET SUBL 1 TAB PO (19:50)
[2024-09-13] MEDS: OXYTOCIN/0.9 % SODIUM CHLORIDE 20 UNITS/1,000 ML PLAST..BAG 125 UNIT IV (20:52)
--- NOTE | 2024-09-13 20:55 | PM.OBPRCVD ---
Procedure Intrapartal events: None Induction method: per pitocin protocol Delivery augmentation: rupture of membranes and pitocin Delivery monitor: external FHT and external uterine Route of delivery: Episiotomy Description: none L&D Laceration Description: none Estimated blood loss (mL): 200 Anesthesia type: Epidural Disposition: floor Delivery date: 09/13/24 Gender: female presentation: vertex Placental delivery description: Spontaneous cord description: 3 Vessels
[2024-09-13] MEDS: IBUPROFEN 600 MG TABLET PO (23:51)
[2024-09-14 06:39] LABS: Hematocrit 31.2 % (36.0-48.0); Hemoglobin 10.7 g/dL (12.0-16.0); Immature Granulocytes Abs Auto 0.07 10^3/uL (0.00-0.03); Immature Granulocytes Pct Auto 0.5 % (0.0-0.5); Lymphocytes Absolute Auto 2.1 10^3/uL (1.2-3.8); Mean Corpuscular HGB Conc 34.3 g/dL (29.9-35.2); Mean Corpuscular Hemoglobin 29.9 pg (26.7-34.0); Mean Corpuscular Volume 87.2 fL (81.0-99.0); Platelet Count 270 10^3/uL (150-450); Red Blood Count 3.58 10^6/uL (4.20-5.40); White Blood Count 14.8 10^3/uL (4.0-11.0)
[2024-09-14 07:58] VITALS: BP 111/64; PULSE 86
[2024-09-14 08:00] VITALS: TEMP 36.8
[2024-09-14] MEDS: DOCUSATE SODIUM 100 MG CAPSULE PO (08:12)
[2024-09-14] MEDS: IBUPROFEN 600 MG TABLET PO (08:12)
[2024-09-14] MEDS: BUPRENORPHINE HCL/NALOXONE HCL 8-2 MG TABLET SUBL 1 TAB PO (08:12)
--- NOTE | 2024-09-14 08:38 | P.OBPN_ITS ---
OB - PN: Subj Subjective Patient comments: no complaints Hustle status: doing well Hustle feeding status: exclusively Exam Constitutional Vital Signs, click to edit/add: Last Vital Signs Temp 97.5 F L 09/13/24 15:45 Pulse 86 09/14/24 07:58 Resp 16 09/13/24 09:16 BP 111/64 09/14/24 07:58 O2 Del Method Room Air 09/13/24 22:30 Documenting provider has reviewed patient's vital signs: yes Common normals: no apparent distress, average body habitus, oriented x3, no love itations, healthy appearing, alert and well nourished General appearance: cooperative and comfortable Orientation/consciousness: Yes awake, Yes oriented to person, Yes oriented to place and Yes oriented to time HENMT Common normals: normocephalic Eye Common normals: EOMs intact bilaterally General eye: normal appearance of both eyes Neck & C-Spine Common normals: full ROM and no lymphadenopathy Lymph Lymphatic: no lymphadenopathy noted Chest Common normals: inspection of chest normal Respiratory Common normals: normal respiratory effort, no retractions, no use of accessory muscles and clear to auscultation bilaterally Effort & inspection: able to speak in complete sentences Auscultation: clear to auscultation bilaterally Cardio Common normals: regular rate and regular rhythm Rate: regular rate Rhythm: regular rhythm GI Common normals: Normal to inspection, nondistended, normoactive bowel sounds present Inspection: normal to inspection Auscultation: normoactive bowel sounds Palpation: soft Common normals: no CVA tenderness Back & Pelvis Common normals: no CVA tenderness Extremity Common normals: normal to inspection and full ROM General: normal exam except as noted Neuro Common normals: oriented x3 Sensorium/orientation: awake, alert, oriented to person, oriented to place and oriented to time Psych Common normals: mental status grossly normal, thought process normal, cooperative, affect normal, speech normal, activity/motor behavior normal, denies hallucinations, denies homicidal ideation and denies suicidal ideation Appearance: grossly normal Attitude: calm Results Labs Labs: Short CBC 09/13/24 09/14/24 Range/Units 08:15 06:30 WBC 12.3 H 14.8 H (4.0-11.0) 10^3/uL Hgb 12.3 10.7 L (12.0-16.0) g/dL Hct 34.6 L 31.2 L (36.0-48.0) % Plt Count 316 270 (150-450) 10^3/uL OB - PN: A/P Plan - Vaginal Delivery day: 1 Plan: routine care Time Spent with Patient Time: Total time spent is greater than 50% in coordination of care (as documented) at patient's floor/unit and/or counseling patient: Total time spent with greater than 50% in coordination of care (as documented) at patient's floor/unit and/or counseling patient: less than 15 minutes
--- NOTE | 2024-09-14 08:43 | P.OBPN_ITS ---
OB - PN: Subj Subjective Patient comments: no complaints Switchback status: doing well feeding status: exclusively Exam Constitutional Vital Signs, click to edit/add: Last Vital Signs Temp 97.5 F L 09/13/24 15:45 Pulse 86 09/14/24 07:58 Resp 16 09/13/24 09:16 BP 111/64 09/14/24 07:58 O2 Del Method Room Air 09/13/24 22:30 Documenting provider has reviewed patient's vital signs: yes Common normals: no apparent distress General appearance: cooperative and comfortable Orientation/consciousness: Yes awake, Yes oriented to person, Yes oriented to place and Yes oriented to time HENMT Common normals: normocephalic Eye General eye: normal appearance of both eyes Visual acuity: acuity normal Neck & C-Spine Common normals: full ROM and no lymphadenopathy Lymph Lymphatic: no lymphadenopathy noted Chest Common normals: inspection of chest normal Respiratory Common normals: normal respiratory effort, no retractions, no use of accessory muscles and clear to auscultation bilaterally Effort & inspection: able to speak in complete sentences Auscultation: clear to auscultation bilaterally Cardio Common normals: regular rate and regular rhythm Rate: regular rate Rhythm: regular rhythm GI Common normals: Normal to inspection, nondistended, normoactive bowel sounds present Inspection: normal to inspection Auscultation: normoactive bowel sounds Palpation: soft Common normals: no CVA tenderness Back & Pelvis Common normals: no CVA tenderness Extremity Common normals: normal to inspection Neuro Common normals: oriented x3 Sensorium/orientation: awake, alert, oriented to person, oriented to place and oriented to time Psych Common normals: mental status grossly normal, thought process normal and cooperative Attitude: calm Activity/motor behavior: appropriate eye contact Thought process: normal thought process Thought content: normal thought content Results Labs Labs: Short CBC 09/13/24 09/14/24 Range/Units 08:15 06:30 WBC 12.3 H 14.8 H (4.0-11.0) 10^3/uL Hgb 12.3 10.7 L (12.0-16.0) g/dL Hct 34.6 L 31.2 L (36.0-48.0) % Plt Count 316 270 (150-450) 10^3/uL OB - PN: A/P Plan - Vaginal Delivery day: 1 Plan: discharge home Time Spent with Patient Time: Total time spent is greater than 50% in coordination of care (as documented) at patient's floor/unit and/or counseling patient: Total time spent with greater than 50% in coordination of care (as documented) at patient's floor/unit and/or counseling patient: less than 15 minutes
--- NOTE | 2024-09-14 10:22 | SWNOTE1 ---
SW spoke with nurse prior to going in. SW consulted due positive drug screen for Buprenorphine. Nurse did look in OARS and last prescription was 2023. SW spoke with pt and father of baby in room. She voiced she is tired, but doing well. They do have everything the need at home for baby. They have a crib, but are undecided about bassinet, voiced they hold there kids often. SW offered any resources to assist with getting bassinet/swing, but voiced they are fine. Pt is attempting breast feeding at this time. They voiced they have good support. Pt stated her mother is number one support and she lives 2 minutes from them. They do have 2 other children who are 2 and 4 years old. There son is 2 and daughter is 4. SW did ask about the Suboxone. She voiced she gets is from [facility] and has been going there for years. She stated she sees them monthly. She stated it is 16 mg daily. She was weaning herself down, then found out and went back up to 16. Her goal is to wean off of it at some point. She stated she has been on it for 13 years. SW did suggest trying to wean off of it with support from [facility]. Pt and in agreement. DONTA advised that SW is mandated applications support engineer and has to call in report to [facility] CPS. They voiced they went through this with other children and it was open and close case after one visit. SW asked if baby was being transferred, pt and confirmed she was and it was to [facility]. Pt had concerns and wanted to speak with nurse/doctor about pt being transferred to [facility] vs [facility]. SW to get nurse. No further questions at this time. DONTA advised nurse and Leeann of concerns of transfer to [facility]. Leeann to speak with pt and . DONTA updated nurse. DONTA called [facility] and they were able to confirm pt is current with them and is prescribed 16 mg of Suboxone. She voiced it does not show in OARS report due to the way it is dispensed. DONTA updated nurse. DONTA called report in to [facility] CPS. HIPAA form filled out and sent to [facility].
[2024-09-14] MEDS: GLYCERIN/WITCH HAZEL PADS 1 PAD TOPICAL (12:41)
[2024-09-14] MEDS: BENZOCAINE/MENTHOL 85 GRAM SPRAY BOTTLE 1 APPLIC TOPICAL (12:42)
[2024-09-21 14:11] LABS: Buprenorphine Conf, MS, UR 248 ng/mL (Cutoff=10); Norbuprenorphine Conf, MS,UR >2000 ng/mL (Cutoff=10)
== END 2024-09-14 14:00 | disposition home or self-care (01) | DRG 807 ==
PROVIDERS: Admitting Provider Obstetrics & Gynecology; Visit Provider Obstetrics & Gynecology
DX: O26.873 Cervical shortening, third trimester (principal); Z37.0 Single live birth; O36.5930 Maternal care for other known or suspected poor fetal growth, third trimester, not applicable or unspecified; Z3A.39 39 weeks gestation of pregnancy; Z23 Encounter for immunization
CPT/HCPCS: 36415; 51702; 59050; 59410; 80299; 80307; 85025; 85027; 86850; 86900; 86901; J0574; J2795

== ENCOUNTER 2024-10-03 13:55 | Emergency (ER) | payer BC, OTHER, SELFPAY ==
[2024-10-03 14:00] VITALS: BP 104/67; PULSE 97; O2SAT 100; BMI 22.3
[2024-10-03 14:34] LABS: Hematocrit 33.2 % (36.0-48.0); Hemoglobin 10.9 g/dL (12.0-16.0); Mean Corpuscular HGB Conc 32.8 g/dL (29.9-35.2); Mean Corpuscular Hemoglobin 28.2 pg (26.7-34.0); Mean Corpuscular Volume 86.0 fL (81.0-99.0); Platelet Count 485 10^3/uL (150-450); Red Blood Count 3.86 10^6/uL (4.20-5.40); White Blood Count 7.7 10^3/uL (4.0-11.0)
[2024-10-03 14:58] LABS: Anion Gap 13.2; Blood Urea Nitrogen 8.0 mg/dL (7.0-18.0); Calcium 9.0 mg/dL (8.5-10.1); Carbon Dioxide 25.8 mmol/L (21.0-32.0); Chloride 104 mmol/L (98-107); Estimated GFR (African America >60 (>=60 mL/min/1.73m^2); Estimated GFR (Non-African Ame >60 (>=60 mL/min/1.73m^2); Glucose 102 mg/dL (74-106); NT Pro B Type Natriuretic Pept 15.0 pg/mL (<=450.0); Potassium 4.0 mmol/L (3.5-5.1); Sodium 139 mmol/L (136-145)
[2024-10-03 15:54] VITALS: BP 122/72; PULSE 88; O2SAT 99
--- NOTE | 2024-10-03 17:47 | ED_ITS ---
HPI HPI - General Adult General Chief complaint: Extremity Problem, Nontraumatic Stated complaint: LOWER EXTREMITY SWOLLEN LEGS Time Seen by Provider: 10/03/24 14:07 Source: patient Mode of arrival: walk-in Limitations: no limitations History of Present Illness HPI narrative: Patient is a 34-year-old female presenting to the emergency department for recurrence of bilateral lower extremity swelling. Patient states that she is 3 weeks from an uncomplicated . She states that since her delivery, she has had progressively worsening swelling of the lower extremities. She states that over the last few days, the swelling has gotten worse and her legs are now red and painful. She denies any other symptoms. She denies chest pain or shortness of breath. No history of cardiomyopathy. She denies fevers or chills. No nausea or vomiting. No history of IV drug use. Related Data Home Medications ?Medication ?Instructions ?Recorded ?Confirmed buprenorphine 8 mg-naloxone 2 mg 4 tab sublingual BID 04/03/24 09/09/24 sublingual tablet Previous Rx's ?Medication ?Instructions ?Recorded ibuprofen 800 mg tablet 800 mg PO Q8H PRN Moderate P ain 09/14/24 #60 tabs ibuprofen 800 mg tablet 800 mg PO Q8H PRN Moderate P ain 09/14/24 #60 tabs ibuprofen 800 mg tablet 800 mg PO Q8H PRN pain 14 da ys #40 09/14/24 tabs cephalexin 500 mg capsule 500 mg PO Q6H 7 days #28 cap s 10/03/24 Allergies Allergy/AdvReac Type Severity Reaction Status Date / Time Penicillins AdvReac Mild Hives Verified 10/03/24 14:00 Opioid HPI Opioid Management Most Recent Opioid Data: Last Pain Scale 5 Today, 14:00 Ur Phencyclidine Scrn, (NEGATIVE) Negative , 08:00 Ur Amphetamines Screen, (.) Positive A 03/15/24, 11 :39 Review of Systems ROS Status of ROS 10 or more systems reviewed and unremark able except as noted in history and below PFSH PFSH Social History Little interest or pleasure in doing things: not at all Feeling down, depressed, or hopeless: not at all Exam Narrative Exam Narrative: CONSTITUTIONAL: Well-appearing, answering questions and following commands appropriately SKIN: Was warm and dry. EYES: Sclerae white. EARS, NOSE, THROAT: Moist oral mucosa. RESPIRATORY: Clear to auscultation bilaterally, no wheezes, crackles, or stridor, no use of accessory muscles CARDIOVASCULAR: Normal rate and regular rhythm. There is no S3, S4, murmur, rub. 2+ DP pulses bilaterally GASTROINTESTINAL: Abdomen is nondistended. MUSCULOSKELETAL: There is symmetric, pitting edema in the bilateral lower extremity from the mid calf distally. There is overlying erythema, tenderness. No induration, fluctuance, drainage, or crepitus. NEUROLOGIC: Patient is awake and alert. Equal strength and sensation to light touch in the bilateral lower extremities Constitutional Vital Signs, click to edit/add: Last Vital Signs Pulse 88 10/03/24 15:54 Resp 18 10/03/24 15:54 BP 122/72 10/03/24 15:54 Pulse Ox 99 10/03/24 15:54 O2 Del Method Room Air 10/03/24 15:54 Course Vital Signs Vital signs: Vital Signs Pulse Rate 97 H 10/03/24 14:00 Respiratory Rate 20 10/03/24 14:00 Blood Pressure 104/67 10/03/24 14:00 Pulse Oximetry 100 10/03/24 14:00 Oxygen Delivery Method Room Air 10/03/24 14:00 Pulse Rate 88 10/03/24 15:54 Respiratory Rate 18 10/03/24 15:54 Blood Pressure 122/72 10/03/24 15:54 Pulse Oximetry 99 10/03/24 15:54 Oxygen Delivery Method Room Air 10/03/24 15:54 Medical Decision Making [facility] Narrative Medical decision making narrative: Patient is a 34-year-old female presenting to the emergency department with a 3- week history of bilateral lower extremity swelling, and 3 days of worsening erythema and tenderness. She is 3 weeks from uncomplicated delivery. Vital signs arrival are within normal limits. She is afebrile and hemodynamically stable. Examination as noted above. Clinically, I do believe the patient's presentation is secondary to fluid shifts /capillary leak as she is recently . She has no fevers, systemic symptoms, vital signs abnormalities, induration, or evidence of cellulitis/erysipelas. I did consider DVT, therefore duplex ultrasound ordered to rule this out. I considered cardiomyopathy, though she has no shortness of breath or chest pain. However, an IV was established and laboratory studies were obtained. Laboratory studies were unremarkable. No significant electrolyte or metabolic derangement. No evidence of acute kidney injury. No anemia, leukocytosis, or thrombocytopenia. BNP non-elevated, making cardiomyopathy less likely. Duplex ultrasounds of the bilateral lower extremities independently reviewed/interpreted by myself and reviewed by radiology demonstrated no evidence of acute DVT. I do believe the patient stable for discharge. The patient has no leukocytosis and does not appear she has cellulitis. However, given the significant erythema, I did elect to cover her for cellulitis with Keflex 500 mg every 8 hours x 7 days, which was sent to her pharmacy. Return precautions are given including any new or concerning symptoms. She was instructed follow-up with her BULL [employer]IDDLE [employer]ER in the next 3 to 5 days. Patient understands and agrees to the plan. FINAL IMPRESSION: #Acute bilateral lower extremity edema, possible cellulitis DISPOSITION Discharged home CONDITION: Good Medical Records Medical records reviewed: Yes I reviewed the patient's medical records Lab Data Lab results reviewed: Yes I reviewed the patient's lab results Labs: Lab Results 10/03/24 Range/Units 14:29 WBC 7.7 (4.0-11.0) 10^3/uL RBC 3.86 L (4.20-5.40) 10^6/uL Hgb 10.9 L (12.0-16.0) g/dL Hct 33.2 L (36.0-48.0) % MCV 86.0 (81.0-99.0) fL MCH 28.2 (26.7-34.0) pg MCHC 32.8 (29.9-35.2) g/dL RDW 13.0 (11.0-15.0) % Plt Count 485 H (150-450) 10^3/uL MPV 8.4 L (9.5-13.5) fL Sodium 139 (136-145) mmol/L Potassium 4.0 (3.5-5.1) mmol/L Chloride 104 (98-107) mmol/L Carbon Dioxide 25.8 (21.0-32.0) mmol/L Anion Gap 13.2 BUN 8.0 (7.0-18.0) mg/dL Creatinine 0.56 (0.55-1.02) mg/dL Est GFR ( Amer) >60 (>=60 mL/min/1.73m^2) Est GFR (Non-Af Amer) >60 (>=60 mL/min/1.73m^2) BUN/Creatinine Ratio 14.3 Glucose 102 (74-106) mg/dL Calcium 9.0 (8.5-10.1) mg/dL NT-Pro-B Natriuret Pep 15.0 (<=450.0) pg/mL Imaging Data Duplex b/l LE: Attestation: I personally reviewed and interpreted this imaging study as follows: Discharge Plan Discharge Chief Complaint: Extremity Problem, Nontraumatic Clinical Impression: Edema, peripheral Patient Disposition: Home, Self-Care Time of Disposition Decision: 15:44 Condition: Good Mode of Transportation: Private Vehicle Prescriptions / Home Meds: New cephalexin 500 mg capsule 500 mg PO Q6H 7 Days Qty: 28 0RF No Action buprenorphine-naloxone 8-2 mg tablet, sublingual 4 tab SUBLINGUAL BID ibuprofen 800 mg tablet 800 mg PO Q8H PRN (Reason: Moderate Pain) Qty: 60 0RF ibuprofen 800 mg tablet 800 mg PO Q8H PRN (Reason: Moderate Pain) Qty: 60 0RF ibuprofen 800 mg tablet 800 mg PO Q8H PRN (Reason: pain) 14 Days Qty: 40 0RF Print Language: Turkish Instructions: Leg Edema (ED) Referrals: Physician,Non-Staff, MD [Primary Care Provider] - 1 week Discharge Date/Time: 10/03/24 15:56
== END 2024-10-03 15:56 | disposition home or self-care (01) ==
PROVIDERS: Emergency Provider Student in an Organized Health Care Education/Training Program
DX: O90.89 Other complications of the puerperium, not elsewhere classified (principal); R60.0 Localized edema
CPT/HCPCS: 36415; 80048; 83880; 85027; 93970; 99284